=== PATIENT | female | born 1965 | race Caucasian/White ===

== ENCOUNTER 2023-06-20 13:17 | Outpatient (AMB) | payer OTHER, SELFPAY ==
--- NOTE | 2023-06-20 13:20 | MHC.OFFVIS ---
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 Accompanied by: Self / Same As Patient Allergies amoxicillin Allergy (Unknown, Verified 06/20/23 13:32) Swelling cephalexin Allergy (Unknown, Verified 06/20/23 13:32) Anaphylaxis gabapentin Allergy (Unknown, Verified 06/20/23 13:32) Agitated morphine Allergy (Unknown, Verified 06/20/23 13:32) Hives HPI chronic pain HPI Details Patient is a 58 years old female with prior history of morbid obesity, lumbar degenerative disc disease, arthritis, venous insufficiency, polyarthralgia and fibromyalgia, presents today with widespread body pain, including right hip and knee pain, back, leg, and multiple joint pain. Patient reports she has been previously managed at [facility] years ago and more recently in Pain Clinic in [place]. She is currently on [facility] contract for oxycontin 20 mg TID and oxycodone 10 mg 5x day. Patient reports she inadequate analgesia on her current opioid regime. I have informed patient that our office does not offer opioid prescribing at this time. She also reports recent shingles 3 weeks in her back radiating into her right lateral hip and was treated with Acyclovir. Patient also states she seeing Installation Engineer and might be undergoing cardiac stenting in the near future as she has failed her Nuclear Stress testing. Today we focused on patient's low back and right knee pain. Back pain is axial and does not radiate into her lower extremities. She has multiple tender fibromyalgia points of upper and lower extremities. Right knee pain in the anterior aspects with lateral tenderness. Patient reports right hip and knee pain increases during driving when she is pedaling back and forth. She has completed physical therapy and chiropractic adjustments previously which has aggravated and worsened her symptoms. Pain affects her daily activities, functioning, sleep, social activities, mood and quality of life. Patient reports back xrays and MRI was previously competed at [facility]. These reports are not available for review today. Patient denies any bladder or bowel incontinence or saddle anesthesia. Asymptomatic elevated BP readings today as above. Denies any headache, vision changes, chest pain or tightness, shortness of breaths, neck, jaw or arm pain, nausea, or dizziness. Patient attributes elevated BP due to pain. Mildly anxious. Location Whole body pain Duration Chronic pain syndrome for many years Characteristics of symptom or complaint Burning, aching, tingling, throbbing, pulsing, heavy, spreading, pulling Aggravating or associated factors Prolonged standing or walking, driving, stress, cold weather changes Relieving factors Heat therapy, oxycodone, oxycontin, methocarbamol Treatment Therapeutic injections- little improvement. PT- made pain worse [facility] Medical History (Updated 06/23/23 @ 15:01 by MILAGROS Bliss) Chronic lower back pain Fibromyalgia Hypertension COPD (chronic obstructive pulmonary disease) Anxiety Intraductal papilloma of breast Edema, lower extremity Barretts esophagus GERD (gastroesophageal reflux disease) Tubular adenoma Aortic root dilatation Vitamin D deficiency Obstructive sleep apnea Prediabetes Osteoarthritis of right knee Surgical History History of tonsillectomy History of cholecystectomy History of lumpectomy of right breast History of lumpectomy of left breast History of bladder suspension procedure Social History Alcohol intake: current Alcohol intake frequency: a few times a month Patient Tobacco Use Status: Never used Tobacco Review of Systems Const All systems reviewed & are unremarkable except as noted in HPI and below Physical Exam Vital Signs: Last Vital Signs BP 180/92 H 06/20/23 13:42 Pulse Ox 70 L 06/20/23 13:32 Oxygen Delivery Method Room Air 06/20/23 13:32 BMI result Body Mass Index 49.1 General: Appears afebrile. Morbidly obese. Alert and oriented. Mood and affect appropriate. Mildly anxious. Follows and participates in conversation appropriately. Respiratory effort is unlabored. No cough. Able to transition from sit to stand unassisted. Ambulates with bilaterally normal heel strike and toe off. Back/Spine/Pelvis Other: Multiple widespread TTPs 16/16 bilaterally, including upper and lower extremities. No groin pain with I/E hip rotations bilaterally. Lumbar flexion and extension reproduces moderate pain. Cervical Spine: cervical ROM normal, cervical muscular tenderness and No Cervical spine tenderness Thoracic/Lumbar Spine: thoracic and lumbar spine normal to inspection, No Thoracic/lumbar spine scar(s), Lasegue's sign negative, straight leg raise negative bilaterally, pain with thoraco-lumbar ROM, paraspinal muscle tenderness, thoraco-lumbar ROM limited, No thoracic spinal tenderness and lumbar spinal tenderness at L3, at L4 and at L5 Pelvis: buttock tenderness bilaterally and no sciatic notch tenderness Sacroiliac joints: bilaterally tender to palpation Extrem Right lower extremity: knee (Limited ROM due to pain.) Details: normal to inspection, tenderness Location: of the lateral joint line and crepitus; no swelling, no ecchymosis and no unusual warmth Assessment & Plan Assessment & Plan (1) Right knee pain: Code(s): M25.561 - Pain in right knee (2) Lumbar degenerative disc disease: Code(s): M51.36 - Other intervertebral disc degeneration, lumbar region (3) Lumbar spondylosis: Code(s): M47.816 - Spondylosis without myelopathy or radiculopathy, lumbar region (4) Chronic lower back pain: Code(s): M54.50 - Low back pain, unspecified; G89.29 - Other chronic pain (5) Fibromyalgia: Code(s): M79.7 - Fibromyalgia (6) Morbid obesity with BMI of 45.0-49.9, adult: Code(s): E66.01 - Morbid (severe) obesity due to excess calories; Z68.42 - Body mass index [BMI] 45.0-49.9, adult Plan 1. Lumbar spine imaging to assess degree of degenerative changes, any subluxation, listhesis or pars defects. Will also obtain imaging for right knee prior to interventional treatments. Discussed treatments for axial low back pain and right knee pain, including diagnostic injections for potential Sprint peripheral nerve stimulation trial, RFA or therapeutic injections. Informational pamphlets given. Patient is hesitant towards interventional treatments but would like to discuss it with her significant other first. 2. I have informed patient that our office does not offer opioid prescribing at this time. Briefly discussed Opioid-induced hyperalgesia and avoid increasing current opioid dosages. Encouraged weight loss,increased daily physical activity, aqua therapy, CBT therapy, sleep hygiene.Folllow up with PCP for persistent elevated BP readings, patient is aware to go to ER or call 911 if symptomatic. All questions and concerns have been answered. Follow up for xray results and sooner as needed. Orders: Orders XR lumbar spine 6V w bending 06/20/23 M47.816 - Spondylosis without myelopathy or radiculopathy, lumbar region, M51.36 - Other intervertebral disc degeneration, lumbar region XR knee RT 3V 06/20/23 M25.561 - Pain in right knee, M47.816 - Spondylosis without myelopathy or radiculopathy, lumbar region, M51.36 - Other intervertebral disc degeneration, lumbar region Coding Level of Care Code New Pt Level 4 (58412) Diagnoses Right knee pain M25.561 Lumbar degenerative disc disease M51.36 Lumbar spondylosis M47.816 Chronic lower back pain M54.50; G89.29 Fibromyalgia M79.7 Morbid obesity with BMI of 45.0-49.9, adult E66.01; Z68.42
[2023-06-20 13:32] VITALS: BP 197/110; O2SAT 70; BMI 49.1
[2023-06-20 13:33] VITALS: BP 223/107
[2023-06-20 13:42] VITALS: BP 180/92
== END 2023-06-20 14:07 | disposition home or self-care (01) ==
PROVIDERS: PCP Internal Medicine; Visit Provider Nurse Practitioner Family
DX: G89.29 Other chronic pain (principal); E66.01 Morbid (severe) obesity due to excess calories; Z68.42 Body mass index [BMI] 45.0-49.9, adult; M47.816 Spondylosis without myelopathy or radiculopathy, lumbar region; M25.561 Pain in right knee; M79.7 Fibromyalgia; M51.36 Other intervertebral disc degeneration, lumbar region
CPT/HCPCS: 99204

== ENCOUNTER 2023-06-20 13:17 | Outpatient (REF) | payer OTHER, SELFPAY ==
--- NOTE | ~2023-06-20 | XR_ITS ---
EXAMINATION: XR KNEE, RIGHT CLINICAL INFORMATION: Pain COMPARISON: None available. TECHNIQUE: Four views of the right knee. FINDINGS: No acute visible fracture or dislocation. Moderate multi joint arthritic changes. Moderate to severe narrowing of the medial femorotibial compartment. Moderate narrowing of the medial and lateral patellofemoral compartment. Periarticular osteophytes along the distal femoral condyle and tibial plateau. Nonspecific ossific focus versus loose body in the suprapatellar joint space measuring 10 mm. Periarticular osteophytes along the superior and inferior margins of the patella. Joint spaces and alignment are otherwise maintained. No large knee joint effusion. Soft tissues are unremarkable. XR/XR knee RT 3V IMPRESSION: 1. No acute visible fracture or dislocation. 2. Moderate multi joint arthritic changes. 3. Nonspecific ossific focus versus loose body in the suprapatellar joint space measuring 10 mm.
--- NOTE | ~2023-06-20 | XR_ITS ---
EXAMINATION: XR LUMBOSACRAL SPINE WITH OBLIQUES CLINICAL INFORMATION: Lower disc degeneration COMPARISON: None available. TECHNIQUE: 6 views of the lumbar spine FINDINGS: 5 nonrib-bearing lumbar-type vertebral bodies. Grade 1 retrolisthesis of L4 on L5. Grade 1 anterolisthesis of L5 on S1 without overt dynamic instability. Mild multilevel degenerative changes with disc space narrowing, osteophyte formation, and facet arthropathy. Vertebral body heights and disc spaces are otherwise maintained. Posterior elements are intact. Paraspinal soft tissues are unremarkable. Hernia mesh overlying the right mid abdomen. Bowel gas is unremarkable. XR/XR lumbar spine 6V w bending IMPRESSION: 1. No acute fracture or malalignment. 2. Mild multilevel degenerative changes.
== END 2023-06-20 13:18 | disposition home or self-care (01) ==
LOC: HO.XRAY 13:17
PROVIDERS: PCP Internal Medicine; Visit Provider Nurse Practitioner Family
DX: M51.36 Other intervertebral disc degeneration, lumbar region (principal); M47.816 Spondylosis without myelopathy or radiculopathy, lumbar region; E66.01 Morbid (severe) obesity due to excess calories; M25.561 Pain in right knee; G89.29 Other chronic pain; M79.7 Fibromyalgia; Z68.42 Body mass index [BMI] 45.0-49.9, adult
CPT/HCPCS: 72114; 73562

== ENCOUNTER 2023-07-29 14:55 | Outpatient (AMB) | payer OTHER, SELFPAY ==
[2023-07-29 15:07] VITALS: BMI 49.1
--- NOTE | 2023-07-29 15:07 | A.OFFVIS_ITS ---
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 She did undergo left total knee replacement surgery at [facility] several years ago. She reports minimal discomfort in her left knee. She describes her right knee pain as sharp and severe in nature, 07/08. Her right knee pain has gotten worse over the last few years in spite of continued non operative treatments. She has done physical therapy which aggravated her pain. She has also tried Tylenol, anti- inflammatory medicines and oxycodone which gave her only mild relief. She has had injections in the past which gave her no relief. The patient has difficulty walking even short distances because of her right knee pain. At this point her right knee pain is interfering with her activities of daily living and her ability to sleep well at night. Allergies amoxicillin Allergy (Unknown, Verified 07/29/23 15:11) Swelling cephalexin Allergy (Unknown, Verified 07/29/23 15:11) Anaphylaxis gabapentin Allergy (Unknown, Verified 07/29/23 15:11) Agitated morphine Allergy (Unknown, Verified 07/29/23 15:11) Hives nitrofurantoin [From Macrobid] Allergy (Verified 07/29/23 15:11) face swelling, difficulty breathing sulfamethoxazole [From Bactrim] Allergy (Verified 07/29/23 15:11) Swelling, rash trimethoprim [From Bactrim] Allergy (Verified 07/29/23 15:11) Swelling, rash Medication List - Last Reconciled 07/29/23 by Jasmin Arevalo RN amlodipine 5 mg PO DAILY aspirin (Adult Low Dose Aspirin) 81 mg PO DAILY carvedilol 12.5 mg PO BID cholecalciferol (vitamin D3) 50 mcg PO DAILY dexlansoprazole (Dexilant) 60 mg PO DAILY furosemide (Lasix) 20 mg PO DAILY ipratropium-albuterol 20-100 mcg/actuation (Combivent Respimat) 1 puff inhalation QID lorazepam 1 mg PO BID PRN methocarbamol 500 mg PO TID naloxone (LifEMS Naloxone) 2 mg IM Q2M PRN omeprazole 20 mg PO DAILY oxycodone 10 mg PO Q4H PRN oxycodone ER mg PO TID prochlorperazine maleate ER mg PO roflumilast (Daliresp) 500 mcg PO DAILY PFSH Medical History (Updated 07/17/23 @ 12:31 by MILAGROS Bliss) Chronic lower back pain Fibromyalgia Hypertension COPD (chronic obstructive pulmonary disease) Anxiety Intraductal papilloma of breast Edema, lower extremity Barretts esophagus GERD (gastroesophageal reflux disease) Tubular adenoma Aortic root dilatation Vitamin D deficiency Obstructive sleep apnea Prediabetes Osteoarthritis of right knee Surgical History (Updated 07/29/23 @ 15:16 by Isaura Fregoso [facility]) History of arthroscopy of right knee History of left knee replacement History of tonsillectomy History of cholecystectomy History of lumpectomy of right breast History of lumpectomy of left breast History of bladder suspension procedure Social History Alcohol intake: current Alcohol intake frequency: a few times a month Patient Tobacco Use Status: Never used Tobacco Physical Exam Vital Signs: BMI result Body Mass Index 49.1 Const Other: Well-nourished well-developed very friendly female awake alert and oriented x3 in no acute distress Extrem Other: Bilateral lower extremity examination shows good capillary refill, no skin lesions noted, normal sensation light touch Right knee examination shows a minimal effusion, palpable crepitus with range of motion, pain with range of motion, range of motion from -3 degrees to 115 degrees, no instability Results Reviewed Results Reviewed: X-rays of the patient's right knee show severe joint space narrowing with grade 4 [id number] arthritis, subchondral sclerosis, osteophyte formation, no acute bony abnormalities Assessment & Plan Assessment & Plan (1) Osteoarthritis of right knee: Code(s): M17.11 - Unilateral primary osteoarthritis, right knee Plan Ms. Pemberton presents with progressively worsening right knee pain due to end-stage degenerative joint disease. I had a lengthy discussion with the patient regarding the treatment options. At this point she has failed continued non operative treatments. The risks and benefits of right total knee replacement surgery were discussed at length with the patient. The patient wi shes to proceed with surgery. The patient will contact my office to pick a surgery date. I will see her back 1 week prior to her surgery to answer any final questions that she might have. The patient will follow-up as instructed. Feel free to call me at any time should questions regarding her orthopedic management arise. Thank you very much for asking me to see this very friendly patient. I spent 22 minutes in reviewing the patient's records and imaging studies, seeing the patient and documenting in the medical record. Coding Level of Care Code New Pt Level 2 (84047) Diagnoses Osteoarthritis of right knee M17.11
== END 2023-07-29 15:34 | disposition home or self-care (01) ==
PROVIDERS: PCP Internal Medicine; Visit Provider Orthopaedic Surgery
DX: M17.11 Unilateral primary osteoarthritis, right knee (principal)
CPT/HCPCS: 99202

== ENCOUNTER → 2023-07-29 14:55 | Outpatient (BNVA) | payer OTHER, SELFPAY | PROVIDERS: PCP Internal Medicine; Visit Provider Orthopaedic Surgery | DX: M17.11 Unilateral primary osteoarthritis, right knee (principal) | CPT/HCPCS: 99202 ==

== ENCOUNTER 2023-09-04 13:20 | Outpatient (AMB) | payer OTHER, SELFPAY ==
--- NOTE | 2023-09-04 13:29 | MHC.OFFVIS ---
Intake Vital Signs 09/04/23 13:57 Height 5 ft 4 in Weight 286 lb BMI 49.1 Intake Visit Reasons: ov- Right knee pain, Low back pain Intake Note: Nalini a 58 year old female presents today for a follow up of right knee. Patient reports TKA needed to be pushed back due cardiac stent procedure. Due to her pain she would like to proceed with a cortisone injection in the meantime. She describes her right knee pain as sharp in nature. Her pain has gotten worse over the last few years in spite of continued non operative treatments. The patient also has progressively worsening low back pain which radiates into both of her legs. Patient states that her back pain has been getting progressively worse for 10 years in spite of continued non operative treatments. She has done physical therapy for 12 weeks over the last 6 months which aggravated her pain. She has also tried Tylenol, anti-inflammatory medicines and oxycodone which gave her minimal relief. The patient reports weakness in both of her legs. She was told several years ago that she would likely need low back surgery at some point in the future. She has not had a recent lumbar spine MRI. Allergies amoxicillin Allergy (Unknown, Verified 09/04/23 13:44) Swelling cephalexin Allergy (Unknown, Verified 09/04/23 13:44) Anaphylaxis gabapentin Allergy (Unknown, Verified 09/04/23 13:44) Agitated morphine Allergy (Unknown, Verified 09/04/23 13:44) Hives nitrofurantoin [From Macrobid] Allergy (Verified 09/04/23 13:44) face swelling, difficulty breathing sulfamethoxazole [From Bactrim] Allergy (Verified 09/04/23 13:44) Swelling, rash trimethoprim [From Bactrim] Allergy (Verified 09/04/23 13:44) Swelling, rash Medication List - Last Reconciled 09/04/23 by Price Loco MD amlodipine 5 mg PO DAILY aspirin (Adult Low Dose Aspirin) 81 mg PO DAILY atenolol 100 mg PO DAILY cholecalciferol (vitamin D3) 50 mcg PO DAILY dexlansoprazole (Dexilant) 60 mg PO DAILY furosemide (Lasix) 20 mg PO DAILY ipratropium-albuterol 20-100 mcg/actuation (Combivent Respimat) 1 puff inhalation QID lorazepam 1 mg PO BID PRN methocarbamol 500 mg PO TID naloxone (LifEMS Naloxone) 2 mg IM Q2M PRN omeprazole 20 mg PO DAILY oxycodone 10 mg PO Q4H PRN oxycodone ER mg PO TID prochlorperazine maleate ER mg PO roflumilast (Daliresp) 500 mcg PO DAILY ticagrelor (Brilinta) 90 mg PO BID PFSH Medical History (Updated 09/04/23 @ 13:56 by Price Loco MD) Chronic lower back pain Fibromyalgia Hypertension COPD (chronic obstructive pulmonary disease) Anxiety Intraductal papilloma of breast Edema, lower extremity Barretts esophagus GERD (gastroesophageal reflux disease) Tubular adenoma Aortic root dilatation Vitamin D deficiency Obstructive sleep apnea Prediabetes Osteoarthritis of right knee Surgical History (Updated 07/29/23 @ 15:16 by NAHUN Ahmadi) History of arthroscopy of right knee History of left knee replacement History of tonsillectomy History of cholecystectomy History of lumpectomy of right breast History of lumpectomy of left breast History of bladder suspension procedure Social History Alcohol intake: current Alcohol intake frequency: a few times a month Patient Tobacco Use Status: Never used Tobacco Physical Exam Vital Signs: BMI result Body Mass Index 49.1 Const Other: Well-nourished well-developed very friendly female awake alert and oriented x3 in no acute distress Back/Spine/Pelvis Other: Low back examination shows bilateral paraspinal muscle tenderness, pain with range of motion, positive straight leg raise tests bilaterally at 70 degrees, 4/5 strength with testing of her bilateral hip flexors and knee extensors Office Procedures Joint Injection/Drain Joint Injection/Drain Primary Site: right knee Prep: site was prepped using aseptic technique Injected: 40 mg of, DepoMedrol and 1% plain lidocaine Procedure: The patient tolerated the procedure well Coding 90182 - Large joint Procedure code (CPT) selection complete Results Reviewed Results Reviewed: X-rays of the patient's lumbar spine show severe diffuse degenerative disc disease, no acute bony abnormalities X-rays of the patient's right knee show joint space narrowing, subchondral sclerosis, osteophyte formation Assessment & Plan Assessment & Plan (1) Low back pain due to bilateral sciatica: Code(s): M54.41 - Lumbago with sciatica, right side; M54.42 - Lumbago with sciatica, left side (2) Osteoarthritis of right knee: Code(s): M17.11 - Unilateral primary osteoarthritis, right knee (3) Low back pain due to bilateral sciatica: Code(s): M54.41 - Lumbago with sciatica, right side; M54.42 - Lumbago with sciatica, left side Plan Ms. Pemberton presents with progressively worsening right knee pain due to severe degenerative joint disease. I had a lengthy discussion with the patient regarding the treatment options. Because of her recent cardiac stent placement she cannot undergo surgery and help 6 months from now. Thus, the risks and benefits of a right knee cortisone injection were discussed at length with the patient. The patient wished to proceed. She tolerated the injection well. The patient also has progressively worsening low back pain which radiates into both of her legs most likely due to lumbar stenosis versus a possible disc herniation. Thus, I will send the patient for an MRI of her lumbar spine for further evaluation. I will contact her by phone once the MRI results are available. Feel free to call me at any time should questions regarding her orthopedic management arise. I spent 22 minutes in reviewing the patient's records and imaging studies, seeing the patient and documenting in the medical record. Orders: Orders AMB Joint Injection/Aspiration Today M17.11 - Unilateral primary osteoarthritis, right knee MR lumbar spine wo con Today M54.41 - Lumbago with sciatica, right side, M54.42 - Lumbago with sciatica, left side Coding Level of Care Code Est Pt Level 2 (70668) Diagnoses Low back pain due to bilateral sciatica M54.41; M54.42 Osteoarthritis of right knee M17.11 CPT Codes Coding - 07518 Large joint: 40048 - Large joint ([id number])
[2023-09-04 13:57] VITALS: BMI 49.1
== END 2023-09-04 13:58 | disposition home or self-care (01) ==
PROVIDERS: PCP Internal Medicine; Visit Provider Orthopaedic Surgery
DX: M54.41 Lumbago with sciatica, right side (principal); M54.42 Lumbago with sciatica, left side; M17.11 Unilateral primary osteoarthritis, right knee
CPT/HCPCS: 20610; 99213

== ENCOUNTER → 2023-09-04 13:20 | Outpatient (BNVA) | payer OTHER, SELFPAY | PROVIDERS: PCP Internal Medicine; Visit Provider Orthopaedic Surgery | DX: M17.11 Unilateral primary osteoarthritis, right knee (principal); M54.41 Lumbago with sciatica, right side; M54.42 Lumbago with sciatica, left side | CPT/HCPCS: 20610; 99212; J1020 ==

== ENCOUNTER 2023-12-04 13:05 | Outpatient (AMB) | payer OTHER, SELFPAY ==
[2023-12-04 13:08] VITALS: BMI 49.1
--- NOTE | 2023-12-04 13:08 | A.OFFVIS_ITS ---
Intake Vital Signs 12/04/23 13:08 Height 5 ft 4 in Weight 286 lb BMI 49.1 Intake Visit Reasons: ov- Right knee pain Intake Note: Nalini is a 58 year old female who presents for a follow up Right knee pain. Patient reports she had a Right knee injection on 09/04/2023 and it gave her good relief. She states she would like to repeat the Right knee injection. The patient also has progressively worsening low back pain. The patient states that at times both of her legs will go completely numb. She has difficulty walking when this happens. The patient recently had a cardiac catheterization. Allergies amoxicillin Allergy (Unknown, Verified 12/04/23 13:09) Swelling cephalexin Allergy (Unknown, Verified 12/04/23 13:09) Anaphylaxis gabapentin Allergy (Unknown, Verified 12/04/23 13:09) Agitated morphine Allergy (Unknown, Verified 12/04/23 13:09) Hives nitrofurantoin [From Macrobid] Allergy (Verified 12/04/23 13:09) face swelling, difficulty breathing sulfamethoxazole [From Bactrim] Allergy (Verified 12/04/23 13:09) Swelling, rash trimethoprim [From Bactrim] Allergy (Verified 12/04/23 13:09) Swelling, rash Medication List - Last Reconciled 12/04/23 by Price Loco MD amlodipine 5 mg PO DAILY aspirin (Adult Low Dose Aspirin) 81 mg PO DAILY atenolol 100 mg PO DAILY cholecalciferol (vitamin D3) 50 mcg PO DAILY dexlansoprazole (Dexilant) 60 mg PO DAILY furosemide (Lasix) 20 mg PO DAILY ipratropium-albuterol 20-100 mcg/actuation (Combivent Respimat) 1 puff inhalation QID lorazepam 1 mg PO BID PRN methocarbamol 500 mg PO TID naloxone (LifEMS Naloxone) 2 mg IM Q2M PRN omeprazole 20 mg PO DAILY oxycodone 10 mg PO Q4H PRN oxycodone ER mg PO TID prochlorperazine maleate ER mg PO roflumilast (Daliresp) 500 mcg PO DAILY ticagrelor (Brilinta) 90 mg PO BID PFSH Medical History Chronic lower back pain Fibromyalgia Hypertension COPD (chronic obstructive pulmonary disease) Anxiety Intraductal papilloma of breast Edema, lower extremity Barretts esophagus GERD (gastroesophageal reflux disease) Tubular adenoma Aortic root dilatation Vitamin D deficiency Obstructive sleep apnea Prediabetes Osteoarthritis of right knee Surgical History History of arthroscopy of right knee History of left knee replacement History of tonsillectomy History of cholecystectomy History of lumpectomy of right breast History of lumpectomy of left breast History of bladder suspension procedure Social History Alcohol intake: current Alcohol intake frequency: a few times a month Patient Tobacco Use Status: Never used Tobacco Physical Exam Vital Signs: BMI result Body Mass Index 49.1 Const Other: Well-nourished well-developed very friendly female awake alert and oriented x3 in no acute distress Extrem Other: Right knee examination shows a minimal effusion, palpable crepitus with range of motion, pain with range of motion, no instability Office Procedures Joint Injection/Drain Joint Injection/Drain Primary Site: right knee Prep: site was prepped using aseptic technique Injected: 40 mg of, DepoMedrol and 1% plain lidocaine Procedure: The patient tolerated the procedure well Coding 33660 - Large joint Procedure code (CPT) selection complete Results Reviewed Results Reviewed: X-rays of the patient's right knee show joint space narrowing, subchondral sclerosis, no acute bony abnormalities MRI of the patient's lumbar spine shows evidence of moderate lumbar stenosis, no acute bony abnormalities Assessment & Plan Assessment & Plan (1) Low back pain due to bilateral sciatica: Code(s): M54.41 - Lumbago with sciatica, right side; M54.42 - Lumbago with sciatica, left side (2) Osteoarthritis of right knee: Code(s): M17.11 - Unilateral primary osteoarthritis, right knee Plan Ms. Pemberton presents with right knee pain due to degenerative joint disease as well as low back pain and associated bilateral lower extremity numbness possibly due to lumbar stenosis. I had a lengthy discussion with the patient regarding the treatment options. The risks and benefits of a right knee cortisone injection were discussed at length with the patient. The patient wished to proceed. She tolerated the injection well. She will continue with her home exercise program. Will also arrange for her to be evaluated in our neurosurgery department here at [facility] for further recommendations regarding her lumbar stenosis. The patient will follow up with me in 3 months' time for repeat clinical examination. Feel free to call me at any time should questions regarding her orthopedic management arise. I spent 22 minutes in reviewing the patient's records and imaging studies, seeing the patient and documenting in the medical record. Orders: Orders AMB Joint Injection/Aspiration 12/04/23 M17.11 - Unilateral primary osteoarthritis, right knee Referrals Neurosurgery Referral M54.41 - Lumbago with sciatica, right side, M54.42 - Lumbago with sciatica, left side Coding Level of Care Code Est Pt Level 2 (18569) Diagnoses Low back pain due to bilateral sciatica M54.41; M54.42 Osteoarthritis of right knee M17.11 CPT Codes Coding - 16916 Large joint: 98413 - Large joint ([id number])
== END 2023-12-04 13:38 | disposition home or self-care (01) ==
PROVIDERS: PCP Internal Medicine; Visit Provider Orthopaedic Surgery
DX: M17.11 Unilateral primary osteoarthritis, right knee (principal); M54.41 Lumbago with sciatica, right side; M54.42 Lumbago with sciatica, left side
CPT/HCPCS: 20610; 99213

== ENCOUNTER → 2023-12-04 13:05 | Outpatient (BNVA) | payer OTHER, SELFPAY | PROVIDERS: PCP Internal Medicine; Visit Provider Orthopaedic Surgery | DX: M17.11 Unilateral primary osteoarthritis, right knee (principal); M54.41 Lumbago with sciatica, right side; M54.42 Lumbago with sciatica, left side | CPT/HCPCS: 20610; 99212; J1020 ==

== ENCOUNTER 2024-01-14 12:53 | Outpatient (AMB) | payer OTHER, SELFPAY ==
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
== END 2024-01-14 13:37 | disposition home or self-care (01) ==
PROVIDERS: PCP Internal Medicine; Referring Provider Orthopaedic Surgery; Visit Provider Neurological Surgery
DX: M54.50 Low back pain, unspecified (principal); G89.29 Other chronic pain; M51.36 Other intervertebral disc degeneration, lumbar region
CPT/HCPCS: 99204

== ENCOUNTER → 2024-01-14 12:53 | Outpatient (BNVA) | payer OTHER, SELFPAY | PROVIDERS: PCP Internal Medicine; Visit Provider Neurological Surgery | DX: M54.50 Low back pain, unspecified (principal); M51.36 Other intervertebral disc degeneration, lumbar region; G89.29 Other chronic pain | CPT/HCPCS: 99202 ==

== ENCOUNTER 2024-02-05 14:29 | Outpatient (AMB) | payer OTHER, SELFPAY ==
[2024-02-05 14:41] VITALS: BMI 49.1
--- NOTE | 2024-02-05 14:41 | MHC.OFFVIS ---
Vital Signs 02/05/24 14:41 Height 5 ft 4 in Weight 286 lb BMI 49.1 Intake Visit Reasons: ov- Right knee pain-follow up Intake Note: Nalini briggs 58 year old female presents with complaints of progressively worsening right knee pain. She did undergo left total knee replacement surgery at [facility] several years ago. She reports minimal discomfort in her left knee. She describes her right knee pain as sharp and severe in nature, 10/10. Her right knee pain has gotten worse over the last few years in spite of continued non operative treatments. She has done physical therapy which aggravated her pain. She has also tried Tylenol, anti-inflammatory medicines and oxycodone which gave her only mild relief. She has had injections in the past which gave her no relief. The patient has difficulty walking even short distances because of her right knee pain. At this point her right knee pain is interfering with her activities of daily living and her ability to sleep well at night. Allergies amoxicillin Allergy (Unknown, Verified 02/05/24 14:51) Swelling cephalexin Allergy (Unknown, Verified 02/05/24 14:51) Anaphylaxis gabapentin Allergy (Unknown, Verified 02/05/24 14:51) Agitated morphine Allergy (Unknown, Verified 02/05/24 14:51) Hives nitrofurantoin [From Macrobid] Allergy (Verified 02/05/24 14:51) face swelling, difficulty breathing sulfamethoxazole [From Bactrim] Allergy (Verified 02/05/24 14:51) Swelling, rash trimethoprim [From Bactrim] Allergy (Verified 02/05/24 14:51) Swelling, rash Medication List - Last Reconciled 02/06/24 by Price Loco MD amlodipine 5 mg PO DAILY aspirin (Adult Low Dose Aspirin) 81 mg PO DAILY atenolol 100 mg PO DAILY cholecalciferol (vitamin D3) 50 mcg PO DAILY dexlansoprazole (Dexilant) 60 mg PO DAILY furosemide (Lasix) 20 mg PO DAILY ipratropium-albuterol 20-100 mcg/actuation (Combivent Respimat) 1 puff inhalation QID lorazepam 1 mg PO BID PRN methocarbamol 500 mg PO TID naloxone (LifEMS Naloxone) 2 mg IM Q2M PRN omeprazole 20 mg PO DAILY oxycodone 10 mg PO Q4H PRN oxycodone ER mg PO TID prochlorperazine maleate ER mg PO roflumilast (Daliresp) 500 mcg PO DAILY ticagrelor (Brilinta) 90 mg PO BID PFSH Medical History Chronic lower back pain Fibromyalgia Hypertension COPD (chronic obstructive pulmonary disease) Anxiety Intraductal papilloma of breast Edema, lower extremity Barretts esophagus GERD (gastroesophageal reflux disease) Tubular adenoma Aortic root dilatation Vitamin D deficiency Obstructive sleep apnea Prediabetes Osteoarthritis of right knee Surgical History History of arthroscopy of right knee History of left knee replacement History of tonsillectomy History of cholecystectomy History of lumpectomy of right breast History of lumpectomy of left breast History of bladder suspension procedure Social History Alcohol intake: current Alcohol intake frequency: a few times a month Patient Tobacco Use Status: Never used Tobacco Physical Exam Vital Signs: BMI result Body Mass Index 49.1 Const Other: Well-nourished well-developed very friendly female awake alert and oriented x3 in no acute distress Extrem Other: Bilateral lower extremity examination shows good capillary refill, no skin lesions noted, normal sensation light touch Right knee examination shows a minimal effusion, palpable crepitus with range of motion, pain with range of motion, range of motion from -3 degrees to 115 degrees, no instability Results Reviewed Results Reviewed: X-rays of the patient's right knee show end-stage degenerative joint disease with grade 4 [id number] arthritis, subchondral sclerosis, osteophyte formation, no acute bony abnormalities Assessment & Plan Assessment & Plan (1) Osteoarthritis of right knee: Code(s): M17.11 - Unilateral primary osteoarthritis, right knee Category: Medical Plan Ms. Pemberton presents with progressively worsening right knee pain due to end-stage degenerative joint disease. I had a lengthy discussion with the patient regarding the treatment options. At this point she has failed continued non operative treatments. The risks and benefits of right total knee replacement surgery were discussed at length with the patient. The patient wishes to proceed with surgery. She has done well following her left total knee replacement surgery. I will arrange for her to have a preoperative evaluation by her pre school manager. I will see the patient back 1 week prior to her surgery to answer any final questions that she might have. Feel free to call me at any time should questions regarding her orthopedic management arise. I spent 20 minutes in reviewing the patient's records and imaging studies, seeing the patient and documenting in the medical record. Coding Level of Care Code Est Pt Level 3 (63687) Diagnoses Osteoarthritis of right knee M17.11
== END 2024-02-05 15:13 | disposition home or self-care (01) ==
PROVIDERS: PCP Internal Medicine; Visit Provider Orthopaedic Surgery
DX: M17.11 Unilateral primary osteoarthritis, right knee (principal)
CPT/HCPCS: 99213

== ENCOUNTER → 2024-02-05 14:29 | Outpatient (BNVA) | payer OTHER, SELFPAY | PROVIDERS: PCP Internal Medicine; Visit Provider Orthopaedic Surgery | DX: M17.11 Unilateral primary osteoarthritis, right knee (principal) | CPT/HCPCS: 99212 ==

== ENCOUNTER → 2024-03-09 12:50 | Outpatient (BNVA) | payer OTHER, SELFPAY | PROVIDERS: PCP Internal Medicine | DX: Z01.818 Encounter for other preprocedural examination (principal) ==

== ENCOUNTER 2024-04-08 12:53 | Outpatient (AMB) | payer OTHER, SELFPAY ==
--- NOTE | 2024-04-08 12:57 | MHC.OFFVIS ---
Intake Visit Reasons: R TKA w/ 04/12/24 Intake Note: Nalini a 58 year old female presents with complaints of progressively worsening right knee pain. She did undergo left total knee replacement surgery at [facility] several years ago. She reports minimal discomfort in her left knee. She describes her right knee pain as sharp and severe in nature, 10/10. Her right knee pain has gotten worse over the last few years in spite of continued non operative treatments. She has done physical therapy which aggravated her pain. She has also tried Tylenol, anti-inflammatory medicines and oxycodone which gave her only mild relief. She has had injections in the past which gave her no relief. The patient has difficulty walking even short distances because of her right knee pain. At this point her right knee pain is interfering with her activities of daily living and her ability to sleep well at night. Allergies amoxicillin Allergy (Unknown, Verified 04/08/24 12:57) Swelling cephalexin Allergy (Unknown, Verified 04/08/24 12:57) Anaphylaxis gabapentin Allergy (Unknown, Verified 04/08/24 12:57) Agitated morphine Allergy (Unknown, Verified 04/08/24 12:57) Hives nitrofurantoin [From Macrobid] Allergy (Verified 04/08/24 12:57) face swelling, difficulty breathing Sulfa (Sulfonamide Antibiotics) Allergy (Verified 04/08/24 12:57) Shortness of Breath sulfamethoxazole [From Bactrim] Allergy (Verified 04/08/24 12:57) Swelling, rash trimethoprim [From Bactrim] Allergy (Verified 04/08/24 12:57) Swelling, rash Medication List - Last Reconciled 04/08/24 by Price Loco MD albuterol sulfate 90 mcg/actuation 2 puffs inhalation Q4-6H PRN amlodipine 5 mg PO DAILY aspirin (Adult Low Dose Aspirin) 81 mg PO BEDTIME atenolol 100 mg PO BEDTIME cholecalciferol (vitamin D3) 50 mcg PO BEDTIME dexlansoprazole (Dexilant) 60 mg PO BEDTIME fluticasone propionate 50 mcg/actuation 1 spray intranasal BID PRN ipratropium-albuterol 20-100 mcg/actuation (Combivent Respimat) 1 puff inhalation BID PRN lorazepam 1 mg PO BID methocarbamol 500 mg PO TID naloxone (LifEMS Naloxone) 2 mg IM Q2M PRN nitroglycerin 0.4 mg sublingual DIRECTED PRN omeprazole 20 mg PO BEDTIME oxycodone 10 mg PO 5XD PRN oxycodone ER (OxyContin) 20 mg PO TID prochlorperazine maleate ER 10 mg PO Q6-8H PRN roflumilast (Daliresp) 500 mcg PO BEDTIME rosuvastatin 40 mg PO BEDTIME ticagrelor (Brilinta) 90 mg PO BID walker Folding front wheeled walker FOR[facility], 1928–1983 Medical History Habitual snoring Sleep apnea History of placement of stent in LAD coronary artery Back pain Hyperlipidemia Chronic interstitial cystitis Morbid obesity Dyspnea on exertion Chest pain on exertion Lumbar disc disease Chronic lower back pain Fibromyalgia Hypertension COPD (chronic obstructive pulmonary disease) Anxiety Intraductal papilloma of breast Edema, lower extremity Barretts esophagus GERD (gastroesophageal reflux disease) Tubular adenoma Aortic root dilatation Vitamin D deficiency Obstructive sleep apnea Prediabetes Osteoarthritis of right knee Surgical History Hx of hernia repair History of carpal tunnel surgery of right wrist Hx of total hysterectomy History of partial colectomy Hx of section History of appendectomy H/O colonoscopy History of esophagogastroduodenoscopy (EGD) Hx of cardiac catheterization History of arthroscopy of right knee History of left knee replacement History of tonsillectomy History of cholecystectomy History of lumpectomy of right breast History of lumpectomy of left breast History of bladder suspension procedure Social History Are you a primary patient care specialist to a significant other at home: No Do you presently have visiting nurse or other home services: Yes (housekeeping) Alcohol intake: current Alcohol intake frequency: holidays/special occasions only Patient Tobacco Use Status: Never used Tobacco Physical Exam Const Other: Well-nourished well-developed very friendly female awake alert and oriented x3 in no acute distress Extrem Other: Bilateral lower extremity examination shows good capillary refill, no skin lesions noted, normal sensation light touch Right knee examination shows a minimal effusion, palpable crepitus with range of motion, pain with range of motion, range of motion from -3 degrees to 115 degrees, no instability Results Reviewed Results Reviewed: X-rays of the patient's right knee show end-stage degenerative joint disease with grade 4 [id number] arthritis, subchondral sclerosis, osteophyte formation, no acute bony abnormalities Assessment & Plan Assessment & Plan (1) Osteoarthritis of right knee: Code(s): M17.11 - Unilateral primary osteoarthritis, right knee Category: Medical Plan Ms. Pemberton presents with progressively worsening right knee pain due to end-stage degenerative joint disease. I had a lengthy discussion with the patient regarding the treatment options. At this point she has failed continued non operative treatments. The risks and benefits of right total knee replacement surgery were discussed at length with the patient. The patient wishes to proceed with surgery. director human services will be consulted following her surgery for home physical therapy and nursing. The patient will follow-up as instructed. Feel free to call me at any time should questions regarding her orthopedic management arise. I spent 22 minutes in reviewing the patient's records and imaging studies, seeing the patient and documenting in the medical record. Coding Level of Care Code Est Pt Level 3 (68250) Diagnoses Osteoarthritis of right knee M17.11
== END 2024-04-08 13:18 | disposition home or self-care (01) ==
PROVIDERS: PCP Internal Medicine; Visit Provider Orthopaedic Surgery
DX: M17.11 Unilateral primary osteoarthritis, right knee (principal)
CPT/HCPCS: 99214

== ENCOUNTER → 2024-04-08 12:53 | Outpatient (BNVA) | payer OTHER, SELFPAY | PROVIDERS: PCP Internal Medicine; Visit Provider Orthopaedic Surgery | DX: M17.11 Unilateral primary osteoarthritis, right knee (principal) | CPT/HCPCS: 99212 ==

== ENCOUNTER 2024-04-12 08:22 | Inpatient (IN) | payer OTHER, SELFPAY ==
[2024-04-02 12:10] VITALS: BP 141/64; PULSE 69; RESP 18; O2SAT 98; BMI 48.9
[2024-04-02 14:47] LABS: MRSA Nasal PCR NEGATIVE (Negative); SA Nasal PCR POSITIVE (Negative)
--- NOTE | 2024-04-09 08:36 | P.CONAN_ITS ---
Documented by User: Ailin Choudhary NP 04/09/24 08:37 HPI - Anesthesia Eval Consult details Narrative: 58yo F for Right Knee Replacement Total PAT 04/02/[address] Kristie PLAZA Active Problems Active Problems: All Active Problems Low back pain due to bilateral sciatica (Acute) Morbid obesity with BMI of 45.0-49.9, adult (Acute) Lumbar spondylosis (Acute) Lumbar degenerative disc disease (Acute) Right knee pain (Acute) Osteoarthritis of right knee (Acute) Chronic lower back pain (Acute) Fibromyalgia (Acute) Past Medical History Medical History Habitual snoring Sleep apnea History of placement of stent in LAD coronary artery Back pain Hyperlipidemia Chronic interstitial cystitis Morbid obesity Dyspnea on exertion Chest pain on exertion Lumbar disc disease Chronic lower back pain Fibromyalgia Hypertension COPD (chronic obstructive pulmonary disease) Anxiety Intraductal papilloma of breast Edema, lower extremity Barretts esophagus GERD (gastroesophageal reflux disease) Tubular adenoma Aortic root dilatation Vitamin D deficiency Obstructive sleep apnea Prediabetes Osteoarthritis of right knee Surgical History Surgical History Hx of hernia repair History of carpal tunnel surgery of right wrist Hx of total hysterectomy History of partial colectomy Hx of section History of appendectomy H/O colonoscopy History of esophagogastroduodenoscopy (EGD) Hx of cardiac catheterization History of arthroscopy of right knee History of left knee replacement History of tonsillectomy History of cholecystectomy History of lumpectomy of right breast History of lumpectomy of left breast History of bladder suspension procedure Social History Social History Are you a primary career resource specialist to a significant other at home: No Do you presently have visiting nurse or other home services: Yes (housekeeping) Alcohol intake: current Alcohol intake frequency: holidays/special occasions only Patient Tobacco Use Status: Never used Tobacco Use of substances other than those prescribed or required for medical reasons: No Have you been hit, kicked, punched, or otherwise hurt by someone within the past year? If so, by whom?: No Are you DNR?: No Advance Directives: No Advance Directives Information Provided: No Advance Directives on File: No Recently lost weight without trying: No Eating poorly because of decreased appetite: No Nutrition Risks: No Nutritional Risk Patient : No : No Poor oral hygiene: No Meds Allergies Allergy/AdvReac Type Severity Reaction Status Date / Time amoxicillin Allergy Unknown Swelling Verified 04/08/24 12:57 cephalexin Allergy Unknown Anaphylaxis Verified 04/08/24 12:57 gabapentin Allergy Unknown Agitated Verified 04/08/24 12:57 morphine Allergy Unknown Hives Verified 04/08/24 12:57 nitrofurantoin Allergy face Verified 04/08/24 12:57 [From Macrobid] swelling, difficulty breathing Sulfa (Sulfonamide Allergy Shortness Verified 04/08/24 12:57 Antibiotics) of Breath sulfamethoxazole Allergy Swelling, Verified 04/08/24 12:57 [From Bactrim] rash trimethoprim [From Bactrim] Allergy Swelling, Verified 04/08/24 12:57 rash Active Medications: Current Medications Clindamycin Phosphate (Cleocin) 900 mg in 50 mls @ 50 mls/hr IV PREOP ONE Stop: 04/12/24 06:00 Home Medications ?Medication ?Instructions ?Recorded ?Confirmed ?Last Taken ?Type aspirin 81 mg tablet,delayed 81 mg PO BEDTIME 06/20/23 04/08/24 Unknown History release (Adult Low Dose Aspirin) cholecalciferol (vitamin D3) 50 50 mcg PO BEDTIME 06/20/23 04/08/24 Unknown History mcg (2,000 unit) capsule ipratropium 20 mcg-albuterol 100 1 puff inhalation BID PRN 06/20/23 04/08/24 Unknown History mcg/actuation mist for inhalation Shortness Of Breath (Combivent Respimat) lorazepam 1 mg tablet 1 mg PO BID Anxiety 06/20/23 04/08/24 Unknown History methocarbamol 500 mg tablet 500 mg PO TID 06/20/23 04/08/24 Unknown History naloxone 2 mg/2 mL syringe kit 2 mg IM Q2M PRN Opiate Reversal 06/20/23 04/08/24 Unknown History ([facility] Naloxone) omeprazole 20 mg capsule,delayed 20 mg PO BEDTIME 06/20/23 04/08/24 Unknown History release oxycodone 10 mg tablet 10 mg PO 5XD PRN Pain 06/20/23 04/08/24 Unknown History prochlorperazine maleate 10 mg 10 mg PO Q6-8H PRN Nausea 06/20/23 04/08/24 Unknown History capsule,extended release roflumilast 500 mcg tablet 500 mcg PO BEDTIME 06/20/23 04/08/24 Unknown History (Daliresp) amlodipine 5 mg tablet 5 mg PO DAILY 07/29/23 04/08/24 Unknown History atenolol 100 mg tablet 100 mg PO BEDTIME 09/04/23 04/08/24 Unknown History ticagrelor 90 mg tablet (Brilinta) 90 mg PO BID 09/04/23 04/08/24 Unknown History albuterol sulfate 90 mcg/actuation 2 puff inhalation Q4-6H PRN 04/02/24 04/08/24 Unknown History aerosol inhaler Shortness Of Breath Or Wheezing dexlansoprazole 60 mg 60 mg PO BEDTIME 04/02/24 04/08/24 Unknown History capsule,biphase delayed release (Dexilant) fluticasone propionate 50 1 spray intranasal BID PRN 04/02/24 04/08/24 Unknown History mcg/actuation nasal Allergic Symptoms spray,suspension nitroglycerin 0.4 mg sublingual 0.4 mg sublingual DIRECTED PRN 04/02/24 04/08/24 Unknown History tablet Chest Pain oxycodone 20 mg tablet,crush 20 mg PO TID 04/02/24 04/08/24 Unknown History resistant,extended release 12 hr (OxyContin) rosuvastatin 40 mg tablet 40 mg PO BEDTIME 04/02/24 04/08/24 Unknown History Exam Height,Weight and Vital Signs: Height 5 ft 4 in Weight 129.274 kg Last Vital Signs Pulse 69 04/02/24 12:10 Resp 18 04/02/24 12:10 BP 141/64 H 04/02/24 12:10 Pulse Ox 98 04/02/24 12:10 O2 Del Method Room Air 04/02/24 12:10 Pertinent Lab Results Pertinent Lab Results: Laboratory Tests 04/02/24 04/02/24 12:30 12:56 Nasal Screen MRSA (PCR) NEGATIVE Nasal S. aureus Screen POSITIVE A Nasal MRSA/S.aureus Interp SEE NOTE Blood Type O Positive Antibody Screen NEGATIVE Assessment and Plan Assessment Anesthesia Assessment: Chart Reviewed Documented by User: Gloria Siddiqui MD 04/12/24 12:38 PMF Past Medical History Medical History Habitual snoring Sleep apnea History of placement of stent in LAD coronary artery Back pain Hyperlipidemia Chronic interstitial cystitis Morbid obesity Dyspnea on exertion Chest pain on exertion Lumbar disc disease Chronic lower back pain Fibromyalgia Hypertension COPD (chronic obstructive pulmonary disease) Anxiety Intraductal papilloma of breast Edema, lower extremity Barretts esophagus GERD (gastroesophageal reflux disease) Tubular adenoma Aortic root dilatation Vitamin D deficiency Obstructive sleep apnea Prediabetes Osteoarthritis of right knee Family History Family history of problems with anesthesia: No Surgical History Surgical History Hx of hernia repair History of carpal tunnel surgery of right wrist Hx of total hysterectomy History of partial colectomy Hx of section History of appendectomy H/O colonoscopy History of esophagogastroduodenoscopy (EGD) Hx of cardiac catheterization History of arthroscopy of right knee History of left knee replacement History of tonsillectomy History of cholecystectomy History of lumpectomy of right breast History of lumpectomy of left breast History of bladder suspension procedure History of Problems with Anesthesia: No Social History Social History Are you a primary career resource specialist to a significant other at home: No Do you presently have visiting nurse or other home services: Yes (housekeeping) Alcohol intake: current Alcohol intake frequency: holidays/special occasions only Patient Tobacco Use Status: Never used Tobacco Use of substances other than those prescribed or required for medical reasons: No Have you been hit, kicked, punched, or otherwise hurt by someone within the past year? If so, by whom?: No Are you DNR?: No Advance Directives: No Advance Directives Information Provided: No Advance Directives on File: No Recently lost weight without trying: No Eating poorly because of decreased appetite: No Nutrition Risks: No Nutritional Risk Patient : No : No Poor oral hygiene: No Meds Allergies Allergy/AdvReac Type Severity Reaction Status Date / Time amoxicillin Allergy Unknown Swelling Verified 04/08/24 12:57 cephalexin Allergy Unknown Anaphylaxis Verified 04/08/24 12:57 gabapentin Allergy Unknown Agitated Verified 04/08/24 12:57 morphine Allergy Unknown Hives Verified 04/08/24 12:57 nitrofurantoin Allergy face Verified 04/08/24 12:57 [From Macrobid] swelling, difficulty breathing Sulfa (Sulfonamide Allergy Shortness Verified 04/08/24 12:57 Antibiotics) of Breath sulfamethoxazole Allergy Swelling, Verified 04/08/24 12:57 [From Bactrim] rash trimethoprim [From Bactrim] Allergy Swelling, Verified 04/08/24 12:57 rash Home Medications ?Medication ?Instructions ?Recorded ?Confirmed ?Last Taken ?Type aspirin 81 mg tablet,delayed 81 mg PO BEDTIME 06/20/23 04/08/24 Unknown History release (Adult Low Dose Aspirin) cholecalciferol (vitamin D3) 50 50 mcg PO BEDTIME 06/20/23 04/08/24 Unknown History mcg (2,000 unit) capsule ipratropium 20 mcg-albuterol 100 1 puff inhalation BID PRN 06/20/23 04/08/24 Unknown History mcg/actuation mist for inhalation Shortness Of Breath (Combivent Respimat) lorazepam 1 mg tablet 1 mg PO BID Anxiety 06/20/23 04/08/24 Unknown History methocarbamol 500 mg tablet 500 mg PO TID 06/20/23 04/08/24 Unknown History naloxone 2 mg/2 mL syringe kit 2 mg IM Q2M PRN Opiate Reversal 06/20/23 04/08/24 Unknown History ([facility] Naloxone) omeprazole 20 mg capsule,delayed 20 mg PO BEDTIME 06/20/23 04/08/24 Unknown History release oxycodone 10 mg tablet 10 mg PO 5XD PRN Pain 06/20/23 04/08/24 Unknown History prochlorperazine maleate 10 mg 10 mg PO Q6-8H PRN Nausea 06/20/23 04/08/24 Unknown History capsule,extended release roflumilast 500 mcg tablet 500 mcg PO BEDTIME 06/20/23 04/08/24 Unknown History (Daliresp) amlodipine 5 mg tablet 5 mg PO DAILY 07/29/23 04/08/24 Unknown History atenolol 100 mg tablet 100 mg PO BEDTIME 09/04/23 04/08/24 Unknown History ticagrelor 90 mg tablet (Brilinta) 90 mg PO BID 09/04/23 04/08/24 Unknown History albuterol sulfate 90 mcg/actuation 2 puff inhalation Q4-6H PRN 04/02/24 04/08/24 Unknown History aerosol inhaler Shortness Of Breath Or Wheezing dexlansoprazole 60 mg 60 mg PO BEDTIME 04/02/24 04/08/24 Unknown History capsule,biphase delayed release (Dexilant) fluticasone propionate 50 1 spray intranasal BID PRN 04/02/24 04/08/24 Unknown History mcg/actuation nasal Allergic Symptoms spray,suspension nitroglycerin 0.4 mg sublingual 0.4 mg sublingual DIRECTED PRN 04/02/24 04/08/24 Unknown History tablet Chest Pain oxycodone 20 mg tablet,crush 20 mg PO TID 04/02/24 04/08/24 Unknown History resistant,extended release 12 hr (OxyContin) rosuvastatin 40 mg tablet 40 mg PO BEDTIME 04/02/24 04/08/24 Unknown History Exam Airway Mallampati Class: III TM Dist: <=3cm Neck ROM: Limited Loose/Missing/Broken Teeth: Yes and Lower (right) Heart: rrr Lungs: cta Assessment and Plan Assessment Anesthesia Assessment: Anesthesia Plan Discussed Final Anesthetic Review Family History of Problems with Anesthesia: No History of Problems with Anesthesia: No NPO: Yes ASA Class: III Final Preanesthetic Review: No Changes in Pt Med Stat, Meds/Allgs Chart Reviewed, Consent Obtained/Reviewed and Anes Risks/Benef Reviewed Patient Risk: Intermediate Procedure Risk: Intermediate Anesthetic Plan Anesthetic Plan: GA and Regional Block Disposition: Standard PACU
[2024-04-12] VITALS (14 sets, daily range): BP systolic 130–172; BP diastolic 69–91; PULSE 69–88; RESP 14–16; TEMP 36.3–36.7; O2SAT 95–98; BMI 48.9
[2024-04-12] MEDS: Lactated Ringers 1,000 ML 100 ML IVCONT ×2 (09:17→15:51)
--- NOTE | 2024-04-12 10:50 | PC.NURSE ---
24hr update documented on paper
--- NOTE | 2024-04-12 14:11 | PM.OP ---
Brief Operative Note Date of Service: 04/12/24 Pre-op diagnosis: Right knee degenerative joint disease Post-op diagnosis: same Procedure: Right total knee arthroplasty Implants: Benjamin Triathlon cemented posterior stabilized total knee arthroplasty with a femoral component size 5 right, universal tibial component size 5, tibial stem size 12 mm in diameter by 50 mm in length, polyethylene liner size 5 with 9 mm of thickness, an asymmetric patellar component size 32 with 10 mm of thickness Surgeon: Price Loco MD Anesthesia: GETA and regional Was an Structural Analyst used for this Procedure?: No Structural Analyst: Lynette Montero Estimated blood loss (mL): 250 Pathology: other (Bony fragments from the right femur, tibia and patella) Condition: stable Disposition: PACU
--- NOTE | 2024-04-12 14:12 | W.PM.OPN ---
Operative Note Operative Note Date of Service: 04/12/24 Narrative: After the patient was identified as Nalini Pemberton and her right knee was initialed by myself the patient was brought to the holding area where a right leg nerve block was performed by the anesthesiologist in routine fashion. The patient was then brought to the operating room where general anesthesia was induced by the anesthesiologist in routine fashion. Because of the patient's allergy to penicillins she was given 900 mg of IV clindamycin preoperatively for infection prophylaxis. The patient's right lower extremity was prepped and draped in sterile fashion. A formal time-out was completed. The patient's right knee was placed onto a small bump to produce 30? of knee flexion during exposure. A #10 scalpel blade was used to make a midline incision extending 1 handbreadth proximal and distal to the patella. A second #10 scalpel blade was used to dissect the subcutaneous tissues down to the extensor mechanism. The subcutaneous flaps were maintained as thick as possible. A medial parapatellar arthrotomy was then performed using a #10 scalpel blade. The arthrotomy was begun just medial to the patellar tendon. The arthrotomy was continued 1 cm medial to the patella and then 5 mm into the medial aspect of the quadriceps tendon. The infrapatellar fat pad was partially excised to help with exposure. The soft tissue retinaculum was raised one-half of the way around the medial aspect of the proximal tibia. The patella was everted and the knee was flexed to 90?. There was no injury to the patellar tendon or its insertion onto the tibial tubercle. A drill bit was introduced into the distal aspect of the femur with a starting point 1 cm anterior to the origin of the posterior cruciate ligament. The intramedullary alignment carolyn was put into place. The distal alignment guide was set for a 5 degree valgus cut. The distal cutting block was put into place and was held with 4 pins. The intramedullary alignment carolyn was removed. Soft tissues were retracted in the distal femoral cut was made using a sagittal saw. The distal aspect of the femur measured to be a size 5 right component. Two drill holes were placed into the distal aspect of the femur marking 3? of external rotation. The distal cutting block was impacted into place and was held with 2 pins. Soft tissues were retracted and the 4 distal femoral cuts were made using a sagittal saw. Final notching and drilling of the distal aspect of the femur were performed in routine fashion. The trial femoral component was impacted into place. The knee was taken through a full range of motion. The patella tracked well. The patella was everted and the knee was flexed to 90?. The trial component was removed and our attention was directed to the proximal tibia. The medial and lateral menisci were removed using a #10 scalpel blade. A small rim of the medial meniscus was left intact to help prevent injury to the medial collateral ligament. A drill bit was then introduced into the proximal tibia with a starting point midway from medial to lateral and one-third of the way posteriorly. The intramedullary alignment carolyn was put into place. The proximal tibial cutting guide was placed over the alignment carolyn in line with the 2nd toe. The guide was held in place using 3 pins. The intramedullary alignment carolyn was removed. Soft tissues were retracted and the proximal tibial cut was made using a sagittal saw. Inspection of the proximal tibia showed a cyst in the medial tibial plateau measuring 5 mm x 5 mm x 10 mm. Because of the presence of the cyst and the patient's obesity the decision was made to use a tibial stem to help prevent loosening of the tibial component in the future. The proximal tibia measured to be a size 5 component. The tibial tray was put into place with a 9 mm liner. The femoral component was impacted into place. The knee was taken through a full range of motion. There was full flexion and full extension. There was no instability with varus or valgus stress testing with the knee in flexion or extension. The patella tracked well with no medially directed force. The rotation of the tibial tray was marked using electrocautery with the knee in extension. The patella was everted and the knee was flexed to 90?. All trial components were removed. The tibial tray was placed onto the proximal tibia in line with the electrocautery omkar. The tray was held in place using 3 pins. Final broaching and drilling of the proximal tibia were performed in routine fashion. The trial liner and trial femoral component were put into place. The knee was brought into extension and our attention was directed to the patella. The patella measured 25 mm in thickness. The patellar resection guide was set for a 10 mm resection. Soft tissues were retracted and the patella cut was made using a sagittal saw. The remaining patella measured 15 mm in thickness. The undersurface of the patella was measured to be a size 32 asymmetric component. Three drill holes were placed into the undersurface of the patella in routine fashion. The trial component was put into place. The knee was taken through a full range of motion. The patella tracked well. The patella was everted and the knee was flexed to 90?. All trial components were removed. The knee was once again brought into extension and placed onto a small bump. The knee joint was irrigated with copious amounts of normal saline solution via pulse lavage while the cement was mixed. The patella was everted and the knee was flexed to 90?. A small amount of cement was placed along the posterior aspects of the tibial and femoral components. Cement was then pressurized into the proximal tibia. The tibial component was impacted into place. Any excess cement was removed. The polyethylene liner was then impacted into place. Cement was then pressurized into the distal aspect of the femur. A small amount of cement was placed into the intramedullary canal to help reduce bleeding. The femoral component was impacted into place. Any excess cement was removed. The knee was then brought into extension. Cement was pressurized into the undersurface of the patella. The patellar component was put into place and was held with a patella clamp. Any excess cement was removed. Once the cement had hardened the patellar clamp was removed. The knee was taken through a full range of motion. There was full flexion and extension. There was no instability with varus or valgus stress testing with the knee in flexion or extension. The patella tracked well with no medially directed force. The knee joint was irrigated with copious amounts of normal saline solution via pulse lavage. Any significant bleeding vessels were coagulated. The patient's right knee was placed onto a small bump. The arthrotomy was closed with #2 Ethibond [id number] interrupted suture as well as #1 Vicryl [id number] interrupted suture. The wound was once again irrigated. The subcutaneous tissues were closed with 0 Vicryl and 2-0 Vicryl interrupted sutures. The skin was closed with skin carol. Dry sterile dressing and Roque bandages were placed over the patient's right knee. The patient was awoken and extubated in the operating room. The patient was transferred to the recovery room in stable condition.
[2024-04-12] MEDS: HYDROmorphone HCl 0.5 MG/0.5 ML SYRINGE 0.25 MG IVPUSH ×2 (14:47→18:46)
[2024-04-12] MEDS: 0.9 % Sodium Chloride Flush 3 ML SYRINGE IVFLUSH (15:50)
[2024-04-12] MEDS: oxyCODONE HCl ER 10 MG TAB.ER.12H 20 MG PO ×2 (16:03→20:05)
[2024-04-12] MEDS: oxyCODONE HCl Immed Release 5 MG TABLET 10 MG PO ×2 (16:03→22:42)
[2024-04-12] MEDS: methocarbamoL 500 MG TABLET PO ×2 (16:03→23:24)
--- NOTE | 2024-04-12 16:22 | HO.PM.IMCN ---
History of Present Illness Data of Consult Service Date: 04/12/24 Primary Care Provider: Uche Lassiter III, MD HPI 58-year-old woman with a history of hypertension, coronary artery disease status post right total knee arthroplasty. Patient is hemodynamically stable, vital signs within acceptable limits. She denies any nausea or vomiting. Pain is moderate at this point. She has no acute medical complaints at this time. Review of Systems Review of Systems: Denies any recent fever chills or decrease in appetite respiratory denies any shortness of breath or cough cardiovascular denied chest pain gastrointestinal denies any dysphagia abdominal pain nausea vomiting or diarrhea genitourinary denies any dysuria frequency or hematuria musculoskeletal denies any joint pain or swelling neuropsych denies any weakness or seizures all other systems reviewed are negative PMFSH Medical History Habitual snoring Sleep apnea History of placement of stent in LAD coronary artery Back pain Hyperlipidemia Chronic interstitial cystitis Morbid obesity Dyspnea on exertion Chest pain on exertion Lumbar disc disease Chronic lower back pain Fibromyalgia Hypertension COPD (chronic obstructive pulmonary disease) Anxiety Intraductal papilloma of breast Edema, lower extremity Barretts esophagus GERD (gastroesophageal reflux disease) Tubular adenoma Aortic root dilatation Vitamin D deficiency Obstructive sleep apnea Prediabetes Osteoarthritis of right knee Surgical History Hx of hernia repair History of carpal tunnel surgery of right wrist Hx of total hysterectomy History of partial colectomy Hx of section History of appendectomy H/O colonoscopy History of esophagogastroduodenoscopy (EGD) Hx of cardiac catheterization History of arthroscopy of right knee History of left knee replacement History of tonsillectomy History of cholecystectomy History of lumpectomy of right breast History of lumpectomy of left breast History of bladder suspension procedure Social History Household Members: Spouse Housing: House Are you a primary respiratory care technician to a significant other at home: No Do you presently have visiting nurse or other home services: No Alcohol intake: current Alcohol intake frequency: holidays/special occasions only Patient Tobacco Use Status: Never used Tobacco Use of substances other than those prescribed or required for medical reasons: No Currently Displaying Signs/Symptoms of Drug Intoxication Withdrawal: No Have you been hit, kicked, punched, or otherwise hurt by someone within the past year? If so, by whom?: No Do you feel safe in your current relationship?: Yes Is there a partner from a previous relationship who is making you feel unsafe now?: No Are you made to feel afraid or neglected: No Are you DNR?: No Advance Directives: No Advance Directives Information Provided: No Advance Directives on File: No Do you have a plan to hurt others: No Plan Recently lost weight without trying: No How much weight loss: Not applicable Eating poorly because of decreased appetite: No Nutrition screen score: 0 Nutrition Risks: No Nutritional Risk Patient : No : No Poor oral hygiene: No Meds Allergies Allergy/AdvReac Type Severity Reaction Status Date / Time amoxicillin Allergy Unknown Swelling Verified 04/08/24 12:57 cephalexin Allergy Unknown Anaphylaxis Verified 04/08/24 12:57 gabapentin Allergy Unknown Agitated Verified 04/08/24 12:57 morphine Allergy Unknown Hives Verified 04/08/24 12:57 nitrofurantoin Allergy face Verified 04/08/24 12:57 [From Macrobid] swelling, difficulty breathing Sulfa (Sulfonamide Allergy Shortness Verified 04/08/24 12:57 Antibiotics) of Breath sulfamethoxazole Allergy Swelling, Verified 04/08/24 12:57 [From Bactrim] rash trimethoprim [From Bactrim] Allergy Swelling, Verified 04/08/24 12:57 rash Active Medications: Current Medications Albuterol Sulfate (Albuterol Sulfate 90 Mcg 8 Gm Inhaler) 2 puff INHALE RQ4H PRN PRN Reason: Shortness Of Breath Or Wheezing Albuterol/Ipratropium (Albuterol/Iprat 2.5/0.5mg 3 Ml Ampul.Neb) 3 ml INHALE BID PRN PRN Reason: Shortness Of Breath Amlodipine Besylate (Amlodipine Besylate 5 Mg Tablet) 5 mg PO DAILY KALEE; Protocol Aspirin (Aspirin 325 Mg Tablet) 325 mg PO BID KALEE Atenolol (Atenolol 100 Mg Tablet) 100 mg PO BEDTIME KALEE; Protocol Atorvastatin Calcium (Atorvastatin Calcium 80 Mg Tablet) 80 mg PO BEDTIME [facility] Fluticasone Propionate (Fluticasone Propionate Nasal 16 Gm [place]) 1 spray NOSTRIL-B BID PRN PRN Reason: Allergic Symptoms Gabapentin (Gabapentin 100 Mg Capsule) 100 mg PO BEDTIME [facility] Hydromorphone HCl (Hydromorphone Hcl 0.5 Mg/0.5 Ml Syringe) 0.25 mg IVPUSH Q5M PRN PRN Reason: Pain, Severe (Pain Scale 7-10) Stop: 04/12/24 18:39 Last Admin: 04/12/24 14:47 Dose: 0.25 mg Hydromorphone HCl (Hydromorphone Hcl 0.5 Mg/0.5 Ml Syringe) 0.25 mg IVPUSH Q4H PRN; Protocol PRN Reason: Pain, Severe (Pain Scale 7-10) Hydromorphone HCl (Hydromorphone Hcl 0.5 Mg/0.5 Ml Syringe) 0.5 mg IVPUSH Q4H PRN; Protocol PRN Reason: Pain, Severe (Pain Scale 7-10) Lactated Ringer's (Lr) 1,000 mls @ 100 mls/hr IVCONT .Q10H [facility] Last Admin: 04/12/24 15:51 Dose: 100 mls/hr Acetaminophen (Ofirmev) 1,000 mg in 100 mls @ 400 mls/hr IV Q6H [facility] Stop: 04/13/24 11:54 Clindamycin Phosphate (Cleocin) 900 mg in 50 mls @ 50 mls/hr IV Q8H [facility] Stop: 04/13/24 03:00 Lorazepam (Lorazepam 1 Mg Tablet) 1 mg PO BID [facility] Methocarbamol (Methocarbamol 500 Mg Tablet) 500 mg PO TID [facility] Last Admin: 04/12/24 16:03 Dose: 500 mg Nitroglycerin (Nitroglycerin 0.4 Mg Tab.Subl) 0.4 mg SUBLINGUAL Q5MX3 PRN PRN Reason: Chest Pain Omeprazole (Omeprazole 40 Mg Capsule.Dr) 40 mg PO BEDTIME [facility] Omeprazole (Omeprazole 20 Mg Capsule.Dr) 20 mg PO BEDTIME@0630 [facility] Ondansetron HCl (Ondansetron Hcl 4 Mg/2 Ml Vial) 4 mg IVPUSH ONCE PRN PRN Reason: Nausea and Vomiting Stop: 04/12/24 18:39 Oxycodone HCl (Oxycodone Hcl Er 10 Mg Tab.Er.12h) 20 mg PO TID [facility] Last Admin: 04/12/24 16:03 Dose: 20 mg Oxycodone HCl (Oxycodone Hcl Immed Release 5 Mg Tablet) 10 mg PO Q3H PRN PRN Reason: Pain, Moderate(Pain Scale 4-6) Last Admin: 04/12/24 16:03 Dose: 10 mg Prochlorperazine Maleate (Prochlorperazine Maleate 5 Mg Tablet) 10 mg PO Q6H PRN PRN Reason: Nausea Roflumilast (Roflumilast 500 Mcg Tablet) 500 mcg PO BEDTIME [facility] Senna (Sennosides 8.6 Mg Tablet) 17.2 mg PO BEDTIME [facility] Sodium Chloride (0.9 % Sodium Chloride Flush 3 Ml Syringe) 3 ml IVFLUSH QSHIFT [facility] Last Admin: 04/12/24 15:50 Dose: 3 ml Ticagrelor (Ticagrelor 90 Mg Tablet) 90 mg PO BID [facility] Vitamin D (Cholecalciferol (Vitamin D3) 25 Mcg Tablet) 50 mcg PO BEDTIME [facility] Home Medications ?Medication ?Instructions ?Recorded ?Confirmed ?Last Taken ?Type aspirin 81 mg tablet,delayed 81 mg PO BEDTIME 06/20/23 04/12/24 Unknown History release (Adult Low Dose Aspirin) cholecalciferol (vitamin D3) 50 50 mcg PO BEDTIME 06/20/23 04/12/24 Unknown History mcg (2,000 unit) capsule ipratropium 20 mcg-albuterol 100 1 puff inhalation BID PRN 06/20/23 04/12/24 Unknown History mcg/actuation mist for inhalation Shortness Of Breath (Combivent Respimat) lorazepam 1 mg tablet 1 mg PO BID Anxiety 06/20/23 04/12/24 Unknown History methocarbamol 500 mg tablet 500 mg PO TID 06/20/23 04/12/24 Unknown History naloxone 2 mg/2 mL syringe kit 2 mg IM Q2M PRN Opiate Reversal 06/20/23 04/12/24 Unknown History ([facility] Naloxone) omeprazole 20 mg capsule,delayed 20 mg PO BEDTIME 06/20/23 04/12/24 Unknown History release oxycodone 10 mg tablet 10 mg PO 5XD PRN Pain 06/20/23 04/12/24 Unknown History roflumilast 500 mcg tablet 500 mcg PO BEDTIME 06/20/23 04/12/24 Unknown History (Daliresp) amlodipine 5 mg tablet 5 mg PO DAILY 07/29/23 04/12/24 Unknown History atenolol 100 mg tablet 100 mg PO BEDTIME 09/04/23 04/12/24 Unknown History albuterol sulfate 90 mcg/actuation 2 puff inhalation Q4-6H PRN 04/02/24 04/12/24 Unknown History aerosol inhaler Shortness Of Breath Or Wheezing dexlansoprazole 60 mg 60 mg PO BEDTIME 04/02/24 04/12/24 Unknown History capsule,biphase delayed release (Dexilant) fluticasone propionate 50 1 spray intranasal BID PRN 04/02/24 04/12/24 Unknown History mcg/actuation nasal Allergic Symptoms spray,suspension nitroglycerin 0.4 mg sublingual 0.4 mg sublingual DIRECTED PRN 04/02/24 04/12/24 Unknown History tablet Chest Pain oxycodone 20 mg tablet,crush 20 mg PO TID 04/02/24 04/12/24 Unknown History resistant,extended release 12 hr (OxyContin) rosuvastatin 40 mg tablet 40 mg PO BEDTIME 04/02/24 04/12/24 Unknown History prochlorperazine maleate 10 mg 10 mg PO Q6H PRN Nausea 04/12/24 04/12/24 Unknown History tablet Physical Exam Vital Signs and Narrative: Vital Signs: Last Vital Signs Temp 97.4 F 04/12/24 16:00 Pulse 69 04/12/24 16:00 Resp 16 04/12/24 16:00 BP 132/69 04/12/24 16:00 Pulse Ox 96 04/12/24 16:00 O2 Del Method Room Air 04/12/24 16:00 O2 Flow Rate 2 04/12/24 15:30 BMI result Body Mass Index 48.9 Appearing in no acute distress head is normocephalic atraumatic eyes pupils are PERRLA sclera is anicteric mouth throat mucous membranes are intact and moist neck is supple no lymphadenopathy, no JVD noted lung sounds are clear to auscultation heart regular rate rhythm, clear S1, S2 positive bowel sounds, abdomen is soft, nontender neuro patient is alert x3, no focal deficits Right knee surgical dressing intact, surgical incision not visualized Results Labs 04/13/24 05:48 04/13/24 05:48 Assessment and Plan (1) Low back pain due to bilateral sciatica: Status: Acute (2) Right knee pain: Status: Acute Plan 58-year-old woman status post right total knee arthroplasty Right total knee arthroplasty Management as per surgical team Pain management Hypertension Stable blood pressure Continue amlodipine COPD No exacerbation Continue home inhalers Mental health Continue home medications GERD Continue PPI Obstructive sleep apnea Does not use CPAP at home History of coronary artery disease SHANI in July of 2023 Continue aspirin and Brilinta Obesity class 3. BMI 48.9 Discussed importance of weight management as this may be contributing to worsening of other comorbidities DVT prophylaxis with full-dose aspirin Full code Medical consultation completed. Will sign off
--- NOTE | 2024-04-12 16:44 | PHA.MEDREC ---
Pharmacy Consult ? Medication Reconciliation Pharmacy has completed the medication reconciliation. Spoke to patient to confirm med list. Patient states she has been off Brilinta 90 mg bid two week prior to surgery, and not sure if she will be put back on after surgery.
[2024-04-12] MEDS: Acetaminophen 1,000 MG/100 ML PIGGYBACK 400 MG IV ×2 (17:35→23:31)
[2024-04-12] MEDS: Clindamycin Phosphate/D5W 900 MG/50 ML PIGGYBACK 50 MG IV (17:57)
[2024-04-12] MEDS: Cholecalciferol (Vitamin D3) 25 MCG TABLET 50 MCG PO (20:03)
[2024-04-12] MEDS: Aspirin 325 MG TABLET PO (20:03)
[2024-04-12] MEDS: Sennosides 8.6 MG TABLET 17.2 MG PO (20:03)
[2024-04-12] MEDS: atenoloL 100 MG TABLET PO (20:04)
[2024-04-12] MEDS: Atorvastatin Calcium 80 MG TABLET PO (20:04)
[2024-04-12] MEDS: Omeprazole 40 MG CAPSULE.DR PO (20:04)
[2024-04-12] MEDS: Ticagrelor 90 MG TABLET PO (20:05)
[2024-04-12] MEDS: Roflumilast 500 MCG TABLET PO (20:05)
[2024-04-12] MEDS: Gabapentin 100 MG CAPSULE PO (23:23)
[2024-04-12] MEDS: LORazepam 1 MG TABLET PO (23:23)
[2024-04-13] MEDS: HYDROmorphone HCl 0.5 MG/0.5 ML SYRINGE IVPUSH ×2 (01:37→06:15)
[2024-04-13] MEDS: Lactated Ringers 1,000 ML 100 ML IVCONT (01:42)
[2024-04-13] MEDS: Clindamycin Phosphate/D5W 900 MG/50 ML PIGGYBACK 50 MG IV (01:46)
[2024-04-13] MEDS: oxyCODONE HCl Immed Release 5 MG TABLET 10 MG PO ×3 (03:02→10:35)
[2024-04-13 03:14] VITALS: BP 119/60; PULSE 70; RESP 18; TEMP 36.1; O2SAT 96
[2024-04-13] MEDS: Acetaminophen 1,000 MG/100 ML PIGGYBACK 400 MG IV (04:58)
[2024-04-13 06:26] LABS: MANUAL DIFF FLAG NO
[2024-04-13 06:33] LABS: Basophils Percent Auto 0.2 % (0-2); Eosinophils Percent Auto 0.1 % (0-4); Hematocrit 26.9 % (37.0-47.0); Hemoglobin 8.7 g/dl (12.0-16.0); Imm Gran Abs Auto 0.11 X10*3/uL (0.00-0.03); Imm Gran Pct Auto 0.8 % (0.0-0.4); Lymphocytes Absolute Auto 1.5 X10*3/uL (1.2-4.9); Lymphocytes Percent Auto 10.1 % (20-40); Mean Corpuscular HGB Conc 32.3 g/dl (31.0-35.0); Mean Corpuscular Hemoglobin 28.1 pg (27.0-33.0); Mean Corpuscular Volume 86.8 fL (80.0-98.0); Mean Platelet Volume 10.4 fL (9.4-12.3); Monocytes Absolute Auto 1.1 X10*3/uL (0.1-1.2); Monocytes Percent Auto 7.9 % (2-11); Neutrophils Absolute Auto 11.8 x10*3/uL (2.0-8.3); Neutrophils Percent Auto 80.9 % (45-73); Platelet Count 225 X10*3/uL (160-400); Red Cell Distribution Width 15.2 % (11.0-16.0); White Blood Count 14.5 X10*3/uL (4.8-10.8)
[2024-04-13 07:06] LABS: Anion Gap 16 (12-20); Blood Urea Nitrogen 10 mg/dL (9-16); Calcium 8.7 mg/dL (8.4-10.2); Carbon Dioxide 22 mmol/L (22-29); Chloride 106 mmol/L (96-108); Creatinine Clr Calc Pharmacy 109.1; Estimated Glomerular Filt Rate > 60; Glucose Fasting 130 mg/dL (60-99); Potassium 3.9 mmol/L (3.3-5.1); Sodium 140 mmol/L (135-145)
[2024-04-13 07:44] VITALS: BP 120/58; PULSE 64; RESP 16; TEMP 36.4; O2SAT 98
[2024-04-13] MEDS: oxyCODONE HCl ER 10 MG TAB.ER.12H 20 MG PO (07:47)
[2024-04-13] MEDS: amLODIPine Besylate 5 MG TABLET PO (07:47)
[2024-04-13] MEDS: LORazepam 1 MG TABLET PO (07:47)
[2024-04-13] MEDS: methocarbamoL 500 MG TABLET PO (07:47)
[2024-04-13] MEDS: Ticagrelor 90 MG TABLET PO (07:48)
--- NOTE | 2024-04-13 08:23 | HO.POSTANES ---
Post Anesthesia Evaluation Post Anesthesia Evaluation Date of Service: 04/12/24 Vital Signs: Vital Signs Temp Pulse Resp BP Pulse Ox O2 Del Method 04/13/24 07:44 97.6 F 64 16 120/58 L 98 Room Air 04/13/24 03:14 96.9 F 70 18 119/60 96 Room Air Anesthesia: General Endotracheal-GETA Mental Status: Awake Pain Control: Satisfactory (moderate ) Nausea/Vomiting: None Hydration: Adequate Anesthesia-Related Issues: No Anes. Related Issues
[2024-04-13 08:28] VITALS: PULSE 80; O2SAT 98
--- NOTE | 2024-04-13 09:22 | PM.DS ---
DS: Providers Provider Date of Service: 04/13/24 Date of admission: 04/12/24 08:22 Primary care physician: Uche Lassiter III, MD Consults: 04/12/24 15:35 Consult to Hospitalist Routine Comment: Consulting Provider: Hospitalist Reason For Exam: Routine medical management DS: Diagnosis Discharge Diagnosis (1) Low back pain due to bilateral sciatica: Status: Acute (2) Right knee pain: Status: Acute DS: Summary Hospital Course Hospital Course: The patient underwent a successful right total knee arthroplasty on 04/12/24, was transferred to PACU and then to the floor to recover. During their stay, their vitals were stable, afebrile at . Labs were unremarkable, H/H . POD 1 she was started on aspirin 325 mg b.i.d. for DVT ppx, they also received Physical Therapy services twice a day. Physical therapy should include gait training, ROM to tolerance and quad strength. He is WBAT. Prior to discharge, Aquacel dressing was evaluated, and was found to be clean dry and intact. Dressing reinforced with tape The Aquacel dressing should remain intact and dry at all times. Any concerns with the dressing, please contact orthopedic office. No showering. The plan is to be discharged today with home PT services Patient will follow-up in 2 weeks in the office for staple removal, staple removal, and assessment of right knee and surgery site Time Attestation Discharge Coordination Time (in mins): 30 min Quality: Safe Use of Opioids Does Pt have an Active Cancer Diagnosis on the Problem List?: No Quality: Stroke Does the patient have a stroke diagnosis?: No Physical Exam Vital Signs: Vital Signs: Last Vital Signs Temp 97.6 F 04/13/24 07:44 Pulse 80 04/13/24 08:28 Resp 16 04/13/24 07:44 BP 120/58 L 04/13/24 07:44 Pulse Ox 98 04/13/24 08:28 O2 Del Method Room Air 04/13/24 07:44 O2 Flow Rate 2 04/12/24 15:30 BMI result Body Mass Index 48.9 DS: Data Data Completed and Pending Pending studies at discharge: Pending at discharge 04/12/24 13:04 Surgical [PTH] Routine Labs on day of discharge: Laboratory Results - last 24 hr 04/13/24 05:48 WBC 14.5 H RBC 3.10 L Hgb 8.7 L Hct 26.9 L MCV 86.8 MCH 28.1 MCHC 32.3 RDW 15.2 Plt Count 225 MPV 10.4 Immature Gran % (Auto) 0.8 H Neut % (Auto) 80.9 H Lymph % (Auto) 10.1 L [place] % (Auto) 7.9 Eos % (Auto) 0.1 Baso % (Auto) 0.2 Lymph # (Auto) 1.5 [place] # (Auto) 1.1 Eos # (Auto) 0.0 Baso # (Auto) 0.0 Abs Immat Gran (auto) 0.11 H Absolute Neuts (auto) 11.8 H Absolute Nucleated RBC 0.000 Nucleated RBC % (auto) 0.0 Sodium 140 Potassium 3.9 Chloride 106 Carbon Dioxide 22 Anion Gap 16 BUN 10 Creatinine 0.75 Estim Creat Clear Calc 109.1 Estimated GFR > 60 Fasting Glucose 130 H Calcium 8.7 Discharge Plan Discharge Anticipated Discharge Date/Time: 04/13/24 14:00 Patient Disposition: Home Health Service Discharge Diagnosis: Status post R TKA Referrals: [facility] [Other] - 1 Week Lynette Montero PA-C [Physician [employer] Professor] - 2 Weeks (04/29/24 13:15 [facility] – [place] [facility] Lynette Montero PA-C ) Discharge Medications: New Brilinta 90 mg Tablet 90 mg PO BID 7 Days Qty: 14 0RF sennosides [Senna Lax] 8.6 mg Tablet 17.2 mg PO BEDTIME 30 Days Qty: 60 0RF gabapentin 100 mg Capsule 100 mg PO BEDTIME 7 Days Qty: 7 0RF Continued (D[place] [facility] [place] .[place]OUTE .MEDSUPPLY Qty: 1 0RF Rx Instructions: Folding front wheeled walker oxycodone [OxyContin] 20 mg tablet,oral only,ext.rel.12 hr 20 mg PO TID albuterol sulfate 90 mcg/actuation Hfa Aerosol Inhaler 2 puff INHALATION Q4-6H PRN (Reason: Shortness Of Breath Or Wheezing) nitroglycerin 0.4 mg tablet, sublingual 0.4 mg sublingual DIRECTED PRN (Reason: Chest Pain) fluticasone propionate 50 mcg/actuation spray,suspension 1 spray intranasal BID PRN (Reason: Allergic Symptoms) dexlansoprazole [Dexilant] 60 mg Capsule,Biphase Delayed Releas 60 mg PO BEDTIME rosuvastatin 40 mg tablet 40 mg PO BEDTIME prochlorperazine maleate 10 mg tablet 10 mg PO Q6H PRN (Reason: Nausea) amlodipine 5 mg tablet 5 mg PO DAILY methocarbamol 500 mg tablet 500 mg PO TID cholecalciferol (vitamin D3) 50 mcg (2,000 unit) capsule 50 mcg PO BEDTIME roflumilast [Daliresp] 500 mcg tablet 500 mcg PO BEDTIME omeprazole 20 mg capsule,delayed release(DR/EC) 20 mg PO BEDTIME Combivent Respimat 20-100 mcg/actuation mist 1 puff inhalation BID PRN (Reason: Shortness Of Breath) Rx Instructions: space evenly during waking hours aspirin [Adult Low Dose Aspirin] 81 mg tablet,delayed release (DR/EC) 81 mg PO BEDTIME oxycodone 10 mg tablet 10 mg PO 5XD PRN (Reason: Pain) lorazepam 1 mg tablet 1 mg PO BID [facility] Naloxone 2 mg/2 mL syringe kit 2 mg IM Q2M PRN (Reason: Opiate Reversal) Rx Instructions: NTExceed 10 mg total dose/episode atenolol 100 mg tablet 100 mg PO BEDTIME Discharge Orders: Discharge Order (Routine); Ordered 04/13/24 Ordered By: Cristofer Benoit Diet: Advance to usual diet Activity on Discharge: Use cane or walker Stand Alone Forms: Patient Portal Discharge page Print Language: [place] Care Plan Goals: Restore function to R knee Health Concerns: N/A Plan of Treatment: Physical Therapy for Total knee arthroplasty: WBAT, gait training, ROM 0-12, quad strength ? Limit stair climbing ? No showering, no tub bath-keep dressing clean, dry and intact ? No driving x6 weeks ? Continue home Brillinta 90mg BID ? Follow up with [facility] – [place] Orthopedics in 2 weeks: Assessment: Stable for discharge
--- NOTE | 2024-04-13 09:31 | MHC.CM.PN ---
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
--- NOTE | 2024-04-13 09:56 | W.MHC.F2F ---
Service Date Service Date: 04/13/24 Encounter Date of encounter: 04/13/24 Encounter: 04/13/24 Reasons for Services Signs and symptoms assessed: Status post right total knee arthroplasty Reason for physical therapy: home safety and mobility, therapeutic exercises, restore joint function, gait/transfer training, ADL training and energy conservation Reason for occupational therapy: home safety and mobility, therapeutic exercises, restore joint function, gait/transfer training, ADL training and energy conservation Homebound: Leaving the home is medically contraindicated at this time without the asist of a device and/or another person due th the listed conditions above and below. Reason homebound: unsteady gait / fall risk, pain with ambulation, pain with transfers and unable to drive Certification: Based on the above findings, I certify that this patient is confined to the home and needs physical therapy and/or speech therapy, or continues to need occupational therapy. The patient is under my care, and I have initiated the establishment of the plan of care. The patient will be followed by a physician who will periodically review the plan of care. Time Spent With Patient Time: Total time managing care of this patient today ____ minutes.
== END 2024-04-13 11:45 | disposition home health service (06) | DRG 326 ==
LOC: HO.SSSA 10:40 → HO.S3 11:37
PROVIDERS: Orthopaedic Surgery; Admitting Provider Physician Assistant; PCP Internal Medicine; Visit Provider Physician Assistant
PROC: 0SRC0J9 Replacement of Right Knee Joint with Synthetic Substitute, Cemented, Open Approach (ICD-10-PCS; CPT 27447; principal; 2024-04-12 10:40)
DX: M17.11 Unilateral primary osteoarthritis, right knee (principal); E66.01 Morbid (severe) obesity due to excess calories; G47.33 Obstructive sleep apnea (adult) (pediatric); G89.18 Other acute postprocedural pain; J44.9 Chronic obstructive pulmonary disease, unspecified; I25.10 Atherosclerotic heart disease of native coronary artery without angina pectoris; I10 Essential (primary) hypertension; M54.42 Lumbago with sciatica, left side; M54.41 Lumbago with sciatica, right side; K21.9 Gastro-esophageal reflux disease without esophagitis; Z68.42 Body mass index [BMI] 45.0-49.9, adult; Z79.82 Long term (current) use of aspirin; Z79.899 Other long term (current) drug therapy
CPT/HCPCS: 36415; 80048; 85025; 86850; 86900; 86901; 87640; 87641; 88305; 88311; 97162; C1776; J0131; J0665; J0736; J1100; J1170; J2250; J2405; J2704; J3010; J3370; J7120

== ENCOUNTER → 2024-04-12 08:22 | Outpatient (BNV) | payer OTHER, SELFPAY | PROVIDERS: Admitting Provider Physician Assistant; PCP Internal Medicine; Visit Provider Nurse Practitioner Acute Care | DX: M54.41 Lumbago with sciatica, right side (principal); M54.42 Lumbago with sciatica, left side; M25.561 Pain in right knee | CPT/HCPCS: 99222 ==

== ENCOUNTER → 2024-04-12 08:22 | Outpatient (BNV) | payer OTHER, SELFPAY | PROVIDERS: Admitting Provider Physician Assistant; PCP Internal Medicine; Visit Provider Orthopaedic Surgery | DX: Z47.1 Aftercare following joint replacement surgery (principal); Z96.651 Presence of right artificial knee joint | CPT/HCPCS: 27447; 99024; G0180 ==

== ENCOUNTER 2024-04-29 13:01 | Outpatient (AMB) | payer OTHER, SELFPAY ==
--- NOTE | 2024-04-29 13:21 | A.OFFVIS_ITS ---
Intake Visit Reasons: 2 WK PO: R BIJU olguin/ 04/12/24 Intake Note: Nalini is a 58 year old female who presents today for a post op appointment s/p R BIJU olguin/ 04/12/24.She has resumed her pain management contract with her primary care physician and will no longer get Allergies amoxicillin Allergy (Unknown, Verified 04/08/24 12:57) Swelling cephalexin Allergy (Unknown, Verified 04/08/24 12:57) Anaphylaxis gabapentin Allergy (Unknown, Verified 04/08/24 12:57) Agitated morphine Allergy (Unknown, Verified 04/08/24 12:57) Hives nitrofurantoin [From Macrobid] Allergy (Verified 04/08/24 12:57) face swelling, difficulty breathing Sulfa (Sulfonamide Antibiotics) Allergy (Verified 04/08/24 12:57) Shortness of Breath sulfamethoxazole [From Bactrim] Allergy (Verified 04/08/24 12:57) Swelling, rash trimethoprim [From Bactrim] Allergy (Verified 04/08/24 12:57) Swelling, rash HPI HPI 2 WK PO: R BIJU olguin/ 04/12/24: Details: 58-year-old female who presents in the office today 17 days status post right total knee arthroplasty, which was performed on 04/12/[address] Loco. ? ? While in the office today, the patient reports she has resumed her pain management contract with her PCP. ? PFSH Medical History Habitual snoring Sleep apnea History of placement of stent in LAD coronary artery Back pain Hyperlipidemia Chronic interstitial cystitis Morbid obesity Dyspnea on exertion Chest pain on exertion Lumbar disc disease Chronic lower back pain Fibromyalgia Hypertension COPD (chronic obstructive pulmonary disease) Anxiety Intraductal papilloma of breast Edema, lower extremity Barretts esophagus GERD (gastroesophageal reflux disease) Tubular adenoma Aortic root dilatation Vitamin D deficiency Obstructive sleep apnea Prediabetes Osteoarthritis of right knee Surgical History Hx of hernia repair History of carpal tunnel surgery of right wrist Hx of total hysterectomy History of partial colectomy Hx of section History of appendectomy H/O colonoscopy History of esophagogastroduodenoscopy (EGD) Hx of cardiac catheterization History of arthroscopy of right knee History of left knee replacement History of tonsillectomy History of cholecystectomy History of lumpectomy of right breast History of lumpectomy of left breast History of bladder suspension procedure Social History Household Members: Spouse Housing: House Are you a primary emergency care tech to a significant other at home: No Do you presently have visiting nurse or other home services: No Alcohol intake: current Alcohol intake frequency: holidays/special occasions only Patient Tobacco Use Status: Never used Tobacco service: No Review of Systems Const All systems reviewed & are unremarkable except as noted in HPI and below Physical Exam Const General: cooperative, healthy appearing and no acute distress Resp Effort & Inspection: normal respiratory effort and able to speak in complete sentences Cardio Rate: regular rate Peripheral pulses: Peripheral pulses 2+ throughout GI Palpation (GI): Soft to palpation Skin Lesions: no lesions Rashes: no rashes Extrem Other: Right knee: Incision site is clean, dry, and intact. Jim are intact. No surrounding erythema or drainage. No signs of infection. ROM is 10-90 degrees. NVI. Assessment & Plan Assessment & Plan (1) Status post total right knee replacement: Comment: 04/12/24 Dr. Loco Code(s): Z96.651 - Presence of right artificial knee joint Category: Surgical Plan Ms. Pemberton is a 58-year-old female who presents in the office today 17 days status post right total knee arthroplasty, which was performed on 04/12/[address] Loco. ? ? While in the office today, the patient reports she has resumed her pain management contract with her PCP.? ? [place] were removed and steri-stripes were applied. The patient has renewed her pain management agreement with her PCP and will be obtaining any narcotic prescriptions through them. She has physical therapy coming to her home. ? ? I sent a prescription for an antibiotic, clindamycin 600 mg PO once 1 hour prior to dental work, prophylactically for possible dental work in the future. However, the patient was educated they should not have any major dental work for the first 3 months post op after a right total knee arthroplasty.? ? Follow-up will be in four weeks with Dr. Loco, or sooner if needed.?? ? X-rays of the right knee which were obtained while in the office today and were reviewed by me, Lynette Montero PA-C, revealed intact orthopedic hardware with proper alignment. ? Orders: Orders XR knee RT 3V Today M25.569 - Pain in unspecified knee Medications: New clindamycin HCl 600 mg (2 x 300 mg) PO ONCE 2 caps 10RF take 1 hour prior to dental work 1 day Patient Instructions: Scribed by Lianne Santoro medical sociologist, for Lynette Montero PA-C on 04/29/2024 at 1:03 pm, EST.? Coding Level of Care Code Est Pt Level 3 (72617) Diagnoses Status post total right knee replacement Z96.651
== END 2024-04-29 13:50 | disposition home or self-care (01) ==
PROVIDERS: PCP Internal Medicine; Visit Provider Physician Assistant
DX: Z47.1 Aftercare following joint replacement surgery (principal); Z96.651 Presence of right artificial knee joint
CPT/HCPCS: 99024

== ENCOUNTER 2024-04-29 14:07 | Outpatient (REF) | payer OTHER, SELFPAY ==
--- NOTE | ~2024-04-29 | XR_ITS ---
EXAMINATION: XR KNEE, RIGHT CLINICAL INFORMATION: Pain. COMPARISON: 06/20/2023. TECHNIQUE: AP standing view of bilateral knees and 2 views of the right knee. FINDINGS: Right knee: Expected postsurgical changes status post post right knee total arthroplasty with surgical clips, soft tissue swelling and joint effusion. Hardware appears intact. AP standing view of the left knee demonstrates left total knee arthroplasty. XR/XR knee RT 3V IMPRESSION: 1. Expected postsurgical changes status post post right knee total arthroplasty with surgical clips, soft tissue swelling and joint effusion. Hardware appears intact. 2. AP standing view of the left knee demonstrates left total knee arthroplasty.
== END 2024-04-29 14:08 | disposition home or self-care (01) ==
LOC: HO.HOSX 14:07
PROVIDERS: Visit Provider Physician Assistant
DX: M25.561 Pain in right knee (principal); Z96.651 Presence of right artificial knee joint
CPT/HCPCS: 73562; 99212

== ENCOUNTER 2024-05-20 11:53 | Outpatient (AMB) | payer OTHER, SELFPAY ==
--- NOTE | 2024-05-20 11:54 | MHC.OFFVIS ---
Intake Visit Reasons: 6WK PO: R TKA w/ 04/12/24 Intake Note: Nalini is a 58 year old female who presents with complaints of mild intermittent discomfort in her right knee after undergoing right total knee replacement surgery on 04/12/2024. She continues with her physical therapy exercises. She denies any fevers or chills. Does walk with a cane when she is out of her home. Allergies gabapentin Allergy (Severe, Verified 05/20/24 12:03) Agitated amoxicillin Allergy (Unknown, Verified 05/20/24 11:59) Swelling cephalexin Allergy (Unknown, Verified 05/20/24 11:59) Anaphylaxis morphine Allergy (Unknown, Verified 05/20/24 11:59) Hives nitrofurantoin [From Macrobid] Allergy (Verified 05/20/24 11:59) face swelling, difficulty breathing Sulfa (Sulfonamide Antibiotics) Allergy (Verified 05/20/24 11:59) Shortness of Breath sulfamethoxazole [From Bactrim] Allergy (Verified 05/20/24 11:59) Swelling, rash trimethoprim [From Bactrim] Allergy (Verified 05/20/24 11:59) Swelling, rash Medication List - Last Reconciled 05/20/24 by Price Loco MD albuterol sulfate 90 mcg/actuation 2 puffs inhalation Q4-6H PRN amlodipine 5 mg PO DAILY aspirin (Adult Low Dose Aspirin) 81 mg PO BEDTIME atenolol 100 mg PO BEDTIME cholecalciferol (vitamin D3) 50 mcg PO BEDTIME clindamycin HCl 600 mg (2 x 300 mg) PO ONCE 1 day dexlansoprazole (Dexilant) 60 mg PO BEDTIME fluticasone propionate 50 mcg/actuation 1 spray intranasal BID PRN ipratropium-albuterol 20-100 mcg/actuation (Combivent Respimat) 1 puff inhalation BID PRN lorazepam 1 mg PO BID methocarbamol 500 mg PO TID naloxone (LifEMS Naloxone) 2 mg IM Q2M PRN nitroglycerin 0.4 mg sublingual DIRECTED PRN omeprazole 20 mg PO BEDTIME oxycodone 10 mg PO 5XD PRN oxycodone ER (OxyContin) 20 mg PO TID prochlorperazine maleate 10 mg PO Q6H PRN roflumilast (Daliresp) 500 mcg PO BEDTIME rosuvastatin 40 mg PO BEDTIME sennosides (Senna Lax) 17.2 mg (2 x 8.6 mg) PO BEDTIME 30 days ticagrelor (Brilinta) 90 mg PO BID 7 days walker Folding front wheeled walker [facility] Medical History Habitual snoring Sleep apnea History of placement of stent in LAD coronary artery Back pain Hyperlipidemia Chronic interstitial cystitis Morbid obesity Dyspnea on exertion Chest pain on exertion Lumbar disc disease Chronic lower back pain Fibromyalgia Hypertension COPD (chronic obstructive pulmonary disease) Anxiety Intraductal papilloma of breast Edema, lower extremity Barretts esophagus GERD (gastroesophageal reflux disease) Tubular adenoma Aortic root dilatation Vitamin D deficiency Obstructive sleep apnea Prediabetes Osteoarthritis of right knee Surgical History Hx of hernia repair History of carpal tunnel surgery of right wrist Hx of total hysterectomy History of partial colectomy Hx of section History of appendectomy H/O colonoscopy History of esophagogastroduodenoscopy (EGD) Hx of cardiac catheterization History of arthroscopy of right knee History of left knee replacement History of tonsillectomy History of cholecystectomy History of lumpectomy of right breast History of lumpectomy of left breast History of bladder suspension procedure Social History Household Members: Spouse Housing: House Are you a primary hospice care consultant to a significant other at home: No Do you presently have visiting nurse or other home services: No Alcohol intake: current Alcohol intake frequency: holidays/special occasions only Patient Tobacco Use Status: Never used Tobacco service: No Physical Exam Extrem Other: Right knee examination shows that the surgical incision is well healed, no erythema, full active extension and flexion to 120 degrees, her patella tracks well Assessment & Plan Assessment & Plan (1) Right knee pain: Code(s): M25.561 - Pain in right knee Category: Medical Plan Ms. Pemberton continues to do well after undergoing right total knee replacement surgery on 04/12/2024. She will continue with her physical therapy exercises. She does know to take antibiotics before any dental work. She will contact me prior to her follow-up appointment in 2 months should any questions or concerns arise. Feel free to call me at any time should questions regarding her orthopedic management arise. Coding Level of Care Code Global (82448) Diagnoses Right knee pain M25.561
== END 2024-05-20 12:15 | disposition home or self-care (01) ==
PROVIDERS: PCP Internal Medicine; Visit Provider Orthopaedic Surgery
DX: M25.561 Pain in right knee (principal)
CPT/HCPCS: 99024

== ENCOUNTER → 2024-05-20 11:53 | Outpatient (BNVA) | payer OTHER, SELFPAY | PROVIDERS: PCP Internal Medicine; Visit Provider Orthopaedic Surgery | DX: M25.561 Pain in right knee (principal); Z47.1 Aftercare following joint replacement surgery; Z96.651 Presence of right artificial knee joint | CPT/HCPCS: 99212 ==

== ENCOUNTER 2024-07-13 14:57 | Outpatient (AMB) | payer OTHER, SELFPAY ==
--- NOTE | 2024-07-13 15:00 | A.OFFVIS_ITS ---
Intake Visit Reasons: PO: R TKA w/DR 04/12/24 Intake Note: Nalini is a 59 year old female who presents with complaints of mild to moderate discomfort in her right knee after undergoing right total knee replacement surgery on 04/12/2024. She denies any fevers or chills. She continues with her home stretching program. She does take oxycodone as needed for chronic pain. Allergies gabapentin Allergy (Severe, Verified 07/13/24 15:06) Agitated amoxicillin Allergy (Unknown, Verified 07/13/24 15:06) Swelling cephalexin Allergy (Unknown, Verified 07/13/24 15:06) Anaphylaxis morphine Allergy (Unknown, Verified 07/13/24 15:06) Hives nitrofurantoin [From Macrobid] Allergy (Verified 07/13/24 15:06) face swelling, difficulty breathing Sulfa (Sulfonamide Antibiotics) Allergy (Verified 07/13/24 15:06) Shortness of Breath sulfamethoxazole [From Bactrim] Allergy (Verified 07/13/24 15:06) Swelling, rash trimethoprim [From Bactrim] Allergy (Verified 07/13/24 15:06) Swelling, rash Medication List - Last Reconciled 07/14/24 by Price Loco MD albuterol sulfate 90 mcg/actuation 2 puffs inhalation Q4-6H PRN amlodipine 5 mg PO DAILY aspirin (Adult Low Dose Aspirin) 81 mg PO BEDTIME atenolol 100 mg PO BEDTIME cholecalciferol (vitamin D3) 50 mcg PO BEDTIME clindamycin HCl 600 mg (2 x 300 mg) PO ONCE 1 day dexlansoprazole (Dexilant) 60 mg PO BEDTIME fluticasone propionate 50 mcg/actuation 1 spray intranasal BID PRN ipratropium-albuterol 20-100 mcg/actuation (Combivent Respimat) 1 puff inhalation BID PRN lorazepam 1 mg PO BID methocarbamol 500 mg PO TID naloxone (LifEMS Naloxone) 2 mg IM Q2M PRN nitroglycerin 0.4 mg sublingual DIRECTED PRN omeprazole 20 mg PO BEDTIME oxycodone 10 mg PO 5XD PRN oxycodone ER (OxyContin) 20 mg PO TID prochlorperazine maleate 10 mg PO Q6H PRN roflumilast (Daliresp) 500 mcg PO BEDTIME rosuvastatin 40 mg PO BEDTIME sennosides (Senna Lax) 17.2 mg (2 x 8.6 mg) PO BEDTIME 30 days ticagrelor (Brilinta) 90 mg PO BID 7 days walker Folding front wheeled walker [facility] Medical History Habitual snoring Sleep apnea History of placement of stent in LAD coronary artery Back pain Hyperlipidemia Chronic interstitial cystitis Morbid obesity Dyspnea on exertion Chest pain on exertion Lumbar disc disease Chronic lower back pain Fibromyalgia Hypertension COPD (chronic obstructive pulmonary disease) Anxiety Intraductal papilloma of breast Edema, lower extremity Barretts esophagus GERD (gastroesophageal reflux disease) Tubular adenoma Aortic root dilatation Vitamin D deficiency Obstructive sleep apnea Prediabetes Osteoarthritis of right knee Surgical History Hx of hernia repair History of carpal tunnel surgery of right wrist Hx of total hysterectomy History of partial colectomy Hx of section History of appendectomy H/O colonoscopy History of esophagogastroduodenoscopy (EGD) Hx of cardiac catheterization History of arthroscopy of right knee History of left knee replacement History of tonsillectomy History of cholecystectomy History of lumpectomy of right breast History of lumpectomy of left breast History of bladder suspension procedure Social History Household Members: Spouse Housing: House Are you a primary care transition coordinator to a significant other at home: No Do you presently have visiting nurse or other home services: No Alcohol intake: current Alcohol intake frequency: holidays/special occasions only Patient Tobacco Use Status: Never used Tobacco service: No Physical Exam Const Other: Well-nourished well-developed very friendly female awake alert and oriented x3 in no acute distress Extrem Other: Bilateral lower extremity examination shows good capillary refill, no skin lesions noted, normal sensation light touch Right knee examination shows that the surgical incision is well healed, no erythema, full active extension and flexion to 120 degrees, her patella tracks well Assessment & Plan Assessment & Plan (1) Right knee pain: Code(s): M25.561 - Pain in right knee Category: Medical Plan Nalini continues to do well after undergoing right total knee replacement surgery on 04/12/2024. She will continue with her physical therapy exercises. She does know to take antibiotics before any dental work. She will contact me prior to her follow-up appointment in 3 months should any questions or concerns arise. Feel free to call me at any time should questions regarding her orthopedic management arise. I spent 21 minutes in reviewing the patient's records and imaging studies, seeing the patient and documenting in the medical record. Coding Level of Care Code Est Pt Level 3 (29430) Complex EM visit Add On G2211 Diagnoses Right knee pain M25.561
== END 2024-07-13 15:20 | disposition home or self-care (01) ==
PROVIDERS: PCP Internal Medicine; Visit Provider Orthopaedic Surgery
DX: M25.561 Pain in right knee (principal); Z96.651 Presence of right artificial knee joint
CPT/HCPCS: G2211

== ENCOUNTER → 2024-07-13 14:57 | Outpatient (BNVA) | payer OTHER, SELFPAY | PROVIDERS: PCP Internal Medicine; Visit Provider Orthopaedic Surgery | DX: M25.561 Pain in right knee (principal); Z79.891 Long term (current) use of opiate analgesic; Z96.653 Presence of artificial knee joint, bilateral | CPT/HCPCS: 99213 ==

== ENCOUNTER 2024-09-14 13:14 | Outpatient (AMB) | payer OTHER, SELFPAY ==
--- NOTE | 2024-09-14 13:16 | A.OFFVIS_ITS ---
Vital Signs 09/14/24 13:24 Height 5 ft 4 in Weight 285 lb BMI 48.9 Intake Visit Reasons: OV: R TKA w/DR 04/12/24 Intake Note: Nalini is a 59 year old female who presents with complaints of mild discomfort in her right knee after undergoing right total knee replacement surgery on 04/12/2024. She continues with her home exercise program. She also has intermittent pain along the lateral aspect of her right hip. She has tried a Medrol Dosepak in the past which gave her fairly good relief. She wishes to hold off on an injection today. Allergies gabapentin Allergy (Severe, Verified 09/14/24 13:20) Agitated amoxicillin Allergy (Unknown, Verified 09/14/24 13:20) Swelling cephalexin Allergy (Unknown, Verified 09/14/24 13:20) Anaphylaxis morphine Allergy (Unknown, Verified 09/14/24 13:20) Hives nitrofurantoin [From Macrobid] Allergy (Verified 09/14/24 13:20) face swelling, difficulty breathing Sulfa (Sulfonamide Antibiotics) Allergy (Verified 09/14/24 13:20) Shortness of Breath sulfamethoxazole [From Bactrim] Allergy (Verified 09/14/24 13:20) Swelling, rash trimethoprim [From Bactrim] Allergy (Verified 09/14/24 13:20) Swelling, rash Medication List - Last Reconciled 09/14/24 by Price Loco MD albuterol sulfate 90 mcg/actuation 2 puffs inhalation Q4-6H PRN amlodipine 5 mg PO DAILY aspirin (Adult Low Dose Aspirin) 81 mg PO BEDTIME atenolol 100 mg PO BEDTIME cholecalciferol (vitamin D3) 50 mcg PO BEDTIME clindamycin HCl 600 mg (2 x 300 mg) PO ONCE 1 day dexlansoprazole (Dexilant) 60 mg PO BEDTIME fluticasone propionate 50 mcg/actuation 1 spray intranasal BID PRN ipratropium-albuterol 20-100 mcg/actuation (Combivent Respimat) 1 puff inhal ation BID PRN lorazepam 1 mg PO BID methocarbamol 500 mg PO TID naloxone (LifEMS Naloxone) 2 mg IM Q2M PRN nitroglycerin 0.4 mg sublingual DIRECTED PRN omeprazole 20 mg PO BEDTIME oxycodone 10 mg PO 5XD PRN oxycodone ER (OxyContin) 20 mg PO TID prochlorperazine maleate 10 mg PO Q6H PRN roflumilast (Daliresp) 500 mcg PO BEDTIME rosuvastatin 40 mg PO BEDTIME sennosides (Senna Lax) 17.2 mg (2 x 8.6 mg) PO BEDTIME 30 days ticagrelor (Brilinta) 90 mg PO BID 7 days walker Folding front wheeled walker [facility] Medical History Habitual snoring Sleep apnea History of placement of stent in LAD coronary artery Back pain Hyperlipidemia Chronic interstitial cystitis Morbid obesity Dyspnea on exertion Chest pain on exertion Lumbar disc disease Chronic lower back pain Fibromyalgia Hypertension COPD (chronic obstructive pulmonary disease) Anxiety Intraductal papilloma of breast Edema, lower extremity Barretts esophagus GERD (gastroesophageal reflux disease) Tubular adenoma Aortic root dilatation Vitamin D deficiency Obstructive sleep apnea Prediabetes Osteoarthritis of right knee Surgical History Hx of hernia repair History of carpal tunnel surgery of right wrist Hx of total hysterectomy History of partial colectomy Hx of section History of appendectomy H/O colonoscopy History of esophagogastroduodenoscopy (EGD) Hx of cardiac catheterization History of arthroscopy of right knee History of left knee replacement History of tonsillectomy History of cholecystectomy History of lumpectomy of right breast History of lumpectomy of left breast History of bladder suspension procedure Social History Household Members: Spouse Housing: House Are you a primary post acute care nurse to a significant other at home: No Do you presently have visiting nurse or other home services: No Alcohol intake: current Alcohol intake frequency: holidays/special occasions only Patient Tobacco Use Status: Never used Tobacco service: No Physical Exam Vital Signs: BMI result Body Mass Index 48.9 Const Other: Well-nourished well-developed very friendly female awake alert and oriented x3 in no acute distress Extrem Other: Right hip examination shows full range of motion when compared to her left hip, tenderness over her bursa, no overlying skin lesions Right knee examination shows that the surgical incision is well healed, no erythema, full active extension and flexion to 120 degrees, her patella tracks well Assessment & Plan Assessment & Plan (1) Right knee pain: Code(s): M25.561 - Pain in right knee Category: Medical (2) Trochanteric bursitis, right hip: Code(s): M70.61 - Trochanteric bursitis, right hip Category: Medical Plan Ms. Pemberton continues to do well after undergoing right total knee replacement surgery on 04/12/2024. She does have intermittent discomfort along the lateral aspect of her right hip most likely due to greater trochanteric bursitis. I had a lengthy discussion with the patient regarding the treatment options. We will hold off on a cortisone injection today. I did give her a prescription for a Medrol Dosepak. She will contact me prior to her follow-up appointment in 4-6 weeks should her symptoms worsen in any way. Feel free to call me at any time should questions regarding her orthopedic management arise. I spent 21 minutes in reviewing the patient's records and imaging studies, seeing the patient and documenting in the medical record. Medications: New methylprednisolone (Medrol (Peterson)) PO PER PKG DIR 21 ea 0RF Coding Level of Care Code Est Pt Level 3 (27791) Complex EM visit Add On G2211 Diagnoses Right knee pain M25.561 Trochanteric bursitis, right hip M70.61
[2024-09-14 13:24] VITALS: BMI 48.9
== END 2024-09-14 13:30 | disposition home or self-care (01) ==
PROVIDERS: PCP Internal Medicine; Visit Provider Orthopaedic Surgery
DX: M25.561 Pain in right knee (principal); M70.61 Trochanteric bursitis, right hip
CPT/HCPCS: 99213; G2211

== ENCOUNTER → 2024-09-14 13:14 | Outpatient (BNVA) | payer OTHER, SELFPAY | PROVIDERS: PCP Internal Medicine; Visit Provider Orthopaedic Surgery | DX: M25.561 Pain in right knee (principal); M70.61 Trochanteric bursitis, right hip | CPT/HCPCS: 99212 ==

== ENCOUNTER 2024-10-20 15:38 | Outpatient (REF) | payer OTHER, SELFPAY | END 2024-10-20 15:39 | disposition home or self-care (01) | LOC: HO.HOSX 15:38 | PROVIDERS: Visit Provider Orthopaedic Surgery | DX: Z13.89 Encounter for screening for other disorder (principal) ==

== ENCOUNTER 2024-11-10 09:29 | Outpatient (REF) | payer OTHER, SELFPAY ==
--- NOTE | ~2024-11-10 | XR_ITS ---
CLINICAL HISTORY: M25.561 - Pain in right knee 3 view right knee Comparison: 04/29/2024 Findings: There is a total knee prosthesis. No prosthetic loosening. No soft tissue lesions Likely [id number] suprapatellar effusion No acute fractures IMPRESSION: No acute fractures Right knee prosthesis in good position no prosthetic complications likely [id number] suprapatellar effusion This document has been electronically signed by: Boo Smart MD on 11/11/2024 08:38:54
--- NOTE | ~2024-11-10 | XR_ITS ---
CLINICAL HISTORY: M25.551 - Pain in right hip 3 view, pelvis and right hip Comparison: None Findings: There are significant degenerative changes of the lower lumbar spine. There is a abdominal mesh material overlying the right iliac crest. There are significant degenerative changes of theright hip with joint space narrowing and mild lateral femoral head subluxation. There are small femoral head osteophytes. No dislocation. There are small left acetabular osteophytes and small subchondral geodes left femoral head neck region small subchondral geodes right femoral head and neck region. The soft tissues are unremarkable. There is metallic clothing artifact on the exam. This is limiting evaluation. There is nondiagnostic evaluation of the superior aspect of the leftgreater trochanter due to metallic artifact possible metallic coins IMPRESSION: Degenerative changes bilateral hips orjhr-uyrrqlo-dwsk-left, tiny femoral subchondral geodes, likely degenerative can be associated with hip impingement syndrome Significant degenerative changes lower lumbar spine Abdominal mesh material overlying the right iliac crest. This document has been electronically signed by: Boo Smart MD on 11/11/2024 08:26:40
--- OUTSIDE RECORDS SUMMARY | 2024-11-11 09:59 | XMS_ITS | Encounter Summary ---
Author [facility] [place] [address] Care Team Providers Care Ammonia Still Operator Name Role Phone Uche Lassiter MD Primary Care Provider [phone] Reason for Visit * Reason Onset Date Comments Medication Problem 11/02/2024 Encounter Details Date Type Department Care Team (Late st Contact Info) Description 11/02/2024 Telephone Adult Medicine [address] [phone] Uche Lassiter MD [address] [place] [phone] Medication Problem Social History Tobacco Use Types [...] # Pharmacy Refill Daily Dose* Pymt Type QUALITY IMPROVEMENT ANALYST 10/13/24 1 10/13/24 10/13/24 Oxycodone Hcl (Ir) 10 Mg Tab 140 28 An Cru [id number] Big (5799) 0/0 75.00MME Comm Ins [place] 10/13/24 1 10/13/24 10/13/24 Oxycontin Er 20 Mg Tablet 84 28 An Cru [id number] Big (5799) 0/0 90.00 [place]MEComm Ins [place] 10/06/24 1 10/06/24 10/06/24 Lorazepam 1 Mg Tablet 56 28 An Cru [id number] Big (5799) 0/0 2.00 LME CommIns [place] * Makenna Lindo - 11/02/2024 8:33 AM EST Medication Problem: What is the name of the medication patient is having a problem with?: OXYCONTIN 20MG What is the problem?: out of stock. Patient would like a new script sent to [facility] stating she called this pharmacy and they have the medication there Who is calling about the problem? : The patient Is this a NEW medication?: no How long has the patient been taking this medication? Years Who prescribed this medication for the patient? Dr Villatoro Who is patients PCP?: Uche Lassiter MD Payor: [facility] HEALTH PLAN / Plan: [facility] MEDICAID / Product Type: *No Product type* / documented in this encounter Plan of Treatment Upcoming Encounters Date Type Department Care Team (Late st Contact Info) Description 01/27/2025 3:30 PM EDT Office Visit Adult Medicine [address] [phone] Uche Lassiter MD [address] [place] [phone] 03/08/2025 10:30 AM EDT Appointment [facility] Endoscopy [address] [place] [phone] Tad Patino, DO [address] [address] 04/22/2025 8:30 AM EDT Office Visit Adult Medicine [facility] [address] [place] [phone] Uche Lassiter MD [address] [place] [phone] documented as of this encounter Visit Diagnoses Not on filedocumented in this encounter Care Teams Ammonia Still Operator Relationship Specialty Start Date End Date Uche Lassiter MD [address] [place] [phone] PCP - General Internal Medicine 01/18/14 documented as of this encounter
--- OUTSIDE RECORDS SUMMARY | 2024-11-11 09:59 | XMS_ITS | Clinical Summary ---
Author Organization [facility] adicate timeads Address [address] [place] [address] Care Team Providers Care Nuclear Physics Teacher Name Role Phone Maikol MAHAN MD, Uche [...] Adults 18 yrs or above (or HM Modifier)([facility]) 1983 Hepatitis C Virus Infection in Adolescents and Adults: Screening (or Modifier) ([facility]) 1983 SDNV Screening Reminder: Annually for all adults ([facility]) 1983 Tobacco Smoking Cessation: i n Adults excluding Women: Behavioral and Pharmacotherapy Interventions ([facility]) 1983 DTaP/Tdap/Td Vaccines ([facility]) (1 - Tdap) 1984 Breast Cancer: Screening Annually age 50-74 yrs (or HM Modifier)([facility] ) 2015 Flu Vaccination: Yearly for ages 18mos through 64 years (or Modifier)([facility] ) 04/29/2024 07/19/2020 COVID-19 Vaccine Screening: Initial Series and Booster Status ([facility]) (2 - 2023- season) 2024 01/24/2021 Lipid Screening: Every 5 yrs for Women aged 45+ (or HM Modifier) ([facility] ) 03/26/2027 03/26/2022, 10/28/2017 Zoster/Shingles Vaccine Seri es Screening: Adults aged 18+ yrs (or HM Modifiers)([facility] ) Completed 11/26/2019, 07/20/2019 Pneumococcal Vaccination Screening: Pts 0-19 & 19-64 yrs of age ([facility]) Aged Out No longer eligible based on patient's age to complete this topic Medical Devices Not on file Insurance [facility] PLAN Care Teams Nuclear Physics Teacher Relationship Specialty Start Date End Date Uche Lassiter III, MD [address] [place] [address] PCP - Platform Builder 04/02/17
--- OUTSIDE RECORDS SUMMARY | 2024-11-11 09:59 | XMS_ITS | Clinical Summary ---
Author Organization [facility] Address [address] [place] [phone] Phone Care Team Providers Care Ski Lift Operator Name Role Phone Uche Lassiter MD Primary Care Provider [phone] Allergies Active Allergy Reactions Criticality Noted Date [...] (two) times a day with meals. 08/11/20 23 025 Discontinued LORazepam (ATIVAN) 1 mg tablet Take 1 [...] Daily Amount: 60 mg 84 tablet 10/13/19 25 025 Discontinued(Re order) Active Problems Problem Noted Date Diagnosed Date Gastroesophageal reflux disease 10/13/2024 Hyperlipidemia 10/13/2024 Prediabetes 10/13/2024 Anxiety 06/22/2014 Encounters Date Type Department Care Team Description 11/02/2024 Telephone Adult Medicine [address] [phone] Uche Lassiter MD Medication Problem 10/20/2024 3:16 PM EST - 10/20/2024 11:59 PM EST Hospital Encounter Radiology Department - [address] [phone] Mass of upper outer quadrant of left breast Discharge Disposition: Home or Self Care 10/20/2024 3:00 PM EST - 10/20/2024 11:59 PM EST Hospital Encounter Radiology Department - [address] [phone] Mass of upper outer quadrant of left breast Discharge Disposition: Home or Self Care 10/20/2024 Telephone Adult Medicine [address] [phone] Maura Monteolngo MA 10/13/2024 1:30 PM EST Office Visit Adult Medicine [address] [phone] Ju Callahan PA Encounter for long-term current [...] comorbidity present (CMS/HCC) 08/24/2024 Telephone Adult Medicine [address] [phone] Uche Lassiter MD prior auth (Lorazepam 1 MG tablets) from Last 3 Months Immunizations Name Administration Dates Next Due happyview/Vari[employer] SARS-CoV-2 COVID -19, vector-nr, [id number], preservative free 01/24/2021 Surgical History Surgery Date Site/Laterality Comments BREAST BIOPSY PROCEDURE:BREAST BIOPSY SECTION PROCEDURE: SECTION BLADDER SUSPENSION PROCEDURE:BLADDER SUSPENSION BREAST LUMPECTOMY PROCEDURE:BREAST LUMPECTOMY COLONOSCOPY PROCEDURE:COLONOSCOPY APPENDECTOMY PROCEDURE:APPENDECTOMY HYSTERECTOMY PROCEDURE:HYSTERECTOMY TOTAL KNEE ARTHROPLASTY PROCEDURE:REPLACEMENT TOTAL KNEE;COMMENT:LEFT BLADDER SUSPENSION 2010 PROCEDURE: HISTORICAL BLADDER SUSPENSION; COMMENT: sling; removed due to recurrent UTIs CHOLECYSTECTOMY PROCEDURE: HISTORICAL CHOLECYSTECTOMY APPENDECTOMY PROCEDURE: HI APPENDECTOMY OTHER SURGICAL HISTORY PROCEDURE: HI TOTAL ABDOMINAL HYSTERECT W/WO RMVL TUBE OVARY COLONOSCOPY 2008 PROCEDURE: HISTORICAL COLONOSCOPY; COMMENT: Lisa Mackey. Negative exam. Upper endoscopy done as well. COLONOSCOPY W/ POLYPECTOMY 2013 PROCEDURE: HI COLSC FLX W/RMVL OF TUMOR POLYP LESION SNARE TQ; COMMENT: Diminutive colonic polyps x 3: Tubular adenoma x3. BREAST LUMPECTOMY 2009 Left PROCEDURE: HISTORICAL BREAST LUMPECTOMY; COMMENT: left, benign BREAST LUMPECTOMY 08/30/2014 Right PROCEDURE: HISTORICAL BREAST LUMPECTOMY; COMMENT: intraductal papiloma SECTION PROCEDURE: HI DELIVERY ONLY TONSILLECTOMY PROCEDURE: HISTORICAL TONSILLECTOMY TOTAL KNEE ARTHROPLASTY Left PROCEDURE: HI ARTHRP KNE CONDYLE&PLATU MEDIAL&LAT COMPARTMENTS OTHER SURGICAL HISTORY 03/13/2011 PROCEDURE: OUTSIDE ENDOSCOPY; COMMENT: normal BREAST BIOPSY 2013 Right PROCEDURE: BX BREAST; PERC NEEDLE CORE W/IMAG GUID UPPER GASTROINTESTINAL ENDOSCOPY 12/09/2017 PROCEDURE: HI UPPER GI ENDOSCOPY PERFORMED; COMMENT: esophagitis and Roblero's OTHER SURGICAL HISTORY 01/15/2018 PROCEDURE: HI LAPAROSCOPY COLECTOMY PARTIAL W/ANASTOMOSIS; COMMENT: Laparoscopic transverse colectomy; mobilization of splenic flexure OTHER SURGICAL HISTORY 2018 PROCEDURE: HI LAP RPR HRNA XCPT INCAL/INGUN NCRC8/STRANGULATED; COMMENT: Dr. Del Cid COLONOSCOPY 11/20/2017 PROCEDURE: HISTORICAL COLONOSCOPY; COMMENT: multiple polyps. COLONOSCOPY 08/30/2020 PROCEDURE: HISTORICAL COLONOSCOPY; COMMENT: tubular adenoma UPPER GASTROINTESTINAL ENDOSCOPY 08/30/2020 PROCEDURE: UPPER GI ENDOSCOPY/EXAM; COMMENT: reactive gastropathy and NO Roblero's CARPAL TUNNEL RELEASE 01/30/2022 Right PROCEDURE: HI NEUROPLASTY &/TRANSPOS MEDIAN NRV CARPAL TUNNE; COMMENT: [...] cystitis COPD (chronic obstructive pu lmonary disease) ([facility]/HCC) 04/12/2014 DX:COPD (chronic obstructive pulmonary disease) ([facility]) Hyperlipidemia 04/12/2014 DX:Hyperlipidemi a Chronic low back [...] 3:30 PM EDT Office Visit Adult Medicine [address] [phone] Uche Lassiter MD [address] [place] [address] 03/08/2025 10:30 AM EDT Appointment [facility] Endoscopy [address] [place] [phone] Tad Patino DO 175 [facility] [address] [place] [address] 04/22/2025 8:30 AM EDT Office Visit Adult Medicine [facility] [address] [place] [phone] Uche Lassiter MD [address] [place] [address] Health Maintenance Due Date Last Done Comments [...] is recommended in 1 year. Mammo Location: [facility], [address] [place] [address], [address], . -------- FINAL REPORT -------- Dictated By: Ed Alvarez Dictated Date: 10/20/2024 16:11 ET Assigned Physician: Ed Alvarez Reviewed and Electronically Signed By: Ed Alvarez Signed Date: 10/20/2024 16:21 ET Workstation ID: [id number] Transcribed By: Self Edit Transcribed Date: 10/20/2024 [...] in the upper-outer quadrant placed at the [facility] following ultrasound-guided needle core biopsy [...] markers in the upper-outer quadrant placed at [facility] following ultrasound-guided needle core biopsy onApril [...] is recommended in 1 year. Mammo Location: [facility], [address] [place] [address], [address], . -------- FINAL REPORT -------- Dictated By: Ed Alvarez Dictated Date: 10/20/2024 16:11 ET Assigned Physician: Ed Alvarez Reviewed and Electronically Signed By: Ed Alvarez Signed Date: 10/20/2024 16:21 ET Workstation ID: [id number] Transcribed By: Self Edit Transcribed Date: 10/20/2024 [...] is recommended in 1 year. Mammo Location: [facility], [address] [place] [address], [address], . -------- FINAL REPORT -------- Dictated By: Ed Alvarez Dictated Date: 10/20/2024 16:11 ET Assigned Physician: Ed Alvarez Reviewed and Electronically Signed By: Ed Alvarez Signed Date: 10/20/2024 16:21 ET Workstation ID: [id number] Transcribed By: Self Edit Transcribed Date: 10/20/2024 [...] in the upper-outer quadrant placed at the [facility] following ultrasound-guided needle core biopsy [...] markers in the upper-outer quadrant placed at [facility] following ultrasound-guided needle core biopsy onApril [...] is recommended in 1 year. Mammo Location: [facility], [address] [place] [address], [address], . -------- FINAL REPORT -------- Dictated By: Ed Alvarez Dictated Date: 10/20/2024 16:11 ET Assigned Physician: Ed Alvarez Reviewed and Electronically Signed By: Ed Alvarez Signed Date: 10/20/2024 16:21 ET Workstation ID: [id number] Transcribed By: Self Edit Transcribed Date: 10/20/2024 16:20 ET Ju HUMPHREY IMG BI PROCEDURES Final Result * (ABNORMAL) Drug abuse screen 8a panel, urine (10/13/2024 2:26 PM EST) Amphetamine Screen, Ur Negative Negative LAB CHEMISTRY METHOD 5 8:18 PM [facility] Comment:Certain OTC medicati ons containing ephedrine, phenylephrine, pseudoephedrine and phenylpropanolamine can cause false positive results. Barbiturate Screen, Ur Negative Negative LAB CHEMISTRY METHOD 5 8:18 PM [facility] Benzodiazepine Screen, Ur Negative Negative LAB CHEMISTRY METHOD 5 8:18 PM [facility] Cocaine Screen, Ur Negative Negative LAB CHEMISTRY METHOD 5 8:18 PM [facility] Opiate Screen, Ur Positive(A ) Negative LAB CHEMISTRY METHOD 5 8:18 PM [facility] Cannabinoid (THC) Screen, Ur Negative Negative LAB CHEMISTRY METHOD 5 8:18 PM [facility] Comment:Specimens from patie nts taking pantoprazole sodium (Protonix) have been shown to produce false positive results. Oxycodone Screen, Ur Positive(A ) Negative LAB CHEMISTRY METHOD 8:18 PM EST [facility] Fentanyl, Ur Negative Negative LAB CHEMISTRY METHOD 8:18 PM EST [facility] Urine Urine specimen obtained by clean catch procedure / Unknown Non-blood Collection / Unknown 10/13/2024 2:26 PM EST 10/13/2024 2:26 PM EST Narrative [facility] - 10/13/2024 8:18 PM EST Assay [...] HUMPHREY LAB URINE ORDERABLES Fi nal Result [facility] [address] [place] [address], * Vitamin D 25 hydroxy (10/13/2024 2:26 PM EST) Only the most recent of2 resultswithin the time period is included. Vit D, 25-Hydroxy 33.4 30.0 - 80.0 ng/mL LAB CHEMISTRY METHOD 10/13/2024 5:37 PM EST [facility] Blood Venous blood specimen / Unknown Venipuncture / Unknown 10/13/2024 2:26 PM EST 10/13/2024 2:26 PM EST Limbora Sindy HUMPHREY LAB BLOOD ORDERABLES Fi nal Result Performing Organization Address City/[facility]/ZIP Co de Phone Number [facility] [address] [place] [address], [place] [phone] * Hemoglobin A1c (10/13/2024 2:26 PM EST) [facility] Hemoglobin A1C 5.9 <6.5 % LAB CHEMISTRY METHOD 10/14/2024 12:38 PM EST [facility] Mean Bld Glu Estim. 123 mg/dL LAB CHEMISTRY METHOD 10/14/2024 12:38 PM EST [facility] Blood Venous blood specimen / Unknown Venipuncture / Unknown 10/13/2024 2:26 PM EST 10/13/2024 2:26 PM EST Ju HUMPHREY LAB BLOOD ORDERABLES Fi nal Result Performing Organization Address [facility]/ZIP Co de Phone Number [facility] [address] [place] [address], [place] [phone] * (ABNORMAL) Lipid panel with reflex to direct LDL (08/24/2024 2:20 PM EST) [facility] Cholesterol 161 0 - 200 mg/dL LAB CHEMISTRY METHOD 08/24/2024 4:48 PM [facility] Triglycerides 297(H) 0 - 150 mg/dL LAB CHEMISTRY METHOD 08/24/2024 4:48 PM EST [facility] HDL 51 >=40 mg/dL LAB CHEMISTRY METHOD 08/24/2024 4:48 PM [facility] LDL Calculated 51 0 - 100 mg/dL LAB CHEMISTRY METHOD 08/24/2024 4:48 PM EST [facility] VLDL Cholesterol Sukumar 59.4 mg/dL LAB CHEMISTRY METHOD 08/24/2024 4:48 PM EST [facility] Non HDL Chol. (LDL+VLDL) 110 <145 mg/dL LAB CHEMISTRY METHOD 08/24/2024 4:48 PM [facility] Chol/HDL Ratio 3.2 0.0 - 4.4 LAB CHEMISTRY METHOD 08/24/2024 4:48 PM [facility] Blood Venous blood specimen / Unknown Venipuncture / Unknown 08/24/2024 2:20 PM EST 08/24/2024 2:20 PM EST us Uche Lassiter MD LAB BLOOD ORDERABLES Final Resu lt [facility] [address] [place] [address], [place] [phone] * (ABNORMAL) Comprehensive metabolic panel (08/24/2024 2:20 [...] MD LAB BLOOD ORDERABLES Final Resu lt [facility] [address] [place] [address], from Last 3 Months Insurance [facility] [place] [address] Care Teams Ski Lift Operator Relationship Specialty Start Date End Date Uche Lassiter MD [address] [place] [address] [phone] PCP - General Internal Medicine 01/18/14
--- OUTSIDE RECORDS SUMMARY | 2024-11-11 09:59 | XMS_ITS | Encounter Summary ---
Author Organization [facility] [place] [address] Care Team Providers Care Blind Hanger Name Role Phone Uche Lassiter MD Primary Care Provider [phone] Reason for Visit * Imaging (Routine) - Closed Specialty Diagnoses / Procedures Referred By Jerry baxter Referred To Contact Radiology Diagnoses Mass of upper outer quadrant of left breast Procedures MG Mammo Digital Diagnostic w Sathish bilat MG Mammo Digital Diagnostic w Sathish Left Ju Callahan PA [address] [place] [address] Phone: tel: fax: [address] Phone: tel: Referral ID Status Reason Start Date Expiration Date Visits Re quested Visits Authorized [id number] Closed 10/13/2024 10/13/2025 1 1 Encounter Details Date Type Department Care Team (Latest Contact Info) Description 10/20/2024 3:00 PM EST - 10/20/2024 11:59 PM EST Hospital Encounter Radiology Department - [address] [phone] Mass of upper outer quadrant of left [...] 01/27/2025 3:30 PM EDT Office Visit [address] [phone] Uche Lassiter MD [address] [place] [phone] 03/08/2025 10:30 AM EDT Appointment [facility] Endoscopy [address] [place] [phone] Sukumar, Tad, DO [address] [address] 04/22/2025 8:30 AM EDT Office Visit [address] [phone] Uche Lassiter MD [address] [place] [address] [phone] documented as of this encounter Procedures Procedure [...] is recommended in 1 year. Mammo Location: [facility], [address] [place] [address], [address], . -------- FINAL REPORT -------- Dictated By: Ed Alvarez Dictated Date: 10/20/2024 16:11 ET Assigned Physician: Ed Alvarez Reviewed and Electronically Signed By: Ed Alvarez Signed Date: 10/20/2024 16:21 ET Workstation ID: [id number] Transcribed By: Self Edit Transcribed Date: 10/20/2024 [...] in the upper-outer quadrant placed at the [facility] following ultrasound-guided needle core biopsy [...] markers in the upper-outer quadrant placed at [facility] following ultrasound-guided needle core biopsy [...] is recommended in 1 year. Mammo Location: [facility], [address] [place] [address], [address], . -------- FINAL REPORT -------- Dictated By: Ed Alvarez Dictated Date: 10/20/2024 16:11 ET Assigned Physician: Ed Alvarez Reviewed and Electronically Signed By: Ed Alvarez Signed Date: 10/20/2024 16:21 ET Workstation ID: [id number] Transcribed By: Self Edit Transcribed Date: 10/20/2024 16:20 ET Ju HUMPHREY IMG BI PROCEDURES Final Result documented in this encounter Visit Diagnoses Diagnosis Mass of upper outer quadrant of left breast documented in this encounter Care Teams Blind Hanger Relationship Specialty Start Date End Date Uche Lassiter MD [address] [place] [id number] PCP - General Internal Medicine 01/18/14 documented as of this encounter
--- OUTSIDE RECORDS SUMMARY | 2024-11-11 09:59 | XMS_ITS | Encounter Summary ---
[facility] [place] [address] Care Team Providers Care Mold Burner Name Role Phone Uche Lassiter MD Primary Care Provider [phone] Encounter Details Date Type Department Care Team (Late Contact Info) Description 10/20/2024 Telephone Adult Medicine [address] [phone] Maura Montelongo MA Social History Tobacco Use [...] 3:30 PM EDT Office Visit Adult Medicine [address] [phone] Uche Lassiter MD [address] [place] [address] 03/08/2025 10:30 AM EDT Appointment [facility] Endoscopy [address] [place] [phone] Tad Patino DO [address] [address] 04/22/2025 8:30 AM EDT Office Visit Adult Medicine [address] [phone] Uche Lassiter MD [address] [place] [address] documented as of this encounter Visit Diagnoses Not on filedocumented in this encounter Care Teams Mold Burner Relationship Specialty Start Date End Date Uche Lassiter MD [address] [place] [phone] PCP - General Internal Medicine 01/18/14 documented as of this encounter
--- OUTSIDE RECORDS SUMMARY | 2024-11-11 09:59 | XMS_ITS | Clinical Summary ---
Author Organization [facility] Address [address] [place] [address] Care Team Providers Care Core Fitter Name Role Phone Uche Lassiter MD Primary Care Provider [phone] Allergies Active Allergy Reactions Criticality Noted Date Comments Amoxicillin 07/03/2022 Sulfamethoxazole-Trimethoprim 2021 Gabapentin 07/03/2022 Morphine 07/03/2022 Nitrofurantoin 07/03/2022 Medications Medication Sig Dispensed Refills Start Date End Date Status atenolol (TENORMIN) tablet 100 mg 0 06/25/2022 Active LORazepam (ATIVAN) 1 MG tablet 0 06/06/2022 Active methocarbamol (ROBAXIN) 500 MG tablet 0 07/02/2022 Active oxyCODONE HCl (ROXICODONE) 10 MG TABS 0 06/14/2022 A ctive Daliresp 500 MCG tablet 0 05/19/2022 A ctive rosuvastatin (CRESTOR) tablet 40 mg 0 05/28/2022 Active furosemide (LASIX) 20 MG tablet Take 20 mg by mouth 2 (two) times a day. 0 Active Active Problems Problem Noted Date Diagnosed Date Leucocytosis 07/03/2022 Other fatigue 07/03/2022 Obstructive sleep apnea syndrome 07/03/2022 Family History Medical History Relation Name Comments Cancer Father FATHER Cancer Maternal Grandfather COLON Cancer Paternal Grandfather COLON Leukemia Paternal Grandmother Relation Name Status Comments Father Maternal Grandfather Paternal Grandfather Paternal Grandmother Social History Tobacco Use Types Packs/Day Years Used Date Smoking Tobacco: Former Cigarettes Smokeless Tobacco: Never Comments:young years and sec ond hand smoke Alcohol Use Standard Drinks/Week Comments Yes 0 (1 standard drink = 0.6 oz pur e alcohol) socially Sex and Gender Information Value Date Recorded Sex Assigned at Not on file Gender Identity Not on file Sexual Orientation Not on file Job Start Date Occupation Industry Not on file Not on file Not on file Last Filed Vital Signs Vital Sign Reading Time Taken Comments Blood Pressure 149/81 07/03/2022 1:42 PM EDT Pulse 70 07/03/2022 1:42 PM EDT Temperature 36.8 ??C (98.3 ??F) 07/03/2022 1:42 PM ED T Respiratory Rate - - Oxygen Saturation 98% 07/03/2022 1:42 PM EDT Inhaled Oxygen Concentration - - Weight 130.5 kg (287 lb 12.8 oz) 07/03/2022 1:42 PM EDT Height 162.6 cm (5' 4 ) 07/03/2022 1:42 PM EDT Body Mass Index 49.4 07/03/2022 1:42 PM EDT Plan of Treatment Health Maintenance Due Date Last Done Comments Hepatitis B Vaccines (1 of 3 - 3-dose series) 1965 Hepatitis C Screening 1965 Depression Screening 1977 Preventative Health Evaluation 1983 DTap / Tdap / Td (1 - Tdap) 1984 Cervical Cancer Screening (Pap Smear) 1986 Colon Cancer Screening (Colonoscopy) 2010 Breast Cancer Screening (Mammogram) 2015 COVID-19 Vaccine ( season) 2024 01/24/2021 Influenza Vaccine (#1) 2024 0, 07/09/2019, 07/09/2018, Additional history exists Shingrix-Zoster Vaccine Completed 11/26/2019, 07/20 Pneumococcal Vaccine Aged Out No long er eligible based on patient's age to complete this topic RSV Ped < 20 months Aged Out No longe r eligible based on patient's age to complete this topic Care Teams Core Fitter Relationship Specialty Start Date End Date Uche Lassiter MD PCP - General Internal Medicine 03/25/22
--- OUTSIDE RECORDS SUMMARY | 2024-11-11 09:59 | XMS_ITS | Encounter Summary ---
Author [facility] [place] [address] Care Team Providers Care Certified Technician Specialist Name Role Phone Uche Lassiter MD Primary Care Provider [phone] Reason for Referral * Imaging (Routine) - Closed Specialty Diagnoses / Procedures Referred By Jerry baxter Referred To Contact Radiology Diagnoses Mass of upper outer quadrant of left breast Procedures US Breast Limited Left US Breast Complete Left Ju Callahan PA [address] [place] [address] Phone: tel: fax: [address] Phone: tel: Referral ID Status Reason Start Date Expiration Date Visits Re quested Visits Authorized [id number] Closed 10/13/2024 10/13/2025 1 1 Reason for Visit * Imaging (Routine) - Closed Specialty Diagnoses / Procedures Referred By Jerry baxter Referred To Contact Radiology Diagnoses Mass of upper outer quadrant of left breast Procedures US Breast Limited Left US Breast Complete Left Ju Callahan PA [address] [place] [address] Phone: tel: fax: [address], [place] Phone: tel: Referral ID Status Reason Start Date Expiration Date Visits Re quested Visits Authorized [id number] Closed 10/13/2024 10/13/2025 1 1 Encounter Details Date Type Department Care Team (Latest Contact Info) Description 10/20/2024 3:16 PM EST - 10/20/2024 11:59 PM EST Hospital Encounter Radiology Department - [address] [phone] Mass of upper outer quadrant of left [...] 3 (three) times a day. 08/19/2016 naloxone ([facility] naloxone) 2 mg/2 mL syringe [...] 3:30 PM EDT Office Visit Adult Medicine [address] [phone] Uche Lassiter MD [address] [place] [phone] 03/08/2025 10:30 AM EDT Appointment [facility] Endoscopy [address] [place] [phone] Tad Patino DO [address] [address] 04/22/2025 8:30 AM EDT Office Visit Adult [address] [phone] Uche Lassiter MD [address] [place] [phone] documented as of this encounter Procedures Procedure [...] is recommended in 1 year. Mammo Location: [place] [facility], [address] [place] [address], [phone], . -------- FINAL REPORT -------- Dictated By: Ed Alvarez Dictated Date: 10/20/2024 16:11 ET Assigned Physician: Ed Alavrez Reviewed and Electronically Signed By: Ed Alvarez Signed Date: 10/20/2024 16:21 ET Workstation ID: [id number] Transcribed By: Self Edit Transcribed Date: 10/20/2024 [...] in the upper-outer quadrant placed at the [facility] following ultrasound-guided needle core biopsy on [...] markers in the upper-outer quadrant placed at [facility] following ultrasound-guided needle core biopsy [...] is recommended in 1 year. Mammo Location: [facility], [address] [place] [address], [phone], . -------- FINAL REPORT -------- Dictated By: Ed Alvarez Dictated Date: 10/20/2024 16:11 ET Assigned Physician: Ed Alvarez Reviewed and Electronically Signed By: Ed Alvarez Signed Date: 10/20/2024 16:21 ET Workstation ID: [id number] Transcribed By: Self Edit Transcribed Date: 10/20/2024 16:20 ET us Ju HUMPHREY IMG US PROCEDURES Final Result documented in this encounter Visit Diagnoses Diagnosis Mass of upper outer quadrant of left breast documented in this encounter Care Teams Certified Technician Specialist Relationship Specialty Start Date End Date Uche Lassiter MD [address] [place] [phone] PCP - General Internal Medicine 01/18/14 documented as of this encounter
--- OUTSIDE RECORDS SUMMARY | 2024-11-11 09:59 | XMS_ITS | Encounter Summary ---
Author Organization [facility] [place] [address] Care Team Providers Care Data Support Analyst Name Role Phone Uche Lassiter MD Primary Care Provider [phone] Reason for Referral * Imaging (Routine) - Closed Specialty Diagnoses / Procedures Referred By Jerry baxter Referred To Contact Radiology Diagnoses Mass of upper outer quadrant of left breast Procedures US Breast Limited Left US Breast Complete Left Ju Callahan PA [address] [place] [address] Phone: tel: fax: [address] Phone: tel: Referral ID Status Reason Start Date Expiration Date Visits Re quested Visits Authorized [id number] Closed 10/13/2024 10/13/2025 1 1 * Consultation (Routine) - Denied Specialty Diagnoses / Procedures Referred By Jerry baxter Referred To Contact Gastroenterology Diagnoses Screening for malignant neoplasm of colon Ju Callahan PA [address] [place] [address] Phone: tel: fax: Gastroenterology [facility] [address] [address] Phone: tel: fax: Referral ID Status Reason Start Date Expiration Date V isits Requested Visits Authorized [id number] Denied Specialty Services Required 10/13/2024 10/13/2025 1 0 * Medications - Pending Review Specialty Diagnoses / Procedures Referred By Jerry baxter Referred To Contact Diagnoses Gastroesophageal reflux disease, unspecified whether esophagitis present Ju Callahan PA [address] [place] [address] Phone: tel: fax: Referral ID Status Reason Start Date Expiration Date V isits Requested Visits Authorized [id number] Pending Review 1 1 Reason for Visit * Reason Comments med review Breast Mass Encounter Details Date Type Department Care Team (Late st Contact Info) Description 10/13/2024 1:30 PM EST Office Visit Adult Medicine [address] [address] Ju Callahan PA [address] [place] [phone] Encounter for long-term current use of medication [...] worsening reflux. Anxiety: Patient with anxiety on [facility] [place] [place] for Ativan 1 mg 1 tablet twice [...] Procedure Laterality Date APPENDECTOMY PROCEDURE:APPENDECTOMY APPENDECTOMY PROCEDURE: WI APPENDECTOMY BLADDER SUSPENSION PROCEDURE:BLADDER SUSPENSION BLADDER SUSPENSION [...] papiloma CARPAL TUNNEL RELEASE Right 01/30/2022 PROCEDURE: WI NEUROPLASTY &/TRANSPOS MEDIAN NRV CARPAL TUNNE; COMMENT: with excision of benign fibroadipose mass, Dr. Michel SECTION PROCEDURE: SECTION SECTION PROCEDURE: WI DELIVERY ONLY CHOLECYSTECTOMY PROCEDURE: HISTORICAL CHOLECYSTECTOMY COLONOSCOPY PROCEDURE:COLONOSCOPY COLONOSCOPY 2008 PROCEDURE: HISTORICAL COLONOSCOPY; COMMENT: Lisa Mackey. Negative exam. Upper endoscopy done as well. COLONOSCOPY 11/20/2017 PROCEDURE: HISTORICAL COLONOSCOPY; COMMENT: multiple polyps. COLONOSCOPY 08/30/2020 PROCEDURE: HISTORICAL COLONOSCOPY; COMMENT: tubular adenoma COLONOSCOPY W/ POLYPECTOMY 2013 PROCEDURE: WI COLSC FLX W/RMVL OF TUMOR POLYP LESION SNARE TQ; COMMENT: Diminutive colonic polyps x3: Tubular adenoma x3. HYSTERECTOMY PROCEDURE:HYSTERECTOMY OTHER SURGICAL HISTORY PROCEDURE: WI TOTAL ABDOMINAL HYSTERECT W/WO RMVL TUBE OVARY OTHER SURGICAL HISTORY 03/13/2011 PROCEDURE: OUTSIDE ENDOSCOPY; COMMENT: normal OTHER SURGICAL HISTORY 01/15/2018 PROCEDURE: WI LAPAROSCOPY COLECTOMY PARTIAL W/ANASTOMOSIS; COMMENT: Laparoscopic transverse colectomy; mobilization of splenic flexure OTHER SURGICAL HISTORY 2018 PROCEDURE: WI LAP RPR HRNA XCPT INCAL/INGUN NCRC8/STRANGULATED; COMMENT: Dr. Del Cid TONSILLECTOMY PROCEDURE: HISTORICAL TONSILLECTOMY TOTAL KNEE ARTHROPLASTY PROCEDURE:REPLACEMENT TOTAL KNEE;COMMENT:LEFT TOTAL KNEE ARTHROPLASTY Left PROCEDURE: WI ARTHRP KNE CONDYLE&PLATU MEDIAL&LAT COMPARTMENTS UPPER GASTROINTESTINAL ENDOSCOPY 12/09/2017 PROCEDURE: WI UPPER GI ENDOSCOPY PERFORMED; COMMENT: esophagitis and [...] mouth 3 (three) times a day. naloxone ([facility]) 2 mg/2 mL syringe kit Inject [...] murmurs, no gallops BREAST: Patient is offered elevator starter for sensitive examination, however, declines. No discharge [...] unspecified obesitytype, unspecified whether serious comorbidity present ([facility]) PLAN: Patient presents for follow [...] She will continue with current regimen per [facility] [place] [place]. She is due for UDS and is ordered for this. Fibromyalgia/chronic low back pain: Patient with chronic pain which is somewhat improved with use of [facility] [place] [place] medication. Continue with current regimen. UDS ordered. [...] Description 01/27/2025 3:30 PM EDT Office Visit [address] [phone] Uche Lassiter MD [address] [place], [place] 03/08/2025 10:30 AM EDT Appointment [facility] Endoscopy [address] [place] [phone] Sukumar Tad, DO 175 [facility] [address] [place] [address] 04/22/2025 8:30 AM EDT Office Visit Adult Medicine [facility] [address] [place], [place] [phone] Uche Lassiter MD [address] [place] [address] Scheduled Referrals Name Type Priority Associated Diagnoses [...] is recommended in 1 year. Mammo Location: [facility], [address] [place] [address], [address], . -------- FINAL REPORT -------- Dictated By: Ed Alvarez Dictated Date: 10/20/2024 16:11 ET Assigned Physician: Ed Alvarez Reviewed and Electronically Signed By: Ed Alvarez Signed Date: 10/20/2024 16:21 ET Workstation ID: [id number] Transcribed By: Self Edit Transcribed Date: 10/20/2024 [...] in the upper-outer quadrant placed at [facility] following ultrasound-guided needle core biopsy onApril [...] is recommended in 1 year. Mammo Location: [facility], [address] [place] [address], [id number], . -------- FINAL REPORT -------- Dictated By: Ed Alvarez Dictated Date: 10/20/2024 16:11 ET Assigned Physician: Ed Alvarez Reviewed and Electronically Signed By: Ed Alvarez Signed Date: 10/20/2024 16:21 ET Workstation ID: [id number] Transcribed By: Self Edit Transcribed Date: 10/20/2024 16:20 ET Ju HUMPHREY IMG US PROCEDURES Final Result * Vitamin D 25 hydroxy (10/13/2024 2:26 PM EST) Vit D, 25-Hydroxy 33.4 30.0 - 80.0 ng/mL LAB CHEMISTRY METHOD 10/13/2024 5:37 PM EST [facility] Blood Venous blood specimen / Unknown Venipuncture / Unknown 10/13/2024 2:26 PM EST 10/13/2024 2:26 PM EST Ju HUMPHREY LAB BLOOD ORDERABLES Fi nal Result Performing Organization Address City/[facility]/ZIP Co de Phone Number [facility] [address] [place] [address], * Hemoglobin A1c (10/13/2024 2:26 PM EST) Hemoglobin A1C 5.9 <6.5 % LAB CHEMISTRY METHOD 10/14/2024 12:38 PM EST [facility] Mean Bld Glu Estim. 123 mg/dL LAB CHEMISTRY METHOD 10/14/2024 12:38 PM EST [facility] Blood Venous blood specimen / Unknown Venipuncture / Unknown 10/13/2024 2:26 PM EST 10/13/2024 2:26 PM EST Ju HUMPHREY LAB BLOOD ORDERABLES Fi nal Result [facility] [address] [place] [address], * (ABNORMAL) Drug abuse screen 8a panel, urine (10/13/2024 2:26 PM EST) Amphetamine Screen, Ur Negative Negative LAB CHEMISTRY METHOD 5 8:18 PM EST [facility] Comment:Certain OTC medicati ons containing ephedrine, phenylephrine, pseudoephedrine and phenylpropanolamine can cause false positive results. Barbiturate Screen, Ur Negative Negative LAB CHEMISTRY METHOD 5 8:18 PM EST [facility] Benzodiazepine Screen, Ur Negative Negative LAB CHEMISTRY METHOD 5 8:18 PM [facility] Cocaine Screen, Ur Negative Negative LAB CHEMISTRY METHOD 5 8:18 PM [facility] Opiate Screen, Ur Positive(A ) Negative LAB CHEMISTRY METHOD 5 8:18 PM [facility] Cannabinoid (THC) Screen, Ur Negative Negative LAB CHEMISTRY METHOD 5 8:18 PM EST [facility] Comment:Specimens from patie nts taking pantoprazole sodium (Protonix) have been shown to produce false positive results. Oxycodone Screen, Ur Positive(A ) Negative LAB CHEMISTRY METHOD 5 8:18 PM EST [facility] Fentanyl, Ur Negative Negative LAB CHEMISTRY METHOD 5 8:18 PM [facility] Urine Urine specimen obtained by clean catch procedure / Unknown Non-blood Collection / Unknown 10/13/2024 2:26 PM EST 10/13/2024 2:26 PM EST [facility] - 10/13/2024 8:18 PM [...] Ju HUMPHREY LAB URINE ORDERABLES nal Result [facility] [address] [place] [address], documented in this encounter Visit Diagnoses Diagnosis [...] documented as of this encounter Care Teams Data Support Analyst Relationship Specialty Start Date End Date Uche Lassiter MD [address] [place] [phone] PCP - General Internal Medicine 01/18/14 documented as of this encounter
== END 2024-11-10 09:30 | disposition home or self-care (01) ==
LOC: HO.HOSX 09:29
PROVIDERS: Visit Provider Orthopaedic Surgery
DX: M25.561 Pain in right knee (principal); M25.551 Pain in right hip
CPT/HCPCS: 73502; 73562; 99212

== ENCOUNTER 2024-11-10 13:58 | Outpatient (AMB) | payer OTHER, SELFPAY ==
--- NOTE | 2024-11-10 14:36 | A.OFFVIS_ITS ---
Vital Signs 11/10/24 14:39 Height 5 ft 4 in Weight 285 lb BMI 48.9 Intake Visit Reasons: OV: R TKA w/DR 04/12/24, Right hip pain Intake Note: Nalini is a 59 year old female who presents for follow up after undergoing right total knee replacement surgery on 04/12/2024. The patient reports mild intermittent discomfort in her right knee. She denies any fevers or chills. Today she is most concerned with progressively worsening chronic low back pain as well as pain along the posterior aspect of her right hip. She has tried Tylenol, anti-inflammatory medicines and narcotics which gave her only mild relief. The patient has increased pain when going up and down stairs. She has been seen by Dr. Bundy from Neurosurgery who told her that no back surgery was indicated at this point. Allergies gabapentin Allergy (Severe, Verified 11/10/24 14:45) Agitated amoxicillin Allergy (Unknown, Verified 11/10/24 14:45) Swelling cephalexin Allergy (Unknown, Verified 11/10/24 14:45) Anaphylaxis morphine Allergy (Unknown, Verified 11/10/24 14:45) Hives nitrofurantoin [From Macrobid] Allergy (Verified 11/10/24 14:45) face swelling, difficulty breathing Sulfa (Sulfonamide Antibiotics) Allergy (Verified 11/10/24 14:45) Shortness of Breath sulfamethoxazole [From Bactrim] Allergy (Verified 11/10/24 14:45) Swelling, rash trimethoprim [From Bactrim] Allergy (Verified 11/10/24 14:45) Swelling, rash Medication List - Last Reconciled 11/10/24 by Price Loco MD albuterol sulfate 90 mcg/actuation 2 puffs inhalation Q4-6H PRN amlodipine 5 mg PO DAILY aspirin (Adult Low Dose Aspirin) 81 mg PO BEDTIME atenolol 100 mg PO BEDTIME cholecalciferol (vitamin D3) 50 mcg PO BEDTIME clindamycin HCl 600 mg (2 x 300 mg) PO ONCE 1 day dexlansoprazole (Dexilant) 60 mg PO BEDTIME fluticasone propionate 50 mcg/actuation 1 spray intranasal BID PRN ipratropium-albuterol 20-100 mcg/actuation (Combivent Respimat) 1 puff inhalation BID PRN lorazepam 1 mg PO BID methocarbamol 500 mg PO TID methylprednisolone (Medrol (Peterson)) PO PER PKG DIR naloxone (LifEMS Naloxone) 2 mg IM Q2M PRN nitroglycerin 0.4 mg sublingual DIRECTED PRN omeprazole 20 mg PO BEDTIME oxycodone ER (OxyContin) 20 mg PO TID prochlorperazine maleate 10 mg PO Q6H PRN roflumilast (Daliresp) 500 mcg PO BEDTIME rosuvastatin 40 mg PO BEDTIME sennosides (Senna Lax) 17.2 mg (2 x 8.6 mg) PO BEDTIME 30 days ticagrelor (Brilinta) 90 mg PO BID 7 days walker Folding front wheeled walker [facility] Medical History Habitual snoring Sleep apnea History of placement of stent in LAD coronary artery Back pain Hyperlipidemia Chronic interstitial cystitis Morbid obesity Dyspnea on exertion Chest pain on exertion Lumbar disc disease Chronic lower back pain Fibromyalgia Hypertension COPD (chronic obstructive pulmonary disease) Anxiety Intraductal papilloma of breast Edema, lower extremity Barretts esophagus GERD (gastroesophageal reflux disease) Tubular adenoma Aortic root dilatation Vitamin D deficiency Obstructive sleep apnea Prediabetes Osteoarthritis of right knee Surgical History Hx of hernia repair History of carpal tunnel surgery of right wrist Hx of total hysterectomy History of partial colectomy Hx of section History of appendectomy H/O colonoscopy History of esophagogastroduodenoscopy (EGD) Hx of cardiac catheterization History of arthroscopy of right knee History of left knee replacement History of tonsillectomy History of cholecystectomy History of lumpectomy of right breast History of lumpectomy of left breast History of bladder suspension procedure Social History Household Members: Spouse Housing: House Are you a primary day care attendant to a significant other at home: No Do you presently have visiting nurse or other home services: No Alcohol intake: current Alcohol intake frequency: holidays/special occasions only Patient Tobacco Use Status: Never used Tobacco service: No Physical Exam Vital Signs: BMI result Body Mass Index 48.9 Const Other: Well-nourished well-developed very friendly female awake alert and oriented x3 in no acute distress Extrem Other: Right knee examination shows that the surgical incision is well healed, no erythema, full active extension and flexion to 115 degrees, her patella tracks well Right hip examination shows slightly decreased range of motion when compared to her left hip, pain with range of motion, no tenderness over her bursa Results Reviewed Results Reviewed: X-rays of the patient's right knee taken today show a total knee arthroplasty in good position with no signs of loosening, no acute bony abnormalities X-rays of the patient's right hip show mild to moderate diffuse joint space narrowing, no acute bony abnormalities Assessment & Plan Assessment & Plan (1) Right hip pain: Code(s): M25.551 - Pain in right hip Category: Medical Plan Nalini continues to do well after undergoing right total knee replacement surgery on 04/12/2024. She does have right hip pain due to degenerative joint disease as well as low back pain due to degenerative disc disease. Thus, I will arrange for the patient to have a consultation with Dr. Love in our pain management department for possible low back injection as well as possible right hip intra-articular cortisone injection. The patient will continue with her pain medications in the meantime. Feel free to call me at any time should questions regarding her orthopedic management arise. I spent 21 minutes in reviewing the patient's records and imaging studies, seeing the patient and documenting in the medical record. Orders: Orders XR hip RT min 2V Today M25.551 - Pain in right hip XR knee RT 3V Today M25.561 - Pain in right knee Referrals Pain Management Referral G89.29 - Other chronic pain, M25.551 - Pain in right hip, M54.50 - Low back pain, unspecified Coding Level of Care Code Est Pt Level 3 (43581) Complex EM visit Add On G2211 Diagnoses Right hip pain M25.551
[2024-11-10 14:39] VITALS: BMI 48.9
--- OUTSIDE RECORDS SUMMARY | 2024-11-10 15:18 | XMS_ITS | Clinical Summary ---
Author Organization [employer] [facility] [employer] Address [address] [place] [address] Care Team Providers Care Maitre D Name Role Phone Maikol MAHAN MD, Uche Lozada Primary Care Provi kim Allergies Active Allergy Reactions Criticality Noted Date Comments Amoxicillin Swelling 01/25/2014 feet Gabapentin Palpitations Low 04/12/2014 somnolence Nitrofurantoin Monohyd/M-Cryst Rash Low 04/02 Morphine Swelling 01/25/2014 feet Nitrofurantoin Itching 04/12/2014 Sulfa (Sulfonamide Antibiotics) Rash Low 01/2017 Medications oxyCODONE (ROXICODONE) 10 MG tab Take 10 mg by mouth. 01/07/2018 Active oxyCODONE 20 mg TR12 Take 1 tablet by mouth. 01/16/2018 Active ranitidine (ZANTAC) 300 MG tablet TAKE ONE TABLET BY MOUTH AT BEDTIME 01/06/2018 Active prochlorperazin e (COMPAZINE) 10 MG tablet Take 10 mg by mouth. 01/14/2018 Active methocarbamol (ROBAXIN) 500 MG tablet Take 500 mg by mouth. 12/16/2017 Active roflumilast 500 mcg tab TAKE ONE TABLET BY MOUTH EVERY DAY 01/06/2018 Active dexlansoprazole (DEXILANT) 60 mg capsule Take 60 mg by mouth. 11/12/2017 Active bumetanide (BUMEX) 2 MG tablet Take 2 mg by mouth. 11/12/2017 Active ipratropium-alb uterol 20-100 mcg/actuation mist Inhale 1 puff. 07/29/2017 Active atenoloL (TENORMIN) 100 MG tablet TAKE ONE TABLET BY MOUTH EVERY DAY 12/06/2021 Active rosuvastatin (CRESTOR) 40 MG tablet Take 40 mg by mouth. 11/28/2021 Active omeprazole (PriLOSEC) 20 MG capsule TAKE ONE CAPSULE BY MOUTH EVERY DAY 10/25/2021 Active lorazepam (ATIVAN) 1 MG tablet Take 1 mg by mouth. 04/10/2022 Active furosemide (LASIX) 20 MG tablet TAKE ONE TABLET BY MOUTH TWICE A DAY 04/18/2021 Active ergocalciferol (ERGOCALCIFEROL ) 1,250 mcg (50,000 unit) capsule Take 50,000 Units by mouth. 03/26/2022 Active clindamycin (CLEOCIN) 150 MG capsule 11/05/2021 Active Social History Tobacco Use Types Packs/Day Years Used Date Smoking Tobacco: Passive Smo ke Exposure - Never Smoker Smokeless Tobacco: Never Comments No Sex and Gender Information Value Date Recorded Sex Assigned at Not on file Legal Sex Female 4:41 PM EDT Gender Identity Not on file Sexual Orientation Not on file Last Filed Vital Signs Vital Sign Reading Time Taken Comments Blood Pressure 136/88 01/23/2018 2:16 PM EDT Pulse 66 04/11/2022 3:38 PM EDT Temperature 37 ??C (98.6 ??F) 04/11/2022 3:38 PM EDT Respiratory Rate 18 04/11/2022 3:38 PM EDT Oxygen Saturation 97% 04/11/2022 3:38 PM EDT Inhaled Oxygen Concentration - - Weight 116 kg (256 lb) 04/02/2017 5:04 PM EDT Height 162.6 cm (5' 4 ) 04/02/2017 5:04 PM EDT Body Mass Index 43.94 04/02/2017 5:04 PM EDT Plan of Treatment Health Maintenance Due Date Last Done Comments Depression: Screening Annual ly using PHQ-2/9 in Adults 18 yrs or above (or HM Modifier)([facility]) 1983 Hepatitis C Virus Infection in Adolescents and Adults: Screening (or Modifier) ([facility]) 1983 SDNJ Screening Reminder: Annually for all adults ([facility]) 1983 Tobacco Smoking Cessation: i n Adults excluding Women: Behavioral and Pharmacotherapy Interventions ([facility]) 1983 DTaP/Tdap/Td Vaccines ([facility]) (1 - Tdap) 1984 Breast Cancer: Screening Annually age 50-74 yrs (or HM Modifier)([facility] ) 2015 Flu Vaccination: Yearly for ages 18mos through 64 years (or Modifier)([facility] ) 04/29/2024 07/19/2020 COVID-19 Vaccine Screening: Initial Series and Booster Status ([facility]) (2 - 2023- season) 2024 01/24/2021 Lipid Screening: Every 5 yrs for Women aged 45+ (or HM Modifier) ([facility] ) 03/26/2027 03/26/2022, 10/28/2017 Zoster/Shingles Vaccine Seri es Screening: Adults aged 18+ yrs (or HM Modifiers)([facility] ) Completed 11/26/2019, 07/20/2019 Pneumococcal Vaccination Screening: Pts 0-19 & 19-64 yrs of age ([facility]) Aged Out No longer eligible based on patient's age to complete this topic Medical Devices Not on file Insurance [facility] [employer] Care Teams Maitre D Relationship Specialty Start Date End Date Uche Lassiter III, MD [address] [place] [address] PCP - Catalogue Compiler 04/02/17
--- OUTSIDE RECORDS SUMMARY | 2024-11-10 15:18 | XMS_ITS | Encounter Summary ---
Author Organization [facility] [place] [address] Care Team Providers Care Fireperson Name Role Phone Uche Lassiter MD Primary Care Provider [phone] Encounter Details Date Type Department Care Team (Late Contact Info) Description 10/20/2024 Telephone Adult Medicine [address] [phone] Maura Montelongo MA Social History Tobacco Use Types Packs/Day Years Used Date Smoking Tobacco: Never Smokeless Tobacco: Never Alcohol Use Standard Drinks/Week Comments Yes 0 (1 standard drink = 0.6 oz pur e alcohol) Comments No Sex and Gender Information Value Date Recorded Sex Assigned at Not on file Legal Sex Female 6:45 AM EST Gender Identity Not on file Sexual Orientation Not on file documented as of this encounter Plan of Treatment Upcoming Encounters Date Type Department Care Team (Late Contact Info) Description 01/27/2025 3:30 PM EDT Office Visit Adult Medicine [address] [phone] Uche Lassiter MD [address] [place] [address] 03/08/2025 10:30 AM EDT Appointment [facility] End[facility] [address] [place] [phone] Tad Patino DO [address] [address] 04/22/2025 8:30 AM EDT Office Visit Adult Medicine [address] [phone] Uche Lassiter MD [address] [place] [address] documented as of this encounter Visit Diagnoses Not on filedocumented in this encounter Care Teams Fireperson Relationship Specialty Start Date End Date Uche Lassiter MD [address] [place] [id number] PCP - General Internal Medicine 01/18/14 documented as of this encounter
--- OUTSIDE RECORDS SUMMARY | 2024-11-10 15:18 | XMS_ITS | Clinical Summary ---
Author Organization [facility] Address [address] [place] [phone] Phone Care Team Providers Care Personal Chef Name Role Phone Uche Lassiter MD Primary Care Provider Allergies Active Allergy Reactions Criticality Noted Date Comments Cephalexin 08/11/2024 Gabapentin Palpitations Low 04/12/2014 somnolence Morphine Hives,Swelling 01/25/2014 feet Nitrofurantoin Monohyd/M-Cryst Rash Low 04/02 Penicillins Rash,Swelling 01/25/2014 feet Sulfa (Sulfonamide Antibiotics) Rash Low 01/2017 Sulfamethoxazole-Trimethoprim Rash,Swelling feet Medications rosuvastatin (CRESTOR) 40 mg tablet Take 1 tablet (40 mg total) by mouth at bedtime. 11/29/19 22 Active roflumilast (DALIRESP) 500 mcg tablet Take 1 tablet (500 mcg total) by mouth 1 (one) time each day. 08/19/20 16 Active omeprazole (PriLOSEC) [address] capsule Take 1 capsule (20 mg total) by mouth 1 (one) time each day in the morning. 10/25/19 22 Active nitroglycerin (NITROSTAT) 0.[address] 1 tablet (0.4 mg total) under the tongue every 5 (five) minutes if needed for chest pain. 07/04/20 23 Active naloxone (LifEMS naloxone) 2 mg/2 mL syringe kit Inject 2 mL as directed if needed. 07/17/20 22 Active methocarbamoL (ROBAXIN) 500 mg tablet Take 1 tablet (500 mg total) by mouth 3 (three) times a day. 08/19/20 16 Active Combivent Respimat 20-100 mcg/actuation inhaler Inhale 1 puff by mouth 2 (two) times a day. 07/29/20 17 Active cholecalcifero l (VITAMIN D-3) 50 mcg (2,000 unit) tablet Take 1 tablet (2,000 Units total) by mouth 1 (one) time each day. 07/14/20 24 Active atenoloL (TENORMIN) 100 mg tablet Take 1 tablet (100 mg total) by mouth 1 (one) time each day. 12/07/19 22 Active albuterol HFA (PROAIR HFA ; PROVENTIL HFA ; VENTOLIN HFA) 90 mcg/actuation inhaler Inhale 2 puffs by mouth every 4 (four) hours if needed. 02/26/20 24 Active amLODIPine (NORVASC) 5 mg tablet Take 1 tablet (5 mg total) by mouth 1 (one) time each day. 08/11/20 23 Active ammonium lactate (AMLACTIN) 12 % cream Apply topically if needed. 07/23/20 24 Active aspirin 81 mg EC tablet Take 1 tablet (81 mg total) by mouth 1 (one) time each day. 03/04/20 24 Active chlorhexidine (HIBICLENS) 4 % external liquid 07/23/20 24 Active clindamycin (CLEOCIN) 300 mg capsule 06/16/20 24 Active hydrocortisone 2.5 % cream 08/05/20 24 Active prochlorperazi ne (COMPAZINE) 10 mg tablet Take 1 tablet (10 mg total) by mouth every 6 (six) hours if needed for nausea. 30 tablet 09/09/20 24 Active cholecalcifero l (VITAMIN D-3) 50 mcg (2,000 unit) tablet Take 1 tablet (2,000 Units total) by mouth 1 (one) time each day. 90 tablet 1 09/14/20 24 Active ticagrelor (Brilinta) 90 mg tablet TAKE ONE TABLET BY MOUTH TWICE A DAY 180 tablet 1 09/15/20 24 Active fluticasone propionate (FLONASE) 50 mcg/actuation nasal spray Administer 2 sprays into each nostril 1 (one) time each day. 16 g 10/13/19 25 Active dexlansoprazol e (Dexilant) [address] capsuleIndicat ions:Gastroeso phageal reflux disease, unspecified whether esophagitis present Take 1 capsule (60 mg total) by mouth 1 (one) time each day. 90 capsule 1 10/13/19 25 Active LORazepam (ATIVAN) 1 mg tablet Take 1 tablet (1 mg total) by mouth 2 (two) times a day. Max Daily Amount: 2 mg 56 tablet 11/03/19 25 Active oxyCODONE (ROXICODONE) 10 mg immediate release tabletIndicati ons:Lumbar disc disease Take 1 tablet (10 mg total) by mouth 5 (five) times a day. Max Daily Amount: 50 mg 140 tablet 11/10/19 25 Active OxyCONTIN 20 mg 12 hr abuse-deterren t tabletIndicati ons:Lumbar disc disease Take 1 tablet (20 mg total) by mouth 3 (three) times a day. Max Daily Amount: 60 mg 84 tablet 11/10/19 25 Active hydrOXYzine HCL (ATARAX) 25 mg tablet Take 1 tablet (25 mg total) by mouth 3 (three) times a day. 06/17/20 24 025 Discontinued fluticasone propionate (FLONASE) 50 mcg/actuation nasal spray Administer 2 sprays into affected nostril(s) 1 (one) time each day. 02/26/20 24 025 Discontinued(Re order) dexlansoprazol e (Dexilant) [address] capsule Take 1 capsule (60 mg total) by mouth 1 (one) time each day. 06/30/20 23 025 Discontinued(Re order) carvediloL (COREG) 6.25 mg tablet Take 2 tablets (12.5 mg total) by mouth 2 (two) times a day with meals. 08/11/20 025 Discontinued oxyCODONE (ROXICODONE) 10 mg immediate release tabletIndicati ons:Lumbar disc disease Take 1 tablet (10 mg total) by mouth 5 (five) times a day. Max Daily Amount: 50 mg 140 tablet 09/15/20 24 025 Discontinued(Re order) OxyCONTIN 20 mg 12 hr abuse-deterren t tabletIndicati ons:Lumbar disc disease Take 1 tablet (20 mg total) by mouth 3 (three) times a day. Max Daily Amount: 60 mg 84 tablet 09/15/20 24 025 Discontinued(Re order) LORazepam (ATIVAN) 1 mg tablet Take 1 tablet (1 mg total) by mouth 2 (two) times a day. Max Daily Amount: 2 mg 56 tablet 10/06/19 25 025 Discontinued(Re order) oxyCODONE (ROXICODONE) 10 mg immediate release tabletIndicati ons:Lumbar disc disease Take 1 tablet (10 mg total) by mouth 5 (five) times a day. Max Daily Amount: 50 mg 140 tablet 10/13/19 25 025 Discontinued(Re order) OxyCONTIN 20 mg 12 hr abuse-deterren t tabletIndicati ons:Lumbar disc disease Take 1 tablet (20 mg total) by mouth 3 (three) times a day. Max Daily Amount: 60 mg 84 tablet 10/13/19 025 Discontinued(Re order) Active Problems Problem Noted Date Diagnosed Date Gastroesophageal reflux disease 10/13/2024 Hyperlipidemia 10/13/2024 Prediabetes 10/13/2024 Anxiety 06/22/2014 Encounters Date Type Department Care Team Description 11/02/2024 Telephone Adult Medicine [address] [phone] Uche aLssiter MD Medication Problem 10/20/2024 3:16 PM EST - 10/20/2024 11:59 PM EST Hospital Encounter Radiology Department - [address] [phone] Mass of upper outer quadrant of left breast Discharge Disposition: Home or Self Care 10/20/2024 3:00 PM EST - 10/20/2024 11:59 PM EST Hospital Encounter Radiology Department - [address] [phone] Mass of upper outer quadrant of left breast Discharge Disposition: Home or Self Care 10/20/2024 Telephone Adult Medicine [address] [phone] Maura Montelongo SAAD 10/13/2024 1:30 PM EST Office Visit Adult [address] [phone] Ju Callahan PA Encounter for long-term current use of medication (Primary Dx); Anxiety; Chronic bilateral low back pain, unspecified whether sciatica present; Gastroesophageal reflux disease, unspecified whether esophagitis present; Hyperlipidemia, unspecified hyperlipidemia type; Prediabetes; Vitamin D deficiency; Screening for malignant neoplasm of colon; Mass of upper outer quadrant of left breast; Class 3 severe obesity with body mass index (BMI) of 45.0 to 49.9 in adult, unspecified obesity type, unspecified whether serious comorbidity present (CMS/HCC) 08/24/2024 Telephone Adult Medicine [address] [phone] Uceh Lassiter MD prior auth (Lorazepam 1 MG tablets) from Last 3 Months Immunizations Name Administration Dates Next Due [employer] SARS-CoV-2 COVID -19, vector-nr, [id number], preservative free 01/24/2021 Surgical History Surgery Date Site/Laterality Comments BREAST BIOPSY PROCEDURE:BREAST BIOPSY SECTION PROCEDURE: SECTION BLADDER SUSPENSION PROCEDURE:BLADDER SUSPENSION BREAST LUMPECTOMY PROCEDURE:BREAST LUMPECTOMY COLONOSCOPY PROCEDURE:COLONOSCOPY APPENDECTOMY PROCEDURE:APPENDECTOMY HYSTERECTOMY PROCEDURE:HYSTERECTOMY TOTAL KNEE ARTHROPLASTY PROCEDURE:REPLACEMENT TOTAL KNEE;COMMENT:LEFT BLADDER SUSPENSION 2010 PROCEDURE: HISTORICAL BLADDER SUSPENSION; COMMENT: sling; removed due to recurrent UTIs CHOLECYSTECTOMY PROCEDURE: HISTORICAL CHOLECYSTECTOMY APPENDECTOMY PROCEDURE: IL APPENDECTOMY OTHER SURGICAL HISTORY PROCEDURE: IL TOTAL ABDOMINAL HYSTERECT W/WO RMVL TUBE OVARY COLONOSCOPY 2008 PROCEDURE: HISTORICAL COLONOSCOPY; COMMENT: Lisa Mackey. Negative exam. Upper endoscopy done as well. COLONOSCOPY W/ POLYPECTOMY 2013 PROCEDURE: IL COLSC FLX W/RMVL OF TUMOR POLYP LESION SNARE TQ; COMMENT: Diminutive colonic polyps x 3: Tubular adenoma x3. BREAST LUMPECTOMY 2009 Left PROCEDURE: HISTORICAL BREAST LUMPECTOMY; COMMENT: left, benign BREAST LUMPECTOMY 08/30/2014 Right PROCEDURE: HISTORICAL BREAST LUMPECTOMY; COMMENT: intraductal papiloma SECTION PROCEDURE: IL DELIVERY ONLY TONSILLECTOMY PROCEDURE: HISTORICAL TONSILLECTOMY TOTAL KNEE ARTHROPLASTY Left PROCEDURE: IL ARTHRP KNE CONDYLE&PLATU MEDIAL&LAT COMPARTMENTS OTHER SURGICAL HISTORY 03/13/2011 PROCEDURE: OUTSIDE ENDOSCOPY; COMMENT: normal BREAST BIOPSY 2013 Right PROCEDURE: BX BREAST; PERC NEEDLE CORE W/IMAG GUID UPPER GASTROINTESTINAL ENDOSCOPY 12/09/2017 PROCEDURE: IL UPPER GI ENDOSCOPY PERFORMED; COMMENT: esophagitis and Roblero's OTHER SURGICAL HISTORY 01/15/2018 PROCEDURE: IL LAPAROSCOPY COLECTOMY PARTIAL W/ANASTOMOSIS; COMMENT: Laparoscopic transverse colectomy; mobilization of splenic flexure OTHER SURGICAL HISTORY 2018 PROCEDURE: IL LAP RPR HRNA XCPT INCAL/INGUN NCRC8/STRANGULATED; COMMENT: Dr. Del Cid COLONOSCOPY 11/20/2017 PROCEDURE: HISTORICAL COLONOSCOPY; COMMENT: multiple polyps. COLONOSCOPY 08/30/2020 PROCEDURE: HISTORICAL COLONOSCOPY; COMMENT: tubular adenoma UPPER GASTROINTESTINAL ENDOSCOPY 08/30/2020 PROCEDURE: UPPER GI ENDOSCOPY/EXAM; COMMENT: reactive gastropathy and NO Roblero's CARPAL TUNNEL RELEASE 01/30/2022 Right PROCEDURE: IL NEUROPLASTY &/TRANSPOS MEDIAN NRV CARPAL TUNNE; COMMENT: with excision of benign fibroadipose mass, Dr. Michel Medical History Medical History Date Comments GERD (gastroesophageal reflux disease) DX:GERD (gastroesophageal reflux disease) Roblero's esophagus DX:Roblero's esophagus Hypertension DX:Hypertension Fibromyalgia 01/25/2014 DX:Fibromyalgia HTN (hypertension) 01/25/2014 DX:HTN (hyper tension) Acute medial meniscus tear o f right knee 01/25/2014 DX:Acute medial meniscus tea r of right knee; COMMENT: MRI 10/2013 Lumbar disc herniation 01/25/2014 DX:Lumbar disc herniation; COMMENT: MRI 06/24/2012 Abnormal mammogram 01/25/2014 DX:Abnormal m ammogram Esophagitis, erosive 01/25/2014 DX:Esophagi tis, erosive Chronic interstitial cystitis 04/12/2014 DX :Chronic interstitial cystitis COPD (chronic obstructive pu lmonary disease) ([facility]/HCC) 04/12/2014 DX:COPD (chronic obstructive pulmonary disease) ([facility]) Hyperlipidemia 04/12/2014 DX:Hyperlipidemi a Chronic low back pain 04/12/2014 DX:Chronic low back pain History of colonoscopy 07/28/2014 DX:Histor y of colonoscopy; COMMENT: Colonoscopy 07/28/2014, moderately difficult and difficult to sedate. Consider monitored anesthesia care for future colonoscopies. Colon tumor 12/11/2017 DX:Colon tumor Roblero's esophagus with esophagitis DX:Roblero's esophagus with esophagitis Family History Medical History Relation Name Comments Cancer Father FATHER Colon cancer Father Cancer Maternal Grandfather COLON Colon cancer Maternal Grandfather 8 sibs with breast or colon cancer Colon polyps Maternal Grandmother Colon polyps Mother >10 total Other: liver cancer Other 1 pat gr a unt Other: stomach cancer Other 2 pat gr aunt Other: liver cancer Other 3 pat gr a unt Cancer Paternal Grandfather COLON Colon cancer Paternal Grandfather Leukemia Paternal Grandmother Other: bladder cancer Paternal Grandmother leukemia; family near asbestos factory Other: 010 Uncle 1 maternal uncle Colon cancer Uncle 2 maternal uncle Relation Name Status Comments Father (Age 70) Maternal Grandfather Maternal Grandmother Mother Alive Other 1 Other 2 Other 3 Paternal Grandfather Paternal Grandmother Uncle 1 Uncle 2 Social History Tobacco Use Types Packs/Day Years Used Date Smoking Tobacco: Never Smokeless Tobacco: Never Tobacco Cessation:Counseling Given: Not Answered Alcohol Use Standard Drinks/Week Comments Yes 0 (1 standard drink = 0.6 oz pur e alcohol) Comments No Sex and Gender Information Value Date Recorded Sex Assigned at Not on file Legal Sex Female 6:45 AM EST Gender Identity Not on file Sexual Orientation Not on file Obstetrics History Para Term AB IAB SAB Ectopic Multiple Livin g Live Births 2 2 2 2 Date Outcome GA Total Labor Labor/2nd/3rd Weight Sex Type Anes PTL [place] A1 A5 Name Clin Term Term Last Filed Vital Signs Vital Sign Reading Time Taken Comments Blood Pressure 120/70 10/13/2024 1:26 PM EST Pulse 68 10/13/2024 1:26 PM EST Temperature 36.6 ??C (97.9 ??F) 10/13/2024 1:26 PM ES T Respiratory Rate - - Oxygen Saturation 97% 10/13/2024 1:26 PM EST Inhaled Oxygen Concentration - - Weight 124 kg (272 lb 9.6 oz) 10/13/2024 1:26 PM EST Height 162.6 cm (5' 4.02 ) 10/13/2024 1:26 PM ES T Body Mass Index 46.77 10/13/2024 1:26 PM EST Plan of Treatment Upcoming Encounters Date Type Department Care Team (Late st Contact Info) Description 01/27/2025 3:30 PM EDT Office Visit Adult Medicine [address] [phone] Uche Lassiter MD [address] [place] [address] 03/08/2025 10:30 AM EDT Appointment [facility] [address] [place] [phone] Tad Patino, [address] [address] 04/22/2025 8:30 AM EDT Office Visit Adult Medicine [address] [phone] Uche Lassiter MD [address] [place] [address] Health Maintenance Due Date Last Done Comments DTaP,Tdap,and Td Vaccines (1 - Tdap) 1984 Hepatitis B Vaccines (1 of 3 - 19+ 3-dose series) 1984 Pneumococcal Vaccine: 50+ Years (1 of 2 - PCV) 1984 Pneumococcal Vaccine: Pediatrics (0 to 5 Years) and At-Risk Patients (6 to 64 Years) (1 of 2 - PCV) 1984 Colorectal Cancer Screening: Colonoscopy 09/07/2022 Depression Screening 09/07/2022 HIV Screening 09/07/2022 Hepatitis C Screening 09/07/2022 Social Influencers of Health Screening 09/07/2022 COVID-19 Vaccine ( season) 2024 08/12/2021, 01/24/2021 Hypertension/CHF/CAD Annual BMP Blood Test 08/24/2025 08/24/2024 Breast Cancer Screening 10/20/2026 10/20/19, 12/04/2020, 11/15/2019, Additional history exists Cholesterol Screening (Lipid Panel) 08/24/2029 08/24/2024 RSV Immunization Patients 60+ Years Old (1 - 1-dose 75+ series) 2040 Zoster Vaccines Completed 11/26/2019, 07/20/2019 Influenza Vaccine Completed 07/07/2024, , 07/15/2022, Additional history exists HIB Vaccines Aged Out No longer eligi ble based on patient's age to complete this topic HPV Vaccines Aged Out No longer eligi ble based on patient's age to complete this topic Hepatitis A Vaccines Aged Out No long er eligible based on patient's age to complete this topic IPV Vaccines Aged Out No longer eligi ble based on patient's age to complete this topic MMR Vaccines Aged Out No longer eligi ble based on patient's age to complete this topic Meningococcal ACWY Vaccine Aged Out N o longer eligible based on patient's age to complete this topic Meningococcal B Vacine Aged Out No lo nger eligible based on patient's age to complete this topic RSV Immunization Patients Under 20 months Aged Out No longer eligible based on patient's age to complete this topic Varicella Vaccines Aged Out No longer eligible based on patient's age to complete this topic Procedures Procedure Name Priority Date/Time Associated Diagnosis Comments US BREAST LIMITED LEFT Routine 4:00 PM EST Mass of upper outer quadrant of left breast MG MAMMO DIGITAL DIAGNOSTIC W SATHISH BILAT Routine 10/20/2024 3:46 PM EST Mass of upper outer quadrant of left breast DRUG ABUSE SCREEN 8A PANEL, URINE Routine 10/13/2024 2:26 PM EST Encounter for long-term current use of medication Anxiety Chronic bilateral low back pain, unspecified whether sciatica present HEMOGLOBIN A1C Routine 10/13/2024 2:26 PM EST Prediabetes VITAMIN D 25 HYDROXY Routine 10/13/2024 2:26 PM EST Vitamin D deficiency VITAMIN D 25 HYDROXY Routine 08/24/2024 2:20 PM EST Disorder of lipoprotein metabolism Vitamin D deficiency disease COMPREHENSIVE METABOLIC PANEL Routine 08/24/2024 2:20 PM EST Disorder of lipoprotein metabolism Vitamin D deficiency disease LIPID PANEL WITH REFLEX TO DIRECT LDL Routine 08/24/2024 2:20 PM EST Disorder of lipoprotein metabolism Vitamin D deficiency disease from Last 3 Months Results * US Breast Limited Left (10/20/2024 4:00 PM EST) Anatomical Region Laterality Modality Breast Left Ultrasound 10/20/2024 4:11 PM EST Impressions 10/20/2024 4:21 PM EST RIGHT BREAST: Benign, no evidence of malignancy. Normal interval follow-up is recommended in 12 months. LEFT BREAST: Palpable concern correlates with a simple cyst at 2 o'clock position 6 cm from the nipple. ??Benign, no evidence of malignancy. ??Continued clinical follow-up is recommended for the palpable concern, independent of the imaging findings. ??Otherwise, normal interval follow-up mammogram is recommended in 12 months. Findings and recommendations were discussed with the patient following completion of the studies. ?? BREAST DENSITY: C - The breasts are heterogeneously dense which may obscure small masses. ?? BI-RADS CATEGORY: 2 - BENIGN RECOMMENDATION: Mammography: Screening bilateral mammogram is recommended in 1 year. Clinical management of left breast is recommended. Ultrasound: Screening bilateral mammogram is recommended in 1 year. Mammo Location: [facility], [address] [place] [address], [id number], . -------- FINAL REPORT -------- Dictated By: Ed Alvarez Dictated Date: 10/20/2024 16:11 ET Assigned Physician: Ed Alvarez Reviewed and Electronically Signed By: Ed Alvarez Signed Date: 10/20/2024 16:21 ET Workstation ID: [id number] Transcribed By: Self Edit Transcribed Date: 10/20/2024 16:20 ET Narrative 10/20/2024 4:21 PM EST HISTORY: Office visit on October 13, 2024 that describes tenderness in the left upper quadrant with a small palpable lump. STUDIES: 1. ??Unilateral left diagnostic mammography with tomosynthesis and CAD 2. ??Targeted ultrasound of the left breast TECHNIQUE: Unilateral left digital diagnostic mammography is obtained and read in conjunction with computer-aided detection. ??Tomosynthesis as well as 2-D C view imaging were obtained. COMPARISON: Comparison made to multiple prior, most recent December 04, 2020, and most remote January 11, 2014. RIGHT BREAST: ??Tissue marker from previous and core biopsy. ??History of previous excisional biopsy. No significant masses, suspicious calcifications or other abnormalities are seen. LEFT BREAST: ??2 tissue markers in the upper-outer quadrant placed at the [facility] following ultrasound-guided needle core biopsy on April 05, 2020. ??History of previous excisional biopsy. No definitely suspicious mammographic finding subadjacent to the triangular skin marker placed in the upper-outer quadrant middle depth. ??No suspicious calcifications or other abnormalities are seen. Targeted ultrasound of the left breast was performed at the location of the palpable concern. ??The survey shows a 1.3 cm x 0.7 cm x 1.2 cm simple cyst at 2 o'clock position 6 cm from the nipple. ??No internal vascularity demonstrated with color Doppler evaluation. Procedure Note Ed Alvarez MD - 10/20/2024 HISTORY: Office visit on October 13, 2024 that describes tenderness in theleft upper quadrant with a small palpable lump. STUDIES: 1. Unilateral left diagnostic mammography with tomosynthesis and CAD 2. Targeted ultrasound of the left breast TECHNIQUE: Unilateral left digital diagnostic mammography is obtained andread in conjunction with computer-aided detection. Tomosynthesis as wellas 2-D C view imaging were obtained. COMPARISON: Comparison made to multiple prior, most recent December 04, 2020,and most remote January 11, 2014. RIGHT BREAST: Tissue marker from previous and core biopsy. History ofprevious excisional biopsy. No significant masses, suspiciouscalcifications or other abnormalities are seen. LEFT BREAST: 2 tissue markers in the upper-outer quadrant placed at [facility] following ultrasound-guided needle core biopsy onApril 05, 2020. History of previous excisional biopsy. No definitelysuspicious mammographic finding subadjacent to the triangular skin markerplaced in the upper-outer quadrant middle depth. No suspiciouscalcifications or other abnormalities are seen. Targeted ultrasound of the left breast was performed at the location ofthe palpable concern. The survey shows a 1.3 cm x 0.7 cm x 1.2 cm simplecyst at 2 o'clock position 6 cm from the nipple. No internal vascularitydemonstrated with color Doppler evaluation. IMPRESSION: RIGHT BREAST: Benign, no evidence of malignancy. Normal interval follow-upis recommended in 12 months. LEFT BREAST: Palpable concern correlates with a simple cyst at 2 o'clockposition 6 cm from the nipple. Benign, no evidence of malignancy.Continued clinical follow-up is recommended for the palpable concern,independent of the imaging findings. Otherwise, normal interval follow-upmammogram is recommended in 12 months. Findings and recommendations were discussed with the patient followingcompletion of the studies. BREAST DENSITY: C - The breasts are heterogeneously dense which mayobscure small masses. BI-RADS CATEGORY: 2 - BENIGN RECOMMENDATION: Mammography: Screening bilateral mammogram is recommended in 1 year.Clinical management of left breast is recommended. Ultrasound: Screening bilateral mammogram is recommended in 1 year. Mammo Location: [facility], [address] [place] [address], [id number], . -------- FINAL REPORT -------- Dictated By: Ed Alvarez Dictated Date: 10/20/2024 16:11 ET Assigned Physician: Ed Alvarez Reviewed and Electronically Signed By: Ed Alvarez Signed Date: 10/20/2024 16:21 ET Workstation ID: [id number] Transcribed By: Self Edit Transcribed Date: 10/20/2024 16:20 ET us Ju HUMPHREY IMG US PROCEDURES Final Result * MG Mammo Digital Diagnostic w Sathish bilat (10/20/2024 3:46 PM EST) Anatomical Region Laterality Modality Breast Bilateral Mammography 10/20/2024 4:11 PM EST Impressions 10/20/2024 4:21 PM EST RIGHT BREAST: Benign, no evidence of malignancy. Normal interval follow-up is recommended in 12 months. LEFT BREAST: Palpable concern correlates with a simple cyst at 2 o'clock position 6 cm from the nipple. ??Benign, no evidence of malignancy. ??Continued clinical follow-up is recommended for the palpable concern, independent of the imaging findings. ??Otherwise, normal interval follow-up mammogram is recommended in 12 months. Findings and recommendations were discussed with the patient following completion of the studies. ?? BREAST DENSITY: C - The breasts are heterogeneously dense which may obscure small masses. ?? BI-RADS CATEGORY: 2 - BENIGN RECOMMENDATION: Mammography: Screening bilateral mammogram is recommended in 1 year. Clinical management of left breast is recommended. Ultrasound: Screening bilateral mammogram is recommended in 1 year. Mammo Location: [facility], [address] [place] [address], [id number], . -------- FINAL REPORT -------- Dictated By: Ed Alvarez Dictated Date: 10/20/2024 16:11 ET Assigned Physician: Ed Alvarez Reviewed and Electronically Signed By: Ed Alvarez Signed Date: 10/20/2024 16:21 ET Workstation ID: [id number] Transcribed By: Self Edit Transcribed Date: 10/20/2024 16:20 ET Narrative 10/20/2024 4:21 PM EST HISTORY: Office visit on October 13, 2024 that describes tenderness in the left upper quadrant with a small palpable lump. STUDIES: 1. ??Unilateral left diagnostic mammography with tomosynthesis and CAD 2. ??Targeted ultrasound of the left breast TECHNIQUE: Unilateral left digital diagnostic mammography is obtained and read in conjunction with computer-aided detection. ??Tomosynthesis as well as 2-D C view imaging were obtained. COMPARISON: Comparison made to multiple prior, most recent December 04, 2020, and most remote January 11, 2014. RIGHT BREAST: ??Tissue marker from previous and core biopsy. ??History of previous excisional biopsy. No significant masses, suspicious calcifications or other abnormalities are seen. LEFT BREAST: ??2 tissue markers in the upper-outer quadrant placed at the [facility] following ultrasound-guided needle core biopsy on April 05, 2020. ??History of previous excisional biopsy. No definitely suspicious mammographic finding subadjacent to the triangular skin marker placed in the upper-outer quadrant middle depth. ??No suspicious calcifications or other abnormalities are seen. Targeted ultrasound of the left breast was performed at the location of the palpable concern. ??The survey shows a 1.3 cm x 0.7 cm x 1.2 cm simple cyst at 2 o'clock position 6 cm from the nipple. ??No internal vascularity demonstrated with color Doppler evaluation. Procedure Note Ed Alvarez MD - 10/20/2024 HISTORY: Office visit on October 13, 2024 that describes tenderness in theleft upper quadrant with a small palpable lump. STUDIES: 1. Unilateral left diagnostic mammography with tomosynthesis and CAD 2. Targeted ultrasound of the left breast TECHNIQUE: Unilateral left digital diagnostic mammography is obtained andread in conjunction with computer-aided detection. Tomosynthesis as wellas 2-D C view imaging were obtained. COMPARISON: Comparison made to multiple prior, most recent December 04, 2020,and most remote January 11, 2014. RIGHT BREAST: Tissue marker from previous and core biopsy. History ofprevious excisional biopsy. No significant masses, suspiciouscalcifications or other abnormalities are seen. LEFT BREAST: 2 tissue markers in the upper-outer quadrant placed at [facility] following ultrasound-guided needle core biopsy onApril 05, 2020. History of previous excisional biopsy. No definitelysuspicious mammographic finding subadjacent to the triangular skin markerplaced in the upper-outer quadrant middle depth. No suspiciouscalcifications or other abnormalities are seen. Targeted ultrasound of the left breast was performed at the location ofthe palpable concern. The survey shows a 1.3 cm x 0.7 cm x 1.2 cm simplecyst at 2 o'clock position 6 cm from the nipple. No internal vascularitydemonstrated with color Doppler evaluation. IMPRESSION: RIGHT BREAST: Benign, no evidence of malignancy. Normal interval follow-upis recommended in 12 months. LEFT BREAST: Palpable concern correlates with a simple cyst at 2 o'clockposition 6 cm from the nipple. Benign, no evidence of malignancy.Continued clinical follow-up is recommended for the palpable concern,independent of the imaging findings. Otherwise, normal interval follow-upmammogram is recommended in 12 months. Findings and recommendations were discussed with the patient followingcompletion of the studies. BREAST DENSITY: C - The breasts are heterogeneously dense which mayobscure small masses. BI-RADS CATEGORY: 2 - BENIGN RECOMMENDATION: Mammography: Screening bilateral mammogram is recommended in 1 year.Clinical management of left breast is recommended. Ultrasound: Screening bilateral mammogram is recommended in 1 year. Mammo Location: [facility], [address] [place] [address], [id number], . -------- FINAL REPORT -------- Dictated By: Ed Alvarez Dictated Date: 10/20/2024 16:11 ET Assigned Physician: Ed Alvarez Reviewed and Electronically Signed By: Ed Alvarez Signed Date: 10/20/2024 16:21 ET Workstation ID: [id number] Transcribed By: Self Edit Transcribed Date: 10/20/2024 16:20 ET Ju HUMPHREY IMG BI PROCEDURES Final Result * (ABNORMAL) Drug abuse screen 8a panel, urine (10/13/2024 2:26 PM EST) Amphetamine Screen, Ur Negative Negative LAB CHEMISTRY METHOD 5 8:18 PM EST [facility] Comment:Certain OTC medicati ons containing ephedrine, phenylephrine, pseudoephedrine and phenylpropanolamine can cause false positive results. Barbiturate Screen, Ur Negative Negative LAB CHEMISTRY METHOD 5 8:18 PM EST [facility] Benzodiazepine Screen, Ur Negative Negative LAB CHEMISTRY METHOD 5 8:18 PM EST [facility] Cocaine Screen, Ur Negative Negative LAB CHEMISTRY METHOD 5 8:18 PM EST [facility] Opiate Screen, Ur Positive(A ) Negative LAB CHEMISTRY METHOD 5 8:18 PM EST [facility] Cannabinoid (THC) Screen, Ur Negative Negative LAB CHEMISTRY METHOD 5 8:18 PM EST [facility] Comment:Specimens from patie nts taking pantoprazole sodium (Protonix) have been shown to produce false positive results. Oxycodone Screen, Ur Positive(A ) Negative LAB CHEMISTRY METHOD 5 8:18 PM EST [facility] Fentanyl, Ur Negative Negative LAB CHEMISTRY METHOD 5 8:18 PM [facility] Urine Urine specimen obtained by clean catch procedure / Unknown Non-blood Collection / Unknown 10/13/2024 2:26 PM EST 10/13/2024 2:26 PM EST [facility] - 10/13/2024 8:18 PM EST Assay cutoffs: Amphetamines ? 1000 ng/mL Barbiturates ?200 ng/mL Benzodiazepines ?? 200 ng/mL Cocaine ? 300 ng/mL Fentanyl ?1 ng/mL Opiates ? 300 ng/mL Oxycodone ? 100 ng/mL THC ?50 ng/mL Semi-quantitative assay for screening purposes only. Unconfirmed screening result should not be used for non-medical purposes. *ALTERNATE METHOD CONFIRMATION DONE UPON REQUEST ONLY* Ju HUMPHREY LAB URINE ORDERABLES Fi nal Result [facility] [address] [place] [address], * Vitamin D 25 hydroxy (10/13/2024 2:26 PM EST) Only the most recent of2 resultswithin the time period is included. Pathologist [facility] Vit D, 25-Hydroxy 33.4 30.0 - 80.0 ng/mL LAB CHEMISTRY METHOD 10/13/2024 5:37 PM EST [facility] Blood Venous blood specimen / Unknown Venipuncture / Unknown 10/13/2024 2:26 PM EST 10/13/2024 2:26 PM EST [facility] BLOOD ORDERABLES Fi nal Result Performing Organization Address City/[facility]/ZIP Co de Phone Number [facility] [address] [place] [address], [place] [phone] * Hemoglobin A1c (10/13/2024 2:26 PM EST) [facility] Hemoglobin A1C 5.9 <6.5 % LAB CHEMISTRY METHOD 10/14/2024 12:38 PM EST [facility] Mean Bld Glu Estim. 123 mg/dL LAB CHEMISTRY METHOD 10/14/2024 12:38 PM EST [facility] Blood Venous blood specimen / Unknown Venipuncture / Unknown 10/13/2024 2:26 PM EST 10/13/2024 2:26 PM EST [facility] BLOOD ORDERABLES Fi nal Result Performing Organization Address City/[facility]/ZIP Co de Phone Number [facility] [address] [place] [address], [place] [phone] * (ABNORMAL) Lipid panel with reflex to direct LDL (08/24/2024 2:20 PM EST) [facility] Cholesterol 161 0 - 200 mg/dL LAB CHEMISTRY METHOD 08/24/2024 4:48 PM EST [facility] Triglycerides 297(H) 0 - 150 mg/dL LAB CHEMISTRY METHOD 08/24/2024 4:48 PM EST [facility] HDL 51 >=40 mg/dL LAB CHEMISTRY METHOD 08/24/2024 4:48 PM EST [facility] LDL Calculated 51 0 - 100 mg/dL LAB CHEMISTRY METHOD 08/24/2024 4:48 PM [facility] VLDL Cholesterol Sukumar 59.4 mg/dL LAB CHEMISTRY METHOD 08/24/2024 4:48 PM EST [facility] Non HDL Chol. (LDL+VLDL) 110 <145 mg/dL LAB CHEMISTRY METHOD 08/24/2024 4:48 PM EST [facility] Chol/HDL Ratio 3.2 0.0 - 4.4 LAB CHEMISTRY METHOD 08/24/2024 4:48 PM [facility] Blood Venous blood specimen / Unknown Venipuncture / Unknown 08/24/2024 2:20 PM EST 08/24/2024 2:20 PM EST us Uche Lassiter MD LAB BLOOD ORDERABLES Final Resu lt [facility] [address] [place] [address], * (ABNORMAL) Comprehensive metabolic panel (08/24/2024 2:20 PM EST) Sodium 139 133 - 145 mmol/L LAB CHEMISTRY METHOD 08/24/2024 4:48 PM [facility] Potassium 4.2 3.5 - 5.5 mmol/L LAB CHEMISTRY METHOD 08/24/2024 4:48 PM [facility] Chloride 106 96 - 110 mmol/L LAB CHEMISTRY METHOD 08/24/2024 4:48 PM [facility] CO2 29 21 - 32 mmol/L LAB CHEMISTRY METHOD 08/24/2024 4:48 PM [facility] Anion Gap 4 3 - 11 LAB CHEMISTRY METHOD 08/24/2024 4:48 PM [facility] Glucose 112(H) 70 - 100 mg/dL LAB CHEMISTRY METHOD 08/24/2024 4:48 PM [facility] BUN 15 5 - 25 mg/dL LAB CHEMISTRY METHOD 08/24/2024 4:48 PM [facility] Creatinine 0.98 0.50 - 1.10 mg/dL LAB CHEMISTRY METHOD 08/24/2024 4:48 PM [facility] eGFR 67 >=60 mL/min/1. 73m2 LAB CHEMISTRY METHOD 08/24/2024 4:48 PM [facility] Comment:Calculation based on the??Chronic Kidney Disease Epidemiology Collaboration (CKD-EPI) equation refit??without adjustment for race. BUN/Creatinine Ratio 15.3 LAB CHEMISTRY METHOD 08/24/2024 4:48 PM [facility] Calcium 9.6 8.5 - 10.5 mg/dL LAB CHEMISTRY METHOD 08/24/2024 4:48 PM [facility] AST (SGOT) 17 10 - 42 unit/L LAB CHEMISTRY METHOD 08/24/2024 4:48 PM [facility] ALT (SGPT) 24 10 - 60 unit/L LAB CHEMISTRY METHOD 08/24/2024 4:48 PM [facility] Alkaline Phosphatase 113 42 - 121 unit/L LAB CHEMISTRY METHOD 08/24/2024 4:48 PM [facility] Total Protein 6.9 6.0 - 8.0 g/dL LAB CHEMISTRY METHOD 08/24/2024 4:48 PM [facility] Albumin 3.7 3.2 - 5.0 g/dL LAB CHEMISTRY METHOD 08/24/2024 4:48 PM [facility] Total Bilirubin 0.2 0.0 - 1.4 mg/dL LAB CHEMISTRY METHOD 08/24/2024 4:48 PM [facility] Blood Venous blood specimen / Unknown Venipuncture / Unknown 08/24/2024 2:20 PM EST 08/24/2024 2:20 PM EST us Uche Lassiter MD LAB BLOOD ORDERABLES Final Resu lt [facility] [place] [facility] [address] [place] [address], [place] [phone] from Last 3 Months Insurance [facility] [employer] Care Teams Personal Chef Relationship Specialty Start Date End Date Uche Lassiter MD [address] [place] [phone] PCP - General Internal Medicine 01/18/14
--- OUTSIDE RECORDS SUMMARY | 2024-11-10 15:18 | XMS_ITS | Encounter Summary ---
Author Organization [facility] [place] [address] Care Team Providers Care Mastic Floor Layer Name Role Phone Uche Lassiter MD Primary Care Provider [phone] Reason for Referral * Imaging (Routine) - Closed Specialty Diagnoses / Procedures Referred By Jerry baxter Referred To Contact Radiology Diagnoses Mass of upper outer quadrant of left breast Procedures US Breast Limited Left US Breast Complete Left Ju Callahan PA [address] [place] [address] Phone: tel: fax: [address] Phone: tel: Referral ID Status Reason Start Date Expiration Date Visits Re quested Visits Authorized [id number] Closed 10/13/2024 10/13/2025 1 1 * Consultation (Routine) - Denied Specialty Diagnoses / Procedures Referred By Jerry baxter Referred To Contact Gastroenterology Diagnoses Screening for malignant neoplasm of colon Ju Callahan PA [address] [place] [phone] Phone: tel: fax: Gastroenterology [facility] [address] [address] Phone: tel: fax: Referral ID Status Reason Start Date Expiration Date V isits Requested Visits Authorized [id number] Denied Specialty Services Required 10/13/2024 10/13/2025 1 0 * Medications - Pending Review Specialty Diagnoses / Procedures Referred By Jerry baxter Referred To Contact Diagnoses Gastroesophageal reflux disease, unspecified whether esophagitis present Ju Callahan PA [address] [place] [phone] Phone: tel: fax: Referral ID Status Reason Start Date Expiration Date V isits Requested Visits Authorized [id number] Pending Review 1 1 Reason for Visit * Reason Comments med review Breast Mass Encounter Details Date Type Department Care Team (Late st Contact Info) Description 10/13/2024 1:30 PM EST Office Visit Adult Medicine [address] [place] [address] [phone] Ju Callahan PA [address] [place] [phone] Encounter for long-term current use of medication [...] type, unspecified whether serious comorbidity present (CMS/HCC) Social History Tobacco Use Types Packs/Day Years Used Date Smoking Tobacco: Never Smokeless Tobacco: Never Tobacco Cessation:Counseling Given: Not Answered Alcohol Use Standard Drinks/Week Comments Yes 0 (1 standard drink = 0.6 oz pur e alcohol) Comments Unknown Sex and Gender Information Value Date Recorded Sex Assigned at Not on file Legal Sex Female 6:45 AM EST Gender Identity Not on file Sexual Orientation Not on file documented as of this encounter Last Filed Vital Signs Vital Sign Reading [...] Mass Index 46.77 10/13/2024 1:26 PM EST documented in this encounter Ordered Prescriptions Prescription Sig Dispense Quantity Refills Last Filled Start Date End Date dexlansoprazole (Dexilant) [address] capsuleIndications :Gastroesophageal reflux disease, unspecified whether esophagitis present Take 1 capsule (60 mg total) by mouth 1 (one) time each day. 90 capsule 1 10/13/2024 fluticasone propionate (FLONASE) 50 mcg/actuation nasal spray Administer 2 sprays into each nostril 1 (one) time each day. 16 g 10/13/2024 documented in this encounter Progress Notes * MILAGRO Alonso - 10/13/2024 1:30 PM EST Images from the original note were not included. CHIEF COMPLAINT: med review and Breast Mass IDENTIFIER: Nalini Pemberton is a 59 y.o. old female. HPI: Patient is a 59-year-old female who presents to the office today for follow-up of her chronic medical conditions. Mixed hyperlipidemia/Prediabetes/obesity: Lipid panel from 07/2024 shows LDL at 51. The patient is on rosuvastatin 40 mg. Hemoglobin A1c from 02/2024 is at 6.0. Patient notes her sugar this afternoon was 147 a few hours after eating lunch. She does endorse polyuria and polydipsia. Patient is questioning whether she can start injectable such as Ozempic to help with management of her sugar as well as weight loss. Hypertension: Blood pressure in the office today is at goal at 120/70. The patient is on amlodipine5 mg and atenolol 100 mg. She denies chest pain, palpitations, dizziness or lower extremity edema. She follows closely with cardiology, Dr. Alcazar. Patient with CAD on Brilinta and baby aspirin. GERD: Patient with acid reflux on dexlansoprazole 20 mg daily. Symptoms are well-controlled with use of medication. She has been without medication for a few days and notes worsening reflux. Anxiety: Patient with anxiety on [facility] for Ativan 1 mg 1 tablet twice daily. Patient notes she has a lot going on and has been very stressed. She denies suicidal ideation. She does have a good support system including her son and boyfriend. Last urine drug screen completed 08/2023, patient is overdue. Fibromyalgia/chronic low back pain: Patient is on [facility] for OxyContin 20 mg 1 tablet 3 times daily and oxycodone 10 mg 1 tablet 5 times daily. She rates the pain a 7-8 in severity. She does find that the medications help her somewhat. Left breast mass: Patient reports having cystic breasts. She reports feeling a lump in her left breast which is tender to palpation. She denies redness, warmth to touch, nipple discharge/drainage or bleeding. Last screening mammogram was completed in 2020 with stable findings and follow-up recommended in 1 year. Vitamin D deficiency: Patient with history of vitamin D deficiency. Last level was 25.7. She endorses compliance with daily supplement. ROS: GENERAL: No malaise, significant weight loss or fever RESPIRATORY: No cough, wheezing or shortness of breath CARDIOVASCULAR: No chest pain, leg swelling or palpitations BREAST: see HPI GI: No abdominal pain, hematochezia, melena MUSCULOSKELETAL: No joint pain or swelling, back pain, or muscle pain. NEURO: No persistent headache, syncope, seizures, weakness or numbness PAST MEDICAL HISTORY: Patient Active Problem List Diagnosis Date Noted Gastroesophageal reflux disease 10/13/2024 Hyperlipidemia 10/13/2024 Prediabetes 10/13/2024 Anxiety 06/22/2014 Past Surgical History: Procedure Laterality Date APPENDECTOMY PROCEDURE:APPENDECTOMY APPENDECTOMY PROCEDURE: NC APPENDECTOMY BLADDER SUSPENSION PROCEDURE:BLADDER SUSPENSION BLADDER SUSPENSION 2010 PROCEDURE: HISTORICAL BLADDER SUSPENSION; COMMENT: sling; removed due to recurrent UTIs BREAST BIOPSY PROCEDURE:BREAST BIOPSY BREAST BIOPSY Right 2014 PROCEDURE: BX BREAST; PERC NEEDLE CORE W/IMAG GUID BREAST LUMPECTOMY PROCEDURE:BREAST LUMPECTOMY BREAST LUMPECTOMY Left 2009 PROCEDURE: HISTORICAL BREAST LUMPECTOMY; COMMENT: left, benign BREAST LUMPECTOMY Right 08/30/2014 PROCEDURE: HISTORICAL BREAST LUMPECTOMY; COMMENT: intraductal papiloma CARPAL TUNNEL RELEASE Right 01/30/2022 PROCEDURE: NC NEUROPLASTY &/TRANSPOS MEDIAN NRV CARPAL TUNNE; COMMENT: with excision of benign fibroadipose mass, Dr. Michel SECTION PROCEDURE: SECTION SECTION PROCEDURE: NC DELIVERY ONLY CHOLECYSTECTOMY PROCEDURE: HISTORICAL CHOLECYSTECTOMY COLONOSCOPY PROCEDURE:COLONOSCOPY COLONOSCOPY 2008 PROCEDURE: HISTORICAL COLONOSCOPY; COMMENT: Lisa Mackey. Negative exam. Upper endoscopy done as well. COLONOSCOPY 11/20/2017 PROCEDURE: HISTORICAL COLONOSCOPY; COMMENT: multiple polyps. COLONOSCOPY 08/30/2020 PROCEDURE: HISTORICAL COLONOSCOPY; COMMENT: tubular adenoma COLONOSCOPY W/ POLYPECTOMY 2013 PROCEDURE: NC COLSC FLX W/RMVL OF TUMOR POLYP LESION SNARE TQ; COMMENT: Diminutive colonic polyps x3: Tubular adenoma x3. HYSTERECTOMY PROCEDURE:HYSTERECTOMY OTHER SURGICAL HISTORY PROCEDURE: NC TOTAL ABDOMINAL HYSTERECT W/WO RMVL TUBE OVARY OTHER SURGICAL HISTORY 03/13/2011 PROCEDURE: OUTSIDE ENDOSCOPY; COMMENT: normal OTHER SURGICAL HISTORY 01/15/2018 PROCEDURE: NC LAPAROSCOPY COLECTOMY PARTIAL W/ANASTOMOSIS; COMMENT: Laparoscopic transverse colectomy; mobilization of splenic flexure OTHER SURGICAL HISTORY 2018 PROCEDURE: NC LAP RPR HRNA XCPT INCAL/INGUN NCRC8/STRANGULATED; COMMENT: Dr. Del Cid TONSILLECTOMY PROCEDURE: HISTORICAL TONSILLECTOMY TOTAL KNEE ARTHROPLASTY PROCEDURE:REPLACEMENT TOTAL KNEE;COMMENT:LEFT TOTAL KNEE ARTHROPLASTY Left PROCEDURE: NC ARTHRP KNE CONDYLE&PLATU MEDIAL&LAT COMPARTMENTS UPPER GASTROINTESTINAL ENDOSCOPY 12/09/2017 PROCEDURE: NC UPPER GI ENDOSCOPY PERFORMED; COMMENT: esophagitis and Roblero's UPPER GASTROINTESTINAL ENDOSCOPY 08/30/2020 PROCEDURE: UPPER GI ENDOSCOPY/EXAM; COMMENT: reactive gastropathy and NO Roblero's SOCIAL HISTORY: Social History Tobacco Use Smoking status: Never Smokeless tobacco: Never Substance Use Topics Alcohol use: Yes FAMILY HISTORY: Family History Problem Relation Name Age of Onset Cancer Father FATHER Cancer Maternal Grandfather COLON Leukemia Paternal Grandmother Cancer Paternal Grandfather COLON Colon cancer Father 66.00 Colon cancer Maternal Grandfather 50.00 8 sibs with breast or colon cancer Colon cancer Paternal Grandfather 48.00 Colon polyps Mother 50.00 >10 total Colon polyps Maternal Grandmother 78.00 Other (Other: 010) Uncle 50.00 maternal uncle Colon cancer Uncle 55.00 maternal uncle Other (Other: bladder cancer) Paternal Grandmother 65.00 leukemia; family near asbestos factory Other (Other: liver cancer) Other 50.00 pat gr aunt Other (Other: stomach cancer) Other 75.00 pat gr aunt Other (Other: liver cancer) Other 65.00 pat gr aunt Family Status Relation Name Status Father at age 70 MGF (Not Specified) PGM (Not Specified) PGF (Not Specified) Mother Alive MGM (Not Specified) Uncle (Not Specified) Uncle (Not Specified) Other (Not Specified) Other (Not Specified) Other (Not Specified) No partnership data on file MEDICATIONS DISCONTINUED/REORDERED: Medications Discontinued During This Encounter Medication Reason hydrOXYzine HCL (ATARAX) 25 mg tablet carvediloL (COREG) 6.25 mg tablet fluticasone propionate (FLONASE) 50 mcg/actuation nasal spray Reorder dexlansoprazole (Dexilant) [address] capsule Reorder ACTIVE MEDICATIONS: Outpatient Medications Marked as Taking for the 10/13/24 encounter (Office Visit) with MILAGRO Alonso Medication Sig Dispense Refill albuterol HFA (PROAIR HFA ; PROVENTIL HFA ; VENTOLIN HFA) 90 mcg/actuation inhaler Inhale 2 puffs by mouth every 4 (four) hours if needed. amLODIPine (NORVASC) 5 mg tablet Take 1 tablet (5 mg total) by mouth 1 (one) time each day. aspirin 81 mg EC tablet Take 1 tablet (81 mg total) by mouth 1 (one) time each day. atenoloL (TENORMIN) 100 mg tablet Take 1 tablet (100 mg total) by mouth 1 (one) time each day. cholecalciferol (VITAMIN D-3) 50 mcg (2,000 unit) tablet Take 1 tablet (2,000 Units total) by mouth1 (one) time each day. 90 tablet 1 clindamycin (CLEOCIN) 300 mg capsule Combivent Respimat 20-100 mcg/actuation inhaler Inhale 1 puff by mouth 2 (two) times a day. dexlansoprazole (Dexilant) [address] capsule Take 1 capsule (60 mg total) by mouth 1 (one) time eachday. 90 capsule 1 fluticasone propionate (FLONASE) 50 mcg/actuation nasal spray Administer 2 sprays into each nostril1 (one) time each day. 16 g 0 hydrocortisone 2.5 % cream LORazepam (ATIVAN) 1 mg tablet Take 1 tablet (1 mg total) by mouth 2 (two) times a day. Max Daily Amount: 2 mg 56 tablet 0 methocarbamoL (ROBAXIN) 500 mg tablet Take 1 tablet (500 mg total) by mouth 3 (three) times a day. naloxone ([facility] naloxone) 2 mg/2 mL syringe kit Inject 2 mL as directed if needed. nitroglycerin (NITROSTAT) 0.[address] 1 tablet (0.4 mg total) under the tongue every 5 (five) minutes if needed for chest pain. omeprazole (PriLOSEC) [address] capsule Take 1 capsule (20 mg total) by mouth 1 (one) time each day in the morning. oxyCODONE (ROXICODONE) 10 mg immediate release tablet Take 1 tablet (10 mg total) by mouth 5 (five)times a day. Max Daily Amount: 50 mg 140 tablet 0 OxyCONTIN 20 mg 12 hr abuse-deterrent tablet Take 1 tablet (20 mg total) by mouth 3 (three) times aday. Max Daily Amount: 60 mg 84 tablet 0 prochlorperazine (COMPAZINE) 10 mg tablet Take 1 tablet (10 mg total) by mouth every 6 (six) hours if needed for nausea. 30 tablet 0 roflumilast (DALIRESP) 500 mcg tablet Take 1 tablet (500 mcg total) by mouth 1 (one) time each day. rosuvastatin (CRESTOR) 40 mg tablet Take 1 tablet (40 mg total) by mouth at bedtime. ticagrelor (Brilinta) 90 mg tablet TAKE ONE TABLET BY MOUTH TWICE A DAY 180 tablet 1 [DISCONTINUED] dexlansoprazole (Dexilant) [address] capsule Take 1 capsule (60 mg total) by mouth 1 (one) time each day. [DISCONTINUED] fluticasone propionate (FLONASE) 50 mcg/actuation nasal spray Administer 2 sprays into affected nostril(s) 1 (one) time each day. ALLERGIES: Allergies Allergen Reactions Cephalexin Morphine Hives and Swelling feet Penicillins Rash and Swelling feet Sulfamethoxazole-Trimethoprim Rash and Swelling feet Gabapentin Palpitations somnolence Nitrofurantoin Monohyd/M-Cryst Rash Sulfa (Sulfonamide Antibiotics) Rash PHYSICAL EXAM: Visit Vitals BP 120/70 (BP Location: Right arm, Patient Position: Sitting, BP Cuff Size: Large adult long) Pulse 68 Temp 36.6 ??C (97.9 ??F) (Temporal) Ht 1.626 m (64.02 ) Wt 124 kg (272 lb 9.6 oz) SpO2 97% BMI 46.77 kg/m?? Smoking Status Never BSA 2.23 m?? APPEARANCE: Alert and in no acute distress HEART: RRR with normal S1 and S2, no murmurs, no gallops BREAST: Patient is offered emergency communications dispatcher for sensitive examination, however, declines. No discharge or bleeding from nipples bilaterally. Tenderness to palpation in left upper outer quadrant with small palpable lump LUNG: clear to auscultation, no wheezing, rales, or rhonchi. Able to talk in full complete sentences NEURO: Awake, alert and oriented x 3. No focal neurological deficits LABS: No results found for: HGBA1C Lab Results Component Value Date CHOL 161 08/24/2024 TRIG 297 (H) 08/24/2024 HDL 51 08/24/2024 LDLCALC 51 08/24/2024 VLDL 59.4 08/24/2024 NONHDLC 110 08/24/2024 CHOLHDL 3.2 08/24/2024 Lab Results Component Value Date GLUCOSE 112 (H) 08/24/2024 CALCIUM 9.6 08/24/2024 NA 139 08/24/2024 K 4.2 08/24/2024 CO2 29 08/24/2024 CL 106 08/24/2024 BUN 15 08/24/2024 CREATININE 0.98 08/24/2024 Pain Management Panel No data to display IMPRESSION: 1. Encounter for long-term current use of medication 2. Anxiety 3. Chronic bilateral low back pain, unspecified whether sciatica present 4. Gastroesophageal reflux disease, unspecified whether esophagitis present 5. Hyperlipidemia, unspecified hyperlipidemia type 6. Prediabetes 7. Vitamin D deficiency 8. Screening for malignant neoplasm of colon 9. Mass of upper outer quadrant of left breast 10. Class 3 severe obesity with body mass index (BMI) of 45.0 to 49.9 in adult, unspecified obesitytype, unspecified whether serious comorbidity present ([facility]) PLAN: Patient presents for follow up. Mixed hyperlipidemia/Prediabetes/obesity: Continue compliance with rosuvastatin 40 mg nightly. Willupdate A1c. Would further consider treatment with Ozempic to help with management of sugars as wellas obesity. Hypertension: Blood pressure well-controlled. Continue on amlodipine 5 mg and atenolol 100 mg. GERD: Continue dexlansoprazole 20 mg daily. Refill sent to pharmacy. Anxiety: Patient with increased psychosocial stressors. Her mood overall is stable, denies SI. She has a great support system. She will continue with current regimen per [facility]. She is due for UDS and is ordered for this. Fibromyalgia/chronic low back pain: Patient with chronic pain which is somewhat improved with use of [facility] medication. Continue with current regimen. UDS ordered. Left breast mass: Patient with tenderness to palpation in left upper outer quadrant with small palpable lump. Breast ultrasound and diagnostic mammogram ordered. Vitamin D deficiency: Will repeat vitamin D level. Patient requesting referral for colonoscopy. Last completed in 2013. Referral placed. Follow up recommended in 3 months. All questions and concerns were addressed. Nalini Pemberton verbalizes understanding and agrees with this treatment plan. Patient was reminded to call or return to the office if any new or existingproblems arise. Orders Placed This Encounter Procedures US Breast Complete Left MG Mammo Digital Diagnostic w Sathish Left Drug abuse screen 8a panel, urine Hemoglobin A1c Vitamin D 25 hydroxy Ambulatory referral to Gastroenterology AMB REFERRAL TO GASTROENTEROLOGY US BREAST COMPLETE LEFT MG MAMMO DIGITAL DIAGNOSTIC W SATHISH LEFT MILAGRO Alonso on 10/13/2024 at 4:17 PM EST Today's documentation was made using voice recognition software.This note may contain grammatical errors secondary to this software. documented in this encounter Plan of Treatment Upcoming Encounters Date Type Department Care Team (Late st Contact Info) Description 01/27/2025 3:30 PM EDT Office Visit [address] [phone] Uche Lassiter MD [address] [place], [place] 03/08/2025 10:30 AM EDT Appointment [facility] [address] [place] [phone] Sukumar Tad, DO [address] [facility] [address] [place] [address] 04/22/2025 8:30 AM EDT Office Visit Adult Medicine [facility] [address] [place], [place] [phone] Uche Lassiter MD [address] [place] [address] Scheduled Referrals Name Type Priority Associated Diagnoses Order Schedule Ambulatory referral to Gastroenterology Outpatient Referral Routine Screening for malignant neoplasm of colon 1 Occurrences starting 10/13/2024 until 10/13/2025 documented as of this encounter Results * US Breast Limited Left (10/20/2024 [...] is recommended in 1 year. Mammo Location: [facility], [address] [place] [address], [id number], . -------- FINAL REPORT -------- Dictated By: Ed Alvarez Dictated Date: 10/20/2024 16:11 ET Assigned Physician: Ed Alvarez Reviewed and Electronically Signed By: Ed Alvarez Signed Date: 10/20/2024 16:21 ET Workstation ID: [id number] Transcribed By: Self Edit Transcribed Date: 10/20/2024 [...] in the upper-outer quadrant placed at the [facility] following ultrasound-guided needle core biopsy on April [...] markers in the upper-outer quadrant placed at [facility] following ultrasound-guided needle core biopsy onApril 05, [...] is recommended in 1 year. Mammo Location: [facility], [address] [place] [address], [id number], . -------- FINAL REPORT -------- Dictated By: Ed Alvarez Dictated Date: 10/20/2024 16:11 ET Assigned Physician: Ed Alvarez Reviewed and Electronically Signed By: Ed Alvarez Signed Date: 10/20/2024 16:21 ET Workstation ID: [id number] Transcribed By: Self Edit Transcribed Date: 10/20/2024 16:20 ET Ju HUMPHREY IMG US PROCEDURES Final Result * Vitamin D 25 hydroxy (10/13/2024 2:26 PM EST) Vit D, 25-Hydroxy 33.4 30.0 - 80.0 ng/mL LAB CHEMISTRY METHOD 10/13/2024 5:37 PM EST [facility] Blood Venous blood specimen / Unknown Venipuncture / Unknown 10/13/2024 2:26 PM EST 10/13/2024 2:26 PM EST Ju HUMPHREY LAB BLOOD ORDERABLES Fi nal Result Performing Organization Address City/[facility]/ZIP Co de Phone Number [facility] [address] [place] [address], * Hemoglobin A1c (10/13/2024 2:26 PM EST) Hemoglobin A1C 5.9 <6.5 % LAB CHEMISTRY METHOD 10/14/2024 12:38 PM EST [facility] Mean Bld Glu Estim. 123 mg/dL LAB CHEMISTRY METHOD 10/14/2024 12:38 PM EST [facility] Blood Venous blood specimen / Unknown Venipuncture / Unknown 10/13/2024 2:26 PM EST 10/13/2024 2:26 PM EST Ju HUMPHREY LAB BLOOD ORDERABLES Fi nal Result [facility] [address] [place] [address], * (ABNORMAL) Drug abuse screen 8a panel, urine (10/13/2024 2:26 PM EST) Amphetamine Screen, Ur Negative Negative LAB CHEMISTRY METHOD 5 8:18 PM EST [facility] Comment:Certain OTC medicati ons containing ephedrine, phenylephrine, pseudoephedrine and phenylpropanolamine can cause false positive results. Barbiturate Screen, Ur Negative Negative LAB CHEMISTRY METHOD 5 8:18 PM EST [facility] Benzodiazepine Screen, Ur Negative Negative LAB CHEMISTRY METHOD 5 8:18 PM [facility] Cocaine Screen, Ur Negative Negative LAB CHEMISTRY METHOD 5 8:18 PM [facility] Opiate Screen, Ur Positive(A ) Negative LAB CHEMISTRY METHOD 5 8:18 PM [facility] Cannabinoid (THC) Screen, Ur Negative Negative LAB CHEMISTRY METHOD 5 8:18 PM EST [facility] Comment:Specimens from patie nts taking pantoprazole sodium (Protonix) have been shown to produce false positive results. Oxycodone Screen, Ur Positive(A ) Negative LAB CHEMISTRY METHOD 5 8:18 PM EST [facility] Fentanyl, Ur Negative Negative LAB CHEMISTRY METHOD 5 8:18 PM [facility] Urine Urine specimen obtained by clean catch procedure / Unknown Non-blood Collection / Unknown 10/13/2024 2:26 PM EST 10/13/2024 2:26 PM EST [facility] - 10/13/2024 8:18 PM EST [...] REQUEST ONLY* Ju HUMPHREY LAB URINE ORDERABLES nal Result [facility] ([facility] [address] [place] [address], documented in this encounter Visit Diagnoses Diagnosis Encounter for long-term current use of medication- Primary Anxiety Anxiety state, unspecified Chronic bilateral low back pain, unspecified whether sciatica present Gastroesophageal reflux disease, unspecified whether esophagitis present Hyperlipidemia, unspecified hyperlipidemia type Prediabetes Other abnormal glucose Vitamin D deficiency Screening for malignant neoplasm of colon Mass of upper outer quadrant of left breast Class 3 severe obesity with body mass index (BMI) of 45.0 to 49.9 in adult, unspecified obesity type, unspecified whether serious comorbidity present (CMS/HCC) Mass of upper outer quadrant of left breast documented in this encounter Discontinued Medications Medication Sig Discontinue Reason Start Date End Da te hydrOXYzine HCL (ATARAX) 25 mg tablet Take 1 tablet (25 mg total) by mouth 3 (three) times a day. 06/17/2024 10/13/2024 carvediloL (COREG) 6.25 mg tablet Take 2 tablets (12.5 mg total) by mouth 2 (two) times a day with meals. 08/11/2023 10/13/2024 fluticasone propionate (FLONASE) 50 mcg/actuation nasal spray Administer 2 sprays into affected nostril(s) 1 (one) time each day. Reorder 02/26/2024 10/13/2024 dexlansoprazole (Dexilant) [address] capsule Take 1 capsule (60 mg total) by mouth 1 (one) time each day. Reorder 06/30/2023 10/13/2024 documented as of this encounter Care Teams Mastic Floor Layer Relationship Specialty Start Date End Date Uche Lassiter MD [address] [place] [id number] PCP - General Internal Medicine 01/18/14 documented as of this encounter
--- OUTSIDE RECORDS SUMMARY | 2024-11-10 15:18 | XMS_ITS | Encounter Summary ---
Author Organization [facility] [place] [address] Care Team Providers Care Vp Securities Name Role Phone Uche Lassiter MD Primary Care Provider [phone] Reason for Referral * Imaging (Routine) - Closed Specialty Diagnoses / Procedures Referred By Jerry baxter Referred To Contact Radiology Diagnoses Mass of upper outer quadrant of left breast Procedures US Breast Limited Left US Breast Complete Left Ju Callahan PA [address] [place] [address] Phone: tel: fax: [address] Phone: tel: Referral ID Status Reason Start Date Expiration Date Visits Re quested Visits Authorized [id number] Closed 10/13/2024 10/13/2025 1 1 Reason for Visit * Imaging (Routine) - Closed Specialty Diagnoses / Procedures Referred By Jerry baxter Referred To Contact Radiology Diagnoses Mass of upper outer quadrant of left breast Procedures US Breast Limited Left US Breast Complete Left Ju Callahan PA [address] [place] [address] Phone: tel: fax: [address], [place] Phone: tel: Referral ID Status Reason Start Date Expiration Date Visits Re quested Visits Authorized [id number] Closed 10/13/2024 10/13/2025 1 1 Encounter Details Date Type Department Care Team (Latest Contact Info) Description 10/20/2024 3:16 PM EST - 10/20/2024 11:59 PM EST Hospital Encounter Radiology Department - [address] [phone] Mass of upper outer quadrant of left breast Discharge Disposition: Home or Self Care Social History Tobacco Use Types Packs/Day Years [...] on file documented as of this encounter Medications at Time of Discharge albuterol HFA (PROAIR HFA ; PROVENTIL HFA ; VENTOLIN HFA) 90 mcg/actuation inhaler Inhale 2 puffs by mouth every 4 (four) hours if needed. 02/26/2024 amLODIPine (NORVASC) 5 mg tablet Take 1 tablet (5 mg total) by mouth 1 (one) time each day. 08/11/2023 ammonium lactate (AMLACTIN) 12 % cream Apply topically if needed. 07/23/2024 aspirin 81 mg EC tablet Take 1 tablet (81 mg total) by mouth 1 (one) time each day. 03/04/2024 atenoloL (TENORMIN) 100 mg tablet Take 1 tablet (100 mg total) by mouth 1 (one) time each day. 12/06/2021 chlorhexidine (HIBICLENS) 4 % external liquid 07/23/2024 cholecalciferol (VITAMIN D-3) 50 mcg (2,000 unit) tablet Take 1 tablet (2,000 Units total) by mouth 1 (one) time each day. 07/14/2024 cholecalciferol (VITAMIN D-3) 50 mcg (2,000 unit) tablet Take 1 tablet (2,000 Units total) by mouth 1 (one) time each day. 90 tablet 1 09/14/2024 clindamycin (CLEOCIN) 300 mg capsule 06/16/2024 Combivent Respimat 20-100 mcg/actuation inhaler Inhale 1 puff by mouth 2 (two) times a day. 07/29/2017 dexlansoprazole (Dexilant) [address] capsuleIndication s:Gastroesophagea l reflux disease, unspecified whether esophagitis present Take 1 capsule (60 mg total) by mouth 1 (one) time each day. 90 capsule 1 10/13/2024 fluticasone propionate (FLONASE) 50 mcg/actuation nasal spray Administer 2 sprays into each nostril 1 (one) time each day. 16 g 10/13/2024 hydrocortisone 2.5 % cream 08/05/2024 methocarbamoL (ROBAXIN) 500 mg tablet Take 1 tablet (500 mg total) by mouth 3 (three) times a day. 08/19/2016 naloxone ([facility] naloxone) 2 mg/2 mL syringe kit Inject 2 mL as directed if needed. 07/17/2022 nitroglycerin (NITROSTAT) 0.[address] 1 tablet (0.4 mg total) under the tongue every 5 (five) minutes if needed for chest pain. 07/04/2023 omeprazole (PriLOSEC) [address] capsule Take 1 capsule (20 mg total) by mouth 1 (one) time each day in the morning. 10/25/2021 prochlorperazine (COMPAZINE) 10 mg tablet Take 1 tablet (10 mg total) by mouth every 6 (six) hours if needed for nausea. 30 tablet 09/09/2024 roflumilast (DALIRESP) 500 mcg tablet Take 1 tablet (500 mcg total) by mouth 1 (one) time each day. 08/19/2016 rosuvastatin (CRESTOR) 40 mg tablet Take 1 tablet (40 mg total) by mouth at bedtime. 11/28/2021 ticagrelor (Brilinta) 90 mg tablet TAKE ONE TABLET BY MOUTH TWICE A DAY 180 tablet 1 09/15/2024 LORazepam (ATIVAN) 1 mg tablet Take 1 tablet (1 mg total) by mouth 2 (two) times a day. Max Daily Amount: 2 mg 56 tablet 10/06/2024 5 oxyCODONE (ROXICODONE) 10 mg immediate release tabletIndications :Lumbar disc disease Take 1 tablet (10 mg total) by mouth 5 (five) times a day. Max Daily Amount: 50 mg 140 tablet 10/13/2024 5 OxyCONTIN 20 mg 12 hr abuse-deterrent tabletIndications :Lumbar disc disease Take 1 tablet (20 mg total) by mouth 3 (three) times a day. Max Daily Amount: 60 mg 84 tablet 10/13/2024 5 documented as of this encounter Discharge Disposition Disposition Code Departure Means Destination Home or Self Care documented in this encounter Plan of Treatment Upcoming Encounters Date Type Department Care Team (Late st Contact Info) Description 01/27/2025 3:30 PM EDT Office Visit Adult Medicine [address] [phone] Uche Lassiter MD [address] [place] [phone] 03/08/2025 10:30 AM EDT Appointment [facility] Endoscopy [address] [place] [phone] Tad Patino DO [address] [address] 04/22/2025 8:30 AM EDT Office Visit Adult [address] [phone] Uche Lassiter MD [address] [place] [phone] documented as of this encounter Procedures Procedure Name Priority Date/Time Associated Diagnosis Comments US BREAST LIMITED LEFT Routine 10/20/2024 4:00 PM EST Mass of upper outer quadrant of left breast documented in this encounter Results * US Breast Limited [...] is recommended in 1 year. Mammo Location: [facility], [address] [place] [address], [address], . -------- FINAL REPORT -------- Dictated By: Ed Alvarez Dictated Date: 10/20/2024 16:11 ET Assigned Physician: Ed Alvarez Reviewed and Electronically Signed By: Ed Alvarez Signed Date: 10/20/2024 16:21 ET Workstation ID: [id number] Transcribed By: Self Edit Transcribed Date: 10/20/2024 [...] in the upper-outer quadrant placed at the [facility] following ultrasound-guided needle core biopsy on [...] markers in the upper-outer quadrant placed at [facility] following ultrasound-guided needle core biopsy onApril 05, [...] is recommended in 1 year. Mammo Location: [facility], [address] [place] [address], [address], . -------- FINAL REPORT -------- Dictated By: Ed Alvarez Dictated Date: 10/20/2024 16:11 ET Assigned Physician: Ed Alvarez Reviewed and Electronically Signed By: Ed Alvarez Signed Date: 10/20/2024 16:21 ET Workstation ID: [id number] Transcribed By: Self Edit Transcribed Date: 10/20/2024 16:20 ET us Ju HUMPHREY IMG US PROCEDURES Final Result documented in this encounter Visit Diagnoses Diagnosis Mass of upper outer quadrant of left breast documented in this encounter Care Teams Vp Securities Relationship Specialty Start Date End Date Uche Lassiter MD [address] [place] [phone] PCP - General Internal Medicine 01/18/14 documented as of this encounter
--- OUTSIDE RECORDS SUMMARY | 2024-11-10 15:18 | XMS_ITS | Encounter Summary ---
Author Organization [facility] [place] [address] Care Team Providers Care Grails Web Application Developer Name Role Phone Uche Lassiter MD Primary Care Provider [phone] Reason for Visit * Imaging (Routine) - Closed Specialty Diagnoses / Procedures Referred By Jerry baxter Referred To Contact Radiology Diagnoses Mass of upper outer quadrant of left breast Procedures MG Mammo Digital Diagnostic w Sathish bilat MG Mammo Digital Diagnostic w Sathish Left Ju Callahan PA [address] [place] [address] Phone: tel: fax: [address] Phone: tel: Referral ID Status Reason Start Date Expiration Date Visits Re quested Visits Authorized [id number] Closed 10/13/2024 10/13/2025 1 1 Encounter Details Date Type Department Care Team (Latest Contact Info) Description 10/20/2024 3:00 PM EST - 10/20/2024 11:59 PM EST Hospital Encounter Radiology Department - [address] [phone] Mass of upper outer quadrant of left [...] 3 (three) times a day. 08/19/2016 naloxone ([facility] naloxone) 2 mg/2 mL syringe [...] Description 01/27/2025 3:30 PM EDT Office Visit [address] [phone] Uche Lassiter MD [address] [place] [phone] 03/08/2025 10:30 AM EDT Appointment [facility] Endoscopy [address] [place] [phone] Sukumar, Tad, DO [address] [address] 04/22/2025 8:30 AM EDT Office Visit [address] [phone] Uche Lassiter MD [address] [place] [address] [phone] documented as of this encounter Procedures Procedure Name Priority Date/Time Associated Diagnosis Comments MG MAMMO DIGITAL DIAGNOSTIC W SATHISH BILAT Routine 10/20/2024 3:46 PM EST Mass of upper outer quadrant of left breast documented in this encounter Results * MG Mammo Digital Diagnostic w Sathish [...] is recommended in 1 year. Mammo Location: [facility], [address] [place] [address], [address], . -------- FINAL REPORT -------- Dictated By: Ed Alvarez Dictated Date: 10/20/2024 16:11 ET Assigned Physician: Ed Alvarez Reviewed and Electronically Signed By: Ed Alvarez Signed Date: 10/20/2024 16:21 ET Workstation ID: [id number] Transcribed By: Self Edit Transcribed Date: 10/20/2024 [...] in the upper-outer quadrant placed at the [facility] following ultrasound-guided needle core biopsy [...] markers in the upper-outer quadrant placed at [facility] following ultrasound-guided needle core biopsy onApril [...] is recommended in 1 year. Mammo Location: [facility], [address] [place] [address], [address], . -------- FINAL REPORT -------- Dictated By: Ed Alvarez Dictated Date: 10/20/2024 16:11 ET Assigned Physician: Ed Alvarez Reviewed and Electronically Signed By: Ed Alvarez Signed Date: 10/20/2024 16:21 ET Workstation ID: [id number] Transcribed By: Self Edit Transcribed Date: 10/20/2024 16:20 ET Ju HUMPHREY IMG BI PROCEDURES Final Result documented in this encounter Visit Diagnoses Diagnosis Mass of upper outer quadrant of left breast documented in this encounter Care Teams Grails Web Application Developer Relationship Specialty Start Date End Date Uche Lassiter MD [address] [place] [phone] PCP - General Internal Medicine 01/18/14 documented as of this encounter
--- OUTSIDE RECORDS SUMMARY | 2024-11-10 15:18 | XMS_ITS | Encounter Summary ---
Author Organization [facility] [place] [address] Care Team Providers Care Folder Taper Operator Name Role Phone Uche Lassiter MD Primary Care Provider [phone] Reason for Visit * Reason Onset Date Comments Medication Problem 11/02/2024 Encounter Details Date Type Department Care Team (Late st Contact Info) Description 11/02/2024 Telephone Adult Medicine [address] [phone] Uche Lassiter MD [address] [place] [phone] Medication Problem Social History Tobacco Use Types Packs/Day Years [...] on file documented as of this encounter Progress Notes * Makenna Lindo - 11/02/2024 3:43 PM EST Please disregard messages below - message documented under wrong chart. Message has been put under the correct chart and Ji NASH is routing information to provider. * Ji Olvera [place] - 11/02/2024 9:48 AM EST Unable to get through to pt with restricted number. LRX for this medication was 10/13/2024- per mass pat it was filled for 28 days. Pt is NOT due until 11/10/2024 Prescriptions Fill Date ID Written Sold Drug Qty Days Prescriber Rx # Pharmacy Refill Daily Dose* Pymt Type BRIDGE EXPERT 10/13/24 1 10/13/24 10/13/24 Oxycodone Hcl (Ir) 10 Mg Tab 140 28 An Cru [id number] Big (5799) 0/0 75.00MME Comm Ins [place] 10/13/24 1 10/13/24 10/13/24 Oxycontin Er 20 Mg Tablet 84 28 An Cru [id number] Big (5799) 0/0 90.00 MMEComm Ins [place] 10/06/24 1 10/06/24 10/06/24 Lorazepam 1 Mg Tablet 56 28 An Cru [id number] Big (5799) 0/0 2.00 LME CommIns [place] * Makenna Lindo - 11/02/2024 8:33 AM EST Medication Problem: What is the name of the medication patient is having a problem with?: OXYCONTIN 20MG What is the problem?: out of stock. Patient would like a new script sent to [facility] stating she called this pharmacy and they have the medication there Who is calling about the problem? : The patient Is this a NEW medication?: no How long has the patient been taking this medication? Years Who prescribed this medication for the patient? Dr Villatoro Who is patients PCP?: Uche Lassiter MD Payor: [facility] HEALTH PLAN / Plan: [facility] MEDICAID / Product Type: *No Product type* / documented in this encounter Plan of Treatment Upcoming Encounters Date Type Department Care Team (Late st Contact Info) Description 01/27/2025 3:30 PM EDT Office Visit Adult Medicine [address] [phone] Uche Lassiter MD [address] [place] [phone] 03/08/2025 10:30 AM EDT Appointment [facility] Endoscopy [address] [place] [phone] Tad Patino, DO [address] [address] 04/22/2025 8:30 AM EDT Office Visit Adult Medicine [facility] [address] [place] [phone] Uche Lassiter MD [address] [place] [address] documented as of this encounter Visit Diagnoses Not on filedocumented in this encounter Care Teams Folder Taper Operator Relationship Specialty Start Date End Date Uche Lassiter MD [address] [place] [address] PCP - General Internal Medicine 01/18/14 documented as of this encounter
== END 2024-11-10 15:02 | disposition home or self-care (01) ==
PROVIDERS: PCP Internal Medicine; Visit Provider Orthopaedic Surgery
DX: M25.551 Pain in right hip (principal)
CPT/HCPCS: 99213; G2211

== ENCOUNTER → 2024-11-10 14:23 | Outpatient (BNV) | payer OTHER, SELFPAY | PROVIDERS: Visit Provider Radiology Diagnostic Radiology | DX: M16.0 Bilateral primary osteoarthritis of hip (principal); M51.369 Other intervertebral disc degeneration, lumbar region without mention of lumbar back pain or lower extremity pain; M25.561 Pain in right knee | CPT/HCPCS: 73502; 73562 ==

== ENCOUNTER 2024-12-16 08:26 | Outpatient (REF) | payer OTHER, SELFPAY | END 2024-12-16 08:27 | disposition home or self-care (01) | LOC: HO.HOSX 08:26 | PROVIDERS: Visit Provider Orthopaedic Surgery | DX: Z13.89 Encounter for screening for other disorder (principal) ==

== ENCOUNTER → 2025-03-08 08:28 | Outpatient (BNV) | payer OTHER, SELFPAY | PROVIDERS: Visit Provider Radiology Diagnostic Radiology | DX: M25.561 Pain in right knee (principal) | CPT/HCPCS: 73562 ==

== ENCOUNTER 2025-03-08 08:31 | Outpatient (AMB) | payer OTHER, SELFPAY ==
[2025-03-08 08:47] VITALS: BMI 48.9
--- NOTE | 2025-03-08 08:47 | MHC.OFFVIS ---
Vital Signs 03/08/25 08:47 Height 5 ft 4 in Weight 285 lb BMI 48.9 Intake Visit Reasons: Right lower leg redness and swelling Intake Note: Nalini is a 59 year old female who presents with complaints of right lower leg redness and swelling. The patient did undergo right total knee replacement surgery on 04/12/2024. She reports mild discomfort in her right knee. She states that the redness in her right foot and calf began several weeks ago. She states that she was initially placed on oral clindamycin which seemed to improve her symptoms. When she was taken off of the clindamycin the redness returned. She was treated at [facility] with IV vancomycin which also improved her symptoms. The patient is currently off of antibiotics. The patient states that she has been seen by the vascular surgery group at [facility] in the past for bilateral lower extremity lymphedema. Allergies gabapentin Allergy (Severe, Verified 03/08/25 08:49) Agitated amoxicillin Allergy (Unknown, Verified 03/08/25 08:49) Swelling cephalexin Allergy (Unknown, Verified 03/08/25 08:49) Anaphylaxis morphine Allergy (Unknown, Verified 03/08/25 08:49) Hives nitrofurantoin [From Macrobid] Allergy (Verified 03/08/25 08:49) face swelling, difficulty breathing Sulfa (Sulfonamide Antibiotics) Allergy (Verified 03/08/25 08:49) Shortness of Breath sulfamethoxazole [From Bactrim] Allergy (Verified 03/08/25 08:49) Swelling, rash trimethoprim [From Bactrim] Allergy (Verified 03/08/25 08:49) Swelling, rash Medication List - Last Reconciled 03/08/25 by Price Loco MD albuterol sulfate 90 mcg/actuation 2 puffs inhalation Q4-6H PRN amlodipine 5 mg PO DAILY aspirin (Adult Low Dose Aspirin) 81 mg PO BEDTIME atenolol 100 mg PO BEDTIME cholecalciferol (vitamin D3) 50 mcg PO BEDTIME dexlansoprazole (Dexilant) 60 mg PO BEDTIME fluticasone propionate 50 mcg/actuation 1 spray intranasal BID PRN ipratropium-albuterol 20-100 mcg/actuation (Combivent Respimat) 1 puff inhalation BID PRN lorazepam 1 mg PO BID methocarbamol 500 mg PO TID naloxone ([facility] Naloxone) 2 mg IM Q2M PRN nitroglycerin 0.4 mg sublingual DIRECTED PRN omeprazole 20 mg PO BEDTIME prochlorperazine maleate 10 mg PO Q6H PRN roflumilast (Daliresp) 500 mcg PO BEDTIME rosuvastatin 40 mg PO BEDTIME sennosides (Senna Lax) 17.2 mg (2 x 8.6 mg) PO BEDTIME 30 days ticagrelor (Brilinta) 90 mg PO BID 7 days walker Folding front wheeled walker [facility] Medical History Habitual snoring Sleep apnea History of placement of stent in LAD coronary artery Back pain Hyperlipidemia Chronic interstitial cystitis Morbid obesity Dyspnea on exertion Chest pain on exertion Lumbar disc disease Chronic lower back pain Fibromyalgia Hypertension COPD (chronic obstructive pulmonary disease) Anxiety Intraductal papilloma of breast Edema, lower extremity Barretts esophagus GERD (gastroesophageal reflux disease) Tubular adenoma Aortic root dilatation Vitamin D deficiency Obstructive sleep apnea Prediabetes Osteoarthritis of right knee Surgical History Hx of hernia repair History of carpal tunnel surgery of right wrist Hx of total hysterectomy History of partial colectomy Hx of section History of appendectomy H/O colonoscopy History of esophagogastroduodenoscopy (EGD) Hx of cardiac catheterization History of arthroscopy of right knee History of left knee replacement History of tonsillectomy History of cholecystectomy History of lumpectomy of right breast History of lumpectomy of left breast History of bladder suspension procedure Social History Household Members: Spouse Housing: House Are you a primary director of critical care to a significant other at home: No Do you presently have visiting nurse or other home services: No Alcohol intake: current Alcohol intake frequency: holidays/special occasions only Patient Tobacco Use Status: Never used Tobacco service: No Physical Exam Vital Signs: BMI result Body Mass Index 48.9 Extrem Other: Right knee examination shows no erythema, minimal effusion, full active extension and flexion to 100 degrees with mild discomfort, her patella tracks well Right lower leg examination shows diffuse redness around her lower calf and ankle, no open skin lesions Results Reviewed Results Reviewed: X-rays of the patient's right knee show a total knee arthroplasty in good position with no signs of loosening, no acute bony abnormalities Assessment & Plan Assessment & Plan (1) Lymphedema: Code(s): I89.0 - Lymphedema, not elsewhere classified Category: Medical Plan Nalini presents with redness and swelling along her right lower leg due to cellulitis. The patient does not clinically have involvement of her right total knee arthroplasty based on her good range of motion and lack of swelling and erythema in this region. Thus, I will place her on Levaquin for further treatment of her cellulitis. I will also arrange for her to have a evaluation in our vascular surgery department here at [facility]. She will contact me prior to her follow-up appointment in 2 weeks should any questions or concerns arise. I spent 20 minutes in reviewing the patient's records and imaging studies, seeing the patient and documenting in the medical record. Orders: Orders XR knee RT 3V Today M25.561 - Pain in right knee Referrals Vascular Surgery Referral I89.0 - Lymphedema, not elsewhere classified Medications: New levofloxacin 500 mg PO DAILY 14 days 14 tabs 0RF Coding Level of Care Code Est Pt Level 3 (05135) Complex EM visit Add On G2211 Diagnoses Lymphedema I89.0
--- OUTSIDE RECORDS SUMMARY | 2025-03-08 08:49 | XMS_ITS | Clinical Summary ---
Author Organization [facility] Address [address] [place] [address] Care Team Providers Care Digital Asset Specialist Name Role Phone Uche Lassiter MD Primary Care Provider [phone] Allergies Active Allergy Reactions Criticality Noted Date [...] Vaccine ( season) 2024 01/24/2021 Influenza Vaccine (Season Ended) 2025 07/19/2020, 07/09/2019, 07/09/2018, Additional history exists Shingrix-Zoster Vaccine Completed 11/26/2019, 07/20 Pneumococcal Vaccine Aged Out No long er eligible based on patient's age to complete this topic RSV Ped < 20 months Aged Out No longe r eligible based on patient's age to complete this topic Care Teams Digital Asset Specialist Relationship Specialty Start Date End Date Uche Lassiter MD PCP - General Internal Medicine 03/25/22
== END 2025-03-08 09:10 | disposition home or self-care (01) ==
LOC: HO.HOS 08:32
PROVIDERS: PCP Internal Medicine; Visit Provider Orthopaedic Surgery
DX: I89.0 Lymphedema, not elsewhere classified (principal); Z96.651 Presence of right artificial knee joint
CPT/HCPCS: 99213; G2211

== ENCOUNTER 2025-03-08 09:42 | Outpatient (REF) | payer OTHER, SELFPAY ==
--- NOTE | ~2025-03-08 | XR_ITS ---
CLINICAL HISTORY: M25.561 - Pain in right knee 3 view right knee Comparison: DX - XR KNEE RT 3V - 11/10/24 14:23 EST Findings: Bones intact. No dislocations. Knee arthroplasty. No significant loss of joint space, osteophytes, or erosions. No joint effusion. No radiopaque foreign body. IMPRESSION: 1. No acute findings. This document has been electronically signed by: Mango Kern MD on 03/08/2025 15:02:06
--- OUTSIDE RECORDS SUMMARY | 2025-03-09 10:50 | XMS_ITS | Encounter Summary ---
Author Organization [facility] Address [address] [place] [address] Care Team Providers Care Barrel Rifler Button Name Role Phone Uche Lassiter MD Primary Care Provider [phone] Rebecca Alcazar MD Unavailable [phone] Sherry Falk NP Unavailable [phone] Encounter Details Date Type Department Care Team Description 04/08/2024 Roaster Supervisor Report Medical Records [address] [place] [address] Price Loco MD Social History Tobacco Use Types Packs/Day Years Used Date Smoking Tobacco: Never Passive Smoke Exposure: Past Smokeless Tobacco: Never Alcohol Use Standard Drinks/Week Comments Yes 0 (1 standard drink = 0.6 oz pur e alcohol) social-3 x yrs Alcohol Habits Answer Date Recorded How often do you have a drink containing alcohol ? Monthly or less 11/08/2019 How many drinks containing a lcohol do you have on a typical day when you are drinking? 1 or 2 11/08/2019 How often do you have six or more drinks on one occasion? Never 11/08/2019 Sex Assigned at Date Recorded Not on file Job Start Date Occupation Industry Not on file Not on file Not on file documented as of this encounter Plan of Treatment Not on file documented as of this encounter Visit Diagnoses Not on filedocumented in this encounter Care Teams Barrel Rifler Button Relationship Specialty Start Date End Date Uche Lassiter MD [address] [place] [phone] PCP - General Internal Medicine 01/18/14 Rebecca Alcazar MD [address] [place] [phone] Wheel And Caster Repairer Cardiology 06/17/23 Sherry Falk NP [address] [place] [address] [id number] Nurse Practitioner Cardiology 03/29/24 documented as of this encounter
== END 2025-03-08 09:43 | disposition home or self-care (01) ==
LOC: HO.HOSX 09:42
PROVIDERS: Visit Provider Orthopaedic Surgery
DX: I89.0 Lymphedema, not elsewhere classified (principal); L03.115 Cellulitis of right lower limb
CPT/HCPCS: 73562; 99212

== ENCOUNTER 2025-03-22 13:23 | Outpatient (AMB) | payer OTHER, SELFPAY ==
--- NOTE | 2025-03-22 13:26 | MHC.OFFVIS ---
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 Right LE swelling worse than Left LE. Pt states she was hospitalized and had IV Abx for 5 days in January 2025 and Hx of knee surgery in March of 2024, Ortho referred. Therapist Radiation Required: No Accompanied by: Self / Same As Patient Allergies gabapentin Allergy (Severe, Verified 03/22/25 13:29) Agitated amoxicillin Allergy (Unknown, Verified 03/22/25 13:29) Swelling cephalexin Allergy (Unknown, Verified 03/22/25 13:29) Anaphylaxis morphine Allergy (Unknown, Verified 03/22/25 13:29) Hives nitrofurantoin (From Macrobid) Allergy (Verified 03/22/25 13:29) face swelling, difficulty breathing Sulfa (Sulfonamide Antibiotics) Allergy (Verified 03/22/25 13:29) Shortness of Breath sulfamethoxazole (From Bactrim) Allergy (Verified 03/22/25 13:29) Swelling, rash trimethoprim (From Bactrim) Allergy (Verified 03/22/25 13:29) Swelling, rash HPI HPI 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 She is s/p total right knee replacement with Dr Loco in March 2024; she states the replacement went well. Complaints include pain, swelling of lower extremities, cramping, fatigue, and heaviness of the lower extremities. It has been affecting their daily activities including walking, standing, and physical activity. It is noted more so in the right leg. She states she has been diagnosed with lymphedema with [facility] appx 2y ago and does have compression pumps; however, she states she may use them only 3 times a week if she does (she states they are hard to put on). She states she is unable to wear compression socks. She last had a appx 2y ago with [facility], she does not know the results. She states she has not been back there; she does not like the providers there. She has had several bouts of cellulitis, requiring one hospital admission for IV Abx; she is currently finishing up oral abx tomorrow. She states she has tried diuretics in the past; however, she states she cannot tolerate them, it makes her kidneys hurt and destroys her kidney function. Patient denies any previous venous surgery or injections. Patient denies any history of DVT/ PE. Patient denies any history of phlebitis. Trial of compression includes - unable to wear compression socks; using compression pumps 3/week, elevation not helping They now present for vascular evaluation regarding their varicose veins. FORMERLY [facility], [facility] Medical History Habitual snoring Sleep apnea History of placement of stent in LAD coronary artery Back pain Hyperlipidemia Chronic interstitial cystitis Morbid obesity Dyspnea on exertion Chest pain on exertion Lumbar disc disease Chronic lower back pain Fibromyalgia Hypertension COPD (chronic obstructive pulmonary disease) Anxiety Intraductal papilloma of breast Edema, lower extremity Barretts esophagus GERD (gastroesophageal reflux disease) Tubular adenoma Aortic root dilatation Vitamin D deficiency Obstructive sleep apnea Prediabetes Osteoarthritis of right knee Surgical History Hx of hernia repair History of carpal tunnel surgery of right wrist Hx of total hysterectomy History of partial colectomy Hx of section History of appendectomy H/O colonoscopy History of esophagogastroduodenoscopy (EGD) Hx of cardiac catheterization History of arthroscopy of right knee History of left knee replacement History of tonsillectomy History of cholecystectomy History of lumpectomy of right breast History of lumpectomy of left breast History of bladder suspension procedure Social History Household Members: Spouse Housing: House Are you a primary care manager cna to a significant other at home: No Do you presently have visiting nurse or other home services: No Alcohol intake: current Alcohol intake frequency: holidays/special occasions only Patient Tobacco Use Status: Never used Tobacco service: No Review of Systems Const Reports as per HPI and Denies weakness ENT Reports Normal hearing present and Denies dizziness Card Reports as per HPI, Denies chest pain, Denies chest pain at rest, Denies chest pain with activity, Denies dyspnea and Denies dyspnea on exertion Resp Reports as per HPI, Denies cough, Denies dyspnea and Denies dyspnea on exertion GI Reports as per HPI, Denies abdominal pain, Denies nausea and Denies vomiting Musc Denies numbness Skin/Breast Reports as per HPI, Denies erythema and Denies wounds Neuro Reports Normal hearing present, Denies dizziness, Denies numbness, Denies Sensory deficit (Neuro) and Denies weakness Psych Reports no additional complaints Endo Reports no additional complaints Physical Exam Vital Signs: BMI result Body Mass Index 48.9 Const General: healthy appearing and no acute distress Orientation/consciousness: patient oriented x3 HEENT Head: Yes normal to inspection Ears: hearing grossly normal bilaterally Mouth: Normal oral and palatal mucosa present Resp Effort & Inspection: normal respiratory effort and able to speak in complete sentences Auscultation: clear to auscultation bilaterally Cardio Jugular venous distension: no JVD Rate: regular rate Rhythm: regular rhythm Heart sounds: S1 normal heart sound present and S2 normal heart sound present Bruits: no abdominal aortic bruits, no carotid bruits, no femoral bruits and no renal bruits Peripheral pulses: Peripheral pulses 2+ throughout GI Inspection: Yes normal to inspection Palpation (GI): No Abdominal aortic bruit present Skin General skin exam: no rashes or lesions noted Wounds: no wounds Hair: normal Neuro General: patient oriented x3 Cranial nerves: Yes Normal hearing present Cognition (Neuro): normal cognition Gait exam (Neuro): Normal gait present Motor exam (neuro): 5/5 motor strength present throughout Sensory Exam: No Sensory deficit (Neuro) Extrem Other: Bilateral lower extremities: + 2 pitting edema noted, slightly worse in the right. No cellulitis noted - no warmth or redness noted. Skin is taut. Deep erythematous discoloration noted from mid-calves to the toes. Faint but palpable DP pulses, difficult to find due to edema. CEAP: C - 4 E - primary A - superficial P - reflux General: Yes normal to inspection, Yes full ROM, Yes capillary refill normal and Yes normal gait Assessment & Plan Assessment & Plan (1) Varicose veins of both lower extremities with inflammation: Code(s): I83.11 - Varicose veins of right lower extremity with inflammation; I83.12 - Varicose veins of left lower extremity with inflammation Category: Medical Plan: Nalini is presenting today on a referral from Ortho for ongoing bilateral lower extremity swelling with pain, worsening. She has a diagnosis of lymphedema from >2y by [facility]. I do believe she continues to have complications from lymphedema and I discussed with her the importance of trying to use the pumps daily and that they will work to decrease some of the swelling and discomfort that she experiences. In short, the patient has evidence of venous insufficiency. I have discussed the pathophysiology with the patient. In addition I have provided informational material regarding venous disease to the patient. We have discussed conservative measures including compression, elevation, and exercise. I have taken the liberty of ordering venous insufficiency testing with the patient. They will follow up with me after testing. The patient had an opportunity to ask questions regarding the treatment plan. All questions were answered. Imaging studies, laboratory studies and physical exam results were discussed and reviewed in detail. No major barriers to understanding were identified. The patient expressed understanding and agreement with the above treatment plan. The patient is aware they should contact our office by phone for worsening of the current condition or the appearance of new symptoms. Thank you for allowing me to participate in the vascular care of this patient. If you have any questions or concerns regarding the treatment for the above condition please do not hesitate to contact me. The office telephone contact is [phone]. This note is constructed using voice recognition software. While every effort has been made to ensure accuracy, venetian blind maker errors may have been included. Thank you for allowing me to participate in the care of your patient. Yours sincerely, MILAGRO Alvarado Orders: Orders US venous duplex LE BI 1 Week I83.11 - Varicose veins of right lower extremity with inflammation, I83.12 - Varicose veins of left lower extremity with inflammation Coding Level of Care Code New Pt Level 4 (94610) Diagnoses Varicose veins of both lower extremities with inflammation I83.11; I83.12
[2025-03-22 13:27] VITALS: BMI 48.9
== END 2025-03-22 14:10 | disposition home or self-care (01) ==
LOC: HO.HVS 13:24
PROVIDERS: Visit Provider Physician Assistant Surgical
DX: I83.11 Varicose veins of right lower extremity with inflammation (principal); I83.12 Varicose veins of left lower extremity with inflammation
CPT/HCPCS: 99204

== ENCOUNTER → 2025-03-22 13:23 | Outpatient (BNVA) | payer OTHER, SELFPAY | PROVIDERS: Visit Provider Physician Assistant Surgical | DX: I83.11 Varicose veins of right lower extremity with inflammation (principal); I83.12 Varicose veins of left lower extremity with inflammation | CPT/HCPCS: 99202 ==

== ENCOUNTER 2025-03-24 09:23 | Outpatient (AMB) | payer OTHER, SELFPAY ==
--- NOTE | 2025-03-24 09:27 | A.OFFVIS_ITS ---
Intake Visit Reasons: OV-RT lower leg redness and swelling, 2 wk f/u Intake Note: Nalini is a 59 year old female who presents with complaints of mild intermittent discomfort in her right knee after undergoing right total knee replacement surgery on 04/12/2024. She continues with her home exercise program. She denies any fevers or chills. She is no longer taking antibiotics for her lower leg cellulitis. Allergies gabapentin Allergy (Severe, Verified 03/24/25 09:32) Agitated amoxicillin Allergy (Unknown, Verified 03/24/25 09:32) Swelling cephalexin Allergy (Unknown, Verified 03/24/25 09:32) Anaphylaxis morphine Allergy (Unknown, Verified 03/24/25 09:32) Hives nitrofurantoin (From Macrobid) Allergy (Verified 03/24/25 09:32) face swelling, difficulty breathing Sulfa (Sulfonamide Antibiotics) Allergy (Verified 03/24/25 09:32) Shortness of Breath sulfamethoxazole (From Bactrim) Allergy (Verified 03/24/25 09:32) Swelling, rash trimethoprim (From Bactrim) Allergy (Verified 03/24/25 09:32) Swelling, rash Medication List - Last Reconciled 03/24/25 by Price Loco MD albuterol sulfate 90 mcg/actuation 2 puffs inhalation Q4-6H PRN amlodipine 5 mg PO DAILY aspirin (Adult Low Dose Aspirin) 81 mg PO BEDTIME atenolol 100 mg PO BEDTIME cholecalciferol (vitamin D3) 50 mcg PO BEDTIME dexlansoprazole (Dexilant) 60 mg PO BEDTIME fluticasone propionate 50 mcg/actuation 1 spray intranasal BID PRN ipratropium-albuterol 20-100 mcg/actuation (Combivent Respimat) 1 puff inhalation BID PRN levofloxacin 500 mg PO DAILY 14 days lorazepam 1 mg PO BID methocarbamol 500 mg PO TID naloxone (LifEMS Naloxone) 2 mg IM Q2M PRN nitroglycerin 0.4 mg sublingual DIRECTED PRN omeprazole 20 mg PO BEDTIME oxycodone mg PO oxycodone ER (OxyContin) 20 mg PO TID prochlorperazine maleate 10 mg PO Q6H PRN roflumilast (Daliresp) 500 mcg PO BEDTIME rosuvastatin 40 mg PO BEDTIME sennosides (Senna Lax) 17.2 mg (2 x 8.6 mg) PO BEDTIME 30 days ticagrelor (Brilinta) 90 mg PO BID 7 days walker Folding front wheeled walker [facility] Medical History Habitual snoring Sleep apnea History of placement of stent in LAD coronary artery Back pain Hyperlipidemia Chronic interstitial cystitis Morbid obesity Dyspnea on exertion Chest pain on exertion Lumbar disc disease Chronic lower back pain Fibromyalgia Hypertension COPD (chronic obstructive pulmonary disease) Anxiety Intraductal papilloma of breast Edema, lower extremity Barretts esophagus GERD (gastroesophageal reflux disease) Tubular adenoma Aortic root dilatation Vitamin D deficiency Obstructive sleep apnea Prediabetes Osteoarthritis of right knee Surgical History Hx of hernia repair History of carpal tunnel surgery of right wrist Hx of total hysterectomy History of partial colectomy Hx of section History of appendectomy H/O colonoscopy History of esophagogastroduodenoscopy (EGD) Hx of cardiac catheterization History of arthroscopy of right knee History of left knee replacement History of tonsillectomy History of cholecystectomy History of lumpectomy of right breast History of lumpectomy of left breast History of bladder suspension procedure Social History Household Members: Spouse Housing: House Are you a primary physician primary care sports medicine to a significant other at home: No Do you presently have visiting nurse or other home services: No Alcohol intake: current Alcohol intake frequency: holidays/special occasions only Patient Tobacco Use Status: Never used Tobacco service: No Physical Exam Const Other: Well-nourished well-developed very friendly female awake alert and oriented x3 in no acute distress Extrem Other: Right knee examination shows that the surgical incision is well healed, no erythema, full active extension and flexion to 120 degrees, her patella tracks well Assessment & Plan Assessment & Plan (1) Right knee pain: Code(s): M25.561 - Pain in right knee Category: Medical Plan Nalini continues to do well after undergoing right total knee replacement surgery on 04/12/2024. She does know to take antibiotics before any dental work. The patient complains of generalized achiness including her low back and bilateral shoulders. Thus, I did give her a prescription for a Medrol Dosepak as per her request. She will contact me prior to her follow-up appointment in 3 months should any questions or concerns arise. I spent 22 minutes in reviewing the patient's records and imaging studies, seeing the patient and documenting in the medical record. Medications: New methylprednisolone (Medrol (Peterson)) PO PER PKG DIR 21 ea 0RF Coding Level of Care Code Est Pt Level 3 (10940) Complex EM visit Add On G2211 Diagnoses Right knee pain M25.561
--- OUTSIDE RECORDS SUMMARY | 2025-03-24 10:23 | XMS_ITS | Clinical Summary ---
Author Organization [facility] Address [address] [place] [address] Care Team Providers Care Sports Umpire Name Role Phone Uche Lassiter MD Primary Care Provider [phone] Allergies Active Allergy Reactions Criticality Noted Date [...] 70 07/03/2022 1:42 PM EDT Temperature 36.8 C (98.3 F) 07/03/2022 1:42 PM EDT Respiratory Rate - - Oxygen Saturation 98% [...] age to complete this topic Care Teams Sports Umpire Relationship Specialty Start Date End Date Uche Lassiter MD PCP - General Internal Medicine 03/25/22
== END 2025-03-24 09:40 | disposition home or self-care (01) ==
LOC: HO.HOS 09:24
PROVIDERS: Visit Provider Orthopaedic Surgery
DX: M25.561 Pain in right knee (principal); Z96.651 Presence of right artificial knee joint
CPT/HCPCS: 99213; G2211

== ENCOUNTER → 2025-03-24 09:23 | Outpatient (BNVA) | payer OTHER, SELFPAY | PROVIDERS: Visit Provider Orthopaedic Surgery | DX: M25.561 Pain in right knee (principal); M54.50 Low back pain, unspecified; M25.512 Pain in left shoulder; M25.511 Pain in right shoulder; Z98.890 Other specified postprocedural states | CPT/HCPCS: 99212 ==

== ENCOUNTER 2025-05-24 08:14 | Outpatient (REF) | payer OTHER, SELFPAY ==
--- NOTE | ~2025-05-24 | XR_ITS ---
EXAMINATION: XR KNEE 3 VIEWS BILATERAL HISTORY: Bilateral knee pain COMPARISON: Comparison is made with the prior examination of the right knee dated 03/08/2025 and the prior examination of the left knee dated 04/29/2024. FINDINGS: AP and lateral views of the bilateral knees are submitted. The patient is again noted to be status post bilateral total knee arthroplasty. There is mild patellar tilt on the right. The orthopedic elements are otherwise in anatomic alignment. There is no radiographic evidence of loosening. There is no fracture or dislocation. There is no joint effusion. The soft tissues are unremarkable. XR/XR Knee Danny 3V IMPRESSION: Status post bilateral total knee arthroplasty. Electronically signed by: Boo Tillman MD 05/24/2025 01:43 PM EDT
--- OUTSIDE RECORDS SUMMARY | 2025-05-26 08:40 | XMS_ITS | Encounter Summary ---
Author Organization [facility] Address [address] [place] [address] Care Team Providers Care Sheep Killer Name Role Phone Uche Lassiter MD Primary Care Provider Rebecca Alcazar MD Unavailable [phone] Sherry Falk NP Unavailable Encounter Details Date Type Department Care Team Description 02/27/2022 Refill Adult Medicine [address] [phone] Uche Lassiter MD [address] [place] [address] [phone] Social History Tobacco Use Types Packs/Day Years [...] file Not on file Not on file COVID-19 Exposure Response Date Recorded In the last 10 days, have mina u been in contact with someone who was confirmed or suspected to have Coronavirus/COVID-19? No / Unsure 02/15/2022 8:50 AM EDT documented as of this encounter Miscellaneous Notes * Telephone Encounter - Serenity Barrera - 02/28/2022 9:12 AM EDT Isaac 02/08/22 Ov 03/25/22 Patient is contracted and is due for medication The patients' [facility] report was reviewed by Uche Lassiter MD today. Lab Results Component Value Date URBENZO NONE DETECTED 05/10/2021 UROPIATES NONE DETECTED 05/10/2021 UROXYCODONE POSITIVE 05/10/2021 URBARBITUATE NONE DETECTED 05/10/2021 PAINAMPHETAM NONE DETECTED 05/10/2021 PAINCOCAINE NONE DETECTED 05/10/2021 PAINCANNABIN NONE DETECTED 05/10/2021 documented in this encounter Plan of Treatment Not on file documented as of this encounter Visit Diagnoses Not on filedocumented in this encounter Care Teams Sheep Killer Relationship Specialty Start Date End Date Uche Lassiter MD [address] [place] [address] PCP - General Internal Medicine 01/18/14 Rebecca Alcazar MD [address] [place] [address]756 Video Manager Cardiology 06/17/23 Sherry Falk NP [address] [place] [address] 19841 Nurse Practitioner Cardiology 03/29/24 documented as of this encounter
--- OUTSIDE RECORDS SUMMARY | 2025-05-26 08:40 | XMS_ITS | Encounter Summary ---
Author Organization [facility] Address [address] [place] [address] Care Team Providers Care Microstrategy Architect Name Role Phone Uche Lassiter MD Primary Care Provider [phone] Rebecca Alcazar MD Unavailable Sherry Falk NP Unavailable [phone] Encounter Details Date Type Department Care Team Description 04/08/2024 Radial Drill Press Operator For Plastic Report Medical Records [address] [place] [phone] Price Loco MD Social History Tobacco Use [...] on filedocumented in this encounter Care Teams Microstrategy Architect Relationship Specialty Start Date End Date Uche Lassiter MD [address] [place] [address] PCP - General Internal Medicine 01/18/14 Rebecca Alcazar MD [address] [place] [address] Curing Room Supervisor Cardiology 06/17/23 Sherry Falk NP [address] [place] [address] [phone] Nurse Practitioner Cardiology 03/29/24 documented as of this encounter
--- OUTSIDE RECORDS SUMMARY | 2025-05-26 08:40 | XMS_ITS | Encounter Summary ---
Author Organization [facility] Address [address] [place] [address] Care Team Providers Care Assistant Professor Of Mathematics Name Role Phone Uche Lassiter MD Primary Care Provider [phone] Rebecca Alcazar MD Unavailable [phone] Sherry Falk NP Unavailable [phone] Encounter Details Date Type Department Care Team Description 03/11/2022 [facility] Medical Records [address] [place] [address] Abstract, Provider Social History Tobacco Use Types Packs/Day Years [...] Recorded In the last 10 days, have yo u been in contact with someone who was confirmed or suspected to have Coronavirus/COVID-19? No / Unsure 02/15/2022 8:50 AM EDT documented as of this encounter Plan of Treatment Not on file documented as of this encounter Visit Diagnoses Not on filedocumented in this encounter Care Teams Assistant Professor Of Mathematics Relationship Specialty Start Date End Date Uche Lassiter MD [address] [place] [address] PCP - General Internal Medicine 01/18/14 Rebecca Alcazar MD [address] [place] [address] 474[address] Reinforcement Maker Cardiology 06/17/23 Sherry Falk NP [address] [place] [address] Nurse Practitioner Cardiology 03/29/24 documented as of this encounter
--- OUTSIDE RECORDS SUMMARY | 2025-05-26 08:41 | XMS_ITS | Encounter Summary ---
Author Organization [facility] Address [address] [place] [address] Care Team Providers Care Tool Clerk Name Role Phone Uche Lassiter MD Primary Care Provider [phone] Rebecca Alcazar MD Unavailable [phone] Sherry Falk NP Unavailable Encounter Details Date Type Department Care Team Description 01/23/2018 Walk In Clinic Visit Medical Records [address] [place] [address] Clinic, [place] [address] [place] [address] Social History Tobacco Use Types Packs/Day Years [...] on filedocumented in this encounter Care Teams Tool Clerk Relationship Specialty Start Date End Date Uche Lassiter MD [address] [place] [address] PCP - General Internal Medicine 01/18/14 Rebecca Alcazar MD [address] [place] [address] 54843 Customer Service Consultant Cardiology 06/17/23 Sherry Falk NP [address] [place] [address] 29866 Nurse Practitioner Cardiology 03/29/24 documented as of this encounter
--- OUTSIDE RECORDS SUMMARY | 2025-05-26 08:41 | XMS_ITS | Clinical Summary ---
Author Organization [facility] Address [address] [place] [address] Care Team Providers Care Day Haul Youth Supervisor Name Role Phone Uche Lassiter MD Primary [...] age to complete this topic Care Teams Day Haul Youth Supervisor Relationship Specialty Start Date End Date Uche Lassiter MD PCP - General Internal Medicine 03/25/22
--- OUTSIDE RECORDS SUMMARY | 2025-05-26 08:41 | XMS_ITS | Encounter Summary ---
Author Organization [facility] Address [address] [place] [address] Care Team Providers Care Inside Sales Advertising Executive Name Role Phone Uche Lassiter MD Primary Care Provider [phone] Rebecca Alcazar MD Unavailable [phone] Sherry Falk NP Unavailable [phone] Reason for Visit * Reason Onset Date Comments Mychart Rx Refill 05/16/2022 Encounter Details Date Type Department Care Team Description 05/16/2022 Refill Adult Medicine [address] [phone] Uche Lassiter MD [address] [place] [address] [phone] Mychart Rx Refill Social History Tobacco Use Types Packs/Day Years [...] In the last 10 days, have mina garduno been in contact with someone who was confirmed or suspected to have Coronavirus/COVID-19? No / Unsure 04/26/2022 9:25 AM EDT documented as of this encounter Miscellaneous Notes * Telephone Encounter - Keisha Roca M.A. - 05/17/2022 8:25 AM EDT Lab Results Component Value Date URBENZO NONE DETECTED 03/26/2022 UROPIATES POSITIVE 03/26/2022 UROXYCODONE POSITIVE 03/26/2022 URBARBITUATE NONE DETECTED 03/26/2022 PAINAMPHETAM NONE DETECTED 03/26/2022 PAINCOCAINE NONE DETECTED 03/26/2022 PAINCANNABIN NONE DETECTED 03/26/2022 BRANDAN 03/25/2022 w/Maggi Jeffrey BRANDAN w/PCP 10/12/2021 Next OV 06/25/2022 w/PCP 05/08/2022 05/08/2022 1 Lorazepam 1 Mg Tablet 56 28 An Cru [id number] Big (5799) 0/0 2.00 LME Comm Ins [place] 04/25/2022 04/25/2022 1 Oxycontin Er 20 Mg Tablet 84 28 An Cru [id number] Big (5799) 0/0 90.00 MME Comm Ins [place] 04/19/2022 04/19/2022 1 Oxycodone Hcl (Ir) 10 Mg Tab 140 28 An Cru [id number] Big (5799) 0/0 75.00 [place] 04/10/2022 04/10/2022 1 Lorazepam 1 Mg Tablet 56 28 As Kos [id number] Big (5799) 0/0 2.00 LME Comm Ins [place] 03/28/2022 03/28/2022 1 Oxycontin Er 20 Mg Tablet 84 28 An Cru [id number] Big (5799) 0/0 90.00 MME Comm Ins [place] 03/22/2022 03/22/2022 1 Oxycodone Hcl (Ir) 10 Mg Tab 140 28 An Cru [id number] Big (5799) 0/0 75.00 MME Comm [place] 03/13/2022 03/13/2022 1 Lorazepam 1 Mg Tablet 56 28 As Kos [id number] Big (5799) 0/0 2.00 LME Comm Ins [place] 02/28/2022 02/28/2022 1 Oxycontin Er 20 Mg Tablet 84 28 An Cru [id number] Big (5799) 0/0 90.00 MME Comm Ins [place] 02/22/2022 02/22/2022 1 Oxycodone Hcl (Ir) 10 Mg Tab 140 28 An Cru [id number] Big (5799) 0/0 75.00 MME Comm Ins [place] 02/13/2022 02/13/2022 1 Lorazepam 1 Mg Tablet 56 28 As Kos [id number] Big (5799) 0/0 2.00 LME Comm Ins [place] 02/11/2022 02/11/2022 1 Oxycodone Hcl (Ir) 15 Mg Tab 10 3 Li Jean-Pierre [id number] Big (5799) 0/0 75.00 MME Comm Ins [place] 02/01/2022 01/31/2022 1 Oxycontin Er 20 Mg Tablet 75 25 An Cru [id number] Big (5799) 0/0 90.00 MME Comm Ins [place] 02/01/2022 02/01/2022 1 Oxycodone Hcl (Ir) 15 Mg Tab 12 3 De Sot [id number] Big (5799) 0/0 90.00 MME Comm Ins [place] 01/31/2022 01/31/2022 1 Oxycontin Er 20 Mg Tablet 9 3 An Cru [id number] Big (5799) 0/0 90.00 MME Comm Ins [place] 01/30/2022 01/30/2022 1 Oxycodone Hcl (Ir) 15 Mg Tab 12 3 Ca Spa 966880 Big (5799) 0/0 90.00 MME Comm Ins [place] documented in this encounter Plan of Treatment Not on file documented as of this encounter Visit Diagnoses Not on filedocumented in this encounter Care Teams Inside Sales Advertising Executive Relationship Specialty Start Date End Date Uche Lassiter MD [address] [place] [address] PCP - General Internal Medicine 01/18/14 Rebecca Alcazar MD [address] [place] [address] [phone] Director Of Category Management Cardiology 06/17/23 Sherry Falk NP [address] [place] [address] [phone] Nurse Practitioner Cardiology 03/29/24 documented as of this encounter
--- OUTSIDE RECORDS SUMMARY | 2025-05-26 08:41 | XMS_ITS | Encounter Summary ---
Author Organization [facility] Address [address] [place] [address] Care Team Providers Care Sheeter Waxer Operator Name Role Phone Uche Lassiter MD Primary Care Provider [phone] Rebecca Alcazar MD Unavailable [phone] Sherry Falk NP Unavailable [phone] Encounter Details Date Type Department Care Team Description 08/30/2014 Hospital Medical Records [address] [place] [address] Reddy Del Cid MD [address] [place] [address] Social History Tobacco Use Types Packs/Day Years [...] on filedocumented in this encounter Care Teams Sheeter Waxer Operator Relationship Specialty Start Date End Date Uche Lassiter MD [address] [place] [address]841 PCP - General Internal Medicine 01/18/14 Rebecca Alcazar MD [address] [place] [address] 83806 Service Delivery Supervisor Cardiology 06/17/23 Sherry Falk NP [address] [place] [address]3835 Nurse Practitioner Cardiology 03/29/24 documented as of this encounter
--- OUTSIDE RECORDS SUMMARY | 2025-05-26 08:41 | XMS_ITS | Encounter Summary ---
Author Organization [facility] Address [address] [place] [address] Care Team Providers Care Tech Writer Name Role Phone Uche Lassiter MD Primary Care Provider [phone] Rebecca Alcazar MD Unavailable [phone] Sherry Falk NP Unavailable [phone] Encounter Details Date Type Department Care Team Description 01/18/2018 [facility] Medical Records [address] [place] [address] Abstract, Provider Social History Tobacco Use Types [...] on file documented as of this encounter Procedures Procedure Name Priority Date/Time Associated Diagnosis Comments OUTSIDE LAB Routine 01/18/2018 documented in this encounter Results * OUTSIDE LAB (01/18/2018) Provider Default LAB documented in this encounter Visit Diagnoses Not on filedocumented in this encounter Care Teams Tech Writer Relationship Specialty Start Date End Date Uche Lassiter MD [address] [place] [address]334 PCP - General Internal Medicine 01/18/14 Rebecca Alcazar MD [address] [place] [address] 26544 Box Office Manager Cardiology 06/17/23 Sherry Falk NP [address] [place] [address] 04238 Nurse Practitioner Cardiology 03/29/24 documented as of this encounter
--- OUTSIDE RECORDS SUMMARY | 2025-05-26 08:41 | XMS_ITS | Encounter Summary ---
Author Organization [facility] Address [address] [place] [address] Care Team Providers Care Grape Cutter Name Role Phone Uche Lassiter MD Primary Care Provider [phone] Rebecca Alcazar MD Unavailable [phone] Sherry Falk NP Unavailable [phone] Encounter Details Date Type Department Care Team Description 11/10/2014 Airborne Weapons Technical Manager Report Medical Records [address] [place] [address] Kelvin [address] [place] [address] Social History Tobacco Use Types Packs/Day Years [...] on filedocumented in this encounter Care Teams Grape Cutter Relationship Specialty Start Date End Date Uche Lassiter MD [address] [place] [address] 21523 PCP - General Internal Medicine 01/18/14 Rebecca Alcazar MD [address] [place] [address] 95968 Board Member Cardiology 06/17/23 Sherry Falk NP [address] [place] [address] 93628 Nurse Practitioner Cardiology 03/29/24 documented as of this encounter
--- OUTSIDE RECORDS SUMMARY | 2025-05-26 08:41 | XMS_ITS | Encounter Summary ---
Author Organization [facility] Address [address] [place] [address] Care Team Providers Care Lumber Tripper Name Role Phone Uche Lassiter MD Primary Care Provider [phone] Rebecca Alcazar MD Unavailable [phone] Sherry Falk NP Unavailable [phone] Reason for Visit * Reason Onset Date Comments Provider Call Back 11/21/2017 Encounter Details Date Type Department Care Team Description 11/21/2017 Telephone Adult Medicine [address] [phone] Uche Lassiter MD [address] [place] [address] [phone] Provider Call Back Social History Tobacco Use Types Packs/Day Years [...] on file documented as of this encounter Miscellaneous Notes * Telephone Encounter - aMrissa Virk - 11/24/2017 9:42 AM EST Thank you so much Dr. Lassiter for calling this patient. * Telephone Encounter - Uche Lassiter MD - 11/21/2017 6:51 PM EST Called pt was consoling in regards to the manner that was told that she may have cancer i told her that cancer cannot be diagnosed until it is examined by a pathologist But also mentioned that Dr. Wynn is experienced and if he states it looks like cancer then this very likely is cancer. But again told her we cant know until the path report is in I also told her even though the information was Given to her in caviler manner that again as Dr. Wynn is experienced she can take it to heart if this is indeed cancer its likely a curable cancer If is is stage one these usually can be cured with surgical excision W/o need for xrt or chemo. Again nothing can be know until the path report is in but it looks like if this is indeed a cancer diagnosis it is treatable one D/w pt that if this is cancer i will refer her to our surgical group pt is quite found of DR. Saenz he had operated on her in the past So I told her that I would request him Pt states she does feel a bit better after we talked... Told pt i will be looking for this report and will get back the he as soon as it comes to my attention * Telephone Encounter - Marissa Virk - 11/21/2017 4:48 PM EST Caller requesting call back from provider:Uche Lassiter Is the caller the patient? YES If caller is not the patient, what is the callers name? N/A Callers relationship to patient? N/A If person calling is not the patient themselves, is there a verbal release in FYI or permanent comments for this person: YES Reason for call back: Hi I wonder if you could call this patient , she is very upset as she was waking up from her colonoscopy, she overheard the doctor say that he believed the patient has cancer,hefound 9 polyps and a cancerous one. She is very upset at the provider and the way he handled this news. She has a family history of this and is freaking out. Caller offered to speak with the nurse for assistance: NO Response: Uche Lassiter documented in this encounter Plan of Treatment Not on file documented as of this encounter Visit Diagnoses Not on filedocumented in this encounter Care Teams Lumber Tripper Relationship Specialty Start Date End Date Uche Lassiter MD [address] [place] [address]3291 PCP - General Internal Medicine 01/18/14 Rebecca Alcazar MD [address] [place] [address] 89729 Serology Teacher Cardiology 06/17/23 Sherry Falk NP [address] [place] [address] 48606 Nurse Practitioner Cardiology 03/29/24 documented as of this encounter
--- OUTSIDE RECORDS SUMMARY | 2025-05-26 08:41 | XMS_ITS | Encounter Summary ---
Author Organization [facility] Address [address] [place] [address] Care Team Providers Care Nuclear Medicine Technician Name Role Phone Uche Lassiter MD Primary Care Provider Rebecca Alcazar MD Unavailable [phone] Sherry Falk NP Unavailable [phone] Encounter Details Date Type Department Care Team Description 01/14/2024 Advertising Teacher Report Medical Records [address] [place] [address] Colton Bundy MD, PHD Social History Tobacco Use Types Packs/Day Years [...] on filedocumented in this encounter Care Teams Nuclear Medicine Technician Relationship Specialty Start Date End Date Uche Lassiter MD [address] [place] [address] 62471 PCP - General Internal Medicine 01/18/14 Rebecca Alcazar MD [address] [place] [address] 47[address] Cocoa Milling Machine Operator Cardiology 06/17/23 Sherry Falk NP [address] [place] [address] 38482 Nurse Practitioner Cardiology 03/29/24 documented as of this encounter
--- OUTSIDE RECORDS SUMMARY | 2025-05-26 08:41 | XMS_ITS | Encounter Summary ---
Author Organization [facility] Address [address] [place] [address] Care Team Providers Care Scallop Dredger Name Role Phone Uche Lassiter MD Primary Care Provider [phone] Rebecca Alcazar MD Unavailable [phone] Sherry Falk NP Unavailable [phone] Encounter Details Date Type Department Care Team Description 02/05/2024 Machine Hoop Maker Helper Report Medical Records [address] [place] [address] 64283 Price Loco MD Social History Tobacco Use [...] on filedocumented in this encounter Care Teams Scallop Dredger Relationship Specialty Start Date End Date Uche Lassiter MD [address] [place] [address] 41980 PCP - General Internal Medicine 01/18/14 Rebecca Alcazar MD [address] [place] [address] 56181 Electrical Test Engineer Cardiology 06/17/23 Sherry Falk NP [address] [place] [address] [phone] Nurse Practitioner Cardiology 03/29/24 documented as of this encounter
--- OUTSIDE RECORDS SUMMARY | 2025-05-26 08:41 | XMS_ITS | Encounter Summary ---
Author Organization [facility] Address [address] [place] [address] Care Team Providers Care Bookmobile Driver Name Role Phone Uche Lassiter MD Primary Care Provider [phone] Rebecca Alcazar MD Unavailable [phone] Sherry Falk NP Unavailable [phone] Encounter Details Date Type Department Care Team Description 04/15/2022 [facility] Medical Records [address] [place] [address] Abstract, Provider Social History Tobacco Use Types [...] suspected to have Coronavirus/COVID-19? No / Unsure 04/02/2022 8:30 AM EDT documented as of this encounter Plan of Treatment Not on file documented as of this encounter Visit Diagnoses Not on filedocumented in this encounter Care Teams Bookmobile Driver Relationship Specialty Start Date End Date Uche Lassiter MD [address] [place] [address] 70008 PCP - General Internal Medicine 01/18/14 Rebecca Alcazar MD [address] [place] [address] 71055 Helmet Hat Sweatband Puncher Cardiology 06/17/23 Sherry Falk NP [address] [place] [address] 05135 Nurse Practitioner Cardiology 03/29/24 documented as of this encounter
--- OUTSIDE RECORDS SUMMARY | 2025-05-26 08:41 | XMS_ITS | Encounter Summary ---
Author Organization [facility] Address [address] [place] [address] Care Team Providers Care Restaurant Culinary Manager Name Role Phone Uche Lassiter MD Primary Care Provider [phone] Rebecca Alcazar MD Unavailable [phone] Sherry Falk NP Unavailable [phone] Encounter Details Date Type Department Care Team Description 12/29/2014 Retail Event Coordinator Report Medical Records [address] [place] [address] Leobardo Ye Social History Tobacco Use Types Packs/Day Years [...] on filedocumented in this encounter Care Teams Restaurant Culinary Manager Relationship Specialty Start Date End Date Uche Lassiter MD [address] [place] [address] 52790 PCP - General Internal Medicine 01/18/14 Rebecca Alcazar MD [address] [place] [address] 72917 Biochemical Engineer Cardiology 06/17/23 Sherry Falk NP [address] [place] [address] [phone] Nurse Practitioner Cardiology 03/29/24 documented as of this encounter
--- OUTSIDE RECORDS SUMMARY | 2025-05-26 08:41 | XMS_ITS | Encounter Summary ---
Author Organization [facility] Address [address] [place] [address] Care Team Providers Care Nutrition Services Worker Name Role Phone Uche Lassiter MD Primary Care Provider Rebecca Alcazar MD Unavailable [phone] Sherry Falk NP Unavailable [phone] Reason for Visit * Reason Onset Date Comments Prior Authorization 04/16/2024 Lorazepam Encounter Details Date Type Department Care Team Description 04/16/2024 Telephone Adult Medicine [address] [phone] Uche Lassiter MD [address] [place] [address] [phone] Prior Authorization (Lorazepam ) Social History Tobacco Use Types Packs/Day Years [...] encounter Miscellaneous Notes * Telephone Encounter - Makenna Lamb M.A. - 06/18/2024 8:21 AM EDT Spoke with Maggi from [facility] who stated that this was denied, Needs rationale as to why they have to take this . Dr Lassiter is sending in hydroxyzine and if that doesn't work then hell do medical necessity letter. * Telephone Encounter - Makenna Lamb M.A. - 04/16/2024 4:21 PM EDT Prior authorization for the lorazepam was completed over the phone today with Magali from [facility]. Dx code F41.9 Anxiety Continuation of therapy * Telephone Encounter - Renee Torres - 04/16/2024 12:57 PM EDT Prior Authorization for Medication-do not complete and send this encounter unless you have the fax from the pharmacy. Is this a Cover My Meds request: Yes -- Andrea Code [id number] Name of Medication LORAZEPAM Dose of Medication 1MG What is the RX # from the faxed refill? How does patient take this med? BY MOUTH What Pharmacy did the fax come from: [facility] fax #: [phone] Third [employer] Party Information from fax: What Prescription Plan does the patient have? [facility] BIN/PCN if applicable: Cardholder ID: Person Code: Relationship Code: Help desk phone: documented in this encounter Plan of Treatment Not on file documented as of this encounter Visit Diagnoses Not on filedocumented in this encounter Care Teams Nutrition Services Worker Relationship Specialty Start Date End Date Uche Lassiter MD [address] [place] [address] 01020 PCP - General Internal Medicine 01/18/14 Rebecca Alcazar MD [address] [place] [address] Sales And Service Representative Cardiology 06/17/23 Sherry Falk NP [address] [place] [address] 52627 Nurse Practitioner Cardiology 03/29/24 documented as of this encounter
--- OUTSIDE RECORDS SUMMARY | 2025-05-26 08:41 | XMS_ITS | Encounter Summary ---
Author Organization [facility] Address [address] [place] [address] Care Team Providers Care Naval Gunfire Spotter Name Role Phone Uche Lassiter MD Primary Care Provider [phone] Rebecca Alcazar MD Unavailable [phone] Sherry Falk NP Unavailable [phone] Reason for Visit * Reason Onset Date Comments medication problems 06/06/2020 Encounter Details Date Type Department Care Team Description 06/06/2020 Telephone Adult Medicine [address] [phone] Uche Lassiter MD [address] [place] [address] [phone] medication problems Social History Tobacco Use Types Packs/Day Years [...] Telephone Encounter - Makenna Lamb M.A. - 06/08/2020 10:35 AM EDT Prior authorization for the oxycodone (oxycontin) was approved Approved from 06/07/2020 until 06/07/2021 Prior authorization approval number #[id number] Approval faxed to [facility] at [phone] * Telephone Encounter - Makenna Lamb M.A. - 06/07/2020 12:54 PM EDT Prior authorization for the oxycodone (oxycontin) was completed On cover my meds today Prior authorization for the dexilant was completed on cover my meds today Prior authorization for the Daliresp was completed on envision rx form and faxed today * Telephone Encounter - Prince Lin - 06/06/2020 4:40 PM EDT Who is calling? The patient Name of the medication oxyCODONE HCl ER (OXYCONTIN) 20 MG Tablet Extended Release 12 hour Abuse-Deterrent, DEXILANT 60 MG CAPSULE DELAYED RELEASE, and DALIRESP 500 MCG Tab What is the specific problem or interaction? The patient's pharmacy ([facility]) told her theyneed a prior authorization for these medications. If the patient is having a problem with taking the med - how long has the problem been going on? N/A documented in this encounter Plan of Treatment Not on file documented as of this encounter Visit Diagnoses Not on filedocumented in this encounter Care Teams Naval Gunfire Spotter Relationship Specialty Start Date End Date Uche Lassiter MD [address] [place] [address] 18351 PCP - General Internal Medicine 01/18/14 Rebecca Alcazar MD [address] [place] [address] Diesel Maintenance Technician Cardiology 06/17/23 Sherry Falk NP [address] [place] [address] Nurse Practitioner Cardiology 03/29/24 documented as of this encounter
--- OUTSIDE RECORDS SUMMARY | 2025-05-26 08:41 | XMS_ITS | Encounter Summary ---
Author Organization [facility] Address [address] [place] [address] Care Team Providers Care Meter Reader Chief Name Role Phone Uche Lassiter MD Primary Care Provider [phone] Rebecca Alcazar MD Unavailable [phone] Sherry Falk NP Unavailable [phone] Reason for Visit * Reason Onset Date Comments Call From Office 04/13/2024 Encounter Details Date Type Department Care Team Description 04/13/2024 Telephone Adult Medicine [address] [phone] Uche Lassiter MD [address] [place] [address] [phone] Call From Md Office Social History Tobacco Use Types Packs/Day Years [...] encounter Miscellaneous Notes * Telephone Encounter - Renee Torres - 04/15/2024 12:21 PM EDT Notes from [facility] placed in provider bin for review. * Telephone Encounter - Rickie CastañedaP.NJyoti - 04/13/2024 2:42 PM EDT FYI * Telephone Encounter - Lynette Canales - 04/13/2024 11:57 AM EDT Tameka from [facility] calling in states patient had RT knee replacement and is being discharged today, Dr. Loco will be taking over refills for controlled substances until 2-6 weeks post op. Provider is keeping oxyCODONE HCl ER (OxyCONTIN) 20 MG Tablet Extended Release 12 hour Abuse-Deterrent the same with same instructions but changing the short acting oxyCODONE HCl 10 MG Tab to 15 MG take one tablet every four hours PRN. Tameka states if any questions you can call her directly at [phone] documented in this encounter Plan of Treatment Not on file documented as of this encounter Visit Diagnoses Not on filedocumented in this encounter Care Teams Meter Reader Chief Relationship Specialty Start Date End Date Uche Lassiter MD [address] [place] [address] 72004 PCP - General Internal Medicine 01/18/14 Rebecca Alcazar MD [address] [place] [address] 02789 Trapper Bird Cardiology 06/17/23 Sherry Falk NP [address] [place] [address] 37018 Nurse Practitioner Cardiology 03/29/24 documented as of this encounter
--- OUTSIDE RECORDS SUMMARY | 2025-05-26 08:41 | XMS_ITS | Encounter Summary ---
Author Organization [facility] Address [address] [place] [address] Care Team Providers Care Blood Bank Laboratory Technician Name Role Phone Uche Lassiter MD Primary Care Provider [phone] Rebecca Alcazar MD Unavailable [phone] Sherry Falk NP Unavailable [phone] Encounter Details Date Type Department Care Team Description 04/29/2024 [facility] Medical Records [address] [place] [address] Abstract, Provider Social History Tobacco Use Types [...] on filedocumented in this encounter Care Teams Blood Bank Laboratory Technician Relationship Specialty Start Date End Date Uche Lassiter MD [address] [place] [address] 15461 PCP - General Internal Medicine 01/18/14 Rebecca Alcazar MD [address] [place] [address] 31073 Chocolate Temperer Cardiology 06/17/23 Sherry Falk NP [address] [place] [address] [phone] Nurse Practitioner Cardiology 03/29/24 documented as of this encounter
--- OUTSIDE RECORDS SUMMARY | 2025-05-26 08:41 | XMS_ITS | Encounter Summary ---
Author Organization [facility] Address [address] [place] [address] Care Team Providers Care Scientific Glass Blower Name Role Phone Uche Lassiter MD Primary Care Provider [phone] Rebecca Alcazar MD Unavailable [phone] Sherry Falk NP Unavailable [phone] Encounter Details Date Type Department Care Team Description 01/22/2018 Orders Only Medical Records [address] [place] [address] Reddy Del Cid MD [address] [place], [place] [phone] Social History Tobacco Use Types Packs/Day Years [...] Name Priority Date/Time Associated Diagnosis Comments OUTSIDE PATHOLOGY Routine 01/15/2018 documented in this encounter Results * OUTSIDE PATHOLOGY (01/15/2018) Reddy Del Cid MD OUTSIDE LAB documented in this encounter Visit Diagnoses Not on filedocumented in this encounter Care Teams Scientific Glass Blower Relationship Specialty Start Date End Date Uche Lassiter MD [address] [place] [address] 40568 PCP - General Internal Medicine 01/18/14 Rebecca Alcazar MD [address] [place] [address] 87262 Drivers' Cash Clerk Cardiology 06/17/23 Sherry Falk NP [address] [place] [address] 60403 Nurse Practitioner Cardiology 03/29/24 documented as of this encounter
--- OUTSIDE RECORDS SUMMARY | 2025-05-26 08:41 | XMS_ITS | Encounter Summary ---
Author Organization [facility] Address [address] [place] [address] Care Team Providers Care Band Ripsaw Operator Name Role Phone Uche Lassiter MD Primary Care Provider [phone] Rebecca Alcazar MD Unavailable [phone] Sherry Falk NP Unavailable [phone] Encounter Details Date Type Department Care Team Description 12/04/2023 Batching Operator Report Medical Records [address] [place] [address] Price Loco MD Social History Tobacco Use [...] on filedocumented in this encounter Care Teams Band Ripsaw Operator Relationship Specialty Start Date End Date Uche Lassiter MD [address] [place] [address] 73801 PCP - General Internal Medicine 01/18/14 Rebecca Alcazar MD [address] [place] [address] 79670 Construction Ironworker Cardiology 06/17/23 Sherry Falk NP [address] [place] [address] [phone] Nurse Practitioner Cardiology 03/29/24 documented as of this encounter
--- OUTSIDE RECORDS SUMMARY | 2025-05-26 08:41 | XMS_ITS | Encounter Summary ---
Author Organization [facility] Address [address] [place] [address] Care Team Providers Care Tugger Operator Name Role Phone Uche Lassiter MD Primary Care Provider [phone] Rebecca Alcazar MD Unavailable [phone] Sherry Falk NP Unavailable [phone] Encounter Details Date Type Department Care Team Description 10/10/2014 GLOBAL MARKETING MANAGER/[employer] Report Medical Records [address] [place] [address] Abstract, Provider Social History Tobacco Use Types [...] on filedocumented in this encounter Care Teams Tugger Operator Relationship Specialty Start Date End Date Uche Lassiter MD [address] [place] [address] 58869 PCP - General Internal Medicine 01/18/14 Rebecca Alcazar MD [address] [place] [address] 26102 Medical Billing Assistant Cardiology 06/17/23 Sherry Falk NP [address] [place] [address] [phone] Nurse Practitioner Cardiology 03/29/24 documented as of this encounter
--- OUTSIDE RECORDS SUMMARY | 2025-05-26 08:41 | XMS_ITS | Encounter Summary ---
Author Organization [facility] Address [address] [place] [address] Care Team Providers Care Behavioral Assistant Name Role Phone Uche Lassiter MD Primary Care Provider [phone] Rebecca Alcazar MD Unavailable [phone] Sherry Falk NP Unavailable [phone] Reason for Visit * Reason Onset Date Comments Note, Other 04/23/2024 CardiologyOffice note 03/29/24 Encounter Details Date Type Department Care Team Description 04/23/2024 Telephone Adult Medicine [address] [phone] Uche Lassiter MD [address] [place] [address] [phone] Note, Other (Cardiology/Office note 03/29/24) Social History Tobacco Use Types Packs/Day Years [...] encounter Miscellaneous Notes * Telephone Encounter - Le Canales RN - 04/26/2024 3:38 PM EDT Called pt and notified her Dr. Houston sent a refill of the OxyContin to her pharmacy as requested. She is now requesting Dr. Lassiter send a refill of Oxycodone to her pharmacy tomorrow. She is aware he is out of the office and is willing to wait for a reply. * Telephone Encounter - Renee Torres - 04/23/2024 9:54 AM EDT Cardiology office note for 03/29/24 received via fax and placed in provider bin for review. documented in this encounter Plan of Treatment Not on file documented as of this encounter Visit Diagnoses Not on filedocumented in this encounter Care Teams Behavioral Assistant Relationship Specialty Start Date End Date Uche Lassiter MD [address] [place] [address] 64086 PCP - General Internal Medicine 01/18/14 Rebecca Alcazar MD [address] [place] [address] 79098 Compugraph Operator Cardiology 06/17/23 Sherry Falk NP [address] [place] [address] 52296 Nurse Practitioner Cardiology 03/29/24 documented as of this encounter
--- OUTSIDE RECORDS SUMMARY | 2025-05-26 08:41 | XMS_ITS | Encounter Summary ---
Author Organization [facility] Address [address] [place] [address] Care Team Providers Care Debt And Budget Counselor Name Role Phone Uche Lassiter MD Primary Care Provider [phone] Rebecca Alcazar MD Unavailable [phone] Sherry Falk NP Unavailable [phone] Reason for Visit * Reason Onset Date Comments Prior Authorization 04/20/2024 Encounter Details Date Type Department Care Team Description 04/20/2024 Telephone Adult Medicine [address] [phone] Uche Lassiter MD [address] [place] [address] [phone] Prior Authorization Social History Tobacco Use Types Packs/Day Years [...] Miscellaneous Notes * Telephone Encounter - Makenna Lindo - 04/20/2024 2:12 PM EDT Please cancel this request as this script is being voided. Patient had recent surgery done and will be getting medication from the surgeon. Please see telephone encounger dated 04/13/24 * Telephone Encounter - Makenna Lindo - 04/20/2024 1:56 PM EDT Prior Authorization for Medication-do not complete and send this encounter unless you have the fax from the pharmacy. Is this a Cover My Meds request: Yes -- Andrea Code [id number] Name of Medication oxycodone Dose of Medication 10mg What is the RX # from the faxed refill? N/a How does patient take this med? 1 tab 3x daily What Pharmacy did the fax come from: [facility] fax #: [phone] [employer] Information from fax: What Prescription Plan does the patient have? N/a BIN/PCN if applicable: n/a Cardholder ID:n/a Person Code: n/a Relationship Code: n/a Help desk phone: n/a documented in this encounter Plan of Treatment Not on file documented as of this encounter Visit Diagnoses Not on filedocumented in this encounter Care Teams Debt And Budget Counselor Relationship Specialty Start Date End Date Uche Lassiter MD [address] [place] [address] 76642 PCP - General Internal Medicine 01/18/14 Rebecca Alcazar MD [address] [place] [address] 48026 Flight Readiness Technician Cardiology 06/17/23 Sherry Falk NP [address] [place] [address] 72583 Nurse Practitioner Cardiology 03/29/24 documented as of this encounter
--- OUTSIDE RECORDS SUMMARY | 2025-05-26 08:42 | XMS_ITS | Encounter Summary ---
Author Organization [facility] Address [address] [place] [address] Care Team Providers Care Medical Unit Secretary Name Role Phone Uche Lassiter MD Primary Care Provider [phone] Rebecca Alcazar MD Unavailable [phone] Sherry Falk NP Unavailable [phone] Reason for Visit * Reason Comments E-prescribe Rx Request Encounter Details Date Type Department Care Team Description 04/02/2020 Refill Adult Medicine [address] [address] Maggi Sam PA-C E-prescribe Rx Request Social History Tobacco Use Types Packs/Day Years [...] * Telephone Encounter - Serenity Barrera - 04/04/2020 4:29 PM EDT Last ov 02/29/20 Lab Results Component Value Date CHOL 163 09/03/2019 LDL 57 09/03/2019 HDL 45 09/03/2019 TRIG 307 09/03/2019 SGOT 24 09/03/2019 SGPT 44 09/03/2019 * Telephone Encounter - Maggi Hong - 04/04/2020 11:22 AM EDT Patient would like script to be: E-PRESCRIBED/FAXED TO PHARMACY WHEN WAS THE PATIENT'S LAST APPOINTMENT IN ADULT MEDICINE? 02/29/20 WHEN WAS THE LAST TIME THE PATIENT SAW THEIR PCP? Same as above Does patient have an upcoming appointment? Yes 07/03/20 (THE MEDICATION REQUESTED IS ON THE MED LIST ABOVE) All of the medications requested were on the CURRENT MEDS list Did you check the Pharmacy information above?: YES Patient wants: 90 -day supply Is this a mail order prescription request ? NO If the refill is from a FAXED refill request what is the RX # listed on the fax? N/A Patients current insurance carrier is: Payor: [employer] FFS / Plan: [employer] / Product Type: MEDICAID RISK documented in this encounter Plan of Treatment Not on file documented as of this encounter Visit Diagnoses Not on filedocumented in this encounter Care Teams Medical Unit Secretary Relationship Specialty Start Date End Date Uche Lassiter MD [address] [place] [address] 01020 PCP - General Internal Medicine 01/18/14 Rebecca Alcazar MD [address] [place] [address] 88681 Rail Maintenance Worker Cardiology 06/17/23 Sherry Falk NP [address] [place] [address] [phone] Nurse Practitioner Cardiology 03/29/24 documented as of this encounter
--- OUTSIDE RECORDS SUMMARY | 2025-05-26 08:42 | XMS_ITS | Encounter Summary ---
Author Organization [facility] Address [address] [place] [address] Care Team Providers Care Supervisor Contingents Name Role Phone Uche Lassiter MD Primary Care Provider Rebecca Alcazar MD Unavailable Sherry Falk NP Unavailable Encounter Details Date Type Department Care Team Description 08/30/2020 Hospital Medical Records [address] [place] [address] Grace Ontiveros MD Social History Tobacco Use Types Packs/Day [...] Exposure Response Date Recorded In the last month, have you been in contact with someone who was confirmed or suspected to have Coronavirus / COVID-19? No / Unsure 08/16/2020 8:37 AM EST documented as of this encounter Plan of Treatment Not on file documented as of this encounter Visit Diagnoses Not on filedocumented in this encounter Care Teams Supervisor Contingents Relationship Specialty Start Date End Date Uche Lassiter MD [address] [place] [address] 86808 PCP - General Internal Medicine 01/18/14 Rebecca Alcazar MD [address] [place] [address] 27204 Correctional Medicine Physician Cardiology 06/17/23 Sherry Falk NP [address] [place] [address] 37922 Nurse Practitioner Cardiology 03/29/24 documented as of this encounter
--- OUTSIDE RECORDS SUMMARY | 2025-05-26 08:42 | XMS_ITS | Clinical Summary ---
Author Organization [facility] Address [address] [place] [phone] Phone Care Team Providers Care Data Systems Analyst Name Role Phone Uche Lassiter MD Primary Care Provider [phone] Allergies Active Allergy Reactions Criticality Noted Date [...] day. 90 tablet 1 04/22/20 25 Active dexlansoprazol e (Dexilant) 60 mg [...] Daily Amount: 2 mg 56 tablet 05/18/20 25 Active oxyCODONE (ROXICODONE) 10 mg immediate release tabletIndicati ons:Lumbar disc disease Take 1 tablet (10 mg total) by mouth 5 (five) times a day. Max Daily Amount: 50 mg 140 tablet 05/25/20 Active albuterol HFA (PROAIR HFA ; PROVENTIL HFA ; VENTOLIN HFA) 90 mcg/actuation inhaler Inhale 2 puffs by mouth every 4 (four) hours if needed. 02/26/20 24 2024 Discontinued(R eorder) dexlansoprazol e (Dexilant) [address] capsuleIndicat ions:Gastroeso phageal reflux disease, unspecified whether esophagitis present Take 1 capsule (60 mg total) by mouth 1 (one) time each day. 90 capsule 1 10/13/19 25 2024 Discontinued(R eorder) methocarbamoL (ROBAXIN) 500 mg tablet Take 1 tablet (500 mg total) by mouth 3 (three) times a day. 270 tablet 1 11/16/19 25 2024 Discontinued omeprazole (PriLOSEC) [address] capsule TAKE ONE CAPSULE BY MOUTH EVERY MORNING BEFORE BREAKFAST 90 capsule 1 01/14/202024 Discontinued(R eorder) LORazepam (ATIVAN) 1 mg tablet Take 1 tablet (1 mg total) by mouth 2 (two) times a day. Max Daily Amount: 2 mg 56 tablet 04/20/20 25 2024 Discontinued(R eorder) oxyCODONE (ROXICODONE) 10 mg immediate release tabletIndicati ons:Lumbar disc disease Take 1 tablet (10 mg total) by mouth 5 (five) times a day. Max Daily Amount: 50 mg 140 tablet 04/27/202024 Discontinued(R eorder) OxyCONTIN 20 mg 12 hr [...] Department Care Team Description 05/06/2025 Telephone Gastroenterology [facility] 175 [facility] [address] [address] Criselda Bowman LPN 05/02/2025 Telephone Adult [address] [phone] Uche Lassiter MD 04/29/2025 8:00 AM EDT Office Visit [address] [phone] Ju Callahan PA Encounter for long-term (current) use of medications (Primary Dx); Gastroesophageal reflux disease, unspecified whether esophagitis present; Chronic bilateral low back pain, unspecified whether sciatica present; Fibromyalgia; Anxiety; Hyperlipidemia, unspecified hyperlipidemia type; Vitamin D deficiency; Primary hypertension; Prediabetes; Lumbar disc disease; Chronic obstructive pulmonary disease, unspecified COPD type (CMS/HCC V24, CMS/HCC V28); Leg cramps 04/22/2025 Telephone [facility] [address] [place] [phone] Rebecca Alcazar MD 04/21/2025 Telephone Adult Medicine [address] [phone] Uche Lassiter MD 03/03/2025 Telephone Gastroenterology [facility] 175 [facility] 175 [facility] 200 [place] [phone] Tad Patino DO 02/24/2025 1:00 PM EDT Office Visit Adult Medicine [address] [phone] Ju Callahan PA Cellulitis of right lower extremity (Primary Dx); Lymphedema from Last 3 Months Immunizations Name Administration Dates Next Due [employer] SARS-CoV-2 COVID -19, vector-nr, rS-Ad26, preservative free 01/24/2021 Surgical History Surgery Date Site/Laterality Comments BREAST BIOPSY PROCEDURE:BREAST BIOPSY SECTION PROCEDURE: SECTION BLADDER SUSPENSION PROCEDURE:BLADDER SUSPENSION BREAST LUMPECTOMY PROCEDURE:BREAST LUMPECTOMY COLONOSCOPY PROCEDURE:COLONOSCOPY APPENDECTOMY PROCEDURE:APPENDECTOMY HYSTERECTOMY PROCEDURE:HYSTERECTOMY TOTAL KNEE ARTHROPLASTY PROCEDURE:REPLACEMENT TOTAL KNEE;COMMENT:LEFT BLADDER SUSPENSION 2010 PROCEDURE: HISTORICAL BLADDER SUSPENSION; COMMENT: sling; removed due to recurrent UTIs CHOLECYSTECTOMY PROCEDURE: HISTORICAL CHOLECYSTECTOMY APPENDECTOMY PROCEDURE: NM APPENDECTOMY OTHER SURGICAL HISTORY PROCEDURE: NM TOTAL ABDOMINAL HYSTERECT W/WO RMVL TUBE OVARY COLONOSCOPY 2008 PROCEDURE: HISTORICAL COLONOSCOPY; COMMENT: Lisa Mackey. Negative exam. Upper endoscopy done as well. COLONOSCOPY W/ POLYPECTOMY 2013 PROCEDURE: NM COLSC FLX W/RMVL OF TUMOR POLYP LESION SNARE TQ; COMMENT: Diminutive colonic polyps x 3: Tubular adenoma x3. BREAST LUMPECTOMY 2009 Left PROCEDURE: HISTORICAL BREAST LUMPECTOMY; COMMENT: left, benign BREAST LUMPECTOMY 08/30/2014 Right PROCEDURE: HISTORICAL BREAST LUMPECTOMY; COMMENT: intraductal papiloma SECTION PROCEDURE: NM DELIVERY ONLY TONSILLECTOMY PROCEDURE: HISTORICAL TONSILLECTOMY TOTAL KNEE ARTHROPLASTY Left PROCEDURE: NM ARTHRP KNE CONDYLE&PLATU MEDIAL&LAT COMPARTMENTS OTHER SURGICAL HISTORY 03/13/2011 PROCEDURE: OUTSIDE ENDOSCOPY; COMMENT: normal BREAST BIOPSY 2013 Right PROCEDURE: BX BREAST; PERC NEEDLE CORE W/IMAG GUID UPPER GASTROINTESTINAL ENDOSCOPY 12/09/2017 PROCEDURE: NM UPPER GI ENDOSCOPY PERFORMED; COMMENT: esophagitis and Roblero's OTHER SURGICAL HISTORY 01/15/2018 PROCEDURE: NM LAPAROSCOPY COLECTOMY PARTIAL W/ANASTOMOSIS; COMMENT: Laparoscopic transverse colectomy; mobilization of splenic flexure OTHER SURGICAL HISTORY 2018 PROCEDURE: NM LAP RPR HRNA XCPT INCAL/INGUN NCRC8/STRANGULATED; COMMENT: Dr. Del Cid COLONOSCOPY 11/20/2017 PROCEDURE: HISTORICAL COLONOSCOPY; COMMENT: multiple polyps. COLONOSCOPY 08/30/2020 PROCEDURE: HISTORICAL COLONOSCOPY; COMMENT: tubular adenoma UPPER GASTROINTESTINAL ENDOSCOPY 08/30/2020 PROCEDURE: UPPER GI ENDOSCOPY/EXAM; COMMENT: reactive gastropathy and NO Roblero's CARPAL TUNNEL RELEASE 01/30/2022 Right PROCEDURE: NM NEUROPLASTY &/TRANSPOS MEDIAN NRV CARPAL TUNNE; COMMENT: [...] cystitis COPD (chronic obstructive pu lmonary disease) ([facility] V24, [facility] V28) 04/12/2014 DX:COPD [...] Description 06/03/2025 1:30 PM EDT Hospital Encounter [facility] Endoscopy [address] [place] [phone] Tad Patino DO [address] [place] [address] 07/01/2025 11:00 AM EDT Ancillary Procedure [facility] - [address] [place] [phone] 07/28/2025 10:00 AM EDT [facility] [place] [address] Nina Hicks, OTR/L 08/05/2025 8:00 AM EST Office Visit Adult [address] [phone] Uche Lassiter MD [address] [place] [phone] 09/08/2025 10:40 AM EST Office Visit [facility] [address] [place] [address] Shanda Juarez NP [address] [place] [address] [address] [place] [address] [place] [phone] 11/14/2025 3:30 PM EST Office Visit Adult [address] [phone] Uche Lassiter MD [address] [place] [address] [phone] Health Maintenance Due Date Last Done Comments DTaP,Tdap,and Td Vaccines (1 - Tdap) 1984 Hepatitis B Vaccines (1 of 3 - 19+ 3-dose series) 1984 Pneumococcal Vaccine: 50+ Years (1 of 2 - PCV) 1984 Colorectal Cancer Screening: Colonoscopy 09/07/2022 HIV Screening 09/07/2022 Hepatitis C Screening 09/07/2022 Social Influencers of Health Screening 09/07/2022 COVID-19 Vaccine ( season) 2024 08/12/2021, 01/24/2021 Depression Screening 09/29/2024 Influenza Vaccine (#1) 2025 , 07/03/2023, 07/15/2022, Additional history exists Hypertension/CHF/CAD Annual BMP Blood Test 02/01/2026 02/01/2025, 08/24/2024 Breast Cancer Screening 10/20/2026 10/20/19 25, 12/04/2020, 11/15/2019, Additional history exists Cholesterol Screening [...] D 25 hydroxy (05/10/2025 3:05 PM EDT) Pathologist [facility] Vit D, 25-Hydroxy 28.9(L) 30.0 - 80.0 ng/mL LAB CHEMISTRY METHOD 05/10/2025 7:35 PM EDT [facility] Blood Venous blood specimen / Unknown Venipuncture / Unknown 05/10/2025 3:05 PM EDT 05/10/2025 3:05 PM EDT [facility] LAB BLOOD ORDERABLES Fi nal Result [facility] [address] [place] [address], [place] [phone] * Magnesium (05/10/2025 3:05 PM EDT) [facility] Magnesium 2.0 1.9 - 2.6 mg/dL LAB CHEMISTRY METHOD 05/10/2025 6:19 PM EDT [facility] Blood Venous blood specimen / Unknown Venipuncture / Unknown 05/10/2025 3:05 PM EDT 05/10/2025 3:05 PM EDT [facility] BLOOD ORDERABLES Fi nal Result [facility] [address] [place] [address], [place] [phone] * Hemoglobin A1c (05/10/2025 3:05 PM EDT) [facility] Hemoglobin A1C 6.0 <6.5 % LAB CHEMISTRY METHOD 05/10/2025 8:23 PM EDT [facility] Mean Bld Glu Estim. 126 mg/dL LAB CHEMISTRY METHOD 05/10/2025 8:23 PM EDT [facility] Blood Venous blood specimen / Unknown Venipuncture / Unknown 05/10/2025 3:05 PM EDT 05/10/2025 3:05 PM EDT us Ju HUMPHREY LAB BLOOD ORDERABLES Fi nal Result [facility] [address] [place] [address], [place] [phone] * (ABNORMAL) Lipid panel with reflex to direct LDL (02/01/2025 1:08 PM EDT) Cholesterol 131 0 - 200 mg/dL LAB CHEMISTRY METHOD 02/01/2025 5:59 PM EDT [facility] Triglycerides 224(H) 0 - 150 mg/dL LAB CHEMISTRY METHOD 02/01/2025 5:59 PM EDT [facility] HDL 49 >=40 mg/dL LAB CHEMISTRY METHOD 02/01/2025 5:59 PM EDT [facility] LDL Calculated 37 0 - 100 mg/dL LAB CHEMISTRY METHOD 02/01/2025 5:59 PM EDT [facility] VLDL Cholesterol Sukumar 44.8 mg/dL LAB CHEMISTRY METHOD 02/01/2025 5:59 PM EDT [facility] Non HDL Chol. (LDL+VLDL) 82 <145 mg/dL LAB CHEMISTRY METHOD 02/01/2025 5:59 PM EDT [facility] Chol/HDL Ratio 2.7 0.0 - 4.4 LAB CHEMISTRY METHOD 02/01/2025 5:59 PM EDT [facility] Blood Venous blood specimen / Unknown Venipuncture / Unknown 02/01/2025 1:08 PM EDT 02/01/2025 1:08 PM EDT us Uche Lassiter MD LAB BLOOD ORDERABLES Final Resu lt [facility] [address] [place] [address], [place] [phone] * (ABNORMAL) Comprehensive metabolic panel (02/01/2025 1:08 PM EDT) Sodium 138 133 - 145 mmol/L LAB CHEMISTRY METHOD 02/01/2025 6:02 PM [facility] Potassium 3.8 3.5 - 5.5 mmol/L LAB CHEMISTRY METHOD 02/01/2025 6:02 PM [facility] Chloride 103 96 - 110 mmol/L LAB CHEMISTRY METHOD 02/01/2025 6:02 PM [facility] CO2 29 21 - 32 mmol/L LAB CHEMISTRY METHOD 02/01/2025 6:02 PM [facility] Anion Gap 6 3 - 11 LAB CHEMISTRY METHOD 02/01/2025 6:02 PM [facility] Glucose 124(H) 70 - 100 mg/dL LAB CHEMISTRY METHOD 02/01/2025 6:02 PM [facility] BUN 13 5 - 25 mg/dL LAB CHEMISTRY METHOD 02/01/2025 6:02 PM [facility] Creatinine 0.82 0.50 - 1.10 mg/dL LAB CHEMISTRY METHOD 02/01/2025 6:02 PM [facility] eGFR 83 >=60 mL/min/1. 73m2 LAB CHEMISTRY METHOD 02/01/2025 6:02 PM [facility] Comment:Calculation based on the Chronic Kidney Disease Epidemiology Collaboration (CKD-EPI) equation refit without adjustment for race. BUN/Creatinine Ratio 15.9 LAB CHEMISTRY METHOD 02/01/2025 6:02 PM [facility] Calcium 9.5 8.5 - 10.5 mg/dL LAB CHEMISTRY METHOD 02/01/2025 6:02 PM [facility] AST (SGOT) 12 10 - 42 unit/L LAB CHEMISTRY METHOD 02/01/2025 6:02 PM [facility] ALT (SGPT) 23 10 - 60 unit/L LAB CHEMISTRY METHOD 02/01/2025 6:02 PM EDT [facility] Alkaline Phosphatase 111 42 - 121 unit/L LAB CHEMISTRY METHOD 02/01/2025 6:02 PM EDT [facility] Total Protein 7.1 6.0 - 8.0 g/dL LAB CHEMISTRY METHOD 02/01/2025 6:02 PM EDT [facility] Albumin 3.9 3.2 - 5.0 g/dL LAB CHEMISTRY METHOD 02/01/2025 6:02 PM EDT [facility] Total Bilirubin 0.5 0.0 - 1.4 mg/dL LAB CHEMISTRY METHOD 02/01/2025 6:02 PM EDT [facility] Blood Venous blood specimen / Unknown Venipuncture / Unknown 02/01/2025 1:08 PM EDT 02/01/2025 1:08 PM EDT us Uche Lassiter MD LAB BLOOD ORDERABLES Final Resu lt [facility] [address] [place] [address], [place] [phone] * MG Mammo Digital Diagnostic w Sathish [...] is recommended in 1 year. Mammo Location: [facility], [address] [place] [address], [id number], . -------- FINAL REPORT -------- Dictated By: Ed Alvarez Dictated Date: 10/20/2024 16:11 ET Assigned Physician: Ed Alvarez Reviewed and Electronically Signed By: Ed Alvarez Signed Date: 10/20/2024 16:21 ET Workstation ID: [id number] Transcribed By: Self Edit Transcribed Date: 10/20/2024 [...] in the upper-outer quadrant placed at the [facility] following ultrasound-guided needle core biopsy on [...] markers in the upper-outer quadrant placed at [facility] following ultrasound-guided needle core biopsy onApril [...] is recommended in 1 year. Mammo Location: [facility], [address] [place] [address], [address], . -------- FINAL REPORT -------- Dictated By: Ed Alvarez Dictated Date: 10/20/2024 16:11 ET Assigned Physician: Ed Alvarez Reviewed and Electronically Signed By: Ed Alvarez Signed Date: 10/20/2024 16:21 ET Workstation ID: [id number] Transcribed By: Self Edit Transcribed Date: 10/20/2024 16:20 ET Ju HUMPHREY IMG BI PROCEDURES Final Result from Last 3 Months or Most Recently Relevant to Health Maintenance Insurance [facility] [place] [address] Care Teams Data Systems Analyst Relationship Specialty Start Date End Date Uche Lassiter MD [address] [place] [address] PCP - General Internal Medicine 01/18/14
--- OUTSIDE RECORDS SUMMARY | 2025-05-26 08:42 | XMS_ITS | Encounter Summary ---
Author Organization [facility] Address [address] [place] [address] Care Team Providers Care Local Company Refrigerated Truck Driver Name Role Phone Uche Lassiter MD Primary Care Provider Rebecca Alcazar MD Unavailable [phone] Sherry Falk NP Unavailable [phone] Encounter Details Date Type Department Care Team Description 03/21/2020 [facility] Medical Records [address] [place] [address] Abstract, Provider Social History Tobacco Use Types [...] on filedocumented in this encounter Care Teams Local Company Refrigerated Truck Driver Relationship Specialty Start Date End Date Uche Lassiter MD [address] [place] [address] PCP - General Internal Medicine 01/18/14 Rebecca Alcazar MD [address] [place] [address] Annual Giving Officer Cardiology 06/17/23 Sherry Falk NP [address] [place] [address] Nurse Practitioner Cardiology 03/29/24 documented as of this encounter
--- OUTSIDE RECORDS SUMMARY | 2025-05-26 08:42 | XMS_ITS | Encounter Summary ---
Author Organization [facility] Address [address] [place] [address] Care Team Providers Care Resolution Agent Name Role Phone Uche Lassiter MD Primary Care Provider [phone] Rebecca Alcazar MD Unavailable [phone] Sherry Falk NP Unavailable [phone] Reason for Visit * Reason Onset Date Comments Mychart Rx Refill 12/18/2022 Encounter Details Date Type Department Care Team Description 12/18/2022 Refill Adult Medicine [address] [phone] Uche Lassiter MD [address] [place] [address] [phone] Mychart Rx Refill Social History Tobacco Use [...] encounter Miscellaneous Notes * Telephone Encounter - Alondra Rivera M.A. - 12/19/2022 8:45 AM EDT Refill not appropriate, patient has been informed * Telephone Encounter - Uche Lassiter MD - 12/18/2022 5:23 PM EDT Pt needs vit d level prior to refill this has been ordered * Telephone Encounter - Keisha Roca M.A. - 12/18/2022 4:03 PM EDT Please advise, thank you. Is pt to remain on this rx long-term? Lab Results Component Value Date 25OHD 34 10/10/2022 BRANDAN w/Shanda Keen 10/10/2022 BRANDAN w/PCP 06/25/2022 Next OV w/Ju Callahan 01/08/2023 Next OV w/PCP 01/29/2023 documented in this encounter Plan of Treatment Not on file documented as of this encounter Results * CHG 25 HYDROXY INCLUDES FRACTIONS IF PERFORMED (01/08/2023 3:16 PM EDT) VITAMIN D, 25-HYDROXY 34 30 - 80 ng/mL 01/08/2023 7:28 PM EDT [facility] 01/08/2023 3:16 PM EDT 01/08/2023 3:16 PM EDT [facility]/08[facility]23 7:28 PM EDT Release to patient->Immediate Uche Lassiter MD LAB [facility] documented in this encounter Visit Diagnoses Diagnosis Vitamin D deficiency- Primary Unspecified vitamin D deficiency Vitamin D deficiency Unspecified vitamin D deficiency Brain fog Primary hypertension Unspecified essential hypertension Mixed hyperlipidemia documented in this encounter Care Teams Resolution Agent Relationship Specialty Start Date End Date Uche Lassiter MD [address] [place] [address] PCP - General Internal Medicine 01/18/14 Rebecca Alcazar MD [address] [place] [address] Scourer Cardiology 06/17/23 Sherry Falk NP [address] [place] [address] Nurse Practitioner Cardiology 03/29/24 documented as of this encounter
--- OUTSIDE RECORDS SUMMARY | 2025-05-26 08:42 | XMS_ITS | Encounter Summary ---
Author Organization [facility] Address [address] [place] [address] Care Team Providers Care Chief Customer Officer Name Role Phone Uche Lassiter MD Primary Care Provider [phone] Rebecca Alcazar MD Unavailable [phone] Sherry Falk NP Unavailable [phone] Encounter Details Date Type Department Care Team Description 08/01/2020 Hospital Medical Records [address] [place] [address] Reddy Jackman [facility] Social History Tobacco Use Types Packs/Day Years [...] have Coronavirus / COVID-19? No / Unsure 07/10/2020 1:58 PM EDT documented as of this encounter Plan of Treatment Not on file documented as of this encounter Visit Diagnoses Not on filedocumented in this encounter Care Teams Chief Customer Officer Relationship Specialty Start Date End Date Uche Lassiter MD [address] [place] [address] PCP - General Internal Medicine 01/18/14 Rebecca Alcazar MD [address] [place] [address] Plumbing Instructor Cardiology 06/17/23 Sherry Falk NP [address] [place] [address] Nurse Practitioner Cardiology 03/29/24 documented as of this encounter
--- OUTSIDE RECORDS SUMMARY | 2025-05-26 08:42 | XMS_ITS | Encounter Summary ---
Author Organization [facility] Address [address] [place] [address] Care Team Providers Care Novelty Printing Machine Operator Name Role Phone Uche Lassiter MD Primary Care Provider [phone] Rebecca Alcazar MD Unavailable [phone] Sherry Falk NP Unavailable [phone] Reason for Visit * Reason Onset Date Comments Prior Authorization 11/02/2020 Encounter Details Date Type Department Care Team Description 11/02/2020 Telephone Adult Medicine [address] [phone] Uche Lassiter MD [address] [place] [address] [phone] Prior Authorization Social History Tobacco Use Types [...] Telephone Encounter - Makenna Lamb M.A. - 11/10/2020 8:04 AM EST Prior authorization for the daliresp was approved Approved from 11/09/20 until 11/09/21 Prior authorization approval number #[id number] [facility] [phone] * Telephone Encounter - Makenna Lamb M.A. - 11/03/2020 2:03 PM EST Prior authorization for the daliresp completed today on cover my meds Dx J44.9 COPD Continuation of therapy 07/26/2014 * Telephone Encounter - Maggi Luan - 11/02/2020 11:12 AM EST Prior Authorization for Medication-do not complete and send this encounter unless you have the fax from the pharmacy. Is this a Cover My Meds request: Yes -- Andrea Code [id number] Name of Medication DALIRESP Dose of Medication 500 MCG Tab What is the RX # from the faxed refill? How does patient take this med? TAKE ONE TABLET BY MOUTH EVERY DAY What Pharmacy did the fax come from: [facility] fax #: [phone] [employer] Party Information from fax: What Prescription Plan does the patient have? BIN/PCN if applicable: Cardholder ID: Person Code: Relationship Code: Help desk phone: [phone] documented in this encounter Plan of Treatment Not on file documented as of this encounter Visit Diagnoses Not on filedocumented in this encounter Care Teams Novelty Printing Machine Operator Relationship Specialty Start Date End Date Uche Lassiter MD [address] [place] [address] PCP - General Internal Medicine 01/18/14 Rebecca Alcazar MD [address] [place] [address] Chair Trimmer Cardiology 06/17/23 Sherry Falk NP [address] [place] [address] Nurse Practitioner Cardiology 03/29/24 documented as of this encounter
--- OUTSIDE RECORDS SUMMARY | 2025-05-26 08:42 | XMS_ITS | Encounter Summary ---
Author Organization [facility] Address [address] [place] [address] Care Team Providers Care Food Service Worker Name Role Phone Uche Lassiter MD Primary Care Provider [phone] Rebecca Alcazar MD Unavailable [phone] Sherry Falk NP Unavailable [phone] Encounter Details Date Type Department Care Team Description 02/01/2014 OFFAL TRIMMER/[facility] Report Medical Records [address] [place] [address] Abstract, Provider Social History Tobacco Use Types Packs/Day Years Used Date Smoking Tobacco: Never Smokeless Tobacco: Never Alcohol Use Standard Drinks/Week Comments Yes 0 (1 standard drink = 0.6 oz pur e alcohol) social Alcohol Habits Answer Date Recorded How often [...] on filedocumented in this encounter Care Teams Food Service Worker Relationship Specialty Start Date End Date Uche Lassiter MD [address] [place] [address] PCP - General Internal Medicine 01/18/14 Rebecca Alcazar MD [address] [place] [address] Logistics Project Manager Cardiology 06/17/23 Sherry Falk NP [address] [place] [address] Nurse Practitioner Cardiology 03/29/24 documented as of this encounter
--- OUTSIDE RECORDS SUMMARY | 2025-05-26 08:42 | XMS_ITS | Encounter Summary ---
Author Organization [facility] Address [address] [place] [address] Care Team Providers Care Electromechanic Name Role Phone Uche Lassiter MD Primary Care Provider Rebecca Alcazar MD Unavailable [phone] Sherry Falk NP Unavailable [phone] Reason for Visit * Reason Onset Date Comments Prior Authorization 05/22/2020 Encounter Details Date Type Department Care Team Description 05/22/2020 Telephone Adult Medicine [address] [id number] Uche Lassiter MD [address] [place] [address] [phone] Prior Authorization Social History Tobacco Use Types [...] Telephone Encounter - Makenna Lamb M.A. - 05/22/2020 2:19 PM EDT Prior authorization for the cimetidine tablet was approved for bid dosing Approved from 05/22/2020 until 05/22/2022 Prior authorization approval number # [id number] Approval faxed to [facility] at [phone] * Telephone Encounter - Makenna Lamb M.A. - 05/22/2020 12:40 PM EDT Prior authorization for the cimetidine was completed on cover my meds today Dx Gastroesophageal reflux disease with esophagitis K21.0 Try an fail Dexolansoprazole Ranitidine. * Telephone Encounter - Steven Wilkinson - 05/22/2020 11:46 AM EDT Prior Authorization for Medication-do not complete and send this encounter unless you have the fax from the pharmacy. Is this a Cover My Meds request: Yes -- Andrea Code [id number] Name of Medication Cimetidine 200MG Dose of Medication What is the RX # from the faxed refill? How does patient take this med? Take 1 Tab by mouth 2 times daily for 360 days What Pharmacy did the fax come from: [facility] fax #: [phone] Third Libertarian Information from fax: What Prescription Plan does the patient have? BIN/PCN if applicable: Cardholder ID: Person Code: Relationship Code: Help desk phone: documented in this encounter Plan of Treatment Not on file documented as of this encounter Visit Diagnoses Not on filedocumented in this encounter Care Teams Electromechanic Relationship Specialty Start Date End Date Uche Lassiter MD [address] [place] [address] 87232 PCP - General Internal Medicine 01/18/14 Rebecca Alcazar MD [address] [place] [address] [phone] Senior Packaging Engineer Cardiology 06/17/23 Sherry Falk NP [address] [place] [address] [phone] Nurse Practitioner Cardiology 03/29/24 documented as of this encounter
--- OUTSIDE RECORDS SUMMARY | 2025-05-26 08:42 | XMS_ITS | Encounter Summary ---
Author Organization [facility] Address [address] [place] [address] Care Team Providers Care Building Services Supervisor Name Role Phone Uche Lassiter MD Primary Care Provider [phone] Rebecca Alcazar MD Unavailable [phone] Sherry Falk NP Unavailable [phone] Encounter Details Date Type Department Care Team Description 05/22/2020 Telephone Adult Medicine [address] [address] Maggi Seaman PA Social History Tobacco Use Types Packs/Day Years [...] encounter Miscellaneous Notes * Telephone Encounter - Daily Bryant - 05/22/2020 9:35 AM EDT Lm on vm for pt to call back. * Telephone Encounter - Maggi Jeffrey PA-C - 05/22/2020 9:17 AM EDT Can we please schedule patient for COVID-19 testing. Thank you.. documented in this encounter Plan of Treatment Not on file documented as of this encounter Visit Diagnoses Not on filedocumented in this encounter Care Teams Building Services Supervisor Relationship Specialty Start Date End Date Uche Lassiter MD [address] [place] [address] 03777 PCP - General Internal Medicine 01/18/14 Rebecca Alcazar MD [address] [place] [address] 05927 Electronics Teacher Cardiology 06/17/23 Sherry Falk NP [address] [place] [address] 43539 Nurse Practitioner Cardiology 03/29/24 documented as of this encounter
--- OUTSIDE RECORDS SUMMARY | 2025-05-26 08:42 | XMS_ITS | Encounter Summary ---
Author Organization [facility] Address [address] [place] [address] Care Team Providers Care Ton Cylinder Inspector Name Role Phone Uche Lassiter MD Primary Care Provider [phone] Rebecca Alcazar MD Unavailable [phone] Sherry Falk NP Unavailable [phone] Encounter Details Date Type Department Care Team Description 02/06/2018 [facility] Medical Records [address] [place] [address] 84375 Abstract, Provider Social History Tobacco Use Types [...] on filedocumented in this encounter Care Teams Ton Cylinder Inspector Relationship Specialty Start Date End Date Uche Lassiter MD [address] [place] [address] 70460 PCP - General Internal Medicine 01/18/14 Rebecca Alcazar MD [address] [place] [address] 61529 Clock Maker Cardiology 06/17/23 Sherry Falk NP [address] [place] [address] 78618 Nurse Practitioner Cardiology 03/29/24 documented as of this encounter
--- OUTSIDE RECORDS SUMMARY | 2025-05-26 08:42 | XMS_ITS | Encounter Summary ---
Author Organization [facility] Address [address] [place] [address] Care Team Providers Care Fish Salter Name Role Phone Uche Lassiter MD Primary Care Provider [phone] eRbecca Alcazar MD Unavailable [phone] Sherry Falk NP Unavailable [phone] Encounter Details Date Type Department Care Team Description 02/17/2017 Hospital Medical Records [address] [place] [address] Faustina Michel MD 175 [facility] [address] [place] [address] Social History Tobacco Use Types Packs/Day Years [...] on filedocumented in this encounter Care Teams Fish Salter Relationship Specialty Start Date End Date Uche Lassiter MD [address] [place] [address] 36941 PCP - General Internal Medicine 01/18/14 Rebecca Alcazar MD [address] [place] [address] 67698 Assistant Professor Of Music Cardiology 06/17/23 Sherry Falk NP [address] [place] [address] 26672 Nurse Practitioner Cardiology 03/29/24 documented as of this encounter
--- OUTSIDE RECORDS SUMMARY | 2025-05-26 08:42 | XMS_ITS | Encounter Summary ---
Author Organization [facility] Address [address] [place] [address] Care Team Providers Care Flyer Builder Name Role Phone Uche Lassiter MD Primary Care Provider [phone] Rebecca Alcazar MD Unavailable [phone] Sherry Falk NP Unavailable [phone] Encounter Details Date Type Department Care Team Description 12/22/2019 [facility] Medical Records [address] [place] [address] Abstract, Provider Social History Tobacco Use Types [...] on filedocumented in this encounter Care Teams Flyer Builder Relationship Specialty Start Date End Date Uche Lassiter MD [address] [place] [address] 05747 PCP - General Internal Medicine 01/18/14 Rebecca Alcazar MD [address] [place] [address] 80184 Webfocus Developer Cardiology 06/17/23 Sherry Falk NP [address] [place] [address] 26290 Nurse Practitioner Cardiology 03/29/24 documented as of this encounter
--- OUTSIDE RECORDS SUMMARY | 2025-05-26 08:42 | XMS_ITS | Encounter Summary ---
Author Organization [facility] Address [address] [place] [address] Care Team Providers Care Advanced Practice Rn Name Role Phone Uche Lassiter MD Primary Care Provider [phone] Rebecca Alcazar MD Unavailable [phone] Sherry Falk NP Unavailable [phone] Encounter Details Date Type Department Care Team Description 09/19/2017 [facility] Medical Records [address] [place] [address] Abstract, Provider Social History Tobacco Use Types [...] on filedocumented in this encounter Care Teams Advanced Practice Rn Relationship Specialty Start Date End Date Uche Lassiter MD [address] [place] [address] 85170 PCP - General Internal Medicine 01/18/14 Rebecca Alcazar MD [address] [place] [address] 19720 Human Resources Specialist Cardiology 06/17/23 Sherry Falk NP [address] [place] [address] 15856 Nurse Practitioner Cardiology 03/29/24 documented as of this encounter
--- OUTSIDE RECORDS SUMMARY | 2025-05-26 08:42 | XMS_ITS | Encounter Summary ---
Author Organization [facility] Address [address] [place] [address] Care Team Providers Care Deputy Brand Inspector Name Role Phone Uche Lassiter MD Primary Care Provider [phone] Rebecca Alcazar MD Unavailable [phone] Sherry Falk NP Unavailable [phone] Encounter Details Date Type Department Care Team Description 09/01/2020 Orders Only Medical Records [address] [place] [address] Grace Ontiveros MD Social History Tobacco Use [...] Date/Time Associated Diagnosis Comments OUTSIDE PATHOLOGY Routine 08/30/2020 OUTSIDE PATHOLOGY Routine 08/29/2020 documented in this encounter Results * OUTSIDE PATHOLOGY (08/30/2020) Grace Ontiveros MD OUTSIDE LAB * OUTSIDE PATHOLOGY (08/29/2020) Grace Ontiveros MD OUTSIDE LAB documented in this encounter Visit Diagnoses Not on filedocumented in this encounter Care Teams Deputy Brand Inspector Relationship Specialty Start Date End Date Uche Lassiter MD [address] [place] [address] 27406 PCP - General Internal Medicine 01/18/14 Rebecca Alcazar MD [address] [place] [address] 25677 Mattress And Foundation Sewer Cardiology 06/17/23 Sherry Falk NP [address] [place] [address] 63280 Nurse Practitioner Cardiology 03/29/24 documented as of this encounter
--- OUTSIDE RECORDS SUMMARY | 2025-05-26 08:42 | XMS_ITS | Encounter Summary ---
Author Organization [facility] Address [address] [place] [address] Care Team Providers Care Warehouse Distribution Manager Name Role Phone Uche Lassiter MD Primary Care Provider [phone] Rebecca Alcazar MD Unavailable [phone] Sherry Falk NP Unavailable [phone] Encounter Details Date Type Department Care Team Description 12/09/2017 Hospital Medical Records [address] [place] [address] Grace Ontiveros MD Social History Tobacco Use [...] on filedocumented in this encounter Care Teams Warehouse Distribution Manager Relationship Specialty Start Date End Date Uche Lassiter MD [address] [place] [address] 70105 PCP - General Internal Medicine 01/18/14 Rebecca Alcazar MD [address] [place] [address] 78012 Pathology Teacher Cardiology 06/17/23 Sherry Falk NP [address] [place] [address] 48707 Nurse Practitioner Cardiology 03/29/24 documented as of this encounter
--- OUTSIDE RECORDS SUMMARY | 2025-05-26 08:42 | XMS_ITS | Encounter Summary ---
Author Organization [facility] Address [address] [place] [address] Care Team Providers Care Shake Out Worker Name Role Phone Uche Lassiter MD Primary Care Provider [phone] Rebecca Alcazar MD Unavailable [phone] Sherry Falk NP Unavailable [phone] Encounter Details Date Type Department Care Team Description 05/06/2018 Orders Only Adult Medicine [address] [phone] Maggi Seaman PA Hyperlipidemia, unspecified hyperlipidemia type (Primary Dx) Social History Tobacco Use Types Packs/Day Years [...] documented as of this encounter Results * (ABNORMAL) LIPID PROFILE (05/28/2018 10:30 AM EDT) Cholesterol 184 0 - 200 mg/dL 05/28/2018 12:11 PM EDT [facility] TRIGLYCERIDES 284(H) 0 - 150 mg/dL 05/28/2018 12:11 PM EDT [facility] HDL CHOLESTEROL 43 >40 mg/dL 8 12:11 PM EDT [facility] LDL CALCULATED 85 0 - 100 mg/dL 05/28/2018 12:11 PM EDT [facility] TC-HDLC RATIO 4 0.0 - 4.4 mg/dL 05/28/2018 12:11 PM EDT [facility] 05/28/2018 10:3 0 AM EDT 05/28/2018 10:35 AM EDT [facility] [address] documented in this encounter Visit Diagnoses Diagnosis Hyperlipidemia, unspecified hyperlipidemia type- Primary documented in this encounter Care Teams Shake Out Worker Relationship Specialty Start Date End Date Uche Lassiter MD [address] [place] [address] 16721 PCP - General Internal Medicine 01/18/14 Rebecca Alcazar MD [address] [place] [address] 36360 Treasurer Savings Bank Cardiology 06/17/23 Sherry Falk NP [address] [place] [address] 51970 Nurse Practitioner Cardiology 03/29/24 documented as of this encounter
--- OUTSIDE RECORDS SUMMARY | 2025-05-26 08:42 | XMS_ITS | Encounter Summary ---
Author Organization [facility] Address [address] [place] [address] Care Team Providers Care Risk Lead Name Role Phone Uche Lassiter MD Primary Care Provider [phone] Rebecca Alcazar MD Unavailable [phone] Sherry Falk NP Unavailable [phone] Reason for Visit * Reason Onset Date Comments Prior Authorization 01/07/2018 Encounter Details Date Type Department Care Team Description 01/07/2018 Telephone Adult Medicine [address] [phone] Uche Lassiter MD [address] [place] [address] [phone] Prior Authorization Social History Tobacco Use Types [...] Telephone Encounter - Makenna Lamb M.A. - 02/17/2018 12:12 PM EDT Fax received, this medication has been approved Fron 01/12/18 until 01/13/2020 Authorization number [id number] Pharmacy notified * Telephone Encounter - Sylvie Manley M.A. - 01/08/2018 12:03 PM EDT Daliresp not covered by insurance.. Must have tried two medications on formulary and failed. The patient has used Combivent Covered formulary meds: must have 2 exacerbations within 1 year , a diagnosis of COPD Intolerance to a trial of combination regimen of a long acting bronchodialator, and a oral inhaled corticosteroid . Thank you Please reply back to p [phone] prior authorization pool Esther Manley C.M.A. [facility] Prior Authorizations Ext: [id number] * Telephone Encounter - Chely Bravo - 01/07/2018 3:36 PM EDT Pre Authorization for Medication-do not complete and send this encounter unless you have the fax from the pharmacy. Is this a Cover My Meds request: [facility] DALIRESP 500 MCG Tab Dose of Medication How does patient take this med? What Pharmacy did the fax come from: [facility] fax #: [phone] Third Libertarian Information from fax: What Prescription Plan does the patient have? BIN/PCN if applicable: [id number]/BCAID Cardholder ID:[id number] Person Code: Relationship Code: Help desk phone: [phone] documented in this encounter Plan of Treatment Not on file documented as of this encounter Visit Diagnoses Not on filedocumented in this encounter Care Teams Risk Lead Relationship Specialty Start Date End Date Uche Lassiter MD [address] [place] [address] 64439 PCP - General Internal Medicine 01/18/14 Rebecca Alcazar MD [address] [place] [address] 49005 Leasing Property Manager Cardiology 06/17/23 Sherry Falk NP [address] [place] [address] [phone] Nurse Practitioner Cardiology 03/29/24 documented as of this encounter
--- OUTSIDE RECORDS SUMMARY | 2025-05-26 08:42 | XMS_ITS | Encounter Summary ---
Author Organization [facility] Address [address] [place] [address] Care Team Providers Care Seasonal Greenery Bundler Name Role Phone Uche Lassiter MD Primary Care Provider [phone] Rebecca Alcazar MD Unavailable [phone] Sherry Falk NP Unavailable [phone] Encounter Details Date Type Department Care Team Description 02/10/2014 COLLEGE SPECIALIST/[facility] Report Medical Records [address] [place] [address] 92087 Abstract, Provider Social History Tobacco Use Types [...] on filedocumented in this encounter Care Teams Seasonal Greenery Bundler Relationship Specialty Start Date End Date Uche Lassiter MD [address] [place] [address] 53277 PCP - General Internal Medicine 01/18/14 Rebecca Alcazar MD [address] [place] [address] 74808 Reeling Operator Cardiology 06/17/23 Sherry Falk NP [address] [place] [address] 99071 Nurse Practitioner Cardiology 03/29/24 documented as of this encounter
--- OUTSIDE RECORDS SUMMARY | 2025-05-26 08:42 | XMS_ITS | Encounter Summary ---
Author Organization [facility] Address [address] [place] [address] Care Team Providers Care Market Research Specialist Name Role Phone Uche Lassiter MD Primary Care Provider [phone] Rebecca Alcazar MD Unavailable [phone] Sherry Falk NP Unavailable [phone] Encounter Details Date Type Department Care Team Description 08/04/2020 Orders Only Medical Records [address] [place] [address] Reddy Del Cid MD [address] [place], [place] [phone] Social History Tobacco Use Types Packs/Day Years [...] Date/Time Associated Diagnosis Comments OUTSIDE PATHOLOGY Routine 08/01/2020 documented in this encounter Results * OUTSIDE PATHOLOGY (08/01/2020) Reddy Del Cid MD OUTSIDE LAB documented in this encounter Visit Diagnoses Not on filedocumented in this encounter Care Teams Market Research Specialist Relationship Specialty Start Date End Date Uche Lassiter MD [address] [place] [address] 40784 PCP - General Internal Medicine 01/18/14 Rebecca Alcazar MD [address] [place] [address] 80642 Dispensing Optician Cardiology 06/17/23 Sherry Falk NP [address] [place] [address] 50688 Nurse Practitioner Cardiology 03/29/24 documented as of this encounter
--- OUTSIDE RECORDS SUMMARY | 2025-05-26 08:42 | XMS_ITS | Encounter Summary ---
Author Organization [facility] Address [address] [place] [address] Care Team Providers Care Content Production Specialist Name Role Phone Uche Lassiter MD Primary Care Provider [phone] Rebecca Alcazar MD Unavailable [phone] Sherry Falk NP Unavailable [phone] Reason for Visit * Reason Onset Date Comments Genetic Counseling 01/07/2017 Encounter Details Date Type Department Care Team Description 01/07/2017 Telephone Genetic & Disease Counseling - [address] [address] Martina Saba PA-C Genetic Counseling Social History Tobacco Use Types Packs/Day Years [...] encounter Miscellaneous Notes * Telephone Encounter - Ailin Hatch - 01/07/2017 3:52 PM EDT LMOM for pt to schedule f/u appt, results have beeen received please book pt in next available 30 min slot documented in this encounter Plan of Treatment Not on file documented as of this encounter Visit Diagnoses Not on filedocumented in this encounter Care Teams Content Production Specialist Relationship Specialty Start Date End Date Uche Lassiter MD [address] [place] [address] 26961 PCP - General Internal Medicine 01/18/14 Rebecca Alcazar MD [address] [place] [address] 77073 Outreach Representative Cardiology 06/17/23 Sherry Falk NP [address] [place] [address] 90846 Nurse Practitioner Cardiology 03/29/24 documented as of this encounter
--- OUTSIDE RECORDS SUMMARY | 2025-05-26 08:42 | XMS_ITS | Encounter Summary ---
Author Organization [facility] Address [address] [place] [address] Care Team Providers Care Spool Cleaner Hand Name Role Phone Uche Lassiter MD Primary Care Provider [phone] Rebecca Alcazar MD Unavailable [phone] Sherry Falk NP Unavailable [phone] Encounter Details Date Type Department Care Team Description 01/30/2018 [facility] Medical Records [address] [place] [address] Abstract, Provider Social History Tobacco Use Types [...] Name Priority Date/Time Associated Diagnosis Comments OUTSIDE CT Routine 01/30/2018 documented in this encounter Results * OUTSIDE CT (01/30/2018) Provider Default RADIOLOGY documented in this encounter Visit Diagnoses Not on filedocumented in this encounter Care Teams Spool Cleaner Hand Relationship Specialty Start Date End Date Uche Lassiter MD [address] [place] [address] 92389 PCP - General Internal Medicine 01/18/14 Rebecca Alcazar MD [address] [place] [address] 45740 Mandarin Teacher Cardiology 06/17/23 Sherry aFlk NP [address] [place] [address] 35057 Nurse Practitioner Cardiology 03/29/24 documented as of this encounter
--- OUTSIDE RECORDS SUMMARY | 2025-05-26 08:43 | XMS_ITS | Encounter Summary ---
Author Organization [facility] Address [address] [place] [address] Care Team Providers Care Undercover Operator Name Role Phone Uche Lassiter MD Primary Care Provider [phone] Rebecca Alcazar MD Unavailable [phone] Sherry Falk NP Unavailable [phone] Reason for Visit * Reason Onset Date Comments Prior Authorization 05/24/2022 Encounter Details Date Type Department Care Team Description 05/24/2022 Telephone PHARMACY CLINIC [address] [place] [address] Andria Cornejo, Pharm.D [address] [place] [address] Prior Authorization Social History Tobacco Use Types [...] suspected to have Coronavirus/COVID-19? No / Unsure 05/27/2022 12:59 PM EDT documented as of this encounter Miscellaneous Notes * Telephone Encounter - Makenna Lamb M.A. - 05/24/2022 4:04 PM EDT Unfortunately we are unable to do a prior authorization until the one in place has , becausewhen the insurance runs it through it will state it is covered. When the current one expires we then will be able to do a renewal or new p.a. for the medication. Thank you Please reply back to [id number] Prior Auth Pool Makenna Barrera [facility] Prior Authorization Ext [id number] * Telephone Encounter - Uche Lassiter MD - 05/24/2022 12:37 PM EDT I am not familiar with this can we send this message to the prior auth pool * Telephone Encounter - Zeinab Johnston.D - 05/24/2022 9:11 AM EDT Hi PA team, This patient's opioid script PA will on 05/30. If possible could you call [phone] to complete the PA as online request won't go through rightnow because the pa is still valid. This way there is no laspe in the patient getting their medication. Thanks so much, Andria documented in this encounter Plan of Treatment Not on file documented as of this encounter Visit Diagnoses Not on filedocumented in this encounter Care Teams Undercover Operator Relationship Specialty Start Date End Date Uche Lassiter MD [address] [place] [address] 01020 PCP - General Internal Medicine 01/18/14 Rebecca Alcazar MD [address] [place] [address] 90989 Curb Setter Helper Cardiology 06/17/23 Sherry Flak NP [address] [place] [address] 46462 Nurse Practitioner Cardiology 03/29/24 documented as of this encounter
--- OUTSIDE RECORDS SUMMARY | 2025-05-26 08:43 | XMS_ITS | Encounter Summary ---
Author Organization [facility] Address [address] [place] [address] Care Team Providers Care Cvicu Nurse Name Role Phone Uche Lassiter MD Primary Care Provider [phone] Rebecca Alcazar MD Unavailable [phone] Sherry Falk NP Unavailable [phone] Encounter Details Date Type Department Care Team Description 01/15/2019 Telephone General Surgery - [address] [place] [phone] Reddy Del Cid MD [address] [place] [address] [phone] Social History Tobacco Use Types Packs/Day Years [...] on filedocumented in this encounter Care Teams Cvicu Nurse Relationship Specialty Start Date End Date Uche Lassiter MD [address] [place] [address] 89146 PCP - General Internal Medicine 01/18/14 Rebecca Alcazar MD [address] [place] [address] 41466 Rehabilitation Therapy Technician Cardiology 06/17/23 Sherry Falk NP [address] [place] [address] 85667 Nurse Practitioner Cardiology 03/29/24 documented as of this encounter
--- OUTSIDE RECORDS SUMMARY | 2025-05-26 08:43 | XMS_ITS | Encounter Summary ---
Author Organization [facility] Address [address] [place] [address] Care Team Providers Care Furniture Assembly Supervisor Name Role Phone Uche Lassiter MD Primary Care Provider [phone] Rebecca Alcazar MD Unavailable [phone] Sherry Falk NP Unavailable [phone] Encounter Details Date Type Department Care Team Description 08/20/2016 Hospital Medical Records [address] [place] [address] Eduardo Sanchez Social History Tobacco Use Types Packs/Day Years [...] on filedocumented in this encounter Care Teams Furniture Assembly Supervisor Relationship Specialty Start Date End Date Uche Lassiter MD [address] [place] [address] [phone] PCP - General Internal Medicine 01/18/14 Rebecca Alcazar MD [address] [place] [address] 62810 Laborer Ammunition Assembly Cardiology 06/17/23 Sherry Falk NP [address] [place] [address] [phone] Nurse Practitioner Cardiology 03/29/24 documented as of this encounter
--- OUTSIDE RECORDS SUMMARY | 2025-05-26 08:43 | XMS_ITS | Encounter Summary ---
Author Organization [facility] Address [address] [place] [address] Care Team Providers Care Toddler Caregiver Name Role Phone Uche Lassiter MD Primary Care Provider [phone] Rebecca Alcazar MD Unavailable [phone] Sherry Falk NP Unavailable [phone] Encounter Details Date Type Department Care Team Description 07/05/2016 Hospital Medical Records [address] [place] [address] Cristofer Hawkins MD Social History Tobacco Use Types Packs/Day [...] on filedocumented in this encounter Care Teams Toddler Caregiver Relationship Specialty Start Date End Date Uche Lassiter MD [address] [place] [address] 06204 PCP - General Internal Medicine 01/18/14 Rebecca Alcazar MD [address] [place] [address] [phone] Exerciser Horse Cardiology 06/17/23 Sherry Falk NP [address] [place] [address] [phone] Nurse Practitioner Cardiology 03/29/24 documented as of this encounter
--- OUTSIDE RECORDS SUMMARY | 2025-05-26 08:43 | XMS_ITS | Encounter Summary ---
Author Organization [facility] Address [address] [place] [address] Care Team Providers Care Employment Assistant Name Role Phone Uche Lassiter MD Primary Care Provider [phone] Rebecca Alcazar MD Unavailable Sherry Falk NP Unavailable [phone] Reason for Visit * Reason Onset Date Comments Medication 07/27/2015 Encounter Details Date Type Department Care Team Description 07/27/2015 Telephone Adult Medicine [address] [phone] Uche Lassiter MD [address] [place] [address] [phone] Medication Social History Tobacco Use Types Packs/Day Years [...] encounter Miscellaneous Notes * Telephone Encounter - Mari Yang M.A. - 07/27/2015 1:54 PM EDT Spoke with pt and she states she does not yet know date of surgery. Pt states she is waking up in the middle of the night as the bone on bone in knee is so bad. Pt states both doctors below were supposed to send correspondence to pcp asking to increase pt Oxycodone 10mg 1 more pill per night. Dr Harrison [phone]. Fermin Feliciano [phone] at [facility]. Called [facility] and requested tanner notes. They did not see any mention about increasing Oxycodone. Also called [facility] and requested tanner notes and/or anything that may mention this. Pt csc medications are due on 08/01/15. Pt states she can wait until 08/01/15, just wanted to know if this can get approved by pcp when refilled. * Telephone Encounter - La Nena Guadalupe - 07/27/2015 12:46 PM EDT Caller requesting call back from provider: Dr Lassiter Is the caller the patient? YES Reason for call back: patient will need knee surgery soon. Both the surgeon and the PA that she sawsuggested an extra pain pill daily to handle the knee pain. Patient is contracted through Dr Lassiter and Dr Lassiter would need to prescribe the extra medication. Dr Ye from [facility] in [place] and PA Fermin Feliciano with [facility] should have communicated the same through faxes to Dr Lassiter. Patient will be leaving for out of town trip tomorrow morning and would like to speak to someone today regarding this issue. Caller offered to speak with the nurse for assistance: YES Response: Patient offered to speak with nurse for assistance and patient agreed. Message forwarded to nurse. documented in this encounter Plan of Treatment Not on file documented as of this encounter Visit Diagnoses Not on filedocumented in this encounter Care Teams Employment Assistant Relationship Specialty Start Date End Date Uche Lassiter MD [address] [place] [address] [phone] PCP - General Internal Medicine 01/18/14 Rebecca Alcazar MD [address] [place] [address] 64963 Eye Specialist Cardiology 06/17/23 Sherry Falk NP [address] [place] [address] [phone] Nurse Practitioner Cardiology 03/29/24 documented as of this encounter
--- OUTSIDE RECORDS SUMMARY | 2025-05-26 08:43 | XMS_ITS | Encounter Summary ---
Author Organization [facility] Address [address] [place] [address] Care Team Providers Care Oyster Worker Name Role Phone Uche Lassiter MD Primary Care Provider [phone] Rebecca Alcazar MD Unavailable [phone] Sherry Falk NP Unavailable Encounter Details Date Type Department Care Team Description 06/20/2023 Metal Room Dental Technician Report Medical Records [address] [place] [phone] Treasure Terrazas NP Social History Tobacco Use Types Packs/Day Years [...] suspected to have Coronavirus/COVID-19? No / Unsure 06/11/2023 1:23 PM EDT documented as of this encounter Plan of Treatment Not on file documented as of this encounter Visit Diagnoses Not on filedocumented in this encounter Care Teams Oyster Worker Relationship Specialty Start Date End Date Uche Lassiter MD [address] [place] [address] [phone] PCP - General Internal Medicine 01/18/14 Rebecca Alcazar MD [address] [place] [address] 96817 Passenger Car Conductor Cardiology 06/17/23 Sherry Falk NP [address] [place] [address] 03037 Nurse Practitioner Cardiology 03/29/24 documented as of this encounter
--- OUTSIDE RECORDS SUMMARY | 2025-05-26 08:43 | XMS_ITS | Encounter Summary ---
Author Organization [facility] Address [address] [place] [address] Care Team Providers Care Assurance Manager Insurance Name Role Phone Uche Lassiter MD Primary Care Provider [phone] Rebecca Alcazar MD Unavailable [phone] Sherry Falk NP Unavailable [phone] Reason for Visit * Reason Onset Date Comments refill request 07/18/2022 Encounter Details Date Type Department Care Team Description 07/18/2022 Refill Adult Medicine [address] [phone] Uche Lassiter MD [address] [place] [address] [phone] refill request Social History Tobacco Use Types Packs/Day Years [...] suspected to have Coronavirus/COVID-19? No / Unsure 06/25/2022 2:29 PM EDT documented as of this encounter Miscellaneous Notes * Telephone Encounter - Lorie Chaney - 07/19/2022 4:50 PM EDT PATIENT IS CHECKING ON THE STATUS ON MEDICATION. * Telephone Encounter - Rubi Pineda - 07/19/2022 3:08 PM EDT Patient is calling for the status. * Telephone Encounter - Kae Chapman M.A. - 07/19/2022 11:10 AM EDT BRANDAN 06/25/2022 F/U appt 09/27/2022 Lab Results Component Value Date URBENZO NONE DETECTED 03/26/2022 UROPIATES POSITIVE 03/26/2022 UROXYCODONE POSITIVE 03/26/2022 URBARBITUATE NONE DETECTED 03/26/2022 PAINAMPHETAM NONE DETECTED 03/26/2022 PAINCOCAINE NONE DETECTED 03/26/2022 PAINCANNABIN NONE DETECTED 03/26/2022 Pt due for refill [facility] below 07/13/2022 07/12/2022 1 OXYCODONE HCL (IR) 10 MG TAB 140 28 [place] Cru [id number] Big (5799) 0/0 75.00 MME Comm Ins [place] 07/05/2022 07/04/2022 1 LORAZEPAM 1 MG TABLET 56 28 An Cru [id number] Big (5799) 0/0 2.00 L[facility] [place] 06/24/2022 06/24/2022 1 OXYCONTIN ER 20 MG TABLET 75 25 An Cru [id number] Big (5799) 0/0 90.00 [place] [place] [place] 06/20/2022 06/20/2022 1 OXYCONTIN ER 20 MG TABLET 9 3 An Cru [id number] Big (5799) 0/0 90.00 [facility] [place] 06/14/2022 06/14/2022 1 OXYCODONE HCL (IR) 10 MG TAB 140 28 An Cru [id number] Big (5799) 0/0 75.00 [facility] [place] 06/06/2022 06/06/2022 1 LORAZEPAM 1 MG TABLET 56 28 An Cru [id number] Big (5799) 0/0 2.00 LME Comm [place] 05/23/2022 05/23/2022 1 OXYCONTIN ER 20 MG TABLET 84 28 An Cru [id number] Big (5799) 0/0 90.00 [facility] [place] 05/17/2022 05/17/2022 1 OXYCODONE HCL (IR) 10 MG TAB 140 28 An Cru [id number] Big (5799) 0/0 75.00 MME [place] 05/08/2022 05/08/2022 1 LORAZEPAM 1 MG TABLET 56 28 An Cru [id number] Big (5799) 0/0 2.00 LME Comm Ins [place] 04/25/2022 04/25/2022 1 OXYCONTIN ER 20 MG TABLET 84 28 An Cru [id number] Big (5799) 0/0 90.00 MME CommIns M * Telephone Encounter - Jourdan Fernandes - 07/19/2022 10:56 AM EDT Patient calling status of medication please advise * Telephone Encounter - La Nena Guadalupe - 07/18/2022 2:23 PM EDT Patient would like script to be: E-PRESCRIBED/FAXED TO PHARMACY When was the patients last office visit in Adult Medicine?: [phone] When was the last time the patient saw their PCP? Same as above Does patient have an upcoming appointment? Yes [id number] (THE MEDICATION IS NOT ON THE MED LIST AND IS IDENTIFIED BELOW): {MED LIST:17324) Med name:oxycontin Dosage: 20mg # of tablets: 84 Local pharmacy with request for 30 -day supply Instructions: Take 1 tablet by mouth 3x daily Did you check the pharmacy information above?: YES Patients current insurance carrier: Payor: [facility] / Plan: [facility] / Product Type: MEDICAID RISK documented in this encounter Plan of Treatment Not on file documented as of this encounter Visit Diagnoses Not on filedocumented in this encounter Care Teams Assurance Manager Insurance Relationship Specialty Start Date End Date Uche Lassiter MD [address] [place] [address] 11590 PCP - General Internal Medicine 01/18/14 Rebecca Alcazar MD [address] [place] [address] 72556 Cake Puller Cardiology 06/17/23 Sherry Falk NP [address] [place] [address] [phone] Nurse Practitioner Cardiology 03/29/24 documented as of this encounter
--- OUTSIDE RECORDS SUMMARY | 2025-05-26 08:43 | XMS_ITS | Encounter Summary ---
Author Organization [facility] Address [address] [place] [address] Care Team Providers Care Print Inspector Name Role Phone Uche Lassiter MD Primary Care Provider [phone] Rebecca Alcazar MD Unavailable Sherry Falk NP Unavailable [phone] Reason for Visit * Reason Onset Date Comments Provider Call Back 08/28/2015 Encounter Details Date Type Department Care Team Description 08/28/2015 Telephone Adult Medicine [address] [phone] Uche Lassiter MD [address] [place] [address] [phone] Provider Call Back Social History Tobacco Use [...] encounter Miscellaneous Notes * Telephone Encounter - Tisha Velarde - 08/28/2015 4:37 PM EST Caller requesting call back from provider: Is the caller the patient? NO If caller is not the patient, what is the callers name? Fermin oreilly From [facility] Callers relationship to patient? From [facility] If person calling is not the patient themselves, is there a verbal release in FYI or permanent comments for this person: NO Reason for call back: patient was seen today Would like to discuss her Narcotic Script Caller offered to speak with the nurse for assistance: NO Response: Patient offered to speak with nurse to assist them: refused offer documented in this encounter Plan of Treatment Not on file documented as of this encounter Visit Diagnoses Not on filedocumented in this encounter Care Teams Print Inspector Relationship Specialty Start Date End Date Uche Lassiter MD [address] [place] [address] [phone] PCP - General Internal Medicine 01/18/14 Rebecca Alcazar MD [address] [place] [address] 01920 Nursing Unit Coordinator Cardiology 06/17/23 Sherry Falk NP [address] [place] [address] 43673 Nurse Practitioner Cardiology 03/29/24 documented as of this encounter
--- OUTSIDE RECORDS SUMMARY | 2025-05-26 08:43 | XMS_ITS | Encounter Summary ---
Author Organization [facility] Address [address] [place] [address] Care Team Providers Care Practice Director Name Role Phone Uche Lassiter MD Primary Care Provider [phone] Rebecca Alcazar MD Unavailable [phone] Sherry Falk NP Unavailable [phone] Encounter Details Date Type Department Care Team Description 10/26/2015 PHYSICIAN PRACTICE MARKET MANAGER/[facility] Report Medical Records [address] [place] [address] Abstract, Provider Social History Tobacco Use Types [...] on filedocumented in this encounter Care Teams Practice Director Relationship Specialty Start Date End Date Uche Lassiter MD [address] [place] [address] [phone] PCP - General Internal Medicine 01/18/14 Rebecca Alcazar MD [address] [place] [address] 15729 Contracts Specialist Cardiology 06/17/23 Sherry Falk NP [address] [place] [address] [phone] Nurse Practitioner Cardiology 03/29/24 documented as of this encounter
--- OUTSIDE RECORDS SUMMARY | 2025-05-26 08:43 | XMS_ITS | Clinical Summary ---
Author Organization [facility] Address [address] [place] [address] Care Team Providers Care Communications Executive Name Role Phone Uche Lassiter MD Primary Care Provider [phone] Rebecca Alcazar MD Unavailable [phone] Sherry Falk NP Unavailable Allergies Active Allergy Reactions Severity Noted Date Comments Amoxicillin Swelling/Edema 01/25/2014 feet Na Kqqsbxej-Kvwzwatfqhnqrjjj-Gqipqjlto rim Swelling/Edema 01/25/2014 feet Gabapentin 04/12/2014 somnolence Nitrofurantoin Itching/Pruritus 04/12/2014 Morphine Swelling/Edema 01/25/2014 feet Sulfa Drugs 03/15/2024 Medications Medication Sig Dispensed Refills Start Date End Date Status Naloxone HCl 2 MG/2ML Prefilled Syringe Kit Inject 2 mL as directed as needed (opioid overdose). 2 Each 0 07/17/2022 Active nitroGLYCERIN (NITROSTAT) 0.4 MG SL tabletIndications:C hest pain on exertion Place 1 Tablet under the tongue every 5 minutes as needed for Chest pain (take 1 tablet as needed for chest pain, may repeat every 5 minutes for a total of 3 doses. Call 911 if chest pain is not resolved with 3rd dose.). 25 Tablet 2 07/04/2023 Active Ipratropium-Albuter ol (Combivent Respimat) 20-100 MCG/ACT Aero Soln Inhale 1 Puff into the lungs 2 times daily. 12 g 1 02/26/2024 Active fluticasone 50 MCG/ACT nasal spray 2 Sprays by Each Nare route daily. 16 g 0 02/26/2024 Active ALBUTEROL SULFATE 108 (90 Base) MCG/ACT Aero Soln Inhale 2 Puffs into the lungs every 4 hours as needed for Cough, Wheezing or Shortness of Breath. 8.5 g 0 02/26/2024 Active Aspirin Low Dose 81 MG EC tablet TAKE ONE TABLET BY MOUTH EVERY DAY 90 Tablet 1 03/04/2024 Active Dexilant 60 MG CAPSULE DELAYED RELEASE Take 1 Capsule by mouth daily. 90 Capsule 1 03/15/2024 Active Roflumilast 500 MCG Tab Take 1 Tablet by mouth daily. 90 Tablet 1 03/15/2024 Active Ticagrelor 90 MG Tab Take 90 mg by mouth 2 times daily. 180 Tablet 0 04/05/2024 Active prochlorperazine (COMPAZINE) 10 MG tablet TAKE ONE TABLET BY MOUTH EVERY 6 HOURS NEEDED FOR NAUSEA 10 Tablet 3 05/24/2024 Active atenolol (TENORMIN) 100 MG tabletIndications:P rimary hypertension Take 1 Tablet by mouth daily. 90 Tablet 1 06/14/2024 Active omeprazole (PRILOSEC) 20 MG capsule TAKE ONE CAPSULE BY MOUTH EVERY MORNING BEFORE BREAKFAST 90 Capsule 1 06/14/2024 Active hydrOXYzine (ATARAX) 25 MG tablet Take 1 Tablet by mouth 3 times daily as needed for Anxiety for up to 360 days. 60 Tablet 0 06/17/2024 06/12/2025 Active methocarbamol (ROBAXIN) 500 MG tablet Take 1 Tablet by mouth 3 times daily. 270 Tablet 1 06/24/2024 Active amlodipine (NORVASC) 5 MG tabletIndications:C hest pain on exertion TAKE ONE TABLET BY MOUTH EVERY DAY 90 Tablet 2 07/01/2024 Active rosuvastatin (CRESTOR) 40 MG tablet Take 1 Tablet by mouth at bedtime. 90 Tablet 1 07/14/2024 Active Cholecalciferol (Vitamin D) 50 MCG (1999 UT) Tab Take 1 Tablet by mouth daily. 90 Tablet 1 07/14/2024 Active lorazepam (Ativan) 1 MG tablet Take 1 Tablet by mouth 2 times daily. 56 Tablet 0 07/14/2024 Active oxyCODONE HCl ER (OxyCONTIN) 20 MG Tablet Extended Release 12 hour Abuse-Deterrent Take 1 Tablet by mouth 3 times daily. 84 Tablet 0 07/21/2024 Active oxyCODONE HCl 10 MG Tab Take 1 Tablet by mouth 5 times daily. 140 Tablet 0 07/21/2024 Active Active Problems Problem Noted Date Preoperative cardiovascular examination 04/02/2024 Last Assessment & Plan: Patient's cardiac problems are optimized on current medical therapy. Patient's activity level represents greater than 4 METS. Patient does not require any further testing at this time. Using the LA cardiac risk assessment patient is at a 0.5% risk for perioperative myocardial infarction or cardiac arrest. Patient is at acceptable risk for the proposed surgical procedure. We discussed her upcoming surgical procedure. Since it has been greater than 6 months since her stenting it is reasonable to hold the Brilinta for 7 days however she should continue with aspirin throughout the perioperative period and resume Brilinta as soon as hemodynamically stable. Patient should remain on beta-chris throughout the perioperative period. Thank you for including us in preoperative planning. We are available for further consultation during hospitalization if the need were to arise. Coronary artery disease 03/29/2024 Last Assessment & Plan: Patient has history of coronary artery disease status post drug-eluting stent to the LAD 07/2023. She has been on dual antiplatelet therapy with aspirin and Brilinta since her angiogram. She denies any anginal symptoms. She will remain on dual antiplatelet therapy for at least 12 months after her angiogram. She will continue on atenolol and statin as prescribed. We will update an echocardiogram however this does not need to be done prior to surgery. I have reviewed with the patient the importance of a heart healthy lifestyle which includes eating a low-fat low-salt diet, getting regular exercise, maintaining a healthy weight, not smoking, and following up with routine medical care. We discussed her upcoming surgical procedure. Since it has been greater than 6 months since her stenting it is reasonable to hold the Brilinta for 7 days however she should continue with aspirin throughout the perioperative period and resume Brilinta as soon as hemodynamically stable. History of cardiac catheterization 09/23 Overview: [place] [facility] [place] indications:Abnormal nuclear perfusion study Lumbar disc disease 09/08/2023 Morbid obesity with BMI of 50.0-59.9, ad ult 06/25/2023 Osteoarthritis of right knee 10/11/2022 Overview: s/p LEFT TKR Prediabetes 10/10/2022 Obstructive sleep apnea syndrome 022 Overview: UNTREATED (Sep 2022) Vitamin D deficiency 11/21/2021 Aortic root dilation 04/11/2021 Overview: Echo 04/18: 3.2 cm. Repeat 1 year Tubular adenoma 10/20/2019 Overview: 07/28/14: Moderately difficult and difficult to sedate - consider monitored anesthesia care 08/2020: Tubular adenoma - repeat in 5 years Gastroesophageal reflux disease with eso phagitis 10/20/2019 Roblero's esophagus 12/16/2017 Overview: EGD 11/2017. Repeat every 3 yrs. Intraductal papilloma of breast 09/08/20 14 Anxiety 06/22/2014 Chronic interstitial cystitis 04/12/2014 COPD (chronic obstructive pulmonary dise ase) 04/12/2014 Hyperlipidemia 04/12/2014 Last Assessment & Plan: Goal LDL cholesterol is less than 70. Her last LDL cholesterol was 148. This was prior to being on rosuvastatin. We will update a lipid panel in 12 weeks. Patient strongly advised to take her statin as prescribed and to follow a low-fat diet. Chronic low back pain 04/12/2014 Fibromyalgia 01/25/2014 HTN (hypertension) 01/25/2014 Last Assessment & Plan: Patient's blood pressure is well-controlled with a reading today 120/70. She will continue on her present dose of amlodipine and atenolol as prescribed. Abnormal mammogram 01/25/2014 Resolved Problems Problem Noted Date Resolved Date Chest pain on exertion 07/03/2023 Dyspnea on exertion 07/03/2023 04/02/2024 Chest pain 07/01/2023 04/02/2024 Surgery follow-up 04/26/2022 10/10/2022 Fracture, Colles, right, closed 12/25/2021 10/10/2022 Right carpal tunnel syndrome 10/20/2021 Ganglion of right wrist 10/20/2021 10/10/19 Incisional hernia, without obstruction or gangre ne 11/23/2018 01/26/2019 Colon tumor 12/11/2017 10/10/2022 GERD (gastroesophageal reflux disease) 7 10/10/2022 Primary osteoarthritis of left knee 08/30/2015 10/11/2022 Edema, lower extremity 12/20/2014 4 S/P carpal tunnel release 07/28/20142022 Overview: Colonoscopy 07/28/2014, moderately difficult and difficult to sedate. Consider monitored anesthesia care for future colonoscopies. Internal derangement of knee 02/09/2014 Acute medial meniscus tear of right knee 014 10/11/2022 Overview: MRI 10/2013 Dr. Ye currently following Lumbar disc herniation 01/25/2014 3 Overview: MRI 06/24/2012 Esophagitis, erosive 01/25/2014 10/30/2017 Immunizations Name Administration Dates Next Due COVID-19 (KENYA AND KENYA) 08/12/2021,2020 Flu Vaccine 3 Yrs> Im 07/15/2017,06/28/2014 Influenza (> 6 Months) 07/15/2022,2020,07/09/2019, 018,07/15/2017,06/20/2016,07/04/2015, Influenza Vaccine-preservati ve Free-quadrivalent 4 Years 07/19/2020 Shingrix (Recombinant zoster vaccine) 11/26/2019,07/20/2019 Family History Medical History Relation Name Comments CA Colon Father CA Colon Maternal Grandfather 8 sibs with breast or colon cancer Colon Polyps Maternal Grandmother Colon Polyps Mother >10 total liver cancer Other 1 pat gr aunt stomach cancer Other 2 pat gr aunt liver cancer Other 3 pat gr aunt CA Colon Paternal Grandfather bladder cancer Paternal Grandmother ginny montero; family near asbestos factory 010 Uncle 1 maternal uncle Cancer of the Colon Uncle 2 maternal uncle Relation Name Status Comments Father (Age 70) Maternal Grandfather Maternal Grandmother Mother Alive Other 1 Other 2 Other 3 Paternal Grandfather Paternal Grandmother Uncle 1 Uncle 2 Social History Tobacco Use Types Packs/Day Years Used Date Smoking Tobacco: Never Passive Smoke Exposure: Past Smokeless Tobacco: Never Tobacco Cessation:Counseling Given: Not [...] Sign Reading Time Taken Comments Blood Pressure 110/70 07/20/2024 11:02 AM EDT Pulse 69 07/14/2024 9:36 AM EDT Temperature 36.4 C (97.6 F) 07/14/2024 9:36 AM EDT Respiratory Rate 12 07/14/2024 9:36 AM EDT Oxygen Saturation 97% 04/06/2024 1:08 PM EDT Inhaled Oxygen Concentration - - Weight 122.9 kg (271 lb) 07/20/2024 11:02 AM EDT Height 162.6 cm (5' 4 ) 07/20/2024 11:02 AM EDT Body Mass Index 46.52 07/20/2024 11:02 AM EDT Plan of Treatment Health Maintenance Due Date Last Done Comments DTAP/TDAP/TD (1 - Tdap) 1984 PNEUMOCOCCAL VACCINE FOR HIG H RISK PATIENTS (#1) 1984 BASELINE HEALTH EXAM 40-64 09/23/201909/23, 07/23/2017, 06/25/2017, Additional history exists MAMMOGRAM 12/04/2021 12/04/2020, 10/30, 11/18/2018, Additional history exists Covid-19 Vaccine (2022-2 4 season) 2024 08/12/2021, 01/24/2021 BMI CHECK/ADVISE 09/29/2024 10/10/2022, , 02/15/2022, Additional history exists DEPRESSION SCREENING/FOLLOWUP 09/29/2024 10/10/2022, 08/02/2020 SOCIAL NEEDS SCREENING 09/29/2024 , 10/10/2022, 11/06/2020, Additional history exists INFLUENZA (#1) 2025 07/15/2022, 06/30, 07/19/2020, Additional history exists COLON CANCER SCREENING 08/30/2025 0 (Completed), 08/30/2020, 11/20/2017, Additional history exists CHOLESTEROL SCREENING 01/12/2029 01/13/2024 , 05/09/2023, 01/08/2023, Additional history exists HEPATITIS C SCREENING Completed 11/12/2016 SHINGLES VACCINE Completed 11/26/2019, 07/20/2019 Care Teams Communications Executive Relationship Specialty Start Date End Date Uche Lassiter MD [address] [place] [address] [phone] PCP - General Internal Medicine 01/18/14 Rebecca Alcazar MD [address] [place] [address] [phone] Dental Floss Packer Cardiology 06/17/23 Sherry Falk NP [address] [place] [address] [phone] Nurse Practitioner Cardiology 03/29/24
--- OUTSIDE RECORDS SUMMARY | 2025-05-26 08:43 | XMS_ITS | Encounter Summary ---
Author Organization [facility] Address [address] [place] [address] Care Team Providers Care Glass Cleaning Machine Tender Name Role Phone Uche Lassiter MD Primary Care Provider [phone] Rebecca Alcazar MD Unavailable [phone] Sherry Falk NP Unavailable [phone] Encounter Details Date Type Department Care Team Description 01/23/2023 Orders Only Adult Medicine [facility] [address] [place], [place] [phone] Ju Callahan PA-C [address] [place], [place] [phone] Social History Tobacco Use Types Packs/Day Years [...] suspected to have Coronavirus/COVID-19? No / Unsure 01/08/2023 2:29 PM EDT documented as of this encounter Plan of Treatment Not on file documented as of this encounter Visit Diagnoses Not on filedocumented in this encounter Care Teams Glass Cleaning Machine Tender Relationship Specialty Start Date End Date Uche Lassiter MD [address] [place] [address] 35002 PCP - General Internal Medicine 01/18/14 Rebecca Alcazar MD [address] [place] [address] 08405 Time Checker Cardiology 06/17/23 Sherry Falk NP [address] [place] [address] [phone] Nurse Practitioner Cardiology 03/29/24 documented as of this encounter
--- OUTSIDE RECORDS SUMMARY | 2025-05-26 08:43 | XMS_ITS | Encounter Summary ---
Author Organization [facility] Address [address] [place] [address] Care Team Providers Care Coder Name Role Phone Uche Lassiter MD Primary Care Provider [phone] Rebecca Alcazar MD Unavailable [phone] Sherry Falk NP Unavailable [phone] Encounter Details Date Type Department Care Team Description 06/30/2022 Refill Adult Medicine [address] [address] Maggi Seaman PA Social History Tobacco Use [...] encounter Miscellaneous Notes * Telephone Encounter - Maura Montelongo M.A. - 07/02/2022 4:55 PM EDT rx faxed * Telephone Encounter - Denita Keenan C.M.A. - 07/02/2022 2:11 PM EDT LV 06/25/22 Appt 08/21/22 documented in this encounter Plan of Treatment Not on file documented as of this encounter Visit Diagnoses Not on filedocumented in this encounter Care Teams Coder Relationship Specialty Start Date End Date Uche Lassiter MD [address] [place] [address] 64645 PCP - General Internal Medicine 01/18/14 Rebecca Alcazar MD [address] [place] [address] 83687 Flagstone Layer Cardiology 06/17/23 Sherry Falk NP [address] [place] [address] 85369 Nurse Practitioner Cardiology 03/29/24 documented as of this encounter
--- OUTSIDE RECORDS SUMMARY | 2025-05-26 08:43 | XMS_ITS | Encounter Summary ---
Author Organization [facility] Address [address] [place] [address] Care Team Providers Care Kiln Tender Name Role Phone Uche Lassiter MD Primary Care Provider [phone] Rebecca Alcazar MD Unavailable [phone] Sherry Falk NP Unavailable [phone] Encounter Details Date Type Department Care Team Description 08/20/2016 Telephone Adult Medicine [address] [phone] Uche Lassiter MD [address] [place] [address] [phone] Social History Tobacco Use Types Packs/Day Years [...] on filedocumented in this encounter Care Teams Kiln Tender Relationship Specialty Start Date End Date Uche Lassiter MD [address] [place] [address] 72182 PCP - General Internal Medicine 01/18/14 Rebecca Alcazar MD [address] [place] [address] 45602 Patrol Agent Cardiology 06/17/23 Sherry Falk NP [address] [place] [address] 99146 Nurse Practitioner Cardiology 03/29/24 documented as of this encounter
--- OUTSIDE RECORDS SUMMARY | 2025-05-26 08:43 | XMS_ITS | Encounter Summary ---
Author Organization [facility] Address [address] [place] [address] Care Team Providers Care Trampoline Team Coach Name Role Phone Uche Lassiter MD Primary Care Provider [phone] Rebecca Alcazar MD Unavailable [phone] Sherry Falk NP Unavailable [phone] Reason for Visit * Reason Onset Date Comments Prior Authorization 07/12/2022 oxyCODONE HC l 10 MG Tab Encounter Details Date Type Department Care Team Description 07/12/2022 Telephone Adult Medicine [address] [phone] Uche Lassiter MD [address] [place] [address] [phone] Prior Authorization (oxyCODONE HCl 10 MG Tab) Social History Tobacco Use Types Packs/Day Years [...] Telephone Encounter - Makenna Lamb M.A. - 07/19/2022 12:17 PM EDT Prior authorization for the oxycodone was approved Approved from 07/17/22 until 01/13/23 Prior authorization case approval number # [id number] Approval faxed to [facility] at [phone] * Telephone Encounter - Makenna Lamb M.A. - 07/17/2022 3:14 PM EDT Prior authorization completed over the phone today with [employer] for the oxycodone. * Telephone Encounter - Uche Lassiter MD - 07/17/2022 1:53 PM EDT I have send a prescription for narcan now it is platt for people on opioids to have this in home ...do you think we can now get this approved * Telephone Encounter - Makenna Lamb M.A. - 07/16/2022 2:20 PM EDT Pts insurance, [facility] [employer] is now asking if naloxone has been prescribed with the opiates. If not then they deny the prior authorization stating pt does not meet criteria. Please prescribe rx and well redo the prior authorization. Thank you Please reply back to [id number] Prior Auth Pool Makenna Barrera [facility] Prior Authorization Ext [id number] * Telephone Encounter - Makenna Lamb M.A. - 07/12/2022 4:21 PM EDT Prior authorization for the oxycodone 10 mg was completed today on cover my meds to [facility]. 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 - 07/12/2022 2:32 PM EDT The reason the oxycodone is rejecting, is because pt is going over the 90 mme equivalent per day, that is what the authorization is needed for, They are going to ask if there is a taper plan in place and they will ask if narcan has been prescribed, . If the answer to both of these is no, More then likely it will be denied. * Telephone Encounter - Kamilah Pond - 07/12/2022 2:20 PM EDT Pt states if ins is called today they will approve or else pt will be without medication * Telephone Encounter - Kamilah Pond - 07/12/2022 2:11 PM EDT Prior Authorization for Medication-do not complete and send this encounter unless you have the fax from the pharmacy. Is this a Cover My Meds request: [place] of Medication oxyCODONE HCl 10 MG Tab Dose of Medication as stated above What is the RX # from the faxed refill? unknown How does patient take this med? Route: Take 1 Tablet by mouth 5 times daily What Pharmacy did the fax come from: phone call received from pt . Pt uses [facility] fax #: [phone] [employer] Information from fax: What Prescription Plan does the patient have? [employer] BIN/PCN if applicable: unknown Cardholder ID:[id number] Person Code: Relationship Code: Help desk phone: [phone] documented in this encounter Plan of Treatment Not on file documented as of this encounter Visit Diagnoses Not on filedocumented in this encounter Care Teams Trampoline Team Coach Relationship Specialty Start Date End Date Uche Lassiter MD [address] [place] [address] 04195 PCP - General Internal Medicine 01/18/14 Rebecca Alcazar MD [address] [place] [address] 82232 Senior Ui Developer Cardiology 06/17/23 Sherry Falk NP [address] [place] [address] 45756 Nurse Practitioner Cardiology 03/29/24 documented as of this encounter
--- OUTSIDE RECORDS SUMMARY | 2025-05-26 08:43 | XMS_ITS | Encounter Summary ---
Author Organization [facility] Address [address] [place] [address] Care Team Providers Care Qa Consultant Name Role Phone Uche Lassiter MD Primary Care Provider [phone] Rebecca Alcazar MD Unavailable [phone] Sherry Falk NP Unavailable [phone] Encounter Details Date Type Department Care Team Description 05/20/2024 Slot Ambassador Report Medical Records [address] [place] [address] Price Loco MD Social History Tobacco Use [...] on filedocumented in this encounter Care Teams Qa Consultant Relationship Specialty Start Date End Date Uche Lassiter MD [address] [place] [address] 08240 PCP - General Internal Medicine 01/18/14 Rebecca Alcazar MD [address] [place] [address] 66432 Volcanology Professor Cardiology 06/17/23 Sherry Falk NP [address] [place] [address] [phone] Nurse Practitioner Cardiology 03/29/24 documented as of this encounter
--- OUTSIDE RECORDS SUMMARY | 2025-05-26 08:43 | XMS_ITS | Encounter Summary ---
Author Organization [facility] Address [address] [place] [address] Care Team Providers Care Spin Instructor Name Role Phone Uche Lassiter MD Primary Care Provider [phone] Rebecca Alcazar MD Unavailable [phone] Sherry Falk NP Unavailable [phone] Encounter Details Date Type Department Care Team Description 05/25/2023 Tire Classifier Report Medical Records [address] [place] [address] Maira Mattson PA-C Social History Tobacco Use Types Packs/Day Years [...] suspected to have Coronavirus/COVID-19? No / Unsure 05/12/2023 3:07 PM EDT documented as of this encounter Plan of Treatment Not on file documented as of this encounter Visit Diagnoses Not on filedocumented in this encounter Care Teams Spin Instructor Relationship Specialty Start Date End Date Uche Lassiter MD [address] [place] [address] 68303 PCP - General Internal Medicine 01/18/14 Rebecca Alcazar MD [address] [place] [address] 51283 Set Illustrator Cardiology 06/17/23 Sherry Falk NP [address] [place] [address] 48519 Nurse Practitioner Cardiology 03/29/24 documented as of this encounter
--- OUTSIDE RECORDS SUMMARY | 2025-05-26 08:43 | XMS_ITS | Encounter Summary ---
Author Organization [facility] Address [address] [place] [address] Care Team Providers Care Supervisor Covering And Lining Name Role Phone Uche Lassiter MD Primary Care Provider [phone] Rebecca Alcazar MD Unavailable [phone] Sherry Falk NP Unavailable [phone] Encounter Details Date Type Department Care Team Description 07/01/2016 Palliative Care Nurse Report Medical Records [address] [place] [address] Rd Licona MD Social History Tobacco Use Types Packs/Day [...] filedocumented in this encounter Care Teams Supervisor Covering And Lining Relationship Specialty Start Date End Date Uche Lassiter MD [address] [place] [address] 44227 PCP - General Internal Medicine 01/18/14 Rebecca Alcazar MD [address] [place] [address] 35996 Informatics Coordinator Cardiology 06/17/23 Sherry Falk NP [address] [place] [address] [phone] Nurse Practitioner Cardiology 03/29/24 documented as of this encounter
--- OUTSIDE RECORDS SUMMARY | 2025-05-26 08:43 | XMS_ITS | Encounter Summary ---
Author Organization [facility] Address [address] [place] [address] Care Team Providers Care Steward/Stewardess Wine Name Role Phone Uche Lassiter MD Primary Care Provider [phone] Rebecca Alcazar MD Unavailable [phone] Sherry Falk NP Unavailable [phone] Reason for Visit * Reason Onset Date Comments Mychart Rx Refill 06/13/2022 Encounter Details Date Type Department Care Team Description 06/13/2022 Refill Adult Medicine [address] [phone] Maggi Seaman PA Mychart Rx Refill Social History Tobacco Use [...] Telephone Encounter - Keisha Roca M.A. - 06/14/2022 9:56 AM EDT Please review in Maggi Jeffrey's absence & advise, thank you. Did you want pt to remain on this rx long-term? Lab Results Component Value Date 25OHD 20 03/26/2022 BRANDAN w/Maggi Jeffrey 03/25/2022 BRANDAN w/PCP 10/12/2021 Next OV w/PCP 06/25/2022 documented in this encounter Plan of Treatment Not on file documented as of this encounter Visit Diagnoses Not on filedocumented in this encounter Care Teams Steward/Stewardess Wine Relationship Specialty Start Date End Date Uche Lassiter MD [address] [place] [address] 34005 PCP - General Internal Medicine 01/18/14 Rebecca Alcazar MD [address] [place] [address] 72327 Lace [place] Cardiology 06/17/23 Sherry Falk NP [address] [place] [address] 04426 Nurse Practitioner Cardiology 03/29/24 documented as of this encounter
--- OUTSIDE RECORDS SUMMARY | 2025-05-26 08:43 | XMS_ITS | Encounter Summary ---
Author Organization [facility] Address [address] [place] [address] Care Team Providers Care Waste/Materials Exchange Specialist Name Role Phone Uche Lassiter MD Primary Care Provider [phone] Rebecca Alcazar MD Unavailable [phone] Sherry Falk NP Unavailable [phone] Encounter Details Date Type Department Care Team Description 03/04/2023 [facility] Medical Records [address] [place] [address] 78446 Abstract, Provider Social History Tobacco Use Types [...] on filedocumented in this encounter Care Teams Waste/Materials Exchange Specialist Relationship Specialty Start Date End Date Uche Lassiter MD [address] [place] [address] 40602 PCP - General Internal Medicine 01/18/14 Rebecca Alcazar MD [address] [place] [address] 09794 Front Worker Cardiology 06/17/23 Sherry Falk NP [address] [place] [address] 74106 Nurse Practitioner Cardiology 03/29/24 documented as of this encounter
--- OUTSIDE RECORDS SUMMARY | 2025-05-26 08:43 | XMS_ITS | Encounter Summary ---
Author Organization [facility] Address [address] [place] [address] Care Team Providers Care Veneer Jointer Returner Name Role Phone Uche Lassiter MD Primary Care Provider [phone] Rebecca Alcazar MD Unavailable [phone] Sherry Falk NP Unavailable Encounter Details Date Type Department Care Team Description 07/05/2016 [facility] Medical Records [address] [place] [address] Abstract, Provider Social History Tobacco Use Types [...] on filedocumented in this encounter Care Teams Veneer Jointer Returner Relationship Specialty Start Date End Date Uche Lassiter MD [address] [place] [address] 25973 PCP - General Internal Medicine 01/18/14 Rebecca Alcazar MD [address] [place] [address] 71392 Laboratory Immunologist Cardiology 06/17/23 Sherry Falk NP [address] [place] [address] 97568 Nurse Practitioner Cardiology 03/29/24 documented as of this encounter
--- OUTSIDE RECORDS SUMMARY | 2025-05-26 08:43 | XMS_ITS | Encounter Summary ---
Author Organization [facility] Address [address] [place] [address] Care Team Providers Care Seasonal Driver Name Role Phone Uche Lassiter MD Primary Care Provider [phone] Rebecca Alcazar MD Unavailable [phone] Sherry Falk NP Unavailable [phone] Reason for Visit * Reason Onset Date Comments Prior Authorization 05/28/2022 pt advises James juárez is expiring Encounter Details Date Type Department Care Team Description 05/28/2022 Pt. Non Urgent Medical Question Adult Medicine [address] [phone] Uche Lassiter MD [address] [place] [address] [phone] Social History Tobacco Use Types Packs/Day Years [...] Telephone Encounter - Maura Montelongo M.A. - 05/28/2022 4:01 PM EDTFrom: Nalini Pemberton To: Phoebe Lassiter Sent: 05/28/2022 3:59 PM EDT Subject: Prior authroization Dr. Lassiter, I was notified by my insurance that my prior authorization for my oxycontin 20mg is going to expireon June 19, 2022. They told me to notify your office so that it can be taken care of ahead of time. Thanks so much. documented in this encounter Plan of Treatment Not on file documented as of this encounter Visit Diagnoses Not on filedocumented in this encounter Care Teams Seasonal Driver Relationship Specialty Start Date End Date Uche Lassiter MD [address] [place] [address] 91226 PCP - General Internal Medicine 01/18/14 Rebecca Alcazar MD [address] [place] [address] 65360 Utility Bagger Cardiology 06/17/23 Sherry Falk NP [address] [place] [address] 65813 Nurse Practitioner Cardiology 03/29/24 documented as of this encounter
--- OUTSIDE RECORDS SUMMARY | 2025-05-26 08:43 | XMS_ITS | Encounter Summary ---
Author Organization [facility] Address [address] [place] [address] Care Team Providers Care Emergency Management Consultant Name Role Phone Uche Lassiter MD Primary Care Provider [phone] Rebecca Alcazar MD Unavailable [phone] Sherry Falk NP Unavailable [phone] Encounter Details Date Type Department Care Team Description 07/13/2024 Nurse Clinical Report Medical Records [address] [place] [address] 68954 Price Loco MD Social History Tobacco Use [...] on filedocumented in this encounter Care Teams Emergency Management Consultant Relationship Specialty Start Date End Date Uche Lassiter MD [address] [place] [address] 49067 PCP - General Internal Medicine 01/18/14 Rebecca Alcazar MD [address] [place] [address] 47654 Human Factors Ergonomist Cardiology 06/17/23 Sherry Falk NP [address] [place] [address] [phone] Nurse Practitioner Cardiology 03/29/24 documented as of this encounter
--- OUTSIDE RECORDS SUMMARY | 2025-05-26 08:43 | XMS_ITS | Encounter Summary ---
Author Organization [facility] Address [address] [place] [address] Care Team Providers Care Mud Plant Operator Name Role Phone Uche Lassiter MD Primary Care Provider [phone] Rebecca Alcazar MD Unavailable [phone] Sherry Falk NP Unavailable [phone] Encounter Details Date Type Department Care Team Description 01/15/2019 Hospital Medical Records [address] [place] [address] Reddy Del Cid MD [address] [place] [address] Social History Tobacco Use Types Packs/Day Years [...] on filedocumented in this encounter Care Teams Mud Plant Operator Relationship Specialty Start Date End Date Uche Lassiter MD [address] [place] [address] 69787 PCP - General Internal Medicine 01/18/14 Rebecca Alcazar MD [address] [place] [address] 39820 Director Of Recruitment And Admissions Cardiology 06/17/23 Sherry Falk NP [address] [place] [address] 41922 Nurse Practitioner Cardiology 03/29/24 documented as of this encounter
--- OUTSIDE RECORDS SUMMARY | 2025-05-26 08:43 | XMS_ITS | Encounter Summary ---
Author Organization [facility] Address [address] [place] [address] Care Team Providers Care Photoengraving Finisher Name Role Phone Uche Lassiter MD Primary Care Provider [phone] Rebecca Alcazar MD Unavailable [phone] Sherry Falk NP Unavailable [phone] Reason for Visit * Reason Onset Date Comments medication problems 08/16/2022 Prior Authorization 08/16/2022 Encounter Details Date Type Department Care Team Description 08/16/2022 Telephone Adult Medicine [address] [phone] Uche Lassiter MD [address] [place] [address] [phone] medication problems; Prior Authorization Social History Tobacco Use Types [...] suspected to have Coronavirus/COVID-19? No / Unsure 08/12/2022 3:37 PM EST documented as of this encounter Miscellaneous Notes * Telephone Encounter - Makenna Lamb M.A. - 08/16/2022 12:26 PM EST Called [facility] again and spoke with Juan R there was something the insurance had to update. She ran test claim an it goes through. Pharmacy notified. * Telephone Encounter - Sherry Chin - 08/16/2022 12:11 PM EST Bolivar from [employer] calling stating he called the insurance company and they stated that the MD office has to call [phone] to do the override for oxycodone * Telephone Encounter - Makenna Lamb M.A. - 08/16/2022 11:44 AM EST Per the may prior authorization for the oxycodone was approved Case approval number is in there and the approval was faxed to the pharmacy Called the pharmacy and spoke with Bolivar who stated he cant get it to go through that it was rejecting for mme's Called [facility] and spoke with Keren who stated this is not the case. [facility]. Pharmacy has to do an over ride . Called the pharmacy back and explained it to Bolivar and he is still having trouble. He will have to call insurance. * Telephone Encounter - Bharati Lynn M.A. - 08/16/2022 9:08 AM EST Prior auth is needed See encounter 07/12/22 for information needed to complete the prior auth. (one was done for the Oxycodone 10 mg) * Telephone Encounter - Sonya Lawrence - 08/16/2022 9:04 AM EST Who is calling? A pharmacist: Pharmacy: [facility] Pharmacist Name: [facility] Phone # Name of the medication oxyCODONE HCl ER (OxyCONTIN) 20 MG Tablet Extended Release 12 hour Abuse-Deterrent What is the specific problem or interaction? Uche Lassiter needs to call insurance for approval If the patient is having a problem with taking the med - how long has the problem been going on? N/A documented in this encounter Plan of Treatment Not on file documented as of this encounter Visit Diagnoses Not on filedocumented in this encounter Care Teams Photoengraving Finisher Relationship Specialty Start Date End Date Uche Lassiter MD [address] [place] [address] 12300 PCP - General Internal Medicine 01/18/14 Rebecca Alcazar MD [address] [place] [address] 68889 Envelope Sealing Machine Operator Cardiology 06/17/23 Sherry Falk NP [address] [place] [address] 83671 Nurse Practitioner Cardiology 03/29/24 documented as of this encounter
--- OUTSIDE RECORDS SUMMARY | 2025-05-26 08:43 | XMS_ITS | Encounter Summary ---
Author Organization [facility] Address [address] [place] [address] Care Team Providers Care Hotel Baggage Handler Name Role Phone Uche Lassiter MD Primary Care Provider [phone] Rebecca Alcazar MD Unavailable [phone] Sherry Falk NP Unavailable [phone] Encounter Details Date Type Department Care Team Description 07/01/2016 Hospital Medical Records [address] [place] [address] Stephanie Salgado PA-C Social History Tobacco Use Types Packs/Day [...] on filedocumented in this encounter Care Teams Hotel Baggage Handler Relationship Specialty Start Date End Date Uche Lassiter MD [address] [place] [address] 29741 PCP - General Internal Medicine 01/18/14 Rebecca Alcazar MD [address] [place] [address] 33789 Potato Chip Cooker Machine Cardiology 06/17/23 Sherry Falk NP [address] [place] [address] [phone] Nurse Practitioner Cardiology 03/29/24 documented as of this encounter
--- OUTSIDE RECORDS SUMMARY | 2025-05-26 08:44 | XMS_ITS | Encounter Summary ---
Author Organization [facility] Address [address] [place] [address] Care Team Providers Care Director Ehs Name Role Phone Uche Lassiter MD Primary Care Provider [phone] Rebecca Alcazar MD Unavailable [phone] Sherry Falk NP Unavailable [phone] Encounter Details Date Type Department Care Team Description 07/30/2021 Pt. Non Urgent Medic al Question Adult Medicine [address] [phone] Maggi Seaman PA Social History Tobacco Use [...] have Coronavirus / COVID-19? No / Unsure 07/19/2021 12:59 PM EDT documented as of this encounter Miscellaneous Notes * Telephone Encounter - Nadiya Arita M.A. - 07/31/2021 9:03 AM EDTFrom: Nalini Pemberton To: Phoebe Jeffrey Sent: 07/30/2021 10:43 PM EDT Subject: MRI Mehran Tay, I received a letter from you stating that I failed to have my MRI done. It was done on May 23, right after our appointment. I haven't heard back and was going to message you. Thanks, Nalini documented in this encounter Plan of Treatment Not on file documented as of this encounter Visit Diagnoses Not on filedocumented in this encounter Care Teams Director Ehs Relationship Specialty Start Date End Date Uche Lassiter MD [address] [place] [address] 66649 PCP - General Internal Medicine 01/18/14 Rebecca Alcazar MD [address] [place] [address] 23698 Certified Tumor Registrar Cardiology 06/17/23 Sherry Falk NP [address] [place] [address] 00782 Nurse Practitioner Cardiology 03/29/24 documented as of this encounter
--- OUTSIDE RECORDS SUMMARY | 2025-05-26 08:44 | XMS_ITS | Encounter Summary ---
Author Organization [facility] Address [address] [place] [address] Care Team Providers Care Fixed Wing Aircraft Crew Chief Name Role Phone Uche Lassiter MD Primary Care Provider [phone] Rebecca Alcazar MD Unavailable [phone] Sherry Falk NP Unavailable [phone] Encounter Details Date Type Department Care Team Description 03/09/2021 Refill Adult Medicine [address] [phone] Uche Lassiter MD [address] [place] [address] [phone] Social History Tobacco Use Types Packs/Day Years [...] have Coronavirus / COVID-19? No / Unsure 02/08/2021 12:54 PM EDT documented as of this encounter Plan of Treatment Not on file documented as of this encounter Visit Diagnoses Not on filedocumented in this encounter Care Teams Fixed Wing Aircraft Crew Chief Relationship Specialty Start Date End Date Uche Lassiter MD [address] [place] [address] 58594 PCP - General Internal Medicine 01/18/14 Rebecca Alcazar MD [address] [place] [address] 60887 Drill Grinder Cardiology 06/17/23 Sherry Falk NP [address] [place] [address] 45815 Nurse Practitioner Cardiology 03/29/24 documented as of this encounter
--- OUTSIDE RECORDS SUMMARY | 2025-05-26 08:44 | XMS_ITS | Encounter Summary ---
Author Organization [facility] Address [address] [place] [address] Care Team Providers Care Insulation And Flooring Assembler Name Role Phone Uche Lassiter MD Primary Care Provider [phone] Rebecca Alcazar MD Unavailable [phone] Sherry Falk NP Unavailable [phone] Encounter Details Date Type Department Care Team Description 03/23/2021 Refill Adult Medicine [address] [phone] Uche Lassiter MD [address] [place] [address] [phone] Social History Tobacco Use Types Packs/Day Years [...] on filedocumented in this encounter Care Teams Insulation And Flooring Assembler Relationship Specialty Start Date End Date Uche Lassiter MD [address] [place] [address] 65415 PCP - General Internal Medicine 01/18/14 Rebecca Alcazar MD [address] [place] [address] 76839 Hotel Or Motel Room Service Supervisor Cardiology 06/17/23 Sherry Falk NP [address] [place] [address] 02380 Nurse Practitioner Cardiology 03/29/24 documented as of this encounter
--- OUTSIDE RECORDS SUMMARY | 2025-05-26 08:44 | XMS_ITS | Encounter Summary ---
Author Organization [facility] Address [address] [place] [address] Care Team Providers Care Steamtable Attendant Railroad Name Role Phone Uche Lassiter MD Primary Care Provider [phone] Rebecca Alcazar MD Unavailable [phone] Sherry Falk NP Unavailable [phone] Encounter Details Date Type Department Care Team Description 07/20/2015 Ward Helper Report Medical Records [address] [place] [address] Fermin Feliciano PA-C Social History Tobacco Use Types Packs/Day [...] on filedocumented in this encounter Care Teams Steamtable Attendant Railroad Relationship Specialty Start Date End Date Uche Lassiter MD [address] [place] [address] 55964 PCP - General Internal Medicine 01/18/14 Rebecca Alcazar MD [address] [place] [address] 28315 Accounting Teacher Cardiology 06/17/23 Sherry Falk NP [address] [place] [address] [phone] Nurse Practitioner Cardiology 03/29/24 documented as of this encounter
--- OUTSIDE RECORDS SUMMARY | 2025-05-26 08:44 | XMS_ITS | Encounter Summary ---
Author Organization [facility] Address [address] [place] [address] Care Team Providers Care Material Expediter Name Role Phone Uche Lassiter MD Primary Care Provider [phone] Rebecca Alcazar MD Unavailable [phone] Sherry Falk NP Unavailable [phone] Reason for Visit * Reason Onset Date Comments medication problems 07/22/2018 Encounter Details Date Type Department Care Team Description 07/22/2018 Telephone Adult Medicine [address] [phone] Uche Lassiter MD [address] [place] [address] [phone] medication problems Social History Tobacco Use Types [...] encounter Miscellaneous Notes * Telephone Encounter - Uche Lassiter MD - 07/23/2018 11:44 AM EDT rx for zanaflex was sent * Telephone Encounter - Teri Latrell - 07/22/2018 1:33 PM EDT Who is calling? The patient Name of the medication methocarbamol (ROBAXIN) 500 MG tablet What is the specific problem or interaction? Pharmacy cannot get from any distrubitiers need to perscibe something else May be months before they get If the patient is having a problem with taking the med - how long has the problem been going on? N/A documented in this encounter Plan of Treatment Not on file documented as of this encounter Visit Diagnoses Not on filedocumented in this encounter Care Teams Material Expediter Relationship Specialty Start Date End Date Uche Lassiter MD [address] [place] [address] 31475 PCP - General Internal Medicine 01/18/14 Rebecca Alcazar MD [address] [place] [address] 08697 Light Adjuster Cardiology 06/17/23 Sherry Falk NP [address] [place] [address] 73019 Nurse Practitioner Cardiology 03/29/24 documented as of this encounter
--- OUTSIDE RECORDS SUMMARY | 2025-05-26 08:44 | XMS_ITS | Encounter Summary ---
Author Organization [facility] Address [address] [place] [address] Care Team Providers Care Centralized Traffic Control Operator Name Role Phone Uche Lassiter MD Primary Care Provider [phone] Rebecca Alcazar MD Unavailable [phone] Sherry Falk NP Unavailable Encounter Details Date Type Department Care Team Description 06/23/2019 [facility] Medical Records [address] [place] [address] Abstract, Provider Social History Tobacco Use Types [...] on filedocumented in this encounter Care Teams Centralized Traffic Control Operator Relationship Specialty Start Date End Date Uche Lassiter MD [address] [place] [address] 64462 PCP - General Internal Medicine 01/18/14 Rebecca Alcazar MD [address] [place] [address] 10844 Buffing Machine Tender Cardiology 06/17/23 Sherry Falk NP [address] [place] [address] 47690 Nurse Practitioner Cardiology 03/29/24 documented as of this encounter
--- OUTSIDE RECORDS SUMMARY | 2025-05-26 08:44 | XMS_ITS | Clinical Summary ---
Author Organization [facility] Address [address] [place] [address] Care Team Providers Care Ranch Hand Livestock Name Role Phone Maikol MAHAN MD, Uche [...] Adults 18 yrs or above (or HM Modifier)([facility]) 1983 Hepatitis C Virus Infection in Adolescents and Adults: Screening (or Modifier) ([facility]) 1983 SDOH Screening Reminder: Guillermina aballsusan for all adults ([facility]) 1983 Tobacco Smoking Cessation: i n Adults excluding Women: Behavioral and Pharmacotherapy Interventions ([facility]) 1983 DTaP/Tdap/Td Vaccines ([facility]) (1 - Tdap) 1984 Breast Cancer: Screening Guillermina ually age 50-74 yrs (or HM Modifier)([facility]) 2015 Pneumococcal Vaccination Scr eening: Patients 50+ yrs of age ([facility]) (1 of 1 - PCV) 2015 COVID-19 Vaccine Screening: Initial Series and Booster Status ([facility]) (2 - season) 2024 01/24/2021 Flu Vaccination: Yearly for ages 18mos through 64 years (or Modifier)([facility]) 04/29/2025 07/19/2020 Zoster/Shingles Vaccine Seri es Screening: Adults aged 18+ yrs (or HM Modifiers)([facility]) Completed 11/26/2019, 07/20/2019 Medical Devices Not on file Insurance [facility] Care Teams Ranch Hand Livestock Relationship Specialty Start Date End Date Uche Lassiter III, MD [address] [place] [address] PCP - Box Office Manager 04/02/17
--- OUTSIDE RECORDS SUMMARY | 2025-05-26 08:44 | XMS_ITS | Encounter Summary ---
Author Organization [facility] Address [address] [place] [address] Care Team Providers Care Outpatient Facility Physical Therapist Name Role Phone Uche Lassiter MD Primary Care Provider [phone] Rebecca Alcazar MD Unavailable [phone] Sherry Falk NP Unavailable Encounter Details Date Type Department Care Team Description 02/14/2015 Processing Archivist Report Medical Records [address] [place] [address] Leobardo Ye Social History Tobacco Use Types [...] on filedocumented in this encounter Care Teams Outpatient Facility Physical Therapist Relationship Specialty Start Date End Date Uche Lassiter MD [address] [place] [address] 04404 PCP - General Internal Medicine 01/18/14 Rebecca Alcazar MD [address] [place] [address] 02684 Flour Mixer Helper Cardiology 06/17/23 Sherry Falk NP [address] [place] [address] [phone] Nurse Practitioner Cardiology 03/29/24 documented as of this encounter
--- OUTSIDE RECORDS SUMMARY | 2025-05-26 08:44 | XMS_ITS | Encounter Summary ---
Author Organization [facility] Address [address] [place] [address] Care Team Providers Care Alarm Technician Name Role Phone Uche Lassiter MD Primary Care Provider [phone] Rebecca Alcazar MD Unavailable [phone] Sherry Falk NP Unavailable [phone] Encounter Details Date Type Department Care Team Description 06/17/2019 Telephone Adult Medicine [address] [phone] Uhce Lassiter MD [address] [place] [address] [phone] Social History Tobacco Use Types Packs/Day Years [...] encounter Miscellaneous Notes * Telephone Encounter - Khadra Otto - 06/17/2019 8:32 AM EDT All attempts to schedule patient with a GI provider have been exhausted. No returned calls. Removing from work list. documented in this encounter Plan of Treatment Not on file documented as of this encounter Visit Diagnoses Not on filedocumented in this encounter Care Teams Alarm Technician Relationship Specialty Start Date End Date Uche Lassiter MD [address] [place] [address] 12313 PCP - General Internal Medicine 01/18/14 Rebecca Alcazar MD [address] [place] [address] 37419 Bag Printer Cardiology 06/17/23 Sherry Falk NP [address] [place] [address] 29834 Nurse Practitioner Cardiology 03/29/24 documented as of this encounter
--- OUTSIDE RECORDS SUMMARY | 2025-05-26 08:44 | XMS_ITS | Encounter Summary ---
Author Organization [facility] Address [address] [place] [address] Care Team Providers Care Supervisor Policy Change Clerks Name Role Phone Uche Lassiter MD Primary Care Provider [phone] Rebecca Alcazar MD Unavailable [phone] Sherry Falk NP Unavailable [phone] Encounter Details Date Type Department Care Team Description 01/26/2015 Marketing And Development Coordinator Report Medical Records [address] [place] [address] Leobardo Ye Social History Tobacco Use Types [...] filedocumented in this encounter Care Teams Supervisor Policy Change Clerks Relationship Specialty Start Date End Date Uche Lassiter MD [address] [place] [address] 79151 PCP - General Internal Medicine 01/18/14 Rebecca Alcazar MD [address] [place] [address] 44433 Chip Drier Cardiology 06/17/23 Sherry Falk NP [address] [place] [address] [phone] Nurse Practitioner Cardiology 03/29/24 documented as of this encounter
--- OUTSIDE RECORDS SUMMARY | 2025-05-26 08:44 | XMS_ITS | Encounter Summary ---
Author Organization [facility] Address [address] [place] [address] Care Team Providers Care Veneer Jointer Name Role Phone Uche Lassiter MD Primary Care Provider [phone] Rebecca Alcazar MD Unavailable [phone] Sherry Falk NP Unavailable [phone] Reason for Visit * Reason Onset Date Comments other 07/11/2023 FYI Encounter Details Date Type Department Care Team Description 07/11/2023 Telephone Cardio [facility] [address] [place] [address] [address] [place] [phone] Rebecca Alcazar MD [address] [place] [address] [phone] other (FYI) Social History Tobacco Use Types Packs/Day Years [...] suspected to have Coronavirus/COVID-19? No / Unsure 07/03/2023 1:47 PM EDT documented as of this encounter Miscellaneous Notes * Telephone Encounter - Yue Eriberto - 07/11/2023 1:35 PM EDT Patient is sick and cannot come in for her blood pressure check appointment, She would like to notethat her blood pressure has been running normal for the last day and a half. Due to this she has noconcerns. documented in this encounter Plan of Treatment Not on file documented as of this encounter Visit Diagnoses Not on filedocumented in this encounter Care Teams Veneer Jointer Relationship Specialty Start Date End Date Uche Lassiter MD [address] [place] [address] 25285 PCP - General Internal Medicine 01/18/14 Rebecca Alcazar MD [address] [place] [address] 80206 Consumer Loan Officer Cardiology 06/17/23 Sherry Falk NP [address] [place] [address] 73313 Nurse Practitioner Cardiology 03/29/24 documented as of this encounter
--- OUTSIDE RECORDS SUMMARY | 2025-05-26 08:44 | XMS_ITS | Encounter Summary ---
Author Organization [facility] Address [address] [place] [address] Care Team Providers Care Municipal Services Manager Name Role Phone Uche Lassiter MD Primary Care Provider [phone] Rebecca Alcazar MD Unavailable Sherry Falk NP Unavailable [phone] Encounter Details Date Type Department Care Team Description 01/18/2021 [facility] Medical Records [address] [place] [address] Abstract, Provider Social History Tobacco Use Types [...] on filedocumented in this encounter Care Teams Municipal Services Manager Relationship Specialty Start Date End Date Uche Lassiter MD [address] [place] [address] 22832 PCP - General Internal Medicine 01/18/14 Rebecca Alcazar MD [address] [place] [address] 81369 Bioinformatics Support Specialist Cardiology 06/17/23 Sherry Falk NP [address] [place] [address] 97193 Nurse Practitioner Cardiology 03/29/24 documented as of this encounter
--- OUTSIDE RECORDS SUMMARY | 2025-05-26 08:44 | XMS_ITS | Encounter Summary ---
Author Organization [facility] [place] [address] Care Team Providers Care Mental Health Social Worker Name Role Phone Uche Lassiter MD Primary Care Provider [phone] Reason for Visit * Reason Onset Date Comments Medication Problem 05/02/2025 prior auth 05/02/2025 Encounter Details Date Type Department Care Team (Late st Contact Info) Description 05/02/2025 Telephone Adult Medicine [address] [phone] Uche Lassiter MD [address] [place] [address] 33180 Social History Tobacco Use Types Packs/Day Years [...] MG Approved from 05/02/2025 until 05/02/2026 Auth [id number] Patient informed * Rosetta Prather MA - [...] the RX # from the faxed refill? [id number] How does patient take this med? 1 taqb 3x daily What Pharmacy did the fax come from: [facility] fax #: [phone] Third Republican Information from fax: What Prescription Plan does the patient have? N/a BIN/PCN if applicable: [id number] Cardholder ID: [id number] Person Code: 01 Relationship Code: 01 Help desk phone: [phone] * Rickie Kat - 05/02/2025 11:20 AM EDT Medication [...] is patients PCP?: Uche Lassiter MD Payor: [employer] PLAN / Plan: [facility] / Product Type: *No Product type* / documented in this encounter Plan of Treatment Upcoming Encounters Date Type Department Care Team (Late st Contact Info) Description 06/03/2025 1:30 PM EDT Hospital Encounter [facility] Endoscopy [address] [place] [phone] Tad Patino DO [address] [place] [address] 07/01/2025 11:00 AM EDT Ancillary Procedure [facility] [address] [facility] [address] [place] [phone] 07/28/2025 10:00 AM EDT Treatment [facility] Occupational Therapy 175 [facility] [address] [place] [phone] Nina Hicks, OTR/L 08/05/2025 8:00 AM EST Office Visit Adult Medicine [address] [phone] Uche Lassiter MD [address] [place] [address] 09/08/2025 10:40 AM EST Office Visit [facility] Cardiology [facility] [address] Cynthia [address] [place] [phone] Shanda Juarez NP [address] [place] [address] Dr Krish [address] [place] [phone] 11/14/2025 3:30 PM EST Office Visit Adult Medicine [address] [phone] Uche Lassiter MD [address] [place] [address] 71158 documented as of this encounter Visit Diagnoses Diagnosis Lumbar disc disease Other and unspecified disc disorder of lumbar region documented in this encounter Care Teams Mental Health Social Worker Relationship Specialty Start Date End Date Uche Lassiter MD [address] [place] [address] 10475 PCP - General Internal Medicine 01/18/14 documented as of this encounter
--- OUTSIDE RECORDS SUMMARY | 2025-05-26 08:44 | XMS_ITS | Encounter Summary ---
Author Organization [facility] Address [address] [place] [address] Care Team Providers Care Rand Cementer Name Role Phone Uche Lassiter MD Primary Care Provider [phone] Rebecca Alcazar MD Unavailable [phone] Sherry Falk NP Unavailable [phone] Encounter Details Date Type Department Care Team Description 02/23/2021 Refill Adult Medicine [address] [phone] Uche Lassiter MD [address] [place] [address] [phone] Social History Tobacco Use Types Packs/Day Years [...] on filedocumented in this encounter Care Teams Rand Cementer Relationship Specialty Start Date End Date Uche Lassiter MD [address] [place] [address] 97296 PCP - General Internal Medicine 01/18/14 Rebecca Alcazar MD [address] [place] [address] 59789 High Lighter Cardiology 06/17/23 Sherry Falk NP [address] [place] [address] 39469 Nurse Practitioner Cardiology 03/29/24 documented as of this encounter
--- OUTSIDE RECORDS SUMMARY | 2025-05-26 08:44 | XMS_ITS | Encounter Summary ---
Author Organization [facility] Address [address] [place] [address] Care Team Providers Care Pcts Name Role Phone Uche Lassiter MD Primary Care Provider [phone] Rebecca Alcazar MD Unavailable [phone] Sherry Falk NP Unavailable Encounter Details Date Type Department Care Team Description 10/23/2018 [facility] Medical Records [address] [place] [address] 87735 Abstract, Provider Social History Tobacco Use Types [...] on filedocumented in this encounter Care Teams Pcts Relationship Specialty Start Date End Date Uche Lassiter MD [address] [place] [address] 18798 PCP - General Internal Medicine 01/18/14 Rebecca Alcazar MD [address] [place] [address] 19846 Forestry Patrolman Cardiology 06/17/23 Sherry Falk NP [address] [place] [address] 11102 Nurse Practitioner Cardiology 03/29/24 documented as of this encounter
--- OUTSIDE RECORDS SUMMARY | 2025-05-26 08:44 | XMS_ITS | Encounter Summary ---
Author Organization [facility] Address [address] [place] [address] Care Team Providers Care Silverer Name Role Phone Uche Lassiter MD Primary Care Provider Rebecca Alcazar MD Unavailable [phone] Sherry Falk NP Unavailable [phone] Encounter Details Date Type Department Care Team Description 07/29/2023 [place]ar Alarm Installer Report Medical Records [address] [place] [address] Price Loco MD Social History Tobacco Use [...] on filedocumented in this encounter Care Teams Silverer Relationship Specialty Start Date End Date Uche Lassiter MD [address] [place] [address] 34429 PCP - General Internal Medicine 01/18/14 Rebecca Alcazar MD [address] [place] [address] 45143 Spanish Speaking Nanny Cardiology 06/17/23 Sherry Falk NP [address] [place] [address] 83918 Nurse Practitioner Cardiology 03/29/24 documented as of this encounter
--- OUTSIDE RECORDS SUMMARY | 2025-05-26 08:44 | XMS_ITS | Encounter Summary ---
Author Organization [facility] [place] [address] Care Team Providers Care Ink Jet Operator Name Role Phone Uche Lassiter MD Primary Care Provider [phone] Reason for Visit * Reason Onset Date Comments prior auth 04/21/2025 This is a breath ing medication for patient - has been out for over a week Encounter Details Date Type Department Care Team (Late st Contact Info) Description 04/21/2025 Telephone Adult Medicine [address] [phone] Uche Lassiter MD [address] [place] [address] 11239 Social History Tobacco Use Types Packs/Day Years [...] My Meds request: Yes -- Andrea Code [id number] Name of Medication roflumilast (DALIRESP) 500 mcg tablet Dose of Medication 500 mcg What is the RX # from the faxed refill? N/A How does patient take this med? 1 per day What Pharmacy did the fax come from: [facility] fax #: [phone] Third Republican Information from fax: What Prescription Plan does the patient have? N/a BIN/PCN if applicable: [id number] Cardholder ID: [id number] Person Code: 1 Relationship Code: 01 Help desk phone: [phone] * Pat Kat - 04/21/2025 4:26 PM EDT Medication Problem: What is the name of the medication patient is having a problem with?: roflumilast (DALIRESP) 500 mcg tablet What is the problem?: the patient asked that we put in a message regarding this because she has been waiting for a PA for two weeks. Alberta Sosa in [place] has just refaxed the request a few [...] is patients PCP?: Uche Lassiter MD Payor: [employer] PLAN / Plan: [employer] MEDICAID / Product Type: *No Product type* / documented in this encounter Plan of Treatment Upcoming Encounters Date Type Department Care Team (Late st Contact Info) Description 06/03/2025 1:30 PM EDT Hospital Encounter [facility] Endoscopy [address] [place] [phone] Tad Patino DO [address] [place] [address] 07/01/2025 11:00 AM EDT Ancillary Procedure [facility] [address] [facility] 101 [place] [phone] 07/28/2025 10:00 AM EDT Treatment [facility] Occupational Therapy 175 [facility] 350 [place] [phone] Nina Hicks, OTR/L 08/05/2025 8:00 AM EST Office Visit Adult Medicine [address] [address] Uche Lassiter MD [address] [place] [address] [phone] 09/08/2025 10:40 AM EST Office Visit [facility] [address] Cynthia [address] [place] [phone] Shanda Juarez, FLORY [address] [place] [address] Dr Krish [address] [place] [address] 11/14/2025 3:30 PM EST Office Visit Adult Medicine [address] [address] Uche Lassiter MD [address] [place] [address] 95742 documented as of this encounter Visit Diagnoses Not on filedocumented in this encounter Care Teams Ink Jet Operator Relationship Specialty Start Date End Date Uche Lassiter MD [address] [place] [address] [phone] PCP - General Internal Medicine 01/18/14 documented as of this encounter
--- OUTSIDE RECORDS SUMMARY | 2025-05-26 08:44 | XMS_ITS | Encounter Summary ---
Author Organization [facility] Address [address] [place] [address] Care Team Providers Care Sausage Meat Trimmer Name Role Phone Uche Lassiter MD Primary Care Provider [phone] Rebecca Alcazar MD Unavailable [phone] Sherry Falk NP Unavailable [phone] Encounter Details Date Type Department Care Team Description 02/01/2022 [facility] [address] [phone] Faustina Michel MD [address] [phone] Social History Tobacco Use Types Packs/Day Years [...] suspected to have Coronavirus/COVID-19? No / Unsure 02/01/2022 12:59 PM EDT documented as of this encounter Plan of Treatment Not on file documented as of this encounter Visit Diagnoses Not on filedocumented in this encounter Care Teams Sausage Meat Trimmer Relationship Specialty Start Date End Date Uche Lassiter MD [address] [place] [address] PCP - General Internal Medicine 01/18/14 Rebecca Alcazar MD [address] [place] [address] 15092 Patent Litigation Associate Cardiology 06/17/23 Sherry Falk NP [address] [place] [address] 53983 Nurse Practitioner Cardiology 03/29/24 documented as of this encounter
--- OUTSIDE RECORDS SUMMARY | 2025-05-26 08:44 | XMS_ITS | Encounter Summary ---
Author Organization [facility] Address [address] [place] [address] Care Team Providers Care Gift Shop Manager Name Role Phone Uche Lassiter MD Primary Care Provider Rebecca Alcazar MD Unavailable [phone] Sherry Falk NP Unavailable [phone] Encounter Details Date Type Department Care Team Description 08/04/2019 Release of Information Medical Records [address] [place] [address] Abstract, Provider Social History Tobacco Use Types [...] on filedocumented in this encounter Care Teams Gift Shop Manager Relationship Specialty Start Date End Date Uche Lassiter MD [address] [place] [address] 57082 PCP - General Internal Medicine 01/18/14 Rebecca Alcazar MD [address] [place] [address] 75466 Freight Unloader Cardiology 06/17/23 Sherry Falk NP [address] [place] [address] 91291 Nurse Practitioner Cardiology 03/29/24 documented as of this encounter
--- OUTSIDE RECORDS SUMMARY | 2025-05-26 08:44 | XMS_ITS | Encounter Summary ---
Author Organization [facility] Address [address] [place] [address] Care Team Providers Care Health Information Technician Name Role Phone Uche Lassiter MD Primary Care Provider [phone] Rebecca Alcazar MD Unavailable [phone] Sherry Falk NP Unavailable [phone] Reason for Visit * Reason Onset Date Comments Prior Authorization 01/29/2022 Encounter Details Date Type Department Care Team Description 01/29/2022 Telephone Adult Medicine [address] [phone] Uche Lassiter MD [address] [place] [address] [phone] Prior Authorization Social History Tobacco Use Types [...] encounter Miscellaneous Notes * Telephone Encounter - Samantha Henderson M.A. - 01/30/2022 9:04 AM EDT Dx code:K21.00 GERD with Esophagitis Prior authorization done on CM for Omeprazole 20mg capsules. Per CM-Drug is covered by current benefit plan. No further PA activity needed Spoke with [facility] pharmacist and this medication went through patients insurance with a paid claim-no PA needed. * Telephone Encounter - Sherry Chin - 01/29/2022 3:52 PM EDT Prior Authorization for Medication-do not complete and send this encounter unless you have the fax from the pharmacy. Is this a Cover My Meds request: Yes -- Andrea Code [id number] Name of Medication omeprazole (PRILOSEC) Dose of Medication 20 MG capsule What is the RX # from the faxed refill? How does patient take this med? TAKE ONE CAPSULE BY MOUTH EVERY DAY What Pharmacy did the fax come from: [facility] fax #: [phone] Third Libertarian Information from fax: What Prescription Plan does the patient have? [facility] BIN/PCN if applicable: Cardholder ID: Person Code: Relationship Code: Help desk phone: documented in this encounter Plan of Treatment Not on file documented as of this encounter Visit Diagnoses Not on filedocumented in this encounter Care Teams Health Information Technician Relationship Specialty Start Date End Date Uche Lassiter MD [address] [place] [address] PCP - General Internal Medicine 01/18/14 Rebecca Alcazar MD [address] [place] [address], [place] [address] Senior Communications Specialist Cardiology 06/17/23 Sherry Falk NP [address] [place] [address] Nurse Practitioner Cardiology 03/29/24 documented as of this encounter
--- OUTSIDE RECORDS SUMMARY | 2025-05-26 08:44 | XMS_ITS | Encounter Summary ---
Author Organization [facility] Address [address] [place] [address] Care Team Providers Care Ribbon Cutter Name Role Phone Uche Lassiter MD Primary Care Provider [phone] Rebecca Alcazar MD Unavailable [phone] Sherry Falk NP Unavailable [phone] Encounter Details Date Type Department Care Team Description 08/15/2021 Telephone Adult Medicine [address] [phone] Uche Lassiter MD [address] [place] [address] [phone] Social History Tobacco Use Types Packs/Day Years [...] or suspected to have Coronavirus / COVID-19? Unable to assess 08/15/2021 7:06 AM EST documented as of this encounter Miscellaneous Notes * Telephone Encounter - Uche Lassiter MD - 08/15/2021 10:30 AM EST Please schedule pt with me In 3 months telemedicine for csc/chronic pain documented in this encounter Plan of Treatment Not on file documented as of this encounter Visit Diagnoses Not on filedocumented in this encounter Care Teams Ribbon Cutter Relationship Specialty Start Date End Date Uche Lassiter MD [address] [place] [address] 26998 PCP - General Internal Medicine 01/18/14 Rebecca Alcazar MD [address] [place] [address] 65858 Casing Crew Pusher Cardiology 06/17/23 Sherry Falk NP [address] [place] [address] 57665 Nurse Practitioner Cardiology 03/29/24 documented as of this encounter
--- OUTSIDE RECORDS SUMMARY | 2025-05-26 08:45 | XMS_ITS | Encounter Summary ---
Author Organization [facility] Address [address] [place] [address] Care Team Providers Care Records And Tape Recordings Engineer Name Role Phone Uche Lassiter MD Primary Care Provider [phone] Rebecca Alcazar MD Unavailable [phone] Sherry Falk NP Unavailable [phone] Encounter Details Date Type Department Care Team Description 10/23/2021 [facility] Medical Records [address] [place] [address] Abstract, Provider Social History Tobacco Use Types [...] have Coronavirus / COVID-19? No / Unsure 10/19/2021 11:40 AM EST documented as of this encounter Plan of Treatment Not on file documented as of this encounter Visit Diagnoses Not on filedocumented in this encounter Care Teams Records And Tape Recordings Engineer Relationship Specialty Start Date End Date Uche Lassiter MD [address] [place] [address] 59651 PCP - General Internal Medicine 01/18/14 Rebecca Alcazar MD [address] [place] [address] 62364 Public Health Outreach Worker Cardiology 06/17/23 Sherry Falk NP [address] [place] [address] 64156 Nurse Practitioner Cardiology 03/29/24 documented as of this encounter
--- OUTSIDE RECORDS SUMMARY | 2025-05-26 08:45 | XMS_ITS | Encounter Summary ---
Author Organization [facility] Address [address] [place] [address] Care Team Providers Care Bilingual Loan Processor Name Role Phone Uche Lassiter MD Primary Care Provider Rebecca Alcazar MD Unavailable [phone] Sherry Falk NP Unavailable [phone] Encounter Details Date Type Department Care Team Description 09/11/2021 [facility] Medical Records [address] [place] [address] Abstract, Provider Social History Tobacco Use Types [...] on filedocumented in this encounter Care Teams Bilingual Loan Processor Relationship Specialty Start Date End Date Uche Lassiter MD [address] [place] [address]649 PCP - General Internal Medicine 01/18/14 Rebecca Alcazar MD [address] [place] [address] 44599 Television Mechanic Cardiology 06/17/23 Sherry Falk NP [address] [place] [address] 07608 Nurse Practitioner Cardiology 03/29/24 documented as of this encounter
--- OUTSIDE RECORDS SUMMARY | 2025-05-26 08:45 | XMS_ITS | Encounter Summary ---
Author Organization [facility] Address [address] [place] [address] Care Team Providers Care Forwarder Operator Name Role Phone Uceh Lassiter MD Primary Care Provider [phone] Rebecca Alcazar MD Unavailable [phone] Sherry Falk NP Unavailable [phone] Encounter Details Date Type Department Care Team Description 10/12/2021 [facility] Medical Records [address] [place] [address] Abstract, Provider Social History Tobacco Use Types [...] have Coronavirus / COVID-19? No / Unsure 10/12/2021 10:59 AM EST documented as of this encounter Plan of Treatment Not on file documented as of this encounter Visit Diagnoses Not on filedocumented in this encounter Care Teams Forwarder Operator Relationship Specialty Start Date End Date Uche Lassiter MD [address] [place] [address] 34892 PCP - General Internal Medicine 01/18/14 Rebecca Alcazar MD [address] [place] [address] 79384 Community Affairs Manager Cardiology 06/17/23 Sherry Falk NP [address] [place] [address] 23617 Nurse Practitioner Cardiology 03/29/24 documented as of this encounter
--- OUTSIDE RECORDS SUMMARY | 2025-05-26 08:45 | XMS_ITS | Encounter Summary ---
Author Organization [facility] Address [address] [place] [address] Care Team Providers Care Criminalist Name Role Phone Uche Lassiter MD Primary Care Provider [phone] Rebecca Alcazar MD Unavailable [phone] Sherry Falk NP Unavailable [phone] Encounter Details Date Type Department Care Team Description 09/04/2023 On Site Manager Report Medical Records [address] [place] [address] Price Loco MD Social History Tobacco Use [...] on filedocumented in this encounter Care Teams Criminalist Relationship Specialty Start Date End Date Uche Lassiter MD [address] [place] [address] 86324 PCP - General Internal Medicine 01/18/14 Rebecca Alcazar MD [address] [place] [address] 63133 Lawn Care Specialist Cardiology 06/17/23 Sherry Falk NP [address] [place] [address] [phone] Nurse Practitioner Cardiology 03/29/24 documented as of this encounter
--- OUTSIDE RECORDS SUMMARY | 2025-05-26 08:45 | XMS_ITS | Encounter Summary ---
Author Organization [facility] Address [address] [place] [address] Care Team Providers Care Clerk Television Production Name Role Phone Uche Lassiter MD Primary Care Provider [phone] Rebecca Alcazar MD Unavailable [phone] Sherry Falk NP Unavailable [phone] Reason for Visit * Reason Onset Date Comments medication problems 08/08/2023 Prior Authorization 08/08/2023 Encounter Details Date Type Department Care Team Description 08/08/2023 Telephone Adult [address] [phone] Uche Lassiter MD [address] [place] [address] [phone] medication problems; Prior Authorization (/) Social History Tobacco Use Types Packs/Day Years [...] Telephone Encounter - Makenna Lamb M.A. - 08/11/2023 8:15 AM EST Prior authorization for the oxycodone was approved Approved from 08/09/23 until 02/07/24 Prior authorization case approval number # [id number] Approval faxed to [facility] at [phone] * Telephone Encounter - Makenna Lamb M.A. - 08/08/2023 4:26 PM EST Call from Makenna in [place] stating pt is calling stating that the insurance told her they didn't receive enough information. Called [facility] and spoke with Maggi who stated that the prior authorization we did with the documentation is waiting for clinical review only * Telephone Encounter - Makenna Lamb M.A. - 08/08/2023 2:02 PM EST Prior authorization done over the phone with Magali from [facility] for the oxycodone Dx code M51.9 lumbar disc disease M54.50 chronic low back pain unspecified back pain laterality M79.7 Fibromyalgia Continuation of care Case # [id number] Documentation faxed in today Trials Diclofenac ibuprofen Morphine - allergy Gabapentin Methocarbamol Tizanidine * Telephone Encounter - Denita Keenan C.M.A. - 08/08/2023 1:41 PM EST I spoke with Ishaan at [facility], pharmacist states when he tries to process the script he gets callfor review - plan limitations exceeded - PA request Please see to 07/12/22 and 01/24/23 * Telephone Encounter - Dena Morris M.A. - 08/08/2023 1:36 PM EST Call to Ishaan rouse [facility] pharmacy- MILAGRO required on oxycodone 10mg, plan limitations exceeded. * Telephone Encounter - Prince Hubbard - 08/08/2023 1:26 PM EST Pharmacy calling stating patient needs a prior authorization with their insurance to be able to have script filled documented in this encounter Plan of Treatment Not on file documented as of this encounter Visit Diagnoses Not on filedocumented in this encounter Care Teams Clerk Television Production Relationship Specialty Start Date End Date Uche Lassiter MD [address] [place] [address] 93179 PCP - General Internal Medicine 01/18/14 Rebecca Alcazar MD [address] [place] [address] 66148 Brass Wind Instruments Tube Bender Cardiology 06/17/23 hSerry Falk NP [address] [place] [address] 17617 Nurse Practitioner Cardiology 03/29/24 documented as of this encounter
--- OUTSIDE RECORDS SUMMARY | 2025-05-26 08:45 | XMS_ITS | Encounter Summary ---
Author Organization [facility] Address [address] [place] [address] Care Team Providers Care Lime Filter Operator Name Role Phone Uche Lassiter MD Primary Care Provider [phone] Rebecca Alcazar MD Unavailable [phone] Sherry Falk NP Unavailable [phone] Reason for Visit * Reason Onset Date Comments other 08/12/2023 Encounter Details Date Type Department Care Team Description 08/12/2023 Telephone Cardio [facility] [address] [place] [address] [address] [place] [address] [phone] Rebecca Alcazar MD [address] [place] [address] [phone] other Social History Tobacco Use Types Packs/Day Years [...] encounter Miscellaneous Notes * Telephone Encounter - Alessandra De La Cruz - 08/12/2023 1:14 PM EST FYI- Patient calling stating she had cardiac cath done yesterday by Dr Alcazar and just wanted him toknow how great she feels today. States has not felt this good in years, she woke up feeling not tired, and can breath very well. States wanted to get the message to him so he is aware of the great job he did and how amazing she feels. [phone] documented in this encounter Plan of Treatment Not on file documented as of this encounter Visit Diagnoses Not on filedocumented in this encounter Care Teams Lime Filter Operator Relationship Specialty Start Date End Date Uche Lassiter MD [address] [place] [address] 51999 PCP - General Internal Medicine 01/18/14 Rebecca Alcazar MD [address] [place] [address] 13685 Principal Mechanical Engineer Cardiology 06/17/23 Sherry Falk NP [address] [place] [address] 24182 Nurse Practitioner Cardiology 03/29/24 documented as of this encounter
--- OUTSIDE RECORDS SUMMARY | 2025-05-26 08:45 | XMS_ITS | Encounter Summary ---
Author Organization [facility] Address [address] [place] [address] Care Team Providers Care Adult Education Teacher Name Role Phone Uche Lassiter MD Primary Care Provider [phone] Rebecca Alcazar MD Unavailable [phone] Sherry Falk NP Unavailable [phone] Encounter Details Date Type Department Care Team Description 08/11/2023 Hospital Medical Records [address] [place] [address] Social History Tobacco Use Types Packs/Day Years [...] on filedocumented in this encounter Care Teams Adult Education Teacher Relationship Specialty Start Date End Date Uche Lassiter MD [address] [place] [address] 39939 PCP - General Internal Medicine 01/18/14 Rebecca Alcazar MD [address] [place] [address] 21057 Nuclear Equipment Design Engineer Cardiology 06/17/23 Sherry Falk NP [address] [place] [address] 51162 Nurse Practitioner Cardiology 03/29/24 documented as of this encounter
== END 2025-05-24 08:15 | disposition home or self-care (01) ==
LOC: HO.HOSX 08:14
PROVIDERS: Visit Provider Orthopaedic Surgery
DX: M25.561 Pain in right knee (principal); M25.562 Pain in left knee; Z47.1 Aftercare following joint replacement surgery; Z79.899 Other long term (current) drug therapy; Z79.82 Long term (current) use of aspirin; G89.29 Other chronic pain; Z79.891 Long term (current) use of opiate analgesic; Z96.653 Presence of artificial knee joint, bilateral
CPT/HCPCS: 73562; 99212

== ENCOUNTER 2025-05-24 13:25 | Outpatient (AMB) | payer OTHER, SELFPAY ==
--- NOTE | 2025-05-24 13:36 | MHC.OFFVIS ---
Vital Signs 05/24/25 13:40 Height 5 ft 4 in Weight 285 lb BMI 48.9 Intake Visit Reasons: Right knee pain Intake Note: Nalini is a 59 year old female who presents with complaints of intermittent pain in her right knee after undergoing right total knee replacement surgery on 04/12/2024. The patient states that she aggravated her knee recently when she twisted it while getting out of a car. She denies any locking or giving way. She does take oxycodone for chronic pain. Allergies gabapentin Allergy (Severe, Verified 05/24/25 13:40) Agitated amoxicillin Allergy (Unknown, Verified 05/24/25 13:40) Swelling cephalexin Allergy (Unknown, Verified 05/24/25 13:40) Anaphylaxis morphine Allergy (Unknown, Verified 05/24/25 13:40) Hives nitrofurantoin (From Macrobid) Allergy (Verified 05/24/25 13:40) face swelling, difficulty breathing Sulfa (Sulfonamide Antibiotics) Allergy (Verified 05/24/25 13:40) Shortness of Breath sulfamethoxazole (From Bactrim) Allergy (Verified 05/24/25 13:40) Swelling, rash trimethoprim (From Bactrim) Allergy (Verified 05/24/25 13:40) Swelling, rash Medication List - Last Reconciled 05/24/25 by Price Loco MD albuterol sulfate 90 mcg/actuation 2 puffs inhalation Q4-6H PRN amlodipine 5 mg PO DAILY aspirin (Adult Low Dose Aspirin) 81 mg PO BEDTIME atenolol 100 mg PO BEDTIME cholecalciferol (vitamin D3) 50 mcg PO BEDTIME dexlansoprazole (Dexilant) 60 mg PO BEDTIME fluticasone propionate 50 mcg/actuation 1 spray intranasal BID PRN ipratropium-albuterol 20-100 mcg/actuation (Combivent Respimat) 1 puff inhalation BID PRN levofloxacin 500 mg PO DAILY 14 days lorazepam 1 mg PO BID methocarbamol 500 mg PO TID methylprednisolone (Medrol (Peterson)) PO PER PKG DIR naloxone (LifEMS Naloxone) 2 mg IM Q2M PRN nitroglycerin 0.4 mg sublingual DIRECTED PRN omeprazole 20 mg PO BEDTIME oxycodone mg PO oxycodone ER (OxyContin) 20 mg PO TID prochlorperazine maleate 10 mg PO Q6H PRN roflumilast (Daliresp) 500 mcg PO BEDTIME rosuvastatin 40 mg PO BEDTIME sennosides (Senna Lax) 17.2 mg (2 x 8.6 mg) PO BEDTIME 30 days ticagrelor (Brilinta) 90 mg PO BID 7 days walker Folding front wheeled walker [facility] Medical History Habitual snoring Sleep apnea History of placement of stent in LAD coronary artery Back pain Hyperlipidemia Chronic interstitial cystitis Morbid obesity Dyspnea on exertion Chest pain on exertion Lumbar disc disease Chronic lower back pain Fibromyalgia Hypertension COPD (chronic obstructive pulmonary disease) Anxiety Intraductal papilloma of breast Edema, lower extremity Barretts esophagus GERD (gastroesophageal reflux disease) Tubular adenoma Aortic root dilatation Vitamin D deficiency Obstructive sleep apnea Prediabetes Osteoarthritis of right knee Surgical History Hx of hernia repair History of carpal tunnel surgery of right wrist Hx of total hysterectomy History of partial colectomy Hx of section History of appendectomy H/O colonoscopy History of esophagogastroduodenoscopy (EGD) Hx of cardiac catheterization History of arthroscopy of right knee History of left knee replacement History of tonsillectomy History of cholecystectomy History of lumpectomy of right breast History of lumpectomy of left breast History of bladder suspension procedure Social History Household Members: Spouse Housing: House Are you a primary healthcare administrative assistant to a significant other at home: No Do you presently have visiting nurse or other home services: No Alcohol intake: current Alcohol intake frequency: holidays/special occasions only Patient Tobacco Use Status: Never used Tobacco service: No Physical Exam Vital Signs: BMI result Body Mass Index 48.9 Extrem Other: Right knee examination shows that the surgical incision is well healed, no erythema, range of motion from -3 degrees to 100 degrees, no instability, tenderness over her medial collateral ligament Results Reviewed Results Reviewed: X-rays of the patient's right knee taken previously show a total knee arthroplasty in good position with no signs of loosening, no acute bony abnormalities Assessment & Plan Assessment & Plan (1) Right knee pain: Code(s): M25.561 - Pain in right knee Category: Medical Plan Nalini presents with continued discomfort after undergoing right total knee replacement surgery last year most likely due to medial collateral ligament sprain versus scar tissue formation and inflammation. I had a lengthy discussion with the patient regarding the treatment options. The patient may be a candidate for a nerve stimulation procedure. Thus, I will have her evaluated by Dr. Love from our pain management department. She will contact me prior to that appointment should her symptoms worsen in any way. I spent 20 minutes in reviewing the patient's records and imaging studies, seeing the patient and documenting in the medical record. Orders: Orders XR Knee Danny 3V Today M25.561 - Pain in right knee, M25.562 - Pain in left knee Referrals Pain Management Referral M25.561 - Pain in right knee Coding Level of Care Code Est Pt Level 3 (56428) Complex EM visit Add On G2211 Diagnoses Right knee pain M25.561
[2025-05-24 13:40] VITALS: BMI 48.9
--- OUTSIDE RECORDS SUMMARY | 2025-05-24 14:19 | XMS_ITS | Encounter Summary ---
Author Organization [facility] [place] [address] Care Team Providers Care Sinker Winder Name Role Phone Uche Lassiter MD Primary Care Provider [phone] Reason for Visit * Reason Onset Date Comments Medication Problem 05/02/2025 prior auth 05/02/2025 Encounter Details Date Type Department Care Team (Late st Contact Info) Description 05/02/2025 Telephone Adult Medicine [address] [phone] Uche Lassiter MD [address] [place] [id number] Social History Tobacco Use Types Packs/Day Years Used Date Smoking Tobacco: Never Smokeless Tobacco: Never Alcohol Use Standard Drinks/Week Comments Yes 0 (1 standard drink = 0.6 oz pur e alcohol) Comments No Sex and Gender Information Value Date Recorded Sex Assigned at Female 02/25/2025 11:28 AM EDT Legal Sex Female 6:45 AM EST Gender Identity Female 02/25/2025 11:28 AM EDT Sexual Orientation Straight 02/25/2025 11 :28 AM EDT documented as of this encounter Progress Notes * Rosetta Prather MA - 05/02/2025 3:37 PM EDT PA for OXYCONTIN 20 MG Approved from 05/02/2025 until 05/02/2026 Auth [id number] Patient informed * Rosetta Prather MA - 05/02/2025 2:20 PM EDT PA for OXYCONTIN 20 MG initiated today on CMM Dx M51.9 Clinicals notes uploaded and sent to insurance company awaiting for insurance determination. * Makenna Lindo - 05/02/2025 12:42 PM EDT Prior Authorization for Medication-do not complete and send this encounter unless you have the fax from the pharmacy. Is this a Cover My Meds request: n/a Name of Medication OXYCONTIN 20 MG Dose of Medication see above What is the RX # from the faxed refill? [id number] How does patient take this med? 1 taqb 3x daily What Pharmacy did the fax come from: [facility] fax #: [phone] [employer] Information from fax: What Prescription Plan does the patient have? N/a BIN/PCN if applicable: [id number] Cardholder ID: [id number] Person Code: 01 Relationship Code: 01 Help desk phone: [phone] * iRckie Kat - 05/02/2025 11:20 AM EDT Medication Problem: What is the name of the medication patient is having a problem with?: OxyCONTIN 20 mg 12 hr abuse-deterrent tablet What is the problem?: per patient, she spoke with the pharmacy 18 minutes ago and was told this needs a prior auth. Please review the script that was sent today. Patient has not been able to get thisfilled. Who is calling about the problem? : The patient Is this a NEW medication?: no How long has the patient been taking this medication? ongoing Who prescribed this medication for the patient? PCP Who is patients PCP?: Uche Lassiter MD Payor: Company [employer] / Plan[facility] [employer] [facility] / Product Type: *No Product type* / documented in this encounter Plan of Treatment Upcoming Encounters Date Type Department Care Team (Late st Contact Info) Description 06/03/2025 1:30 PM EDT Hospital Encounter [facility] Endoscopy [address] [place] [phone] Tad Patino DO [address] [place] [address] 07/01/2025 11:00 AM EDT Ancillary Procedure [facility] [address] [facility] [address] [place] [phone] 07/28/2025 10:00 AM EDT Treatment [facility] Occupational Therapy [address] [facility] [address] [place] [phone] Nina Hicks, OTR/L 08/05/2025 8:00 AM EST Office Visit Adult Medicine [address] [phone] Uche Lassiter MD [address] [place] [phone] 09/08/2025 10:40 AM EST Office Visit [facility] Cardiology [facility] Medical [address] [place] [phone] Shanda Juarez NP [address] [place] [address] Dr Krish [address] [place] [phone] 11/14/2025 3:30 PM EST Office Visit Adult Medicine [address] [phone] Uche Lassiter MD [address] [place] [phone] documented as of this encounter Visit Diagnoses Diagnosis Lumbar disc disease Other and unspecified disc disorder of lumbar region documented in this encounter Care Teams Sinker Winder Relationship Specialty Start Date End Date Uche Lassiter MD [address] [place] [id number] PCP - General Internal Medicine 01/18/14 documented as of this encounter
--- OUTSIDE RECORDS SUMMARY | 2025-05-24 14:19 | XMS_ITS | Clinical Summary ---
Author Organization [facility] Address [address] [place] [address] Care Team Providers Care Lime Burner Name Role Phone Uche Lassiter MD Primary Care Provider [phone] Allergies Active Allergy Reactions Criticality Noted Date [...] ( season) 2024 01/24/2021 Influenza Vaccine (#1) 2025 0, 07/09/2019, 07/09/2018, Additional history exists Shingrix-Zoster Vaccine Completed 11/26/2019, 07/20 Pneumococcal Vaccine Aged Out No long er eligible based on patient's age to complete this topic RSV Ped < 20 months Aged Out No longe r eligible based on patient's age to complete this topic Care Teams Lime Burner Relationship Specialty Start Date End Date Uche Lassiter MD PCP - General Internal Medicine 03/25/22
--- OUTSIDE RECORDS SUMMARY | 2025-05-24 14:19 | XMS_ITS ---
Author Name [facility] Organization Unknown Care Team Organization Name Specialty Phone Email Start Date End Da te [facility] TEJA RUDY Primary Care 08/06/2022 4
--- OUTSIDE RECORDS SUMMARY | 2025-05-24 14:20 | XMS_ITS | Clinical Summary ---
Author Organization [facility] Address [address] [place] [phone] Phone Care Team Providers Care Profile Saw Operator Name Role Phone Uche Lassiter MD Primary Care Provider [phone] Allergies Active Allergy Reactions Criticality Noted Date Comments Cephalexin 08/11/2024 Gabapentin Palpitations Low 04/12/2014 somnolence Morphine Hives,Swelling 01/25/2014 feet Nitrofurantoin Monohyd/M-Cryst Rash Low 04/02 Penicillins Rash,Swelling 01/25/2014 feet Sulfa (Sulfonamide Antibiotics) Rash Low 01/2017 Sulfamethoxazole-Trimethoprim Rash,Swelling feet Medications naloxone ([facility] naloxone) 2 mg/2 mL syringe kit Inject 2 mL as directed if needed. 07/17/20 22 Active Combivent Respimat 20-100 mcg/actuation inhaler Inhale 1 puff by mouth 2 (two) times a day. 07/29/20 17 Active cholecalcifero l (VITAMIN D-3) 50 mcg (2,000 unit) tablet Take 1 tablet (2,000 Units total) by mouth 1 (one) time each day. 07/14/20 24 Active amLODIPine (NORVASC) 5 mg tablet Take 1 tablet (5 mg total) by mouth 1 (one) time each day. 08/11/20 23 Active ammonium lactate (AMLACTIN) 12 % cream Apply topically if needed. 07/23/20 24 Active chlorhexidine (HIBICLENS) 4 % external liquid 07/23/20 24 Active clindamycin (CLEOCIN) 300 mg capsule 06/16/20 24 Active hydrocortisone 2.5 % cream 08/05/20 24 Active ticagrelor (Brilinta) 90 mg tablet TAKE ONE TABLET BY MOUTH TWICE A DAY 180 tablet 1 09/15/20 24 Active fluticasone propionate (FLONASE) 50 mcg/actuation nasal spray Administer 2 sprays into each nostril 1 (one) time each day. 16 g 10/13/19 25 Active prochlorperazi ne (COMPAZINE) 10 mg tablet Take 1 tablet (10 mg total) by mouth every 6 (six) hours if needed for nausea. 30 tablet 1 11/16/19 25 Active rosuvastatin (CRESTOR) 40 mg tablet Take 1 tablet (40 mg total) by mouth at bedtime. 90 tablet 1 11/16/19 25 Active aspirin 81 mg EC tablet Take 1 tablet (81 mg total) by mouth 1 (one) time each day. 90 tablet 1 11/16/19 25 Active roflumilast (DALIRESP) 500 mcg tablet Take 1 tablet (500 mcg total) by mouth 1 (one) time each day. 90 tablet 1 11/16/19 25 Active nitroglycerin (NITROSTAT) 0.[address] 1 TABLET UNDER TONGUE EVERY 5 MINUTES IF NEEDED FOR CHEST PAIN 25 tablet 2 12/04/19 25 Active polyethylene glycol (Golytely) 236-22.74-6.74 -5.86 gram solution Take 4L by mouth once for one dose. May substitue any PEG. Starting at 6PM the night before your procedure drink 1 8oz glasses at your own pace until you complete half of the gallon. Finish 2nd half of the gallon 5 hours before your procedure. 4000 mL 02/23/20 25 Active bisacodyL (DULCOLAX) 5 mg EC tablet Take 2 tablets by mouth right before beginning bowel prep. See instructions provided by the office 2 tablet 02/23/20 25 Active bisacodyL (DULCOLAX) 5 mg EC tablet Take 2 tablets by mouth right before beginning bowel prep. See instructions provided by the office 2 tablet 02/23/20 25 Active polyethylene glycol (MIRALAX) 17 gram packet Empty 8 ounces of Miralax into 128 ounces (1 gallon) of Gatorade, mix well. Starting at 4pm the night before procedure drink as tolerated until half of the total amount is completed. Give 4 hours break, then finish the remainder 227 g 02/23/20 25 Active cholecalcifero l (VITAMIN D-3) 50 mcg (2,000 unit) tablet Take 1 tablet (2,000 Units total) by mouth 1 (one) time each day. 90 tablet 1 04/22/20 25 Active atenoloL (TENORMIN) 100 mg tablet Take 1 tablet (100 mg total) by mouth 1 (one) time each day. 90 tablet 1 04/22/20 25 Active oxyCODONE (ROXICODONE) 10 mg immediate release tabletIndicati ons:Lumbar disc disease Take 1 tablet (10 mg total) by mouth 5 (five) times a day. Max Daily Amount: 50 mg 140 tablet 04/27/20 25 Active dexlansoprazol e (Dexilant) [address] capsuleIndicat ions:Gastroeso phageal reflux disease, unspecified whether esophagitis present Take 1 capsule (60 mg total) by mouth 1 (one) time each day. 90 capsule 1 04/29/20 25 Active omeprazole (PriLOSEC) [address] capsule Take 1 capsule (20 mg total) by mouth 2 (two) times a day. 180 capsule 1 04/29/20 25 Active albuterol HFA (PROAIR HFA ; PROVENTIL HFA ; VENTOLIN HFA) 90 mcg/actuation inhaler Inhale 2 puffs by mouth every 4 (four) hours if needed for wheezing or shortness of breath. 6.7 g 1 04/29/20 25 Active OxyCONTIN 20 mg 12 hr abuse-deterren t tabletIndicati ons:Lumbar disc disease Take 1 tablet (20 mg total) by mouth 3 (three) times a day. Max Daily Amount: 60 mg 87 tablet 05/02/20 25 Active methocarbamoL (ROBAXIN) 500 mg tablet TAKE ONE TABLET BY MOUTH THREE TIMES A DAY 270 tablet 05/11/20 25 Active LORazepam (ATIVAN) 1 mg tablet Take 1 tablet (1 mg total) by mouth 2 (two) times a day. Max Daily Amount: 2 mg 56 tablet 05/18/20 Active albuterol HFA (PROAIR HFA ; PROVENTIL HFA ; VENTOLIN HFA) 90 mcg/actuation inhaler Inhale 2 puffs by mouth every 4 (four) hours if needed. 02/26/202024 Discontinued(R eorder) dexlansoprazol e (Dexilant) [address] capsuleIndicat ions:Gastroeso phageal reflux disease, unspecified whether esophagitis present Take 1 capsule (60 mg total) by mouth 1 (one) time each day. 90 capsule 1 10/13/192024 Discontinued(R eorder) methocarbamoL (ROBAXIN) 500 mg tablet Take 1 tablet (500 mg total) by mouth 3 (three) times a day. 270 tablet 1 11/16/192024 Discontinued omeprazole (PriLOSEC) [address] capsule TAKE ONE CAPSULE BY MOUTH EVERY MORNING BEFORE BREAKFAST 90 capsule 1 01/14/202024 Discontinued(R eorder) oxyCODONE (ROXICODONE) 10 mg immediate release tabletIndicati ons:Lumbar disc disease Take 1 tablet (10 mg total) by mouth 5 (five) times a day. Max Daily Amount: 50 mg 140 tablet 03/30/20 25 2024 Discontinued(R eorder) OxyCONTIN 20 mg 12 hr abuse-deterren t tabletIndicati ons:Lumbar disc disease Take 1 tablet (20 mg total) by mouth 3 (three) times a day. Max Daily Amount: 60 mg 84 tablet 03/30/20 25 2024 Discontinued(R eorder) LORazepam (ATIVAN) 1 mg tablet Take 1 tablet (1 mg total) by mouth 2 (two) times a day. Max Daily Amount: 2 mg 56 tablet 04/20/20 25 2024 Discontinued(R eorder) OxyCONTIN 20 mg 12 hr abuse-deterren t tabletIndicati ons:Lumbar disc disease Take 1 tablet (20 mg total) by mouth 3 (three) times a day. Max Daily Amount: 60 mg 84 tablet 04/27/20 25 2024 Discontinued(R eorder) Active Problems Problem Noted Date Diagnosed Date Chronic bilateral low back pain 01/27/2025 Lumbar disc disease 01/27/2025 Fibromyalgia 01/27/2025 Primary hypertension 01/27/2025 Gastroesophageal reflux disease 10/13/2024 Hyperlipidemia 10/13/2024 Assessment & Plan (12/30/2024 9:13 AM EDT): Most recent labs showing an improvement in her LDL cholesterol, it was 51 in July 2024, which is within her goal range of less than 70. Continue on rosuvastatin. I have reviewed with the patient the importance of a heart healthy lifestyle which includes eating a low-fat low-salt diet, getting regular exercise, maintaining a healthy weight, not smoking, and following up with routine medical care. Prediabetes 10/13/2024 Anxiety 06/22/2014 Encounters Date Type Department Care Team Description 05/06/2025 Telephone Gastroenterology - [place] 175 [facility] 175 [facility] [address] [place] [phone] Criselda Bowman LPN 05/02/2025 Telephone Adult Medicine [address] [phone] Uche Lassiter MD 04/29/2025 8:00 AM EDT Office Visit Adult Medicine [address] [phone] Ju Callahan PA Encounter for long-term (current) use of medications (Primary Dx); Gastroesophageal reflux disease, unspecified whether esophagitis present; Chronic bilateral low back pain, unspecified whether sciatica present; Fibromyalgia; Anxiety; Hyperlipidemia, unspecified hyperlipidemia type; Vitamin D deficiency; Primary hypertension; Prediabetes; Lumbar disc disease; Chronic obstructive pulmonary disease, unspecified COPD type (CMS/HCC V24, CMS/HCC V28); Leg cramps 04/22/2025 Telephone [facility] [address] [place] [address] Rebecca Alcazar MD 04/21/2025 Telephone Adult Medicine [address] [phone] Uche Lassiter MD 03/03/2025 Telephone Gastroenterology [facility] [address] [place] [address] [facility] [address] [place] [address] Sukumar TadDO 02/24/2025 1:00 PM EDT Office Visit Adult [address] [phone] Ju Callahan PA Cellulitis of right lower extremity (Primary Dx); Lymphedema 02/22/2025 Telephone Gastroenterology [facility] [address] [place] [address] [phone] Sabine Wynn MD 02/22/2025 Telephone Adult Medicine [address] [phone] Uche Lassiter MD from Last 3 Months Immunizations Name Administration Dates Next Due kabuku/Retidoc SARS-CoV-2 COVID -19, vector-nr, [id number], preservative free 01/24/2021 Surgical History Surgery Date Site/Laterality Comments BREAST BIOPSY PROCEDURE:BREAST BIOPSY SECTION PROCEDURE: SECTION BLADDER SUSPENSION PROCEDURE:BLADDER SUSPENSION BREAST LUMPECTOMY PROCEDURE:BREAST LUMPECTOMY COLONOSCOPY PROCEDURE:COLONOSCOPY APPENDECTOMY PROCEDURE:APPENDECTOMY HYSTERECTOMY PROCEDURE:HYSTERECTOMY TOTAL KNEE ARTHROPLASTY PROCEDURE:REPLACEMENT TOTAL KNEE;COMMENT:LEFT BLADDER SUSPENSION 2010 PROCEDURE: HISTORICAL BLADDER SUSPENSION; COMMENT: sling; removed due to recurrent UTIs CHOLECYSTECTOMY PROCEDURE: HISTORICAL CHOLECYSTECTOMY APPENDECTOMY PROCEDURE: OK APPENDECTOMY OTHER SURGICAL HISTORY PROCEDURE: OK TOTAL ABDOMINAL HYSTERECT W/WO RMVL TUBE OVARY COLONOSCOPY 2008 PROCEDURE: HISTORICAL COLONOSCOPY; COMMENT: Lisa Mackey. Negative exam. Upper endoscopy done as well. COLONOSCOPY W/ POLYPECTOMY 2013 PROCEDURE: OK COLSC FLX W/RMVL OF TUMOR POLYP LESION SNARE TQ; COMMENT: Diminutive colonic polyps x 3: Tubular adenoma x3. BREAST LUMPECTOMY 2009 Left PROCEDURE: HISTORICAL BREAST LUMPECTOMY; COMMENT: left, benign BREAST LUMPECTOMY 08/30/2014 Right PROCEDURE: HISTORICAL BREAST LUMPECTOMY; COMMENT: intraductal papiloma SECTION PROCEDURE: OK DELIVERY ONLY TONSILLECTOMY PROCEDURE: HISTORICAL TONSILLECTOMY TOTAL KNEE ARTHROPLASTY Left PROCEDURE: OK ARTHRP KNE CONDYLE&PLATU MEDIAL&LAT COMPARTMENTS OTHER SURGICAL HISTORY 03/13/2011 PROCEDURE: OUTSIDE ENDOSCOPY; COMMENT: normal BREAST BIOPSY 2013 Right PROCEDURE: BX BREAST; PERC NEEDLE CORE W/IMAG GUID UPPER GASTROINTESTINAL ENDOSCOPY 12/09/2017 PROCEDURE: OK UPPER GI ENDOSCOPY PERFORMED; COMMENT: esophagitis and Roblero's OTHER SURGICAL HISTORY 01/15/2018 PROCEDURE: OK LAPAROSCOPY COLECTOMY PARTIAL W/ANASTOMOSIS; COMMENT: Laparoscopic transverse colectomy; mobilization of splenic flexure OTHER SURGICAL HISTORY 2018 PROCEDURE: OK LAP RPR HRNA XCPT INCAL/INGUN NCRC8/STRANGULATED; COMMENT: Dr. Del Cid COLONOSCOPY 11/20/2017 PROCEDURE: HISTORICAL COLONOSCOPY; COMMENT: multiple polyps. COLONOSCOPY 08/30/2020 PROCEDURE: HISTORICAL COLONOSCOPY; COMMENT: tubular adenoma UPPER GASTROINTESTINAL ENDOSCOPY 08/30/2020 PROCEDURE: UPPER GI ENDOSCOPY/EXAM; COMMENT: reactive gastropathy and NO Roblero's CARPAL TUNNEL RELEASE 01/30/2022 Right PROCEDURE: OK NEUROPLASTY &/TRANSPOS MEDIAN NRV CARPAL TUNNE; COMMENT: [...] cystitis COPD (chronic obstructive pu lmonary disease) ([facility] V24, [facility] V28) 04/12/2014 DX:COPD (chronic o bstructive pulmonary disease) ([facility]) Hyperlipidemia 04/12/2014 DX:Hyperlipidemi a Chronic low [...] Orientation Straight 02/25/2025 11 :28 AM EDT Obstetrics History Para Term AB IAB SAB Ectopic Multiple Livin g Live Births 2 2 2 2 Date Outcome GA Total Labor Labor/2nd/3rd Weight Sex Type Anes PTL [place] A1 A5 Name Clin Term Term Last Filed Vital Signs Vital Sign Reading Time Taken Comments Blood Pressure 128/78 04/29/2025 8:36 AM EDT Pulse 58 04/29/2025 8:06 AM EDT Temperature 36.6 C (97.9 F) 04/29/2025 8:06 AM EDT Respiratory Rate 15 01/27/2025 3:40 PM EDT Oxygen Saturation 99% 04/29/2025 8:06 AM EDT Inhaled Oxygen Concentration - - Weight 133 kg (293 lb) 04/29/2025 8:06 AM EDT Height 162.6 cm (5' 4.02 ) 04/29/2025 8:06 AM ED T Body Mass Index 50.27 04/29/2025 8:06 AM EDT Plan of Treatment Upcoming Encounters Date Type Department Care Team (Late st Contact Info) Description 06/03/2025 1:30 PM EDT Hospital Encounter [facility] [address] [place] [phone] SukumarTad, DO [address] [place] [phone] 07/01/2025 11:00 AM EDT Ancillary Procedure [facility] [address] [facility] [address] [place] [phone] 07/28/2025 10:00 AM EDT Treatment [facility] Occupational Therapy 175 [facility] [address] [place] [phone] Nina Hicks, OTR/L 08/05/2025 8:00 AM EST Office Visit Adult Medicine [address] [phone] Uche Lassiter MD [address] [place] [phone] 09/08/2025 10:40 AM EST Office Visit [facility] [address] Medical [facility] [address] [place] [phone] Shanda Juarez NP [address] [place] [address] [address] [place] [phone] 11/14/2025 3:30 PM EST Office Visit Adult Medicine [address] [phone] Uche Lassiter MD [address] [place] [phone] Health Maintenance Due Date Last Done Comments DTaP,Tdap,and Td Vaccines (1 - Tdap) 1984 Hepatitis B Vaccines (1 of 3 - 19+ 3-dose series) 1984 Pneumococcal Vaccine: 50+ Years (1 of 2 - PCV) 1984 Colorectal Cancer Screening: Colonoscopy 09/07/2022 HIV Screening 09/07/2022 Hepatitis C Screening 09/07/2022 Social Influencers of Health Screening 09/07/2022 COVID-19 Vaccine (3 - season) 2024 08/12/2021, 01/24/2021 Depression Screening 09/29/2024 Influenza Vaccine (#1) 2025 , 07/03/2023, 07/15/2022, Additional history exists Hypertension/CHF/CAD Annual BMP Blood Test 02/01/2026 02/01/2025, 08/24/2024 Breast Cancer Screening 10/20/2026 10/20/19, 12/04/2020, 11/15/2019, Additional history exists Cholesterol Screening (Lipid Panel) 02/01/2030 02/01/2025, 08/24/2024 RSV Immunization Adult Patients (1 - 1-dose 75+ series) 2040 Zoster Vaccines Completed 11/26/2019, 07/20/2019 HIB Vaccines Aged Out No longer eligi [...] age to complete this topic Meningococcal B Vaccine Aged Out No l onger eligible based on patient's age to complete this topic RSV Immunization Patients Under 20 months Aged Out No longer eligible based on patient's age to complete this topic Varicella Vaccines Aged Out No longer eligible based on patient's age to complete this topic Procedures Procedure Name Priority Date/Time Associated Diagnosis Comments VITAMIN D 25 HYDROXY Routine 05/10/2025 3:05 PM EDT Vitamin D deficiency HEMOGLOBIN A1C Routine 05/10/2025 3:05 PM EDT Prediabetes MAGNESIUM Routine 05/10/2025 3:05 PM EDT Leg cramps COMPREHENSIVE METABOLIC PANEL Routine 02/01/2025 1:08 PM EDT Encounter for long-term (current) use of medications LIPID PANEL WITH REFLEX TO DIRECT LDL Routine 02/01/2025 1:08 PM EDT Pure hypercholesterolemia MG MAMMO DIGITAL DIAGNOSTIC W SATHISH BILAT Routine 10/20/2024 3:46 PM EST Mass of upper outer quadrant of left breast from Last 3 Months or Most Recently Relevant to Health Maintenance Results * (ABNORMAL) Vitamin D 25 hydroxy (05/10/2025 3:05 PM EDT) Vit D, 25-Hydroxy 28.9(L) 30.0 - 80.0 ng/mL LAB CHEMISTRY METHOD 05/10/2025 7:35 PM EDT [facility] Blood Venous blood specimen / Unknown Venipuncture / Unknown 05/10/2025 3:05 PM EDT 05/10/2025 3:05 PM EDT Ju Callahan OR LAB BLOOD ORDERABLES Fi nal Result Performing Organization Address City/[facility]/ZIP Co de Phone Number [facility] [address] [place] [address], [place] [phone] * Magnesium (05/10/2025 3:05 PM EDT) Pathologist [facility] Magnesium 2.0 1.9 - 2.6 mg/dL LAB CHEMISTRY METHOD 05/10/2025 6:19 PM EDT [facility] Blood Venous blood specimen / Unknown Venipuncture / Unknown 05/10/2025 3:05 PM EDT 05/10/2025 3:05 PM EDT [facility] BLOOD ORDERABLES Fi nal Result [facility] [address] [place] [address], * Hemoglobin A1c (05/10/2025 3:05 PM EDT) [facility] Hemoglobin A1C 6.0 <6.5 % LAB CHEMISTRY METHOD 05/10/2025 8:23 PM EDT [facility] Mean Bld Glu Estim. 126 mg/dL LAB CHEMISTRY METHOD 05/10/2025 8:23 PM EDT [facility] Blood Venous blood specimen / Unknown Venipuncture / Unknown 05/10/2025 3:05 PM EDT 05/10/2025 3:05 PM EDT Ju HUMPHREY LAB BLOOD ORDERABLES Fi nal Result Performing Organization Address [facility]/ZIP Co de Phone Number [facility] [address] [place] [address], [place] [phone] * (ABNORMAL) Lipid panel with reflex to direct LDL (02/01/2025 1:08 PM EDT) [facility] Cholesterol 131 0 - 200 mg/dL LAB CHEMISTRY METHOD 02/01/2025 5:59 PM EDT [facility] Triglycerides 224(H) 0 - 150 mg/dL LAB CHEMISTRY METHOD 02/01/2025 5:59 PM EDT [facility] HDL 49 >=40 mg/dL LAB CHEMISTRY METHOD 02/01/2025 5:59 PM EDT [facility] LDL Calculated 37 0 - 100 mg/dL LAB CHEMISTRY METHOD 02/01/2025 5:59 PM EDT [facility] VLDL Cholesterol Sukumar 44.8 mg/dL LAB CHEMISTRY METHOD 02/01/2025 5:59 PM EDT [facility] Non HDL Chol. (LDL+VLDL) 82 <145 mg/dL LAB CHEMISTRY METHOD 02/01/2025 5:59 PM [facility] Chol/HDL Ratio 2.7 0.0 - 4.4 LAB CHEMISTRY METHOD 02/01/2025 5:59 PM [facility] Blood Venous blood specimen / Unknown Venipuncture / Unknown 02/01/2025 1:08 PM EDT 02/01/2025 1:08 PM EDT us Uche Lassiter MD LAB BLOOD ORDERABLES Final Resu lt [facility] [address] [place] [address], * (ABNORMAL) Comprehensive metabolic panel (02/01/2025 1:08 PM EDT) Sodium 138 133 - 145 mmol/L LAB CHEMISTRY METHOD 02/01/2025 6:02 PM [facility] Potassium 3.8 3.5 - 5.5 mmol/L LAB CHEMISTRY METHOD 02/01/2025 6:02 PM [facility] Chloride 103 96 - 110 mmol/L LAB CHEMISTRY METHOD 02/01/2025 6:02 PM [facility] CO2 29 21 - 32 mmol/L LAB CHEMISTRY METHOD 02/01/2025 6:02 PM [facility] Anion Gap 6 3 - 11 LAB CHEMISTRY METHOD 02/01/2025 6:02 PM [facility] Glucose 124(H) 70 - 100 mg/dL LAB CHEMISTRY METHOD 02/01/2025 6:02 PM [facility] BUN 13 5 - 25 mg/dL LAB CHEMISTRY METHOD 02/01/2025 6:02 PM [facility] Creatinine 0.82 0.50 - 1.10 mg/dL LAB CHEMISTRY METHOD 02/01/2025 6:02 PM [facility] eGFR 83 >=60 mL/min/1. 73m2 LAB CHEMISTRY METHOD 02/01/2025 6:02 PM T [facility] Comment:Calculation based on the Chronic Kidney Disease Epidemiology Collaboration (CKD-EPI) equation refit without adjustment for race. BUN/Creatinine Ratio 15.9 LAB CHEMISTRY METHOD 02/01/2025 6:02 PM [facility] Calcium 9.5 8.5 - 10.5 mg/dL LAB CHEMISTRY METHOD 02/01/2025 6:02 PM [facility] AST (SGOT) 12 10 - 42 unit/L LAB CHEMISTRY METHOD 02/01/2025 6:02 PM [facility] ALT (SGPT) 23 10 - 60 unit/L LAB CHEMISTRY METHOD 02/01/2025 6:02 PM [facility] Alkaline Phosphatase 111 42 - 121 unit/L LAB CHEMISTRY METHOD 02/01/2025 6:02 PM [facility] Total Protein 7.1 6.0 - 8.0 g/dL LAB CHEMISTRY METHOD 02/01/2025 6:02 PM [facility] Albumin 3.9 3.2 - 5.0 g/dL LAB CHEMISTRY METHOD 02/01/2025 6:02 PM [facility] Total Bilirubin 0.5 0.0 - 1.4 mg/dL LAB CHEMISTRY METHOD 02/01/2025 6:02 PM [facility] Blood Venous blood specimen / Unknown Venipuncture / Unknown 02/01/2025 1:08 PM EDT 02/01/2025 1:08 PM EDT us Uche Lassiter MD LAB BLOOD ORDERABLES Final Resu lt [facility] [address] [place] [address], [place] [phone] * MG Mammo Digital Diagnostic w Sathish bilat (10/20/2024 3:46 PM EST) Anatomical Region Laterality Modality Breast Bilateral Mammography 10/20/2024 4:11 PM EST Impressions 10/20/2024 4:21 PM EST RIGHT BREAST: Benign, no evidence of malignancy. Normal interval follow-up is recommended in 12 months. LEFT BREAST: Palpable concern correlates with a simple cyst at 2 o'clock position 6 cm from the nipple. Benign, no evidence of malignancy. Continued clinical follow-up is recommended for the palpable concern, independent of the imaging findings. Otherwise, normal interval follow-up mammogram is recommended in 12 months. Findings and recommendations were discussed with the patient following completion of the studies. BREAST DENSITY: C - The breasts are heterogeneously dense which may obscure small masses. BI-RADS CATEGORY: 2 - BENIGN RECOMMENDATION: Mammography: Screening bilateral mammogram is recommended in 1 year. Clinical management of left breast is recommended. Ultrasound: Screening bilateral mammogram is recommended in 1 year. Mammo Location: [facility], [address] [place] [address], [id number], . -------- FINAL REPORT -------- Dictated By: Ed Alvarez Dictated Date: 10/20/2024 16:11 ET Assigned Physician: Ed Alvarez Reviewed and Electronically Signed By: Ed Alvarez Signed Date: 10/20/2024 16:21 ET Workstation ID: [id number] Transcribed By: Self Edit Transcribed Date: 10/20/2024 [...] and read in conjunction with computer-aided detection. Tomosynthesis as well as 2-D C view imaging were obtained. COMPARISON: Comparison made to multiple prior, most recent December 04, 2020, and most remote January 11, 2014. RIGHT BREAST: Tissue marker from previous and core biopsy. History of previous excisional biopsy. No significant masses, suspicious calcifications or other abnormalities are seen. LEFT BREAST: 2 tissue markers in the upper-outer quadrant placed at the [facility] following ultrasound-guided needle core biopsy on April 05, 2020. History of previous excisional biopsy. No definitely suspicious mammographic finding subadjacent to the triangular skin marker placed in the upper-outer quadrant middle depth. No suspicious calcifications or other abnormalities are seen. Targeted ultrasound of the left breast was performed at the location of the palpable concern. The survey shows a 1.3 cm x 0.7 cm x 1.2 cm simple cyst at 2 o'clock position 6 cm from the nipple. No internal vascularity demonstrated with color Doppler evaluation. [...] markers in the upper-outer quadrant placed at [facility] following ultrasound-guided needle core biopsy onApril [...] is recommended in 1 year. Mammo Location: [facility], [address] [place] [address], [id number], . -------- FINAL REPORT -------- Dictated By: Ed Alvarez Dictated Date: 10/20/2024 16:11 ET Assigned Physician: Ed Alvarez Reviewed and Electronically Signed By: Ed Alvarez Signed Date: 10/20/2024 16:21 ET Workstation ID: [id number] Transcribed By: Self Edit Transcribed Date: 10/20/2024 16:20 ET Ju HUMPHREY IMG BI PROCEDURES Final Result from Last 3 Months or Most Recently Relevant to Health Maintenance Insurance [facility] Care Teams Profile Saw Operator Relationship Specialty Start Date End Date Uche Lassiter MD [address] [place] [id number] PCP - General Internal Medicine 01/18/14
--- OUTSIDE RECORDS SUMMARY | 2025-05-24 14:20 | XMS_ITS | Clinical Summary ---
Author Organization [facility] Address [address] [place] [address] Care Team Providers Care Dispatch Clerk Name Role Phone Maikol MAHAN MD, Uche [...] 66 04/11/2022 3:38 PM EDT Temperature 37 C (98.6 F) 04/11/2022 3:38 PM EDT Respiratory Rate 18 [...] Adults 18 yrs or above (or HM Modifier)([facility]) 1983 Hepatitis C Virus Infection in Adolescents and Adults: Screening (or Modifier) ([facility]) 1983 SDOH Screening Reminder: Guillermina aballsusan for all adults ([facility]) 1983 Tobacco Smoking Cessation: i n Adults excluding Women: Behavioral and Pharmacotherapy Interventions ([facility]) 1983 DTaP/Tdap/Td Vaccines ([facility]) (1 - Tdap) 1984 Breast Cancer: Screening Guillermina ually age 50-74 yrs (or HM Modifier)([facility]) 2015 Pneumococcal Vaccination Scr eening: Patients 50+ yrs of age ([facility]) (1 of 1 - PCV) 2015 COVID-19 Vaccine Screening: Initial Series and Booster Status ([facility]) (2 - season) 2024 01/24/2021 Flu Vaccination: Yearly for ages 18mos through 64 years (or Modifier)([facility]) 04/29/2025 07/19/2020 Zoster/Shingles Vaccine Seri es Screening: Adults aged 18+ yrs (or HM Modifiers)([facility]) Completed 11/26/2019, 07/20/2019 Medical Devices Not on file Insurance [facility] Care Teams Dispatch Clerk Relationship Specialty Start Date End Date Uche Lassiter III, MD [address] [place] [address] PCP - Senior Qa Analyst 04/02/17
--- OUTSIDE RECORDS SUMMARY | 2025-05-24 14:20 | XMS_ITS | Encounter Summary ---
Author Organization [facility] [place] [address] Care Team Providers Care Round Cutter Operator Name Role Phone Uche Lassiter MD Primary Care Provider [phone] Reason for Visit * Reason Onset Date Comments prior auth 04/21/2025 This is a breath ing medication for patient - has been out for over a week Encounter Details Date Type Department Care Team (Late st Contact Info) Description 04/21/2025 Telephone Adult Medicine [address] [phone] Uche Lassiter MD [address] [place] [address] Social History Tobacco Use Types Packs/Day Years [...] as of this encounter Progress Notes * Uche Lassiter MD - 04/27/2025 9:17 AM EDT Noted will have to discuss with patient at next visit, patient if not currently should be followingwith pulm * Rosetta Prather MA - 04/25/2025 4:27 PM EDT PA for roflumilast DENIED FORMULARY Anoro ,bevespy, duarklir, sticathleen,carminetri * Rosetta Prather MA - 04/25/2025 2:49 PM EDT PA for roflumilast iitiated on cmm Dx sob * Makenna Lindo - 04/22/2025 2:20 PM EDT Patient states this is her breathing medication and has been without for 2 weeks. Asking that this be done CIRO Prior Authorization for Medication-do not complete and send this encounter unless you have the fax from the pharmacy. Is this a Cover My Meds request: Yes -- Andrea Code [id number] Name of Medication roflumilast (DALIRESP) 500 mcg tablet Dose of Medication 500 mcg What is the RX # from the faxed refill? N/A How does patient take this med? 1 per day What Pharmacy did the fax come from: [facility] fax #: [phone] [employer] Party Information from fax: What Prescription Plan does the patient have? N/a BIN/PCN if applicable: [id number]/[place] Cardholder ID: [id number] Person Code: 1 Relationship Code: 01 Help desk phone: [phone] * Pat Kat - 04/21/2025 4:26 PM EDT Medication Problem: What is the name of the medication patient is having a problem with?: roflumilast (DALIRESP) 500 mcg tablet What is the problem?: the patient asked that we put in a message regarding this because she has been waiting for a PA for two weeks. Alberta S[facility] [place] has just refaxed the request a few minutes ago. Patient is asking for this to get processed ciro as she needs this for breathing. Who is calling about the problem? : The patient Is this a NEW medication?: no How long has the patient been taking this medication? 10 years or more Who prescribed this medication for the patient? PCP Who is patients PCP?: Uche Lassiter MD Payor: [employer] PLAN / Plan: [facility] MEDICAID / Product Type: *No Product type* / documented in this encounter Plan of Treatment Upcoming Encounters Date Type Department Care Team (Late st Contact Info) Description 06/03/2025 1:30 PM EDT Hospital Encounter [facility] [address] [place] [phone] Tad Patino DO [address] [place] [address] 07/01/2025 11:00 AM EDT Ancillary Procedure [facility] 101 [address] [facility] [address] [place] [phone] 07/28/2025 10:00 AM EDT Treatment [facility] Occupational Therapy [address] [facility] [address] [place] [phone] Nina Hicks, OTR/L 08/05/2025 8:00 AM EST Office Visit Adult Medicine [address] [address] Uche Lassiter MD [address] [place] [address] [phone] 09/08/2025 10:40 AM EST Office Visit [facility] 2 [facility] [address] Cynthia [address] [place] [phone] Shanda Juarez, FLORY [address] [place] [address] Dr Krish [address] [place] [address] 11/14/2025 3:30 PM EST Office Visit Adult Medicine [address] [address] Uche Lassiter MD [address] [place] [address] documented as of this encounter Visit Diagnoses Not on filedocumented in this encounter Care Teams Round Cutter Operator Relationship Specialty Start Date End Date Uche Lassiter MD [address] [place] [address] [phone] PCP - General Internal Medicine 01/18/14 documented as of this encounter
== END 2025-05-24 13:59 | disposition home or self-care (01) ==
LOC: HO.HOS 13:25
PROVIDERS: PCP Internal Medicine; Visit Provider Orthopaedic Surgery
DX: M25.561 Pain in right knee (principal)
CPT/HCPCS: 99213

== ENCOUNTER → 2025-05-24 13:27 | Outpatient (BNV) | payer OTHER, SELFPAY | PROVIDERS: Visit Provider Radiology Diagnostic Radiology | DX: M25.561 Pain in right knee (principal); M25.562 Pain in left knee; Z96.653 Presence of artificial knee joint, bilateral | CPT/HCPCS: 73562 ==